=== PATIENT | male | born 1935 ===

== ENCOUNTER 2016-12-21 18:53 | Inpatient (IN) | payer MEDICARE, MEDICAID ==
[2016-12-21 18:54] VITALS: BMI 46.7
--- NOTE | 2016-12-21 19:59 | C.PDOC ---
History Of Present Illness 80 y/o male, PMHx includes Down's syndrome, [facility]. History obtained from daughter at bedside who reports the patient fell [facility] the [facility] 2 days ago (12/19/16). Daughter states patient had no pain at the time of fall but c/o pain today around the right knee. X-ray was performed, with possible distal right femur fracture. Denies head injury, fever, chills, nausea, vomiting, or other complaints. Time Seen by Provider: 12/21/16 19:58 Chief Complaint (Nursing): Lower Extremity Problem/Injury History Per: Family History/Exam Limitations: clinical condition Onset/Duration Of Symptoms: Days (2) Current Symptoms Are (Timing): Still Present Severity: Mild Pain Scale Rating Of: 4 Recent travel outside of the [place]: No Past Medical History Reviewed: Historical Data, Nursing Documentation, Vital Signs Vital Signs: Last Vital Signs Temp 98 F 12/21/16 19:31 Pulse 86 12/21/16 19:31 Resp 18 12/21/16 19:31 BP 128/53 L 12/21/16 19:31 Pulse Ox 98 12/21/16 20:47 - Medical History PMH: HTN, Hypercholesterolemia, Chronic Kidney Disease Other PMH: Down's syndrome - [facility] Procedures CHANGE DRAINAGE DEVICE IN BLADDER, EXTERNAL APPROACH (10/05/16) INSERTION OF INFUSION DEV INTO SUP VENA CAVA, PERC APPROACH (10/05/16) Family History: States: Unknown Family Hx - Social History Hx Tobacco Use: No Hx Alcohol Use: No Hx Substance Use: No - Immunization History Hx Tetanus Toxoid Vaccination: Yes Hx Influenza Vaccination: Yes Hx Pneumococcal Vaccination: Yes Review Of Systems Review Of Systems: ROS cannot be obtained secondary to pt's inabilty to answer questions. Physical Exam - Physical Exam Appears: Non-toxic, No Acute Distress Skin: Warm, Dry Chest: Symmetrical Cardiovascular: Rhythm Regular Respiratory: No Accessory Muscle Use, No Rales, No Rhonchi, No Wheezing Extremity: Tenderness (mild tenderness with movement of right knee), Capillary Refill (< 2 sec. ), No Deformity, Swelling (right knee, mild) Extremity: Bilateral: Normal Color And Temperature Pulses: Right Femoral: Normal, Right Dorsalis Pedis: Normal Neurological/Psych: Other (responds to painful stimuli R leg ) ED Course And Treatment ECG: Interpreted By Me, Viewed By Me ECG Rhythm: Nonspecific Changes O2 Sat by Pulse Oximetry: 98 (RA) Pulse Ox Interpretation: Normal - Radiology CXR: Interpreted by Me, Viewed By Me CXR Interpretation: No: Infiltrates, Fracture, Pnemothorax - Other Rad femur X-Ray: Interpreted by Me, Viewed By Me Interpretation: distal r non displaced fracture Progress Note: R femur XR, CxR, bloodwork, IVFs, Tylenol. Disposition Discussed With Dr.: Ranjan Rivero Comment: accepted the pt on his service and took over the care at 8:43 PM Doctor Will See Patient In The: Hospital Counseled Patient/Family Regarding: Studies Performed, Diagnosis - Disposition Disposition: HOSPITALIZED Disposition Time: 19:59 Condition: FAIR - POA Present On Arrival: Falls Or Trauma - Clinical Impression Clinical Impression: Fracture, femur, distal - Scribe Statement The provider has reviewed the documentation as recorded by the Scribe Jonathan Adler Provider Scribe Attestation: All medical record entries made by the Scribe were at my direction and personally dictated by me. I have reviewed the chart and agree that the record accurately reflects my personal performance of the history, physical exam, medical decision making, and the department course for this patient. I have also personally directed, reviewed, and agree with the discharge instructions and disposition. Decision To Admit - Pt Status Changed To: Hospital Disposition Of: Inpatient - Admit Certification Admit to Inpatient:: After my assessment, the patient will require hospitalization for at least two midnights. This is because of the severity of symptoms shown, intensity of services needed, and/or the medical risk in this patient being treated as an outpatient. - InPatient: Physician Admission Certification: I certify that this patient requires 2 or more midnights of care for the following reason:: After my assessment, the patient will require hospitalization for at least two midnights. This is because of the severity of symptoms shown, intensity of services needed, and/or the medical risk in this patient being treated as an outpatient. - . Bed Request Type: Regular Admitting Physician: Ranjan Rivero Patient Diagnosis: Fracture, femur, distal
[2016-12-21 20:54] LABS: CHLORIDE 90 mmol/L (98-107); SODIUM 126 mmol/L (132-148)
[2016-12-21 20:56] LABS: ALB/GLOB RATIO 0.9 (1.0-2.1); ALKALINE PHOSPHATASE 62 U/L (38-126); AST/SGOT 40 U/L (17-59); BILIRUBIN,TOTAL 0.7 mg/dL (0.2-1.3); CARBON DIOXIDE 22 mmol/L (22-30); GFR AFRICAN-AMERICAN > 60; TOTAL PROTEIN 7.1 g/dL (6.3-8.3)
[2016-12-21 20:57] LABS: ALT/SGPT 18 U/L (21-72); BLOOD UREA NITROGEN 17 mg/dL (9-20); GLUCOSE,RANDOM 167 mg/dL (75-110)
[2016-12-21] MEDS: Sodium Chloride 0.9% 1,000 ML IV SCH (21:32)
[2016-12-21 21:38] LABS: BASO # 0.1 K/uL (0.0-0.2); BASO % 0.9 % (0.0-2.0); EOS # 0.5 K/uL (0.0-0.7); EOS % 6.6 % (0.0-4.0); HEMATOCRIT 32.9 % (35.0-51.0); LYMPH # 1.3 K/uL (1.0-4.3); LYMPH % 16.1 % (20.0-40.0); MEAN CELL VOLUME 88.7 fL (80.0-94.0); MEAN CORPUSCULAR HEMOGLOBIN 28.3 pg (27.0-31.0); MEAN PLATELET VOLUME 7.7 fL (7.2-11.7); MONO # 0.8 K/uL (0.0-0.8); MONO % 10.3 % (0.0-10.0); RED CELL DISTRIBUTION WIDTH 14.3 % (11.5-14.5); WHITE BLOOD COUNT 8.2 K/uL (4.8-10.8)
[2016-12-21 21:45] LABS: INR 1.1
--- NOTE | 2016-12-22 08:22 | RAD ---
PROCEDURE: CHEST RADIOGRAPH, 1 VIEW HISTORY: Shortness of breath COMPARISON: 10/15/2016 FINDINGS: LUNGS: Mild venous congestion. Minimal patchy left basilar airspace opacity with question trace left pleural effusion. PLEURA: As above. CARDIOVASCULAR: Cardiomegaly. OSSEOUS STRUCTURES: Degenerative changes in the bilateral shoulders. VISUALIZED UPPER ABDOMEN: Normal. OTHER FINDINGS: None. IMPRESSION: Mild venous congestion. Minimal patchy left basilar airspace opacity with question trace left pleural effusion.
[2016-12-22] MEDS: Sodium Chloride 0.9% 1,000 ML IV SCH ×2 (08:36→20:00)
[2016-12-22] MEDS: Enoxaparin 30 mg Syringe SC SCH ×2 (10:31→21:22)
--- NOTE | 2016-12-22 11:41 | CP.PCM.CON ---
History of Present Illness - History of Present Illness History of Present Illness: Orthopedic consultation requested Dr. Boogie for knee pain 80M complains of right knee pain after fall 2 days ago reported by niece. She says her uncle does not complain much and has high tolerance of pain. Patient is [facility] resident, and non ambulatory. Niece says he does sit in wheelchair most of the time. He is able to answer some yes and no to questions appropriately during exam by nodding head. Review of Systems - Review of Systems Systems not reviewed;Unavailable: Other (non verbal) Past Patient History - Infectious Disease Hx of Infectious Diseases: None - Past Medical History & Family History Past Medical History?: Yes Past Family History: Reviewed and not pertinent - Past Social History Smoking Status: Never Smoked - CARDIAC Hx Hypercholesterolemia: Yes Hx Hypertension: Yes - PULMONARY Hx Respiratory Disorders: No - NEUROLOGICAL Hx Neurological Disorder: Yes Other/Comment: down syndrome,developmental delay - HEENT Hx HEENT Problems: No - RENAL Hx Chronic Kidney Disease: Yes - ENDOCRINE/METABOLIC Hx Endocrine Disorders: No - HEMATOLOGICAL/ONCOLOGICAL Hx Blood Disorders: No - INTEGUMENTARY Hx Dermatological Problems: No - MUSCULOSKELETAL/RHEUMATOLOGICAL Hx Falls: Yes - GASTROINTESTINAL Hx Gastrointestinal Disorders: No - GENITOURINARY/GYNECOLOGICAL Hx Genitourinary Disorders: Yes Hx Urinary Tract Infection: Yes (hx chronic UTI) Other/Comment: suprapubic catheter. x 1 year ,hx urinary retention - PSYCHIATRIC Hx Substance Use: No - SURGICAL HISTORY Hx Surgeries: Yes Other/Comment: hx lt nephrostomy tube - ANESTHESIA Hx Anesthesia: Yes Hx Anesthesia Reactions: No Meds Allergies/Adverse Reactions: Allergies Allergy/AdvReac Type Severity Reaction Status Date / Time ceftriaxone sodium AdvReac Severe ANAPHYLAXIS Verified 10/15/16 20:13 [From Rocephin] - Medications Medications: Current Medications Acetaminophen (Tylenol 325mg Tab) 650 mg PO Q6 PRN PRN Reason: Pain, Mild (1-3) Last Admin: 12/22/16 10:31 Dose: 650 mg Enoxaparin Sodium (Lovenox) 30 mg SC 1000,2200 [facility] Last Admin: 12/22/16 10:31 Dose: 30 mg Famotidine (Pepcid) 20 mg PO DAILY [facility] Last Admin: 12/22/16 10:31 Dose: 20 mg Sodium Chloride (Sodium Chloride 0.9%) 1,000 mls @ 100 mls/hr IV .Q10H [facility] Last Admin: 12/22/16 08:36 Dose: 100 mls/hr Losartan Potassium (Cozaar) 25 mg PO DAILY [facility] Last Admin: 12/22/16 10:30 Dose: 25 mg Physical Exam - Constitutional Appears: No Acute Distress - Head Exam Head Exam: ATRAUMATIC, NORMAL INSPECTION - Respiratory Exam Respiratory Exam: NORMAL BREATHING PATTERN - Cardiovascular Exam Additional comments: calves soft NT neg homans +DP pulse RLE - Extremities Exam Additional comments: BUE and LLE no obvious swelling/deformity/discoloration Noted mild swelling superior to right knee, TTP to same knees contracted. minimal PROM, flexed to approx 75 degrees patient not splinted in ER, splint applied at bedside, long leg anterior and posterior splints placed inclusive of ankle. toes warm, good cap refill post splinting - Neurological Exam Neurological exam: Alert - Skin Skin Exam: Dry, Intact, Normal Color, Warm Results - Vital Signs Recent Vital Signs: Last Vital Signs Temp 97.6 F 12/22/16 08:27 Pulse 74 12/22/16 08:27 Resp 18 12/22/16 08:27 BP 106/65 12/22/16 08:27 Pulse Ox 99 12/22/16 08:27 - Labs Result Diagrams: 12/21/16 21:33 12/21/16 20:39 Labs: Laboratory Results - last 24 hr 12/21/16 21:33 WBC 8.2 RBC 3.71 L Hgb 10.5 L Hct 32.9 L MCV 88.7 MCH 28.3 MCHC 32.0 L RDW 14.3 Plt Count 185 MPV 7.7 Neut % (Auto) 66.1 Lymph % (Auto) 16.1 L Ward % (Auto) 10.3 H Eos % (Auto) 6.6 H Baso % (Auto) 0.9 Neut # 5.4 Lymph # 1.3 Ward # 0.8 Eos # 0.5 Baso # 0.1 PT 12.0 INR 1.1 APTT 28 Assessment & Plan (1) Fracture of femur, distal, right, closed Status: Acute Comment: well padded long leg splint applied. Patient comfortable after splinting and denies pain. non operative per Dr. Boogie, patient non ambulatory. will attempt CT as imaging suboptimal. orthopedically stable for d /c back to [place]. keep splint dry and intact. elevate foot on pillows for comfort , keep pressure off right heel. f/u [address] Boogie, call for appointment. d/w Dr. Boogie, agrees with above Radiology Interpretation - Frame Cleaner Frame Cleaner:: Hand Picker - Study type Study type:: Plain films - Body Region Body Region:: Lower extremeties - Interpretation Interpretation:: Abnormal - Radiology Interpretation #2 Interpretation: right femur, 2 views xrays show Minimally displaced right distal femur fracture , appears intraarticular. Imaging limited due to flexion contracture. Procedures Attestation:: I certify that I have explained the specified Operation(s) or Procedure(s), risks, benefits and reasonable alternatives to the Patient and/or other person responsible. The opportunity was given to ask questions and all questions answered - Orthopedic Splinting/Casting Injury #1 Side: right Lower Extremity Injury Location: upper leg Lower Extremity Immobilizer: posterior splint (long leg posterior and anterior orthoglass splint, inclusive of ankle with DF, in position of comfort of knee approx 80 degrees)
--- NOTE | 2016-12-22 12:58 | RAD ---
PROCEDURE: Right Femur Radiographs. HISTORY: fall, attention distal 09/26 COMPARISON: None. TECHNIQUE: AP and Lateral Radiographs of the right femur. FINDINGS: FEMUR: Likely extending to the intercondylar notch. Advanced degenerative changes at the right knee. SOFT TISSUES: Normal. OTHER FINDINGS: None. IMPRESSION: Nondisplaced fracture at the distal right femur shaft extending to the intercondylar notch. Advanced degenerative changes at the right knee and possible right knee joint effusion.
[2016-12-22 16:37] VITALS: RESP 20
--- NOTE | 2016-12-22 17:25 | CT ---
PROCEDURE: CT right lower extremity HISTORY: right distal femur fracture COMPARISON: Not available TECHNIQUE: 2.5 mm contiguous axial sections were acquired through the right lower extremity from the pelvis to the proximal tibia. Sagittal and coronal images were reformatted from the axial scan. Total exam DLP: 1236.13 mGy-cm. This CT exam was performed using 1 or more of the following dose reduction techniques: Automated exposure control, adjustment of the mA and/or kV according to patient size, and/or use of iterative reconstruction technique. FINDINGS: There is an oblique nondisplaced comminuted intra-articular fracture of the distal femur. The major portion of the fracture extends through the medial condyles and at the condyles. There is also extension of the fracture along the anterior cortical surface of the distal femur to the right lateral condyles. There is minimal displacement. There is no other fracture identified. The hip is intact. The proximal tibia and fibula appear intact. There is minimal suprapatellar bursal effusion. IMPRESSION: Non displaced oblique comminuted intra-articular fracture distal right femur.
--- NOTE | 2016-12-23 | CP.PCM.HP ---
History of Present Illness - History of Present Illness History of Present Illness: Cheif complain: fall and pain in Right LE HPI: 80 y/o hispnic male, PMHx includes Down's syndrome, HTN, obstructive uropathy with suprapubuc cystostomy who is a current resident of [facility], [facility]. History obtained from daughter at bedside who reports the patient [facility] 2 days ago (12/19/16) . Daughter states patient had no pain at the time of fall but c/o pain today around the right knee. X-ray was performed, with possible distal right femur fracture. Denies head injury, fever, chills, nausea, vomiting, or other complaints Present on Admission - Present on Admission Any Indicators Present on Admission: No Review of Systems - Review of Systems Systems not reviewed;Unavailable: Acuity of Condition Review of Systems: pt is non verbal, no apparent shortness of breath, nausea, vomitting, duarhea, no urinary or bowerl symptoms, no seizure like activity Past Patient History - Infectious Disease Hx of Infectious Diseases: None - Past Medical History & Family History Past Medical History?: Yes Past Family History: Reviewed and not pertinent - Past Social History Smoking Status: Never Smoked - CARDIAC Hx Hypercholesterolemia: Yes Hx Hypertension: Yes - PULMONARY Hx Respiratory Disorders: No - NEUROLOGICAL Hx Neurological Disorder: Yes Other/Comment: down syndrome,developmental delay - HEENT Hx HEENT Problems: No - RENAL Hx Chronic Kidney Disease: Yes - ENDOCRINE/METABOLIC Hx Endocrine Disorders: No - HEMATOLOGICAL/ONCOLOGICAL Hx Blood Disorders: No - INTEGUMENTARY Hx Dermatological Problems: No - MUSCULOSKELETAL/RHEUMATOLOGICAL Hx Falls: Yes - GASTROINTESTINAL Hx Gastrointestinal Disorders: No - GENITOURINARY/GYNECOLOGICAL Hx Genitourinary Disorders: Yes Hx Urinary Tract Infection: Yes (hx chronic UTI) Other/Comment: suprapubic catheter. x 1 year ,hx urinary retention - PSYCHIATRIC Hx Substance Use: No - SURGICAL HISTORY Hx Surgeries: Yes Other/Comment: hx lt nephrostomy tube - ANESTHESIA Hx Anesthesia: Yes Hx Anesthesia Reactions: No Meds Allergies/Adverse Reactions: Allergies Allergy/AdvReac Type Severity Reaction Status Date / Time ceftriaxone sodium AdvReac Severe ANAPHYLAXIS Verified 02/05/17 21:29 [From Rocephin] Physical Exam - Constitutional Appears: No Acute Distress Additional comments: non verbal - Eye Exam Eye Exam: EOMI, Normal appearance, PERRL Pupil Exam: NORMAL ACCOMODATION, PERRL - Respiratory Exam Respiratory Exam: Clear to Auscultation Bilateral, NORMAL BREATHING PATTERN - Cardiovascular Exam Cardiovascular Exam: REGULAR RHYTHM - GI/Abdominal Exam GI & Abdominal Exam: Normal Bowel Sounds, Soft. absent: Tenderness - Exam Additional comments: suprapub nephrostomy clean site Results - Vital Signs Recent Vital Signs: Last Vital Signs Temp 97.4 F L 12/22/16 16:00 Pulse 66 12/22/16 16:00 Resp 20 12/22/16 16:00 BP 91/58 L 12/22/16 16:00 Pulse Ox 97 12/22/16 16:00 - Labs Result Diagrams: 12/23/16 13:39 12/23/16 13:39 Assessment & Plan (1) Down's syndrome Status: Acute (2) Fracture of femur, distal, right, closed Status: Acute
[2016-12-23] MEDS: Sodium Chloride 0.9% 1,000 ML IV SCH (02:15)
[2016-12-23] MEDS: Enoxaparin 30 mg Syringe SC SCH ×2 (10:40→21:24)
[2016-12-23 13:50] LABS: BASO # 0.1 K/uL (0.0-0.2); BASO % 1.2 % (0.0-2.0); EOS # 0.4 K/uL (0.0-0.7); EOS % 6.6 % (0.0-4.0); HEMATOCRIT 30.8 % (35.0-51.0); LYMPH # 1.4 K/uL (1.0-4.3); LYMPH % 21.9 % (20.0-40.0); MEAN CORPUSCULAR HEMOGLOBIN 28.8 pg (27.0-31.0); MEAN CORPUSCULAR HGB CONC 31.9 g/dL (33.0-37.0); MEAN PLATELET VOLUME 7.6 fL (7.2-11.7); MONO # 0.6 K/uL (0.0-0.8); MONO % 8.9 % (0.0-10.0); NRBC % 0.1 % (0.0-2.0); RED CELL DISTRIBUTION WIDTH 14.5 % (11.5-14.5); WHITE BLOOD COUNT 6.5 K/uL (4.8-10.8)
[2016-12-23 14:11] LABS: CHLORIDE 95 mmol/L (98-107); SODIUM 131 mmol/L (132-148)
[2016-12-23 14:12] LABS: POTASSIUM 4.2 mmol/L (3.6-5.2)
[2016-12-23 14:14] LABS: BLOOD UREA NITROGEN 10 mg/dL (9-20); CARBON DIOXIDE 29 mmol/L (22-30); GFR AFRICAN-AMERICAN > 60
[2016-12-23 14:15] LABS: CALCIUM 7.7 mg/dl (8.6-10.4); GLUCOSE,RANDOM 102 mg/dL (75-110)
--- NOTE | 2016-12-23 17:40 | CP.PCM.PN ---
Subjective - Date & Time of Evaluation Date of Evaluation: 12/23/16 Time of Evaluation: 11:00 - Subjective Subjective: awake, follows commands, no acute distress. Objective - Vital Signs/Intake and Output Vital Signs (last 24 hours): Temp Pulse Resp BP Pulse Ox 98.4 F 74 20 104/59 L 99 12/23/16 15:25 12/23/16 15:25 12/23/16 15:25 12/23/16 15:25 12/23/16 15:25 Intake and Output: 12/23/16 12/23/16 06:59 18:59 Intake Total 1900 Output Total 1500 600 Balance 400 -600 - Medications Medications: Current Medications Acetaminophen (Tylenol 325mg Tab) 650 mg PO Q6 PRN PRN Reason: Pain, Mild (1-3) Last Admin: 12/22/16 10:31 Dose: 650 mg Enoxaparin Sodium (Lovenox) 30 mg SC 1000,2200 [facility] Last Admin: 12/23/16 10:40 Dose: 30 mg Famotidine (Pepcid) 20 mg PO DAILY [facility] Last Admin: 12/23/16 10:40 Dose: 20 mg Losartan Potassium (Cozaar) 25 mg PO DAILY [facility] Last Admin: 12/23/16 10:40 Dose: 25 mg - Labs Labs: 12/23/16 13:39 12/23/16 13:39 PT 12.0 SECONDS (9.7-12.2) 12/21/16 21:33 INR 1.1 12/21/16 21:33 APTT 28 SECONDS (21-34) 12/21/16 21:33 Assessment and Plan - Assessment and Plan (Free Text) Assessment: Patient is seen and examined, awake, denies acute pain. Non operable, kept right leg with splint , elevated on pillows for comfort. Cleared by ortho for discharge back to senior living, need to f/u with ortho in 2 weeks. Family verbalized understanding.
[2016-12-24] MEDS: Enoxaparin 30 mg Syringe SC SCH ×2 (11:46→22:04)
--- NOTE | 2016-12-24 23:35 | CP.PCM.PN ---
Subjective - Date & Time of Evaluation Date of Evaluation: 12/23/16 Time of Evaluation: 09:50 - Subjective Subjective: Pt seen & evaluated at bedside, non verbal, Not in any distress Objective - Vital Signs/Intake and Output Vital Signs (last 24 hours): Temp Pulse Resp BP Pulse Ox 98.3 F 72 20 102/68 98 12/24/16 16:40 12/24/16 16:40 12/24/16 16:40 12/24/16 16:40 12/24/16 16:40 Intake and Output: 12/24/16 12/25/16 18:59 06:59 Intake Total 400 Output Total 925 850 Balance -925 -450 - Medications Medications: Current Medications Acetaminophen (Tylenol 325mg Tab) 650 mg PO Q6 PRN PRN Reason: Pain, Mild (1-3) Last Admin: 12/22/16 10:31 Dose: 650 mg Enoxaparin Sodium (Lovenox) 30 mg SC 1000,2200 [facility] Last Admin: 12/24/16 22:04 Dose: 30 mg Famotidine (Pepcid) 20 mg PO DAILY [facility] Last Admin: 12/24/16 11:46 Dose: 20 mg Losartan Potassium (Cozaar) 25 mg PO DAILY [facility] Last Admin: 12/24/16 11:46 Dose: 25 mg - Labs Labs: 12/23/16 13:39 12/23/16 13:39 PT 12.0 SECONDS (9.7-12.2) 12/21/16 21:33 INR 1.1 12/21/16 21:33 APTT 28 SECONDS (21-34) 12/21/16 21:33 - Constitutional Appears: No Acute Distress - Head Exam Head Exam: ATRAUMATIC, NORMAL INSPECTION, NORMOCEPHALIC - Eye Exam Eye Exam: EOMI, Normal appearance, PERRL Pupil Exam: NORMAL ACCOMODATION, PERRL - Respiratory Exam Respiratory Exam: Clear to Ausculation Bilateral, NORMAL BREATHING PATTERN - Cardiovascular Exam Cardiovascular Exam: REGULAR RHYTHM, +S1, +S2. absent: Murmur - GI/Abdominal Exam GI & Abdominal Exam: Soft, Normal Bowel Sounds. absent: Tenderness Assessment and Plan (1) Down's syndrome Status: Acute (2) Fracture of femur, distal, right, closed Status: Acute
--- NOTE | 2016-12-24 23:55 | CP.PCM.PN ---
Subjective - Date & Time of Evaluation Date of Evaluation: 12/24/16 Time of Evaluation: 09:52 - Subjective Subjective: Pt seen & evaluated, is doing better, is waiting for insurance approval for care home placement, otherwise is stable for discharge Objective - Vital Signs/Intake and Output Vital Signs (last 24 hours): Temp Pulse Resp BP Pulse Ox 98.3 F 72 20 102/68 98 12/24/16 16:40 12/24/16 16:40 12/24/16 16:40 12/24/16 16:40 12/24/16 16:40 Intake and Output: 12/24/16 12/25/16 18:59 06:59 Intake Total 400 Output Total 925 850 Balance -925 -450 - Medications Medications: Current Medications Acetaminophen (Tylenol 325mg Tab) 650 mg PO Q6 PRN PRN Reason: Pain, Mild (1-3) Last Admin: 12/22/16 10:31 Dose: 650 mg Enoxaparin Sodium (Lovenox) 30 mg SC 1000,2200 [facility] Last Admin: 12/24/16 22:04 Dose: 30 mg Famotidine (Pepcid) 20 mg PO DAILY [facility] Last Admin: 12/24/16 11:46 Dose: 20 mg Losartan Potassium (Cozaar) 25 mg PO DAILY [facility] Last Admin: 12/24/16 11:46 Dose: 25 mg - Labs Labs: 12/23/16 13:39 12/23/16 13:39 PT 12.0 SECONDS (9.7-12.2) 12/21/16 21:33 INR 1.1 12/21/16 21:33 APTT 28 SECONDS (21-34) 12/21/16 21:33 - Constitutional Appears: No Acute Distress, Confused - Eye Exam Eye Exam: EOMI, Normal appearance, PERRL Pupil Exam: NORMAL ACCOMODATION, PERRL - Respiratory Exam Respiratory Exam: Clear to Ausculation Bilateral, NORMAL BREATHING PATTERN - Cardiovascular Exam Cardiovascular Exam: REGULAR RHYTHM, +S1, +S2. absent: Murmur - GI/Abdominal Exam GI & Abdominal Exam: Soft, Normal Bowel Sounds. absent: Tenderness Assessment and Plan (1) Down's syndrome Status: Acute (2) Fracture of femur, distal, right, closed Status: Acute
[2016-12-25] MEDS: Enoxaparin 30 mg Syringe SC SCH (10:50)
--- NOTE | 2016-12-25 10:59 | CP.PCM.PN ---
Subjective - Date & Time of Evaluation Date of Evaluation: 12/25/16 Time of Evaluation: 10:56 - Subjective Subjective: Patient states he has no pain at this time. Nods yes when asked if he is ok, and no when asked if he needs anything. Review of Systems - Review of Systems Systems not reviewed;Unavailable: Other Review of Systems: patient nods but is non verbal Objective - Vital Signs/Intake and Output Vital Signs (last 24 hours): Temp Pulse Resp BP Pulse Ox 98.4 F 74 20 99/63 L 100 12/25/16 08:54 12/25/16 08:54 12/25/16 08:54 12/25/16 08:54 12/25/16 08:54 Intake and Output: 12/25/16 12/25/16 06:59 18:59 Intake Total 640 Output Total 1750 Balance -1110 - Medications Medications: Current Medications Acetaminophen (Tylenol 325mg Tab) 650 mg PO Q6 PRN PRN Reason: Pain, Mild (1-3) Last Admin: 12/22/16 10:31 Dose: 650 mg Enoxaparin Sodium (Lovenox) 30 mg SC 1000,2200 [facility] Last Admin: 12/25/16 10:50 Dose: 30 mg Famotidine (Pepcid) 20 mg PO DAILY [facility] Last Admin: 12/25/16 10:51 Dose: 20 mg Losartan Potassium (Cozaar) 25 mg PO DAILY [facility] Last Admin: 12/25/16 10:51 Dose: Not Given - Labs Labs: 12/23/16 13:39 12/23/16 13:39 PT 12.0 SECONDS (9.7-12.2) 12/21/16 21:33 INR 1.1 12/21/16 21:33 APTT 28 SECONDS (21-34) 12/21/16 21:33 - Constitutional Appears: Well, No Acute Distress - Cardiovascular Exam Additional comments: toes warm to B/L feet calves soft NT neg homans to left leg - Extremities Exam Additional comments: patient admits to sensation to foot DP/SP, med/lat plant toes warm splint intact, leg elevated - Neurological Exam Neuro motor strength exam: Right Lower Extremity: 0 (patient doesn't move toes to either foot on command, only moves fingers even when further instructions given) Assessment and Plan (1) Fracture of femur, distal, right, closed Assessment & Plan: non operative per Dr. Boogie continue splint keep dry and intact keep leg elevated on pillows for patient comfort orthopedically stable for d/c back to [place] f/u 1-2 weeks, call for appointment [phone] d/w Dr. Boogie, agrees with above Status: Acute
[2016-12-25 16:24] VITALS: BP 90/50; PULSE 72; TEMP 98.5; O2SAT 99
--- NOTE | 2016-12-26 00:09 | CP.PCM.DIS ---
Provider - Provider Date of Admission: 12/21/16 20:45 Attending physician: Ranjan Rivero MD Time Spent in preparation of Discharge (in minutes): 30 Diagnosis - Discharge Diagnosis (1) Down's syndrome Status: Acute (2) Fracture of femur, distal, right, closed Status: Acute Hospital Course - Lab Results Lab Results: Most Recent Lab Values WBC 6.5 K/uL (4.8-10.8) 12/23/16 13:39 RBC 3.43 Mil/uL (4.40-5.90) L 12/23/16 13:39 Hgb 9.9 g/dL (12.0-18.0) L 12/23/16 13:39 Hct 30.8 % (35.0-51.0) L 12/23/16 13:39 MCV 90.0 fL (80.0-94.0) 12/23/16 13:39 MCH 28.8 pg (27.0-31.0) 12/23/16 13:39 MCHC 31.9 g/dL (33.0-37.0) L 12/23/16 13:39 RDW 14.5 % (11.5-14.5) 12/23/16 13:39 Plt Count 207 K/uL (130-400) 12/23/16 13:39 MPV 7.6 fL (7.2-11.7) 12/23/16 13:39 Neut % (Auto) 61.4 % (50.0-75.0) 12/23/16 13:39 Lymph % (Auto) 21.9 % (20.0-40.0) 12/23/16 13:39 Sibley % (Auto) 8.9 % (0.0-10.0) 12/23/16 13:39 Eos % (Auto) 6.6 % (0.0-4.0) H 12/23/16 13:39 Baso % (Auto) 1.2 % (0.0-2.0) 12/23/16 13:39 Neut # 4.0 K/uL (1.8-7.0) 12/23/16 13:39 Lymph # 1.4 K/uL (1.0-4.3) 12/23/16 13:39 Sibley # 0.6 K/uL (0.0-0.8) 12/23/16 13:39 Eos # 0.4 K/uL (0.0-0.7) 12/23/16 13:39 Baso # 0.1 K/uL (0.0-0.2) 12/23/16 13:39 PT 12.0 SECONDS (9.7-12.2) 12/21/16 21:33 INR 1.1 12/21/16 21:33 APTT 28 SECONDS (21-34) 12/21/16 21:33 Sodium 131 mmol/L (132-148) L 12/23/16 13:39 Potassium 4.2 mmol/L (3.6-5.2) 12/23/16 13:39 Chloride 95 mmol/L (98-107) L 12/23/16 13:39 Carbon Dioxide 29 mmol/L (22-30) 12/23/16 13:39 Anion Gap 12 (10-20) 12/23/16 13:39 BUN 10 mg/dL (9-20) 12/23/16 13:39 Creatinine 0.8 MG/DL (0.8-1.5) 12/23/16 13:39 Est GFR ( Amer) > 60 12/23/16 13:39 Est GFR (Non-Af Amer) > 60 12/23/16 13:39 Random Glucose 102 mg/dL (75-110) 12/23/16 13:39 Calcium 7.7 mg/dl (8.6-10.4) L 12/23/16 13:39 Total Bilirubin 0.7 mg/dL (0.2-1.3) 12/21/16 20:39 AST 40 U/L (17-59) 12/21/16 20:39 ALT 18 U/L (21-72) L D 12/21/16 20:39 Alkaline Phosphatase 62 U/L (38-126) 12/21/16 20:39 Total Protein 7.1 g/dL (6.3-8.3) 12/21/16 20:39 Albumin 3.3 g/dL (3.5-5.0) L 12/21/16 20:39 Globulin 3.8 gm/dL (2.2-3.9) 12/21/16 20:39 Albumin/Globulin Ratio 0.9 (1.0-2.1) L 12/21/16 20:39 - Hospital Course Hospital Course: Pt is discharged to [facility], is feeling better, denies any complains Discharge Exam - Head Exam Head Exam: ATRAUMATIC, NORMAL INSPECTION, NORMOCEPHALIC - Eye Exam Eye Exam: EOMI, Normal appearance, PERRL Pupil Exam: NORMAL ACCOMODATION, PERRL - ENT Exam ENT Exam: Mucous Membranes Moist - Respiratory Exam Respiratory Exam: Clear to PA & Lateral, NORMAL BREATHING PATTERN - Cardiovascular Exam Cardiovascular Exam: REGULAR RHYTHM, +S1, +S2 - GI/Abdominal Exam GI & Abdominal Exam: Normal Bowel Sounds Discharge Plan - Follow Up Plan Condition: FAIR Disposition: REHAB FACILITY/REHAB UNIT Instructions: Leg Fracture (DC), Complete Blenderized Diet (DC), Splint Care ( DC) Additional Instructions: Follow up with Dr Howard' office on Friday 12/29. His office number is . Referrals: Ny Howard MD [Staff Provider] - Ranjan Rivero MD [Staff Provider] -
== END 2016-12-25 16:20 | DRG 534 ==
LOC: C.ER 18:53 → C.6T 20:45
PROVIDERS: ADMIT Internal Medicine; ATTEND Internal Medicine
DX: S72.401A Unspecified fracture of lower end of right femur, initial encounter for closed fracture (principal); I12.9 Hypertensive chronic kidney disease with stage 1 through stage 4 chronic kidney disease, or unspecified chronic kidney disease; W18.30XA Fall on same level, unspecified, initial encounter; Q90.9 Down syndrome, unspecified; E78.00 Pure hypercholesterolemia, unspecified; N18.9 Chronic kidney disease, unspecified; Z87.440 Personal history of urinary (tract) infections

== ENCOUNTER 2017-02-05 21:11 | Inpatient (IN) | payer MEDICARE, MEDICAID ==
[2017-02-05 21:12] VITALS: BMI 46.7
[2017-02-05] MEDS ORDERED: Aspirin 325 mg EC Tablets PO STA (21:32)
--- NOTE | 2017-02-05 21:32 | C.PDOC ---
History Of Present Illness Patient is brought to the ED by [facility] for a fever since yesterday and chest pain. Patient had a chest x-ray done which showed bilateral lower lobes atelectasis. Patient has a history of Down's Syndrome. Patient's history was obtained from the [facility] and mother at bedside. Time Seen by Provider: 02/05/17 21:31 Chief Complaint (Nursing): Chest Pain History Per: EMS, Family (mother) History/Exam Limitations: clinical condition Onset/Duration Of Symptoms: Days (yesterday) Current Symptoms Are (Timing): Still Present Context: Other Severity: Mild Pain Scale Rating Of: 3 Quality: "Pain" Exacerbating Factors: None Alleviating Factors: None Recent travel outside of the [place]: No Additional History Per: [facility] Past Medical History Reviewed: Historical Data, Nursing Documentation, Vital Signs Vital Signs: Last Vital Signs Temp 100.8 F H 02/05/17 21:23 Pulse 100 H 02/05/17 21:23 Resp 18 02/05/17 21:23 BP 139/64 02/05/17 21:23 Pulse Ox 97 02/05/17 21:50 - Medical History PMH: HTN, Hypercholesterolemia, Chronic Kidney Disease - [facility] Procedures CHANGE DRAINAGE DEVICE IN BLADDER, EXTERNAL APPROACH (10/05/16) INSERTION OF INFUSION DEV INTO SUP VENA CAVA, PERC APPROACH (10/05/16) Family History: States: Unknown Family Hx - Social History Hx Tobacco Use: No Hx Alcohol Use: No Hx Substance Use: No - Immunization History Hx Tetanus Toxoid Vaccination: Yes Hx Influenza Vaccination: Yes Hx Pneumococcal Vaccination: Yes Review Of Systems Constitutional: Positive for: Fever Cardiovascular: Positive for: Chest Pain Physical Exam - Physical Exam Appears: Non-toxic, No Acute Distress Skin: Warm, Dry Head: Atraumatic, Normacephalic Eye(s): bilateral: EOMI Oral Mucosa: Moist Neck: Trachea Midline, Supple Chest: Symmetrical Cardiovascular: Rhythm Regular Respiratory: No Rales, Rhonchi (scattered), No Wheezing Gastrointestinal/Abdominal: Bowel Sounds (good), Soft, No Tenderness, No Guarding, No Rebound Back: No CVA Tenderness Extremity: No Tenderness Extremity: Bilateral: Normal Color And Temperature Neurological/Psych: Other (awake, alert and oriented x2) Disoriented To: Place Gait: Unable To Assess ED Course And Treatment - Laboratory Results Result Diagrams: 02/05/17 21:40 02/05/17 21:32 ECG: Interpreted By Me, Viewed By Me ECG Rhythm: Sinus Rhythm (100), R BBB, Nonspecific Changes (lahb) O2 Sat by Pulse Oximetry: 97 (room air) Pulse Ox Interpretation: Normal - Radiology CXR: Interpreted by Me, Viewed By Me Progress Note: Plan: Labs, EKG, Chest x-ray, Ecotrin Disposition Discussed With Dr.: Ranjan Rivero Comment: accepted the pt on his service and took over the care at 10:26 PM Doctor Will See Patient In The: Hospital Counseled Patient/Family Regarding: Studies Performed, Diagnosis - Disposition Disposition: HOSPITALIZED Disposition Time: 21:31 Condition: FAIR - POA Present On Arrival: Poor Glycemic Control - Clinical Impression Clinical Impression: UTI (urinary tract infection), Hyponatremia syndrome, Down's syndrome, Congestive heart failure - Scribe Statement The provider has reviewed the documentation as recorded by the Scribe Francisca Mercer Provider Attestation: All medical record entries made by the Scribe were at my direction and personally dictated by me. I have reviewed the chart and agree that the record accurately reflects my personal performance of the history, physical exam, medical decision making, and the department course for this patient. I have also personally directed, reviewed, and agree with the discharge instructions and disposition. Decision To Admit - Pt Status Changed To: Hospital Disposition Of: Inpatient - Admit Certification Admit to Inpatient:: After my assessment, the patient will require hospitalization for at least two midnights. This is because of the severity of symptoms shown, intensity of services needed, and/or the medical risk in this patient being treated as an outpatient. - InPatient: Physician Admission Certification: I certify that this patient requires 2 or more midnights of care for the following reason:: After my assessment, the patient will require hospitalization for at least two midnights. This is because of the severity of symptoms shown, intensity of services needed, and/or the medical risk in this patient being treated as an outpatient. - . Bed Request Type: Regular Admitting Physician: Ranjan Rivero Patient Diagnosis: UTI (urinary tract infection), Down's syndrome, Congestive heart failure, Hyponatremia syndrome
[2017-02-05] MEDS ORDERED: Aspirin 325 mg EC Tablets PO ONE (21:37)
[2017-02-05 21:51] LABS: BASO % 0.4 % (0.0-2.0); EOS # 0.1 K/uL (0.0-0.7); HEMATOCRIT 33.6 % (35.0-51.0); LYMPH # 0.7 K/uL (1.0-4.3); MEAN CELL VOLUME 86.7 fL (80.0-94.0); MEAN CORPUSCULAR HEMOGLOBIN 28.7 pg (27.0-31.0); MEAN CORPUSCULAR HGB CONC 33.1 g/dL (33.0-37.0); MEAN PLATELET VOLUME 7.5 fL (7.2-11.7); MONO # 0.7 K/uL (0.0-0.8); MONO % 9.5 % (0.0-10.0); NRBC % 0.1 % (0.0-2.0); PLATELET COUNT 176 K/uL (130-400); RED CELL DISTRIBUTION WIDTH 13.9 % (11.5-14.5); WHITE BLOOD COUNT 7.7 K/uL (4.8-10.8)
[2017-02-05 22:00] LABS: CHLORIDE 86 mmol/L (98-107)
[2017-02-05 22:01] LABS: POTASSIUM 4.4 mmol/L (3.6-5.2); SODIUM 122 mmol/L (132-148)
[2017-02-05 22:02] LABS: INR 1.2
[2017-02-05 22:03] LABS: ALB/GLOB RATIO 0.9 (1.0-2.1); ALKALINE PHOSPHATASE 78 U/L (38-126); AST/SGOT 41 U/L (17-59); BILIRUBIN,TOTAL 0.8 mg/dL (0.2-1.3); BLOOD UREA NITROGEN 18 mg/dL (9-20); CARBON DIOXIDE 28 mmol/L (22-30); GFR AFRICAN-AMERICAN > 60; TOTAL PROTEIN 7.2 g/dL (6.3-8.3)
[2017-02-05 22:04] LABS: ALT/SGPT 30 U/L (21-72); CALCIUM 7.8 mg/dl (8.6-10.4); GLUCOSE,RANDOM 204 mg/dL (75-110)
[2017-02-05] MEDS ORDERED: Sodium Chloride 0.9% 1,000 ML IV ONE (22:05)
[2017-02-05 22:18] LABS: RBC URINE 41 /hpf (0-3); URINE BACTERIA FEW (<OCC); URINE BILIRUBIN NEGATIVE (NEGATIVE); URINE BLOOD 1+ (NEGATIVE); URINE COLOR Yellow (YELLOW); URINE GLUCOSE (UA) NORMAL (Normal); URINE KETONE NEGATIVE (NEGATIVE); URINE LEUKOCYTE ESTERASE 3+ Leu/uL (Negative); URINE PROTEIN 2+ mg/dL (NEGATIVE); URINE UROBILINOGEN NORMAL mg/dL (0.2-1.0); WBC URINE 43 /hpf (0-5)
[2017-02-05] MEDS ORDERED: Moxifloxacin IV 400mg/250ml NS 400 MG/250 ML BAG IVPB ONE ×2 (22:22→22:40)
[2017-02-05] MEDS ORDERED: Magnesium Hydroxide Susp 30 ml UD PO PRN (22:31)
[2017-02-05] MEDS ORDERED: Sodium Chloride 0.9% 1,000 ML ONE (22:40)
[2017-02-05] MEDS ORDERED: Ciprofloxacin 400mg/200ml D5W 400 MG/200 ML BAG IVPB ONE (23:01)
[2017-02-05] MEDS ORDERED: Dextrose 5%/0.45% NS 1,000 ML IV SCH (23:30)
[2017-02-05 23:53] LABS: EOSINOPHIL 3 % (0-4); NEUTROPHIL 71 % (50-75); REACTIVE LYMPHOCYTES 1 % (0-0); TOTAL CELLS COUNTED 100
[2017-02-05] MEDS: Ciprofloxacin 400mg/200ml D5W 400 MG/200 ML BAG IVPB SCH (23:53)
[2017-02-06] MEDS ORDERED: Dextrose 5%/0.45% NS 1,000 ML IV ONE (03:12)
[2017-02-06] MEDS ORDERED: FOLIC ACID PO SCH (10:00)
[2017-02-06] MEDS ORDERED: HYPROMELLOSE OP SCH (10:00)
[2017-02-06] MEDS ORDERED: Losartan 12.5 MG TAB PO SCH (10:00)
[2017-02-06] MEDS ORDERED: DEXTRAN OP SCH (10:00)
[2017-02-06] MEDS ORDERED: MV IRON MIN PO SCH (10:00)
[2017-02-06] MEDS: Enoxaparin 30 mg Syringe SC SCH (10:35)
[2017-02-06] MEDS: Multiple Vitamins Tab PO SCH (10:45)
[2017-02-06] MEDS: Aritificial Tears (15ml) OU SCH ×2 (10:47→17:56)
--- NOTE | 2017-02-06 10:50 | CP.PCM.HP ---
History of Present Illness - History of Present Illness History of Present Illness: Patient is [facility] for a fever since yesterday and chest pain. Patient had a chest x-ray done which showed bilateral lower lobes atelectasis. Patient has a history of Down's Syndrome. Patient's history was obtained from the [facility] and mother at bedside. Present on Admission - Present on Admission Any Indicators Present on Admission: No Review of Systems - Review of Systems Systems not reviewed;Unavailable: Acuity of Condition Review of Systems: pt of down syndrome mentally retarted - Constitutional Constitutional: Fatigue, Lethargy - Respiratory Respiratory: Cough - Gastrointestinal Gastrointestinal: absent: As Per HPI, Abdominal Pain, Belching, Bloating, Change in Bowel Habits, Change in Stool Character, Coffee Ground Emesis, Constipation, Cramping, Diarrhea, Dyspepsia, Dysphagia, Early Satiety, Excessive Flatus, Fecal Incontinence, Heartburn, Hematemesis, Hematochezia, Loose Stools, Melena, Nausea, Odynophagia, Temesmus, Vomiting, Other Past Patient History - Infectious Disease Hx of Infectious Diseases: None - Past Medical History & Family History Past Medical History?: Yes - Past Social History Smoking Status: Never Smoked - CARDIAC Hx Hypercholesterolemia: Yes Hx Hypertension: Yes - PULMONARY Hx Respiratory Disorders: No - NEUROLOGICAL Hx Neurological Disorder: Yes Other/Comment: down syndrome,developmental delay - HEENT Hx HEENT Problems: No - RENAL Hx Chronic Kidney Disease: Yes - ENDOCRINE/METABOLIC Hx Endocrine Disorders: No - HEMATOLOGICAL/ONCOLOGICAL Hx Blood Disorders: No - INTEGUMENTARY Hx Dermatological Problems: No - MUSCULOSKELETAL/RHEUMATOLOGICAL Hx Falls: Yes - GASTROINTESTINAL Hx Gastrointestinal Disorders: No - GENITOURINARY/GYNECOLOGICAL Hx Genitourinary Disorders: Yes Hx Urinary Tract Infection: Yes (hx chronic UTI) Other/Comment: suprapubic catheter. x 1 year ,hx urinary retention - PSYCHIATRIC Hx Substance Use: No - SURGICAL HISTORY Hx Surgeries: Yes Other/Comment: hx lt nephrostomy tube - ANESTHESIA Hx Anesthesia: Yes Hx Anesthesia Reactions: No Meds Allergies/Adverse Reactions: Allergies Allergy/AdvReac Type Severity Reaction Status Date / Time ceftriaxone sodium AdvReac Severe ANAPHYLAXIS Verified 02/05/17 21:29 [From Rocephin] Physical Exam - Constitutional Appears: No Acute Distress - Head Exam Head Exam: ATRAUMATIC, NORMAL INSPECTION, NORMOCEPHALIC - Eye Exam Eye Exam: EOMI, Normal appearance, PERRL Pupil Exam: NORMAL ACCOMODATION, PERRL - Respiratory Exam Respiratory Exam: Decreased Breath Sounds, Rales - Cardiovascular Exam Cardiovascular Exam: REGULAR RHYTHM - GI/Abdominal Exam GI & Abdominal Exam: Normal Bowel Sounds, Soft. absent: Tenderness Results - Vital Signs Recent Vital Signs: Last Vital Signs Temp 97.6 F 02/06/17 08:42 Pulse 72 02/06/17 08:42 Resp 20 02/06/17 08:42 BP 126/64 02/06/17 08:42 Pulse Ox 2 L 02/06/17 08:42 - Labs Result Diagrams: 02/17/17 06:48 02/17/17 06:48 Assessment & Plan (1) Congestive heart failure Status: Acute (2) Down's syndrome Status: Acute (3) Dehydration Status: Acute
[2017-02-06] MEDS: Ciprofloxacin 400mg/200ml D5W 400 MG/200 ML BAG IVPB SCH ×2 (10:57→23:07)
[2017-02-06] MEDS: Sodium Chloride 0.9% 1,000 ML IV SCH ×2 (10:58→22:32)
--- NOTE | 2017-02-06 12:04 | RAD ---
PROCEDURE: CHEST RADIOGRAPH, 1 VIEW HISTORY: chest pain COMPARISON: 12/21/2016 FINDINGS: LUNGS: Mild venous congestion. Patchy left basilar airspace opacity with question trace left pleural effusion. PLEURA: As above. CARDIOVASCULAR: Cardiomegaly. OSSEOUS STRUCTURES: Degenerative changes in the spine and shoulders. VISUALIZED UPPER ABDOMEN: Normal. OTHER FINDINGS: None. IMPRESSION: Mild venous congestion. Patchy left basilar airspace opacity with question trace left pleural effusion.
[2017-02-06 18:58] LABS: CHLORIDE 89 mmol/L (98-107); POTASSIUM 4.1 mmol/L (3.6-5.2); SODIUM 125 mmol/L (132-148)
[2017-02-06 19:00] LABS: GFR AFRICAN-AMERICAN > 60
[2017-02-06 19:01] LABS: BLOOD UREA NITROGEN 15 mg/dL (9-20); CALCIUM 7.9 mg/dl (8.6-10.4); CARBON DIOXIDE 30 mmol/L (22-30); GLUCOSE,RANDOM 119 mg/dL (75-110)
[2017-02-07] MEDS: Sodium Chloride 0.9% 1,000 ML IV SCH ×2 (03:11→18:50)
[2017-02-07 09:05] LABS: BASO # 0.1 K/uL (0.0-0.2); EOS # 0.3 K/uL (0.0-0.7); EOS % 4.8 % (0.0-4.0); HEMATOCRIT 32.3 % (35.0-51.0); LYMPH # 0.9 K/uL (1.0-4.3); LYMPH % 14.9 % (20.0-40.0); MEAN CELL VOLUME 86.9 fL (80.0-94.0); MEAN CORPUSCULAR HEMOGLOBIN 28.5 pg (27.0-31.0); MEAN CORPUSCULAR HGB CONC 32.8 g/dL (33.0-37.0); MEAN PLATELET VOLUME 7.1 fL (7.2-11.7); MONO % 17.3 % (0.0-10.0); WHITE BLOOD COUNT 5.9 K/uL (4.8-10.8)
[2017-02-07 09:11] LABS: CHLORIDE 95 mmol/L (98-107); POTASSIUM 4.4 mmol/L (3.6-5.2); SODIUM 127 mmol/L (132-148)
[2017-02-07 09:13] LABS: GFR AFRICAN-AMERICAN > 60
[2017-02-07 09:14] LABS: ALB/GLOB RATIO 0.8 (1.0-2.1); ALKALINE PHOSPHATASE 70 U/L (38-126); ALT/SGPT 34 U/L (21-72); AST/SGOT 44 U/L (17-59); BILIRUBIN,TOTAL 0.7 mg/dL (0.2-1.3); BLOOD UREA NITROGEN 15 mg/dL (9-20); CARBON DIOXIDE 26 mmol/L (22-30); GLUCOSE,RANDOM 116 mg/dL (75-110); TOTAL PROTEIN 6.5 g/dL (6.3-8.3)
[2017-02-07 09:15] LABS: CALCIUM 7.5 mg/dl (8.6-10.4)
[2017-02-07] MEDS: Aritificial Tears (15ml) OU SCH ×2 (09:25→18:48)
[2017-02-07] MEDS: Multiple Vitamins Tab PO SCH (09:49)
[2017-02-07] MEDS: Enoxaparin 30 mg Syringe SC SCH (09:49)
--- NOTE | 2017-02-07 10:24 | CP.PCM.PN ---
Subjective - Date & Time of Evaluation Date of Evaluation: 02/06/17 Time of Evaluation: 11:18 - Subjective Subjective: seen and examined, clinincally unchanged Objective - Vital Signs/Intake and Output Vital Signs (last 24 hours): Temp Pulse Resp BP Pulse Ox 99 F 78 18 95/55 L 100 02/07/17 06:00 02/07/17 06:00 02/07/17 06:00 02/07/17 06:00 02/07/17 06:00 Intake and Output: 02/07/17 02/07/17 06:59 18:59 Intake Total 1260 Output Total 450 Balance 810 - Medications Medications: Current Medications Acetaminophen (Tylenol 325mg Tab) 650 mg PO Q4H PRN PRN Reason: Fever >100.4 F Last Admin: 02/05/17 23:06 Dose: 650 mg Artificial Tears (Artificial Tears) 0 ml OU BID [facility] Last Admin: 02/06/17 17:56 Dose: 1 drop Ascorbic Acid (Vitamin C 500 Mg Tab) 500 mg PO DAILY [facility] Last Admin: 02/06/17 10:35 Dose: 500 mg Docusate Sodium (Colace) 200 mg PO DAILY [facility] Last Admin: 02/06/17 10:45 Dose: 200 mg Enoxaparin Sodium (Lovenox) 30 mg SC DAILY [facility] Last Admin: 02/06/17 10:35 Dose: 30 mg Famotidine (Pepcid) 20 mg PO DAILY [facility] Last Admin: 02/06/17 10:35 Dose: 20 mg Ferrous Sulfate (Feosol) 325 mg PO DAILY [facility] Last Admin: 02/06/17 10:35 Dose: 325 mg Ciprofloxacin (Cipro 400mg/200ml Dsw) 400 mg in 200 mls @ 133 mls/hr IVPB Q12H [facility] Last Admin: 02/06/17 23:07 Dose: 133 mls/hr Sodium Chloride (Sodium Chloride 0.9%) 1,000 mls @ 70 mls/hr IV .[id number] [facility] Last Admin: 02/07/17 03:11 Dose: 70 mls/hr Losartan Potassium (Cozaar) 25 mg PO DAILY [facility] Last Admin: 02/06/17 10:45 Dose: 25 mg Magnesium Hydroxide (Milk Of Magnesia) 30 ml PO DAILY PRN PRN Reason: Constipation Multivitamins (Hexavitamin) 1 tab PO DAILY [facility] Last Admin: 02/06/17 10:45 Dose: 1 tab Sodium Chloride (Sodium Chloride Tab) 1 gm PO DAILY [facility] Last Admin: 02/06/17 11:57 Dose: 1 gm - Labs Labs: 02/07/17 08:56 02/07/17 08:56 PT 13.9 SECONDS (9.7-12.2) H 02/05/17 21:40 INR 1.2 02/05/17 21:40 APTT 31 SECONDS (21-34) 02/05/17 21:40 - Constitutional Appears: No Acute Distress - Head Exam Head Exam: ATRAUMATIC, NORMAL INSPECTION, NORMOCEPHALIC - Eye Exam Eye Exam: EOMI, Normal appearance, PERRL Pupil Exam: NORMAL ACCOMODATION, PERRL - Respiratory Exam Respiratory Exam: Decreased Breath Sounds, Rales, Wheezes - Cardiovascular Exam Cardiovascular Exam: REGULAR RHYTHM, +S1, +S2. absent: Murmur - GI/Abdominal Exam GI & Abdominal Exam: Soft, Normal Bowel Sounds. absent: Tenderness Assessment and Plan (1) Congestive heart failure Status: Acute (2) Down's syndrome Status: Acute (3) Dehydration Status: Acute
[2017-02-07] MEDS: Ciprofloxacin 400mg/200ml D5W 400 MG/200 ML BAG IVPB SCH ×2 (11:15)
--- NOTE | 2017-02-07 22:26 | CP.PCM.PN ---
Subjective - Date & Time of Evaluation Date of Evaluation: 02/07/17 Time of Evaluation: 11:23 - Subjective Subjective: Pt is seen and examined is improving, cystostomy site is clean, pt is afebrile no signs of infection Objective - Vital Signs/Intake and Output Vital Signs (last 24 hours): Temp Pulse Resp BP Pulse Ox 97.4 F L 75 19 95/55 L 100 02/07/17 17:05 02/07/17 16:50 02/07/17 16:50 02/07/17 06:00 02/07/17 16:50 Intake and Output: 02/07/17 02/08/17 18:59 06:59 Intake Total 840 Balance 840 - Medications Medications: Current Medications Acetaminophen (Tylenol 325mg Tab) 650 mg PO Q4H PRN PRN Reason: Fever >100.4 F Last Admin: 02/05/17 23:06 Dose: 650 mg Artificial Tears (Artificial Tears) 0 ml OU BID [facility] Last Admin: 02/07/17 18:48 Dose: 1 drop Ascorbic Acid (Vitamin C 500 Mg Tab) 500 mg PO DAILY [facility] Last Admin: 02/07/17 09:49 Dose: 500 mg Docusate Sodium (Colace) 200 mg PO DAILY [facility] Last Admin: 02/07/17 09:49 Dose: 200 mg Enoxaparin Sodium (Lovenox) 30 mg SC DAILY [facility] Last Admin: 02/07/17 09:49 Dose: 30 mg Famotidine (Pepcid) 20 mg PO DAILY [facility] Last Admin: 02/07/17 09:49 Dose: 20 mg Ferrous Sulfate (Feosol) 325 mg PO DAILY [facility] Last Admin: 02/07/17 09:49 Dose: 325 mg Ciprofloxacin (Cipro 400mg/200ml Dsw) 400 mg in 200 mls @ 133 mls/hr IVPB Q12H [facility] Last Admin: 02/07/17 11:15 Dose: 133 mls/hr Sodium Chloride (Sodium Chloride 0.9%) 1,000 mls @ 50 mls/hr IV .Q20H [facility] Last Admin: 02/07/17 18:50 Dose: 50 mls/hr Losartan Potassium (Cozaar) 25 mg PO DAILY [facility] Last Admin: 02/07/17 09:49 Dose: 25 mg Magnesium Hydroxide (Milk Of Magnesia) 30 ml PO DAILY PRN PRN Reason: Constipation Multivitamins (Hexavitamin) 1 tab PO DAILY [facility] Last Admin: 02/07/17 09:49 Dose: 1 tab Sodium Chloride (Sodium Chloride Tab) 1 gm PO DAILY [facility] Last Admin: 02/07/17 09:49 Dose: 1 gm - Labs Labs: 02/07/17 08:56 02/07/17 08:56 PT 13.9 SECONDS (9.7-12.2) H 02/05/17 21:40 INR 1.2 02/05/17 21:40 APTT 31 SECONDS (21-34) 02/05/17 21:40 - Constitutional Appears: Well - Head Exam Head Exam: ATRAUMATIC, NORMAL INSPECTION, NORMOCEPHALIC - Eye Exam Eye Exam: EOMI, Normal appearance, PERRL Pupil Exam: NORMAL ACCOMODATION, PERRL - Respiratory Exam Respiratory Exam: Clear to Ausculation Bilateral, NORMAL BREATHING PATTERN - Cardiovascular Exam Cardiovascular Exam: REGULAR RHYTHM, +S1, +S2. absent: Murmur - GI/Abdominal Exam GI & Abdominal Exam: Soft, Normal Bowel Sounds. absent: Tenderness Assessment and Plan (1) Congestive heart failure Status: Acute (2) Down's syndrome Status: Acute (3) Dehydration Status: Acute
[2017-02-08] MEDS ORDERED: Sodium Chloride 0.9% 500 ML IV ONE (12:05)
--- NOTE | 2017-02-08 20:48 | CT ---
EXAM: CT Head Without Intravenous Contrast CLINICAL HISTORY: 81 years old, male; Signs and symptoms; Other: Downsyndrome; Additional info: R/O sepsis TECHNIQUE: Axial computed tomography images of the head/brain without intravenous contrast. This CT exam was performed using one or more of the following dose reduction techniques: automated exposure control, adjustment of the mA and/or kV according to patient size, and/or use of iterative reconstruction technique. EXAM DATE/TIME: 02/08/2017 7:46 PM COMPARISON: Prior images are not available for review. FINDINGS: Brain: There is prominence of sulci gyri and ventricles. There is no midline shift. There is decreased attenuation in periventricular white matter. There are no focal masses. There are no focal hemorrhages. Brandon-white differentiation is visualized. Ventricles: See above. Bones/joints: Bones: Cranial vault is intact. Soft tissues: unremarkable Sinuses: There is no acute sinusitis. Mastoid air cells: Ears and mastoids: Middle ears and mastoids are unremarkable. Orbits: Orbital contents are unremarkable. IMPRESSION: No acute intracranial abnormality
[2017-02-08 21:20] LABS: ALB/GLOB RATIO 0.8 (1.0-2.1); ALKALINE PHOSPHATASE 61 U/L (38-126); ALT/SGPT 45 U/L (21-72); AST/SGOT 66 U/L (17-59); BILIRUBIN,TOTAL 0.6 mg/dL (0.2-1.3); BLOOD UREA NITROGEN 13 mg/dL (9-20); CALCIUM 6.6 mg/dl (8.6-10.4); CARBON DIOXIDE 25 mmol/L (22-30); CHLORIDE 102 mmol/L (98-107); GFR AFRICAN-AMERICAN > 60; GLUCOSE,RANDOM 100 mg/dL (75-110); MAGNESIUM 1.4 mg/dL (1.6-2.3); PHOSPHOROUS 2.8 mg/dL (2.5-4.5); POTASSIUM 3.7 mmol/L (3.6-5.2); SODIUM 132 mmol/L (132-148); TOTAL PROTEIN 5.6 g/dL (6.3-8.3)
[2017-02-08 21:28] LABS: HEMATOCRIT 30.1 % (35.0-51.0); MEAN CORPUSCULAR HEMOGLOBIN 27.8 pg (27.0-31.0); MEAN CORPUSCULAR HGB CONC 31.3 g/dL (33.0-37.0); MEAN PLATELET VOLUME 7.2 fL (7.2-11.7); RED CELL DISTRIBUTION WIDTH 14.1 % (11.5-14.5)
[2017-02-08] MEDS: Aritificial Tears (15ml) OU SCH (21:39)
[2017-02-08] MEDS: Magnesium Sulfate 1 gm in D5W 1 GM/100 ML BAG IVPB SCH (21:40)
--- NOTE | 2017-02-08 23:09 | CP.PCM.PN ---
Subjective - Date & Time of Evaluation Date of Evaluation: 02/08/17 Time of Evaluation: 11:27 - Subjective Subjective: Pt seen and evaluated, developed, resp acidosis and high PCO2, he is afberile, responded to BIPAP, more alert Objective - Vital Signs/Intake and Output Vital Signs (last 24 hours): Temp Pulse Resp BP Pulse Ox 97.4 F L 8 L 25 110/59 100 02/07/17 17:05 02/08/17 22:06 02/08/17 00:30 02/07/17 23:57 02/08/17 00:30 Intake and Output: 02/08/17 02/09/17 18:59 06:59 Intake Total 1000 Output Total 60 Balance 940 - Medications Medications: Current Medications Acetaminophen (Tylenol 325mg Tab) 650 mg PO Q4H PRN PRN Reason: Fever >100.4 F Last Admin: 02/05/17 23:06 Dose: 650 mg Artificial Tears (Artificial Tears) 0 ml OU BID [facility] Last Admin: 02/08/17 21:39 Dose: Not Given Ascorbic Acid (Vitamin C 500 Mg Tab) 500 mg PO DAILY [facility] Last Admin: 02/07/17 09:49 Dose: 500 mg Docusate Sodium (Colace) 200 mg PO DAILY [facility] Last Admin: 02/07/17 09:49 Dose: 200 mg Enoxaparin Sodium (Lovenox) 30 mg SC DAILY [facility] Last Admin: 02/07/17 09:49 Dose: 30 mg Famotidine (Pepcid) 20 mg PO DAILY [facility] Last Admin: 02/07/17 09:49 Dose: 20 mg Ferrous Sulfate (Feosol) 325 mg PO DAILY [facility] Last Admin: 02/07/17 09:49 Dose: 325 mg Ciprofloxacin (Cipro 400mg/200ml Dsw) 400 mg in 200 mls @ 133 mls/hr IVPB Q12H [facility] Last Admin: 02/07/17 11:15 Dose: 133 mls/hr Sodium Chloride (Sodium Chloride 0.9%) 1,000 mls @ 50 mls/hr IV .Q20H [facility] Last Admin: 02/07/17 18:50 Dose: 50 mls/hr Losartan Potassium (Cozaar) 25 mg PO DAILY [facility] Last Admin: 02/07/17 09:49 Dose: 25 mg Magnesium Hydroxide (Milk Of Magnesia) 30 ml PO DAILY PRN PRN Reason: Constipation Multivitamins (Hexavitamin) 1 tab PO DAILY [facility] Last Admin: 02/07/17 09:49 Dose: 1 tab Sodium Chloride (Sodium Chloride Tab) 1 gm PO DAILY [facility] Last Admin: 02/07/17 09:49 Dose: 1 gm - Labs Labs: 02/08/17 17:00 02/08/17 17:00 PT 13.9 SECONDS (9.7-12.2) H 02/05/17 21:40 INR 1.2 02/05/17 21:40 APTT 31 SECONDS (21-34) 02/05/17 21:40 - Constitutional Appears: No Acute Distress - Head Exam Head Exam: ATRAUMATIC, NORMAL INSPECTION, NORMOCEPHALIC - Eye Exam Eye Exam: EOMI, Normal appearance, PERRL Pupil Exam: NORMAL ACCOMODATION, PERRL - Respiratory Exam Respiratory Exam: Clear to Ausculation Bilateral, NORMAL BREATHING PATTERN - Cardiovascular Exam Cardiovascular Exam: REGULAR RHYTHM, +S1, +S2. absent: Murmur - GI/Abdominal Exam GI & Abdominal Exam: Soft, Normal Bowel Sounds. absent: Tenderness Assessment and Plan (1) Congestive heart failure Status: Acute (2) Down's syndrome Status: Acute (3) Dehydration Status: Acute
[2017-02-09] MEDS: Ciprofloxacin 400mg/200ml D5W 400 MG/200 ML BAG IVPB SCH ×2 (00:47→11:39)
[2017-02-09] MEDS: Albuterol-Ipratrop 3 mg / 0.5 (3 ml) UD INH SCH ×4 (01:19→19:29)
[2017-02-09 06:21] LABS: CHLORIDE 97 mmol/L (98-107); POTASSIUM 4.3 mmol/L (3.6-5.2); SODIUM 130 mmol/L (132-148)
[2017-02-09 06:23] LABS: ALB/GLOB RATIO 0.8 (1.0-2.1); AST/SGOT 67 U/L (17-59); BILIRUBIN,TOTAL 0.7 mg/dL (0.2-1.3); CARBON DIOXIDE 27 mmol/L (22-30); GFR AFRICAN-AMERICAN > 60; TOTAL PROTEIN 6.1 g/dL (6.3-8.3)
[2017-02-09 06:24] LABS: ALKALINE PHOSPHATASE 76 U/L (38-126); ALT/SGPT 47 U/L (21-72); BLOOD UREA NITROGEN 17 mg/dL (9-20); GLUCOSE,RANDOM 124 mg/dL (75-110)
[2017-02-09 06:25] LABS: BASO # 0.1 K/uL (0.0-0.2); BASO % 0.9 % (0.0-2.0); EOS # 0.2 K/uL (0.0-0.7); EOS % 2.3 % (0.0-4.0); HEMATOCRIT 31.3 % (35.0-51.0); LYMPH % 10.4 % (20.0-40.0); MEAN CELL VOLUME 88.5 fL (80.0-94.0); MEAN CORPUSCULAR HEMOGLOBIN 28.2 pg (27.0-31.0); MEAN CORPUSCULAR HGB CONC 31.9 g/dL (33.0-37.0); MEAN PLATELET VOLUME 7.5 fL (7.2-11.7); MONO # 1.4 K/uL (0.0-0.8); MONO % 15.4 % (0.0-10.0); NRBC % 0.1 % (0.0-2.0); PLATELET COUNT 153 K/uL (130-400); RED CELL DISTRIBUTION WIDTH 14.2 % (11.5-14.5); WHITE BLOOD COUNT 9.2 K/uL (4.8-10.8)
[2017-02-09 06:27] LABS: INR 1.2
[2017-02-09] MEDS: Sodium Chloride 0.9% 1,000 ML IV SCH ×2 (06:34→18:46)
[2017-02-09 06:50] LABS: URINE BILIRUBIN NEGATIVE (NEGATIVE); URINE BLOOD 3+ (NEGATIVE); URINE COLOR AMBER (YELLOW); URINE GLUCOSE (UA) Normal (Normal); URINE KETONE NEGATIVE (NEGATIVE)
[2017-02-09 06:51] LABS: RBC URINE 171 /hpf (0-3); URINE BACTERIA MANY (<OCC); URINE LEUKOCYTE ESTERASE 3+ Leu/uL (Negative); URINE PROTEIN 1+ mg/dL (NEGATIVE); URINE UROBILINOGEN Normal mg/dL (0.2-1.0)
[2017-02-09 06:52] LABS: WBC CLUMPS MANY /hpf; WBC URINE 304 /hpf (0-5)
--- NOTE | 2017-02-09 08:49 | RAD ---
PROCEDURE: CHEST RADIOGRAPH, 1 VIEW HISTORY: Shortness of breath COMPARISON: 02/05/2017 FINDINGS: LUNGS: Moderate venous congestion. Left hilar prominence. Small to moderate left pleural effusion. Left basilar airspace opacity. PLEURA: As above. CARDIOVASCULAR: Cardiomegaly OSSEOUS STRUCTURES: Degenerative changes in the spine and shoulders. VISUALIZED UPPER ABDOMEN: Normal. OTHER FINDINGS: None. IMPRESSION: Moderate venous congestion. Left hilar prominence. Small to moderate left pleural effusion. Left basilar airspace opacity. Cardiomegaly.
[2017-02-09 09:12] LABS: MAGNESIUM 1.9 mg/dL (1.6-2.3); PHOSPHOROUS 3.7 mg/dL (2.5-4.5)
[2017-02-09] MEDS: Aritificial Tears (15ml) OU SCH ×2 (09:22→17:31)
[2017-02-09] MEDS: Enoxaparin 30 mg Syringe SC SCH (09:22)
[2017-02-09] MEDS: Multiple Vitamins Tab PO SCH (10:08)
[2017-02-09 11:13] LABS: EOSINOPHIL 1 % (0-4); NEUTROPHIL 56 % (50-75); TOTAL CELLS COUNTED 100
[2017-02-09 11:14] LABS: GIANT PLATELETS PRESENT
[2017-02-09 12:14] LABS: ABG ALLEN TEST PO; DRAW SITE RRA
--- NOTE | 2017-02-09 12:14 | CP.PCM.PN ---
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 , site is clean Objective - Vital Signs/Intake and Output Vital Signs (last 24 hours): Temp Pulse Resp BP Pulse Ox 97.8 F 79 22 89/35 L 96 02/09/17 08:00 02/09/17 11:16 02/09/17 10:10 02/09/17 10:10 02/09/17 10:10 Intake and Output: 02/09/17 02/09/17 06:59 18:59 Intake Total 1400 250 Output Total 255 155 Balance 1145 95 - Medications Medications: Current Medications Acetaminophen (Tylenol 325mg Tab) 650 mg PO Q4H PRN PRN Reason: Fever >100.4 F Last Admin: 02/05/17 23:06 Dose: 650 mg Albuterol/Ipratropium (Duoneb 3 Mg/0.5 Mg (3 Ml) Ud) 3 ml INH RQ6 [facility] Last Admin: 02/09/17 07:31 Dose: 3 ml Artificial Tears (Artificial Tears) 0 ml OU BID [facility] Last Admin: 02/09/17 09:22 Dose: 1 drop Ascorbic Acid (Vitamin C 500 Mg Tab) 500 mg PO DAILY [facility] Last Admin: 02/09/17 10:08 Dose: 500 mg Docusate Sodium (Colace) 200 mg PO DAILY [facility] Last Admin: 02/09/17 10:07 Dose: 200 mg Famotidine (Pepcid) 20 mg PO DAILY [facility] Last Admin: 02/09/17 10:08 Dose: 20 mg Ferrous Sulfate (Feosol) 325 mg PO DAILY [facility] Last Admin: 02/09/17 10:08 Dose: 325 mg Heparin Sodium (Porcine) (Heparin) 5,000 units SC Q8 [facility] Sodium Chloride (Sodium Chloride 0.9%) 1,000 mls @ 50 mls/hr IV .Q20H [facility] Last Admin: 02/09/17 06:34 Dose: 50 mls/hr Vancomycin HCl 1 gm/ Sodium (Chloride) 250 mls @ 166.7 mls/hr IVPB STAT STA Stop: 02/09/17 13:28 Losartan Potassium (Cozaar) 25 mg PO DAILY [facility] Last Admin: 02/09/17 09:24 Dose: Not Given Magnesium Hydroxide (Milk Of Magnesia) 30 ml PO DAILY PRN PRN Reason: Constipation Multivitamins (Hexavitamin) 1 tab PO DAILY [facility] Last Admin: 02/09/17 10:08 Dose: 1 tab Sodium Chloride (Sodium Chloride Tab) 1 gm PO DAILY [facility] Last Admin: 02/09/17 10:08 Dose: 1 gm - Labs Labs: 02/09/17 06:04 02/09/17 06:04 PT 13.0 SECONDS (9.7-12.2) H 02/09/17 06:04 INR 1.2 02/09/17 06:04 APTT 32 SECONDS (21-34) 02/09/17 06:04 - Constitutional Appears: No Acute Distress, Other (mentally retarted, Downs syndrome) - Eye Exam Eye Exam: EOMI, Normal appearance, PERRL Pupil Exam: NORMAL ACCOMODATION, PERRL - ENT Exam ENT Exam: Mucous Membranes Dry - Respiratory Exam Respiratory Exam: Clear to Ausculation Bilateral, Wheezes - Cardiovascular Exam Cardiovascular Exam: REGULAR RHYTHM, +S1, +S2 - GI/Abdominal Exam GI & Abdominal Exam: Soft, Normal Bowel Sounds. absent: Tenderness Assessment and Plan (1) Congestive heart failure Status: Acute (2) Down's syndrome Status: Acute (3) Dehydration Status: Acute - Assessment and Plan (Free Text) Plan: monitor pt closely
--- NOTE | 2017-02-09 13:24 | CP.PCM.PN ---
Subjective - Date & Time of Evaluation Date of Evaluation: 02/09/17 Time of Evaluation: 13:24 Objective - Vital Signs/Intake and Output Vital Signs (last 24 hours): Temp Pulse Resp BP Pulse Ox 97.8 F 73 21 80/50 L 100 02/09/17 08:00 02/09/17 12:10 02/09/17 12:10 02/09/17 12:10 02/09/17 12:10 Intake and Output: 02/09/17 02/09/17 06:59 18:59 Intake Total 1400 450 Output Total 255 185 Balance 1145 265 - Medications Medications: Current Medications Acetaminophen (Tylenol 325mg Tab) 650 mg PO Q4H PRN PRN Reason: Fever >100.4 F Last Admin: 02/05/17 23:06 Dose: 650 mg Albuterol/Ipratropium (Duoneb 3 Mg/0.5 Mg (3 Ml) Ud) 3 ml INH RQ6 [facility] Last Admin: 02/09/17 07:31 Dose: 3 ml Artificial Tears (Artificial Tears) 0 ml OU BID [facility] Last Admin: 02/09/17 09:22 Dose: 1 drop Ascorbic Acid (Vitamin C 500 Mg Tab) 500 mg PO DAILY [facility] Last Admin: 02/09/17 10:08 Dose: 500 mg Docusate Sodium (Colace) 200 mg PO DAILY [facility] Last Admin: 02/09/17 10:07 Dose: 200 mg Famotidine (Pepcid) 20 mg PO DAILY [facility] Last Admin: 02/09/17 10:08 Dose: 20 mg Ferrous Sulfate (Feosol) 325 mg PO DAILY [facility] Last Admin: 02/09/17 10:08 Dose: 325 mg Heparin Sodium (Porcine) (Heparin) 5,000 units SC Q8 [facility] Sodium Chloride (Sodium Chloride 0.9%) 1,000 mls @ 50 mls/hr IV .Q20H [facility] Last Admin: 02/09/17 06:34 Dose: 50 mls/hr Vancomycin HCl 1 gm/ Sodium (Chloride) 250 mls @ 166.7 mls/hr IVPB STAT STA Stop: 02/09/17 13:28 Tigecycline 100 mg/ Sodium (Chloride) 100 mls @ 100 mls/hr IVPB ONCE ONE Stop: 02/09/17 14:59 Losartan Potassium (Cozaar) 25 mg PO DAILY [facility] Last Admin: 02/09/17 09:24 Dose: Not Given Magnesium Hydroxide (Milk Of Magnesia) 30 ml PO DAILY PRN PRN Reason: Constipation Multivitamins (Hexavitamin) 1 tab PO DAILY [facility] Last Admin: 02/09/17 10:08 Dose: 1 tab Sodium Chloride (Sodium Chloride Tab) 1 gm PO DAILY [facility] Last Admin: 02/09/17 10:08 Dose: 1 gm - Labs Labs: 02/09/17 06:04 02/09/17 06:04 PT 13.0 SECONDS (9.7-12.2) H 02/09/17 06:04 INR 1.2 02/09/17 06:04 APTT 32 SECONDS (21-34) 02/09/17 06:04
--- NOTE | 2017-02-09 14:23 | RAD ---
HISTORY: s/p PICC line insertion COMPARISON: 02/08/2017 FINDINGS: LUNGS: No infiltrate. PLEURA: Left pleural effusion, small to moderate. CARDIOVASCULAR: Mild congestive change. OSSEOUS STRUCTURES: No significant abnormalities. VISUALIZED UPPER ABDOMEN: Normal. OTHER FINDINGS: None. IMPRESSION: Small to moderate left pleural effusion. Mild congestive change.
--- NOTE | 2017-02-09 15:12 | CP.CCUPN ---
<Chava Newton - Last Filed: 02/09/17 15:10> CCU Subjective - Physician Review Subjective (Free Text): 02/09/17 15:10 PGY-1 ICU progress note Pt seen and examined at bedside. Pressure remained at baseline low throughout the night. On BiPAP this morning tolerating well. Had episodes of low BP during the morning with systolic dropping as low as in the 60's. Critical Care Time Spent (in minutes): 35 CCU Objective - Vital Signs / Intake & Output Vital Signs (Last 4 hours): Vital Signs Pulse Resp BP Pulse Ox 02/09/17 14:12 110/50 L 02/09/17 14:02 74 22 103/29 L 99 02/09/17 13:52 76 18 113/52 L 98 02/09/17 13:39 71 23 105/53 L 100 02/09/17 13:38 66 14 105/57 L 100 02/09/17 13:37 69 17 106/58 L 99 02/09/17 13:36 68 24 71/44 L 100 02/09/17 13:26 71 16 71/44 L 100 02/09/17 13:11 71 23 51/27 L 100 02/09/17 13:00 70 24 91 L 02/09/17 12:10 73 21 80/50 L 100 02/09/17 12:00 62 15 100 02/09/17 11:34 67 18 83/34 L 98 02/09/17 11:16 79 Intake and Output (Last 8hrs): Intake & Output 02/09/17 02/09/17 02/09/17 06:59 14:59 22:59 Intake Total 400 688.6 Output Total 195 250 Balance 205 438.6 Intake: IV 36 Intake, IV Amount 400 652.6 Right Forearm 400 600 Right PICC 52.6 Output: Urine 195 250 Suprapubic 195 250 - Physical Exam Head: Positive for: Atraumatic, Normocephalic Mouth: Positive for: Moist Mucous Membranes Respiratory/Chest: Positive for: Clear to Auscultation, Good Air Exchange, Other (on BiPAP) Cardiovascular: Positive for: Normal S1, S2 Abdomen: Positive for: Normal Bowel Sounds. Negative for: Distention Upper Extremity: Positive for: NORMAL PULSES, Neurovascularly Intact Lower Extremity: Positive for: NORMAL PULSES, Neurovascularly Intact Neurological: Positive for: Motor Func Grossly Intact Skin: Positive for: Warm, Dry Psychiatric: Positive for: Alert - Medications Active Medications: Active Medications Generic Name Dose Route Start Last Admin Trade Name Freq PRN Reason Stop Dose Admin Acetaminophen 650 mg 02/05/17 22:37 02/05/17 23:06 Tylenol 325mg Tab PO 650 mg Q4H PRN Administration Fever >100.4 F Albuterol/Ipratropium 3 ml 02/09/17 02:00 02/09/17 13:38 Duoneb 3 Mg/0.5 Mg (3 Ml) Ud INH 3 ml RQ6 TONEY Administration Artificial Tears 0 ml 02/06/17 10:45 02/09/17 09:22 Artificial Tears OU 1 drop BID TONEY Administration Ascorbic Acid 500 mg 02/06/17 10:00 02/09/17 10:08 Vitamin C 500 Mg Tab PO 500 mg DAILY TONEY Administration Docusate Sodium 200 mg 02/06/17 10:00 02/09/17 10:07 Colace PO 200 mg DAILY TONEY Administration Famotidine 20 mg 02/06/17 10:00 02/09/17 10:08 Pepcid PO 20 mg DAILY TONEY Administration Ferrous Sulfate 325 mg 02/06/17 10:00 02/09/17 10:08 Feosol PO 325 mg DAILY TONEY Administration Heparin Sodium (Porcine) 5,000 units 02/09/17 14:00 02/09/17 14:59 Heparin SC 5,000 units Q8 TONEY Administration Sodium Chloride 1,000 mls @ 50 mls/hr 02/07/17 18:00 02/09/17 06:34 Sodium Chloride 0.9% IV 50 mls/hr .Q20H TONEY Administration Norepinephrine Bitartrate 4 mg 254 mls @ 15.24 mls/hr 02/09/17 13:23 13:40 / Sodium Chloride IV 7 mcg/min .[id number] PRN 26.67 mls/hr TITRATE PER MD ORDER Titration Protocol 4 MCG/MIN Tigecycline 50 mg/ Sodium 100 mls @ 100 mls/hr 02/10/17 02:00 Chloride IVPB Q12H TONEY Losartan Potassium 25 mg 02/06/17 10:45 02/09/17 09:24 Cozaar PO Not Given DAILY TONEY Magnesium Hydroxide 30 ml 02/05/17 22:31 Milk Of Magnesia PO DAILY PRN Constipation Multivitamins 1 tab 02/06/17 10:45 02/09/17 10:08 Hexavitamin PO 1 tab DAILY TONEY Administration Sodium Chloride 1 gm 02/06/17 10:00 02/09/17 10:08 Sodium Chloride Tab PO 1 gm DAILY TONEY Administration - Patient Studies Lab Studies: Microbiology Studies 02/05/17 Unknown Gram Stain - Final Other: Please Indicate Wound Culture - Final Staphylococcus Aureus Acinetobacter Baumannii Enterococcus Faecalis 02/08/17 15:50 Urine Culture - Preliminary Urine,Clean Catch Gram Negative Ga Gram Positive Cocci Lab Studies 02/09/17 02/09/17 02/09/17 Range/Units 12:10 06:04 06:04 WBC (4.8-10.8) K/uL RBC (4.40-5.90) Mil/uL Hgb (12.0-18.0) g/dL Hct (35.0-51.0) % MCV (80.0-94.0) fL MCH (27.0-31.0) pg MCHC (33.0-37.0) g/dL RDW (11.5-14.5) % Plt Count (130-400) K/uL MPV (7.2-11.7) fL Neut % (Auto) (50.0-75.0) % Lymph % (Auto) (20.0-40.0) % [place] % (Auto) (0.0-10.0) % Eos % (Auto) (0.0-4.0) % Baso % (Auto) (0.0-2.0) % Neut # (1.8-7.0) K/uL Lymph # (1.0-4.3) K/uL [place] # (0.0-0.8) K/uL Eos # (0.0-0.7) K/uL Baso # (0.0-0.2) K/uL Neutrophils % (Manual) (50-75) % Band Neutrophils % (0-2) % Lymphocytes % (Manual) (20-40) % Monocytes % (Manual) (0-10) % Eosinophils % (Manual) (0-4) % Toxic Granulation Platelet Estimate (NORMAL) Plt Clumps, EDTA Giant Platelets Poikilocytosis (manual Basophilic Stippling Ovalocytes PT 13.0 H (9.7-12.2) SECONDS INR 1.2 APTT 32 (21-34) SECONDS Puncture Site Rra pCO2 67 H (35-45) mm/Hg pO2 119 H (80-100) mm/Hg HCO3 21.8 (21-28) mmol/L ABG pH 7.19 L* (7.35-7.45) ABG Total CO2 27.7 (22-28) mmol/L ABG O2 Saturation 99.4 H (95-98) % ABG Base Excess -4.0 L (-2.0-3.0) mmol/L David Test Po ABG Potassium 4.0 (3.6-5.2) mmol/L A-a O2 Difference 154.0 mm/Hg Respiratory Index 1.3 Glucose 107 (75-110) mg/dl Lactate 0.6 L (0.7-2.1) mmol/L FiO2 50.0 % Inspiratory BiPAP 12 Expiratory BiPAP 6 Crit Value Called To . Crit Value Called By Malik.atel,conduit helper Crit Value Read Back Y Blood Gas Notified Time 1215 Sodium 133.0 130 L (132-148) mmol/L Potassium 4.3 (3.6-5.2) mmol/L Chloride 106.0 97 L (98-107) mmol/L Carbon Dioxide 27 (22-30) mmol/L Anion Gap 10 (10-20) BUN 17 (9-20) mg/dL Creatinine 1.2 (0.8-1.5) MG/DL Est GFR ( Amer) > 60 Est GFR (Non-Af Amer) 58 POC Glucose (mg/dL) (65-110) mg/dL Random Glucose 124 H (75-110) mg/dL Calcium 8.0 L (8.6-10.4) mg/dl Phosphorus 3.7 (2.5-4.5) mg/dL Magnesium 1.9 (1.6-2.3) mg/dL Total Bilirubin 0.7 (0.2-1.3) mg/dL AST 67 H (17-59) U/L ALT 47 (21-72) U/L Alkaline Phosphatase 76 (38-126) U/L Total Protein 6.1 L (6.3-8.3) g/dL Albumin 2.8 L (3.5-5.0) g/dL Globulin 3.4 (2.2-3.9) gm/dL Albumin/Globulin Ratio 0.8 L (1.0-2.1) Arterial Blood Potassium 4.0 (3.6-5.2) mmol/L Urine Color (YELLOW) Urine Clarity (Clear) Urine pH (5.0-8.0) Ur Specific [place] (1.003-1.030) Urine Protein (NEGATIVE) mg/dL Urine Glucose (UA) (Normal) mg/dL Urine Ketones (NEGATIVE) mg/dL Urine Blood (NEGATIVE) Urine Nitrate (NEGATIVE) Urine Bilirubin (NEGATIVE) Urine Urobilinogen (0.2-1.0) mg/dL Ur Leukocyte Esterase (Negative) Omi/uL Urine WBC (Auto) (0-5) /hpf Urine RBC (Auto) (0-3) /hpf Urine WBC Clumps (Auto) (NONE) /hpf Ur Squamous Epith Cells (0-5) /hpf Urine Bacteria (<OCC) Urine HCG, Qual Urine Opiates Screen (NEGATIVE) Urine Methadone Screen (NEGATIVE) Ur Barbiturates Screen (NEGATIVE) Ur Phencyclidine Scrn (NEGATIVE) Ur Amphetamines Screen (NEGATIVE) U Benzodiazepines Scrn (NEGATIVE) U Oth Cocaine Metabols (NEGATIVE) U Cannabinoids Screen (NEGATIVE) 02/09/17 02/08/17 02/08/17 Range/Units 06:04 18:12 17:00 WBC 9.2 D 6.0 (4.8-10.8) K/uL RBC 3.54 L 3.38 L (4.40-5.90) Mil/uL Hgb 10.0 L 9.4 L (12.0-18.0) g/dL Hct 31.3 L 30.1 L (35.0-51.0) % MCV 88.5 89.0 D (80.0-94.0) fL MCH 28.2 27.8 (27.0-31.0) pg MCHC 31.9 L 31.3 L (33.0-37.0) g/dL RDW 14.2 14.1 (11.5-14.5) % Plt Count 153 156 (130-400) K/uL MPV 7.5 7.2 (7.2-11.7) fL Neut % (Auto) 71.0 (50.0-75.0) % Lymph % (Auto) 10.4 L (20.0-40.0) % [place] % (Auto) 15.4 H (0.0-10.0) % Eos % (Auto) 2.3 (0.0-4.0) % Baso % (Auto) 0.9 (0.0-2.0) % Neut # 6.5 (1.8-7.0) K/uL Lymph # 1.0 (1.0-4.3) K/uL [place] # 1.4 H (0.0-0.8) K/uL Eos # 0.2 (0.0-0.7) K/uL Baso # 0.1 (0.0-0.2) K/uL Neutrophils % (Manual) 56 (50-75) % Band Neutrophils % 19 H* (0-2) % Lymphocytes % (Manual) 13 L (20-40) % Monocytes % (Manual) 11 H (0-10) % Eosinophils % (Manual) 1 (0-4) % Toxic Granulation Present Platelet Estimate Normal (NORMAL) Plt Clumps, EDTA Giant Platelets Present Poikilocytosis (manual Slight Basophilic Stippling Slight Ovalocytes Slight PT (9.7-12.2) SECONDS INR APTT (21-34) SECONDS Puncture Site pCO2 (35-45) mm/Hg pO2 (80-100) mm/Hg HCO3 (21-28) mmol/L ABG pH (7.35-7.45) ABG Total CO2 (22-28) mmol/L ABG O2 Saturation (95-98) % ABG Base Excess (-2.0-3.0) mmol/L David Test ABG Potassium (3.6-5.2) mmol/L A-a O2 Difference mm/Hg Respiratory Index Glucose (75-110) mg/dl Lactate (0.7-2.1) mmol/L FiO2 % Inspiratory BiPAP Expiratory BiPAP Crit Value Called To Crit Value Called By Crit Value Read Back Blood Gas Notified Time Sodium (132-148) mmol/L Potassium (3.6-5.2) mmol/L Chloride (98-107) mmol/L Carbon Dioxide (22-30) mmol/L Anion Gap (10-20) BUN (9-20) mg/dL Creatinine (0.8-1.5) MG/DL Est GFR ( Amer) Est GFR (Non-Af Amer) POC Glucose (mg/dL) 130 H (65-110) mg/dL Random Glucose (75-110) mg/dL Calcium (8.6-10.4) mg/dl Phosphorus (2.5-4.5) mg/dL Magnesium (1.6-2.3) mg/dL Total Bilirubin (0.2-1.3) mg/dL AST (17-59) U/L ALT (21-72) U/L Alkaline Phosphatase (38-126) U/L Total Protein (6.3-8.3) g/dL Albumin (3.5-5.0) g/dL Globulin (2.2-3.9) gm/dL Albumin/Globulin Ratio (1.0-2.1) Arterial Blood Potassium (3.6-5.2) mmol/L Urine Color (YELLOW) Urine Clarity (Clear) Urine pH (5.0-8.0) Ur Specific [place] (1.003-1.030) Urine Protein (NEGATIVE) mg/dL Urine Glucose (UA) (Normal) mg/dL Urine Ketones (NEGATIVE) mg/dL Urine Blood (NEGATIVE) Urine Nitrate (NEGATIVE) Urine Bilirubin (NEGATIVE) Urine Urobilinogen (0.2-1.0) mg/dL Ur Leukocyte Esterase (Negative) Omi/uL Urine WBC (Auto) (0-5) /hpf Urine RBC (Auto) (0-3) /hpf Urine WBC Clumps (Auto) (NONE) /hpf Ur Squamous Epith Cells (0-5) /hpf Urine Bacteria (<OCC) Urine HCG, Qual Urine Opiates Screen (NEGATIVE) Urine Methadone Screen (NEGATIVE) Ur Barbiturates Screen (NEGATIVE) Ur Phencyclidine Scrn (NEGATIVE) Ur Amphetamines Screen (NEGATIVE) U Benzodiazepines Scrn (NEGATIVE) U Oth Cocaine Metabols (NEGATIVE) U Cannabinoids Screen (NEGATIVE) 02/08/17 02/08/17 02/08/17 Range/Units 17:00 15:50 15:50 WBC (4.8-10.8) K/uL RBC (4.40-5.90) Mil/uL Hgb (12.0-18.0) g/dL Hct (35.0-51.0) % MCV (80.0-94.0) fL MCH (27.0-31.0) pg MCHC (33.0-37.0) g/dL RDW (11.5-14.5) % Plt Count (130-400) K/uL MPV (7.2-11.7) fL Neut % (Auto) (50.0-75.0) % Lymph % (Auto) (20.0-40.0) % [place]wey % (Auto) (0.0-10.0) % Eos % (Auto) (0.0-4.0) % Baso % (Auto) (0.0-2.0) % Neut # (1.8-7.0) K/uL Lymph # (1.0-4.3) K/uL [place] # (0.0-0.8) K/uL Eos # (0.0-0.7) K/uL Baso # (0.0-0.2) K/uL Neutrophils % (Manual) (50-75) % Band Neutrophils % (0-2) % Lymphocytes % (Manual) (20-40) % Monocytes % (Manual) (0-10) % Eosinophils % (Manual) (0-4) % Toxic Granulation Platelet Estimate (NORMAL) Plt Clumps, EDTA Giant Platelets Poikilocytosis (manual Basophilic Stippling Ovalocytes PT (9.7-12.2) SECONDS INR APTT (21-34) SECONDS Puncture Site pCO2 (35-45) mm/Hg pO2 (80-100) mm/Hg HCO3 (21-28) mmol/L ABG pH (7.35-7.45) ABG Total CO2 (22-28) mmol/L ABG O2 Saturation (95-98) % ABG Base Excess (-2.0-3.0) mmol/L David Test ABG Potassium (3.6-5.2) mmol/L A-a O2 Difference mm/Hg Respiratory Index Glucose (75-110) mg/dl Lactate (0.7-2.1) mmol/L FiO2 % Inspiratory BiPAP Expiratory BiPAP Crit Value Called To Crit Value Called By Crit Value Read Back Blood Gas Notified Time Sodium 132 (132-148) mmol/L Potassium 3.7 (3.6-5.2) mmol/L Chloride 102 (98-107) mmol/L Carbon Dioxide 25 (22-30) mmol/L Anion Gap 8 L (10-20) BUN 13 (9-20) mg/dL Creatinine 0.9 (0.8-1.5) MG/DL Est GFR ( Amer) > 60 Est GFR (Non-Af Amer) > 60 POC Glucose (mg/dL) (65-110) mg/dL Random Glucose 100 (75-110) mg/dL Calcium 6.6 L (8.6-10.4) mg/dl Phosphorus 2.8 (2.5-4.5) mg/dL Magnesium 1.4 L (1.6-2.3) mg/dL Total Bilirubin 0.6 (0.2-1.3) mg/dL AST 66 H D (17-59) U/L ALT 45 (21-72) U/L Alkaline Phosphatase 61 (38-126) U/L Total Protein 5.6 L (6.3-8.3) g/dL Albumin 2.4 L (3.5-5.0) g/dL Globulin 3.2 (2.2-3.9) gm/dL Albumin/Globulin Ratio 0.8 L (1.0-2.1) Arterial Blood Potassium (3.6-5.2) mmol/L Urine Color Janice (YELLOW) Urine Clarity Turbid (Clear) Urine pH 5.0 (5.0-8.0) Ur Specific [place] 1.011 (1.003-1.030) Urine Protein 1+ H (NEGATIVE) mg/dL Urine Glucose (UA) Normal (Normal) mg/dL Urine Ketones Negative (NEGATIVE) mg/dL Urine Blood 3+ H (NEGATIVE) Urine Nitrate Positive H (NEGATIVE) Urine Bilirubin Negative (NEGATIVE) Urine Urobilinogen Normal (0.2-1.0) mg/dL Ur Leukocyte Esterase 3+ H (Negative) Omi/uL Urine WBC (Auto) 304 H (0-5) /hpf Urine RBC (Auto) 171 H (0-3) /hpf Urine WBC Clumps (Auto) Many H (NONE) /hpf Ur Squamous Epith Cells 4 (0-5) /hpf Urine Bacteria Many H (<OCC) Urine HCG, Qual TEST NOT PERFORMED Urine Opiates Screen Negative (NEGATIVE) Urine Methadone Screen Negative (NEGATIVE) Ur Barbiturates Screen Negative (NEGATIVE) Ur Phencyclidine Scrn Negative (NEGATIVE) Ur Amphetamines Screen Negative (NEGATIVE) U Benzodiazepines Scrn Negative (NEGATIVE) U Oth Cocaine Metabols Negative (NEGATIVE) U Cannabinoids Screen Negative (NEGATIVE) Laboratory Results - last 24 hr 02/08/17 02/08/17 02/08/17 15:50 15:50 17:00 WBC RBC Hgb Hct MCV MCH MCHC RDW Plt Count MPV Neut % (Auto) Lymph % (Auto) [place] % (Auto) Eos % (Auto) Baso % (Auto) Neut # Lymph # [place] # Eos # Baso # Neutrophils % (Manual) Band Neutrophils % Lymphocytes % (Manual) Monocytes % (Manual) Eosinophils % (Manual) Toxic Granulation Platelet Estimate Plt Clumps, EDTA Giant Platelets Poikilocytosis (manual Basophilic Stippling Ovalocytes PT INR APTT Puncture Site pCO2 pO2 HCO3 ABG pH ABG Total CO2 ABG O2 Saturation ABG Base Excess David Test ABG Potassium A-a O2 Difference Respiratory Index Glucose Lactate FiO2 Inspiratory BiPAP Expiratory BiPAP Crit Value Called To Crit Value Called By Crit Value Read Back Blood Gas Notified Time Sodium 132 Potassium 3.7 Chloride 102 Carbon Dioxide 25 Anion Gap 8 L BUN 13 Creatinine 0.9 Est GFR ( Amer) > 60 Est GFR (Non-Af Amer) > 60 POC Glucose (mg/dL) Random Glucose 100 Calcium 6.6 L Phosphorus 2.8 Magnesium 1.4 L Total Bilirubin 0.6 AST 66 H D ALT 45 Alkaline Phosphatase 61 Total Protein 5.6 L Albumin 2.4 L Globulin 3.2 Albumin/Globulin Ratio 0.8 L Arterial Blood Potassium Urine Color Janice Urine Clarity Turbid Urine pH 5.0 Ur Specific [place] 1.011 Urine Protein 1+ H Urine Glucose (UA) Normal Urine Ketones Negative Urine Blood 3+ H Urine Nitrate Positive H Urine Bilirubin Negative Urine Urobilinogen Normal Ur Leukocyte Esterase 3+ H Urine WBC (Auto) 304 H Urine RBC (Auto) 171 H Urine WBC Clumps (Auto) Many H Ur Squamous Epith Cells 4 Urine Bacteria Many H Urine HCG, Qual TEST NOT PERFORMED Urine Opiates Screen Negative Urine Methadone Screen Negative Ur Barbiturates Screen Negative Ur Phencyclidine Scrn Negative Ur Amphetamines Screen Negative U Benzodiazepines Scrn Negative U Oth Cocaine Metabols Negative U Cannabinoids Screen Negative 02/08/17 02/08/17 02/09/17 17:00 18:12 06:04 WBC 6.0 9.2 D RBC 3.38 L 3.54 L Hgb 9.4 L 10.0 L Hct 30.1 L 31.3 L MCV 89.0 D 88.5 MCH 27.8 28.2 MCHC 31.3 L 31.9 L RDW 14.1 14.2 Plt Count 156 153 MPV 7.2 7.5 Neut % (Auto) 71.0 Lymph % (Auto) 10.4 L [place] % (Auto) 15.4 H Eos % (Auto) 2.3 Baso % (Auto) 0.9 Neut # 6.5 Lymph # 1.0 [place]wey # 1.4 H Eos # 0.2 Baso # 0.1 Neutrophils % (Manual) 56 Band Neutrophils % 19 H* Lymphocytes % (Manual) 13 L Monocytes % (Manual) 11 H Eosinophils % (Manual) 1 Toxic Granulation Present Platelet Estimate Normal Plt Clumps, EDTA Giant Platelets Present Poikilocytosis (manual Slight Basophilic Stippling Slight Ovalocytes Slight PT INR APTT Puncture Site pCO2 pO2 HCO3 ABG pH ABG Total CO2 ABG O2 Saturation ABG Base Excess David Test ABG Potassium A-a O2 Difference Respiratory Index Glucose Lactate FiO2 Inspiratory BiPAP Expiratory BiPAP Crit Value Called To Crit Value Called By Crit Value Read Back Blood Gas Notified Time Sodium Potassium Chloride Carbon Dioxide Anion Gap BUN Creatinine Est GFR ( Amer) Est GFR (Non-Af Amer) POC Glucose (mg/dL) 130 H Random Glucose Calcium Phosphorus Magnesium Total Bilirubin AST ALT Alkaline Phosphatase Total Protein Albumin Globulin Albumin/Globulin Ratio Arterial Blood Potassium Urine Color Urine Clarity Urine pH Ur Specific [place] Urine Protein Urine Glucose (UA) Urine Ketones Urine Blood Urine Nitrate Urine Bilirubin Urine Urobilinogen Ur Leukocyte Esterase Urine WBC (Auto) Urine RBC (Auto) Urine WBC Clumps (Auto) Ur Squamous Epith Cells Urine Bacteria Urine HCG, Qual Urine Opiates Screen Urine Methadone Screen Ur Barbiturates Screen Ur Phencyclidine Scrn Ur Amphetamines Screen U Benzodiazepines Scrn U Oth Cocaine Metabols U Cannabinoids Screen 02/09/17 02/09/17 02/09/17 06:04 06:04 12:10 WBC RBC Hgb Hct MCV MCH MCHC RDW Plt Count MPV Neut % (Auto) Lymph % (Auto) [place] % (Auto) Eos % (Auto) Baso % (Auto) Neut # Lymph # [place] # Eos # Baso # Neutrophils % (Manual) Band Neutrophils % Lymphocytes % (Manual) Monocytes % (Manual) Eosinophils % (Manual) Toxic Granulation Platelet Estimate Plt Clumps, EDTA Giant Platelets Poikilocytosis (manual Basophilic Stippling Ovalocytes PT 13.0 H INR 1.2 APTT 32 Puncture Site Rra pCO2 67 H pO2 119 H HCO3 21.8 ABG pH 7.19 L* ABG Total CO2 27.7 ABG O2 Saturation 99.4 H ABG Base Excess -4.0 L David Test Po ABG Potassium 4.0 A-a O2 Difference 154.0 Respiratory Index 1.3 Glucose 107 Lactate 0.6 L FiO2 50.0 Inspiratory BiPAP 12 Expiratory BiPAP 6 Crit Value Called To . Crit Value Called By [email or web address],conduit helper Crit Value Read Back Y Blood Gas Notified Time 1215 Sodium 130 L 133.0 Potassium 4.3 Chloride 97 L 106.0 Carbon Dioxide 27 Anion Gap 10 BUN 17 Creatinine 1.2 Est GFR ( Amer) > 60 Est GFR (Non-Af Amer) 58 POC Glucose (mg/dL) Random Glucose 124 H Calcium 8.0 L Phosphorus 3.7 Magnesium 1.9 Total Bilirubin 0.7 AST 67 H ALT 47 Alkaline Phosphatase 76 Total Protein 6.1 L Albumin 2.8 L Globulin 3.4 Albumin/Globulin Ratio 0.8 L Arterial Blood Potassium 4.0 Urine Color Urine Clarity Urine pH Ur Specific [place] Urine Protein Urine Glucose (UA) Urine Ketones Urine Blood Urine Nitrate Urine Bilirubin Urine Urobilinogen Ur Leukocyte Esterase Urine WBC (Auto) Urine RBC (Auto) Urine WBC Clumps (Auto) Ur Squamous Epith Cells Urine Bacteria Urine HCG, Qual Urine Opiates Screen Urine Methadone Screen Ur Barbiturates Screen Ur Phencyclidine Scrn Ur Amphetamines Screen U Benzodiazepines Scrn U Oth Cocaine Metabols U Cannabinoids Screen Review of Systems - Review of Systems Systems not reviewed;Unavailable: Other (Down's syndrome - non-communicative) Critical Care Progress Note - Nutrition Nutrition: Nutrition Category Date Time Status Dysphagia/Modified Consistency Diet [DIET] Diets 02/06/17 Breakfast Active Assessment/Plan - Assessment and Plan (Free Text) Assessment: This is a 81 yo M with hx of Down's Syndrome that has severe sepsis secondary to UTI, complicated by hyponatremia and acute on chronic CHF exacerbation. Plan: Neuro: Awake, alert Cardiovascular: Hypotensive (systolic in low 60's at times) PICC line placed, now on Levophed drip Continue to monitor, goal MAP 65 Currently hemodynamically stable Pulmonary: BiPAP as needed Maintain saturations above 90% Serial ABG's Gastrointestinal: Dysphagia/modified diet No acute issues Hematology: Hgb stable, no acute issues Endocrine: No acute issues Renal: Mildly elevated Cr from baseline. Continue gently IVF hydration Monitor electrolytes No acute issues Genitourinary: Urine culture positive for gram neg rods and gram positive cocci Abx changed to tigecycline and given one dose of vancomycin Strict I/Os Infectious Disease: No leukocytosis but positive for bandemia Continue Tigecycline Afebrile, continue to monitor GI Prophylaxis: Pepcid DVT Prophylaxis: Heparin <Ky Burks - Last Filed: 02/15/17 17:03> CCU Subjective - Physician Review Critical Care Time Spent (in minutes): 58 CCU Objective - Vital Signs / Intake & Output Intake and Output (Last 8hrs): Intake & Output 02/15/17 02/15/17 02/15/17 06:59 14:59 22:59 Intake Total 160 563 40 Output Total 635 60 Balance -475 503 40 Intake: IV 253 Intake, IV Amount 50 Right PICC 50 Tube Feeding 160 160 40 Other 100 Output: Urine 535 60 Suprapubic 535 60 Stool 100 Other: # Bowel Movements 1 - Medications Active Medications: Active Medications Generic Name Dose Route Start Last Admin Trade Name Franklynq PRN Reason Stop Dose Admin Acetaminophen 650 mg 02/05/17 22:37 02/11/17 08:35 Tylenol 325mg Tab PO 650 mg Q4H PRN Administration Fever >100.4 F Artificial Tears 0 ml 02/06/17 10:45 02/15/17 09:30 Artificial Tears OU 1 drop BID TONEY Administration Ascorbic Acid 500 mg 02/06/17 10:00 02/15/17 09:36 Vitamin C 500 Mg Tab PO 500 mg DAILY TONEY Administration Docusate Sodium 200 mg 02/11/17 10:00 02/15/17 09:31 Colace PO Not Given DAILY TONEY Famotidine 20 mg 02/06/17 10:00 02/15/17 09:36 Pepcid PO 20 mg DAILY TONEY Administration Ferrous Sulfate 325 mg 02/06/17 10:00 02/15/17 09:36 Feosol PO 325 mg DAILY TONEY Administration Heparin Sodium (Porcine) 5,000 units 02/15/17 14:00 02/15/17 14:08 Heparin SC 5,000 units Q8 TONEY Administration Norepinephrine Bitartrate 4 mg 254 mls @ 15.24 mls/hr 02/09/17 13:23 09:21 / Sodium Chloride IV 3 mcg/min .[id number] PRN 11.43 mls/hr TITRATE PER MD ORDER Administration Protocol 4 MCG/MIN Colistimethate Sodium 150 mg/ 100 mls @ 200 mls/hr 02/13/17 21:15 02/13/17 22 :55 Sodium Chloride IV 200 mls/hr Q48H TONEY Administration Clindamycin Phosphate 300 mg/ 52 mls @ 100 mls/hr 02/13/17 22:00 02/15/17 14: 07 Sodium Chloride IVPB 100 mls/hr Q8H TONEY Administration Lorazepam 1 mg 02/10/17 09:42 02/11/17 23:25 Ativan IVP 1 mg Q2H PRN Administration Agitation Magnesium Hydroxide 30 ml 02/05/17 22:31 Milk Of Magnesia PO DAILY PRN Constipation Midodrine 5 mg 02/15/17 14:00 02/15/17 14:07 Proamatine PO 5 mg TID TONEY Administration Multivitamins 1 tab 02/06/17 10:45 02/15/17 09:36 Hexavitamin PO 1 tab DAILY TONEY Administration - Patient Studies Lab Studies: Microbiology Studies 02/10/17 21:19 Blood Culture - Preliminary Blood-Thru [place] NO GROWTH AFTER 4 DAYS 02/10/17 21:19 Blood Culture - Preliminary Blood-Thru Central Line NO GROWTH AFTER 4 DAYS Lab Studies 02/15/17 02/15/17 02/15/17 Range/Units 06:09 06:09 05:31 WBC 7.7 (4.8-10.8) K/uL RBC 3.38 L (4.40-5.90) Mil/uL Hgb 9.6 L (12.0-18.0) g/dL Hct 29.2 L (35.0-51.0) % MCV 86.2 (80.0-94.0) fL MCH 28.3 (27.0-31.0) pg MCHC 32.8 L (33.0-37.0) g/dL RDW 15.2 H (11.5-14.5) % Plt Count 176 (130-400) K/uL MPV 8.1 (7.2-11.7) fL Neut % (Auto) 61.7 (50.0-75.0) % Lymph % (Auto) 22.8 (20.0-40.0) % Dewey % (Auto) 8.7 (0.0-10.0) % Eos % (Auto) 5.5 H (0.0-4.0) % Baso % (Auto) 1.3 (0.0-2.0) % Neut # 4.7 (1.8-7.0) K/uL Lymph # 1.7 (1.0-4.3) K/uL Dewey # 0.7 (0.0-0.8) K/uL Eos # 0.4 (0.0-0.7) K/uL Baso # 0.1 (0.0-0.2) K/uL Puncture Site Lr pCO2 27 L (35-45) mm/Hg pO2 83 (80-100) mm/Hg HCO3 19.5 L (21-28) mmol/L ABG pH 7.40 (7.35-7.45) ABG Total CO2 17.5 L (22-28) mmol/L ABG O2 Saturation 98.6 H (95-98) % ABG Base Excess -7.0 L (-2.0-3.0) mmol/L ABG Hemoglobin 9.6 L (11.7-17.4) g/dL ABG Carboxyhemoglobin 1.7 H (0.5-1.5) % POC ABG HHb (Measured) 1.4 (0.0-5.0) % ABG Methemoglobin 1.2 (0.0-3.0) % David Test Pos A-a O2 Difference 97.0 mm/Hg Respiratory Index 1.2 Hgb O2 Saturation 95.7 (95.0-98.0) % Mechanical Rate 18 FiO2 30.0 % Tidal Volume 500 PEEP 5 Sodium 147 (132-148) mmol/L Potassium 3.3 L (3.6-5.2) mmol/L Chloride 119 H (98-107) mmol/L Carbon Dioxide 15 L (22-30) mmol/L Anion Gap 16 (10-20) BUN 74 H (9-20) mg/dL Creatinine 3.6 H (0.8-1.5) MG/DL Est GFR ( Amer) 20 Est GFR (Non-Af Amer) 16 Random Glucose 81 (75-110) mg/dL Calcium 7.6 L (8.6-10.4) mg/dl Phosphorus 4.4 (2.5-4.5) mg/dL Magnesium 2.0 (1.6-2.3) mg/dL Total Bilirubin 0.8 (0.2-1.3) mg/dL AST 28 (17-59) U/L ALT 25 (21-72) U/L Alkaline Phosphatase 91 (38-126) U/L Total Protein 5.4 L (6.3-8.3) g/dL Albumin 2.1 L (3.5-5.0) g/dL Globulin 3.3 (2.2-3.9) gm/dL Albumin/Globulin Ratio 0.6 L (1.0-2.1) Laboratory Results - last 24 hr 02/15/17 02/15/17 02/15/17 05:31 06:09 06:09 WBC 7.7 RBC 3.38 L Hgb 9.6 L Hct 29.2 L MCV 86.2 MCH 28.3 MCHC 32.8 L RDW 15.2 H Plt Count 176 MPV 8.1 Neut % (Auto) 61.7 Lymph % (Auto) 22.8 Dewey % (Auto) 8.7 Eos % (Auto) 5.5 H Baso % (Auto) 1.3 Neut # 4.7 Lymph # 1.7 Dewey # 0.7 Eos # 0.4 Baso # 0.1 Puncture Site Lr pCO2 27 L pO2 83 HCO3 19.5 L ABG pH 7.40 ABG Total CO2 17.5 L ABG O2 Saturation 98.6 H ABG Base Excess -7.0 L ABG Hemoglobin 9.6 L ABG Carboxyhemoglobin 1.7 H POC ABG HHb (Measured) 1.4 ABG Methemoglobin 1.2 David Test Pos A-a O2 Difference 97.0 Respiratory Index 1.2 Hgb O2 Saturation 95.7 Mechanical Rate 18 FiO2 30.0 Tidal Volume 500 PEEP 5 Sodium 147 Potassium 3.3 L Chloride 119 H Carbon Dioxide 15 L Anion Gap 16 BUN 74 H Creatinine 3.6 H Est GFR ( Amer) 20 Est GFR (Non-Af Amer) 16 Random Glucose 81 Calcium 7.6 L Phosphorus 4.4 Magnesium 2.0 Total Bilirubin 0.8 AST 28 ALT 25 Alkaline Phosphatase 91 Total Protein 5.4 L Albumin 2.1 L Globulin 3.3 Albumin/Globulin Ratio 0.6 L Attending/Attestation - Attestation I have personally seen and examined this patient.: Yes I have fully participated in the care of the patient.: Yes I have reviewed all pertinent clinical information: Yes Notes (Text): 02/15/17 16:56 Today: Thursday, February 09, 2017 The Patient was seen and examined at the bedside, Medical records reviewed, all clinical/lab/hemodynamic/radiographic data were reviewed and management issues were discussed and formulated, Events reviewed Pain issues, skin care, head of the bed elevation, glycemic control were addressed. Agree with above treatment plans as transcribed in Dr. Newton note Patient with septic shock from UTI likely from multi-drug resistant organism S/p PICC Line placement, and was started on vasopressors for hypotension No mental status change Continue with ICU care, Hemodynamic monitoring NEURO CHECK Q 1H Monitor Resp status closely IV hydration Monitor urine output MAP 60 or above Stat ID Consult and Antibiotics adjusted Total critical care time 58 minutes
--- NOTE | 2017-02-09 22:55 | CP.PCM.CON ---
History of Present Illness - History of Present Illness History of Present Illness: Infectious disease consult; HPI; 81-YEAR-OLD MALE WITH HISTORY OF DOWN SYNDROME, HYPERTENSION, CHF, WHO WAS TRANSFERRED FROM CUSTODIAL FOR FEVER AND CHEST PAINS ON 02/05/17. X ONE-DAY DURATION. PATIENT TODAY DEVELOPED RESPIRATORY ACIDOSIS AND HIGH pco2 AND WAS PLACED ON bIpap.PATIENT PRESENTLY IN ICU BED 9. PATIENT'S BLOOD PRESSURE ALSO REMAINED IN LOW 60S AND HAD TO BE STARTED ON lEVOPHED. PATIENT ALSO WAS GIVEN A DOSE OFF iv VANCOMYCIN 1 G STAT TODAY AFTER APPROPRIATE CULTURES. pATIENT WAS ALSO TAKING CIPRO WHICH HAS BEEN DISCONTINUED BECAUSE OF RESISTENCE ALL QUINOLONES TO ACINITIBACTER BAUMANNI. INFECTIOUS DISEASE CONSULTATION REQUESTED BY pmd BECAUSE OF SEVERE SEPSIS, HYPOTENSION AND MULTIPLE WOUNDS/DECUBITUS ULCERS ON THE RIGHT ANTERIOR VILLEDA AND RIGHT BUTTOCK. PATIENT'S WOUND CULTURES ARE POSITIVE FOR ACINETOBACTER BAUMANNI , ENTEROCOCCUS FAECALIS, AND MSSA. ALSO URINE CULTURE SHOWS MUCH PYURIA wbc CLUMPS AND URINE CULTURE SHOWING GRAM-NEGATIVE RODS/GRAM-POSITIVE COCCI. PATIENT PRESENTLY ON BIPAP BECAUSE OF ACUTE RESPIRATORY INSUFFICIENCY WITH Ph OF 7.19 AND pco2 OF 67. HISTORY OBTAINED MAINLY FROM THE PATIENT'S MOTHER WHO WAS AT THE BEDSIDE. PATIENT ALSO HAS A CYSTOSTOMY TUBE (10/05/16 ) CHEST X-RAY 02/08/17 ALSO SHOWED MODERATE VENOUS CONGESTION, AND LEFT BASILAR AIR SPACE OPACITY WITH LEFT PLEURAL EFFUSION AND LEFT HILAR PROMINENCE. ALLERGY; CEFTRIAXONE. PMH: HTN, Hypercholesterolemia, Chronic Kidney Disease - Former[facility] Procedures CHANGE DRAINAGE DEVICE IN BLADDER, EXTERNAL APPROACH (10/05/16) INSERTION OF INFUSION DEV INTO SUP VENA CAVA, PERC APPROACH (10/05/16) Family History: States: Unknown Family Hx - Social History Hx Tobacco Use: No Hx Alcohol Use: No Hx Substance Use: No - Immunization History Hx Tetanus Toxoid Vaccination: Yes Hx Influenza Vaccination: Yes Hx Pneumococcal Vaccination: Yes Review of Systems - Review of Systems Systems not reviewed;Unavailable: Altered Mental Status, Other (ON bIpap.) - Constitutional Constitutional: Fever - Genitourinary Genitourinary: Hx /Renal Surgery Past Patient History - Infectious Disease Hx of Infectious Diseases: None - Past Medical History & Family History Past Medical History?: Yes - Past Social History Smoking Status: Never Smoked - CARDIAC Hx Hypercholesterolemia: Yes Hx Hypertension: Yes - PULMONARY Hx Respiratory Disorders: No - NEUROLOGICAL Hx Neurological Disorder: Yes Other/Comment: down syndrome,developmental delay - HEENT Hx HEENT Problems: No - RENAL Hx Chronic Kidney Disease: Yes - ENDOCRINE/METABOLIC Hx Endocrine Disorders: No - HEMATOLOGICAL/ONCOLOGICAL Hx Blood Disorders: No - INTEGUMENTARY Hx Dermatological Problems: No - MUSCULOSKELETAL/RHEUMATOLOGICAL Hx Falls: Yes - GASTROINTESTINAL Hx Gastrointestinal Disorders: No - GENITOURINARY/GYNECOLOGICAL Hx Genitourinary Disorders: Yes Hx Urinary Tract Infection: Yes (hx chronic UTI) Other/Comment: suprapubic catheter. x 1 year ,hx urinary retention - PSYCHIATRIC Hx Substance Use: No - SURGICAL HISTORY Hx Surgeries: Yes Other/Comment: hx lt nephrostomy tube - ANESTHESIA Hx Anesthesia: Yes Hx Anesthesia Reactions: No Meds Allergies/Adverse Reactions: Allergies Allergy/AdvReac Type Severity Reaction Status Date / Time ceftriaxone sodium AdvReac Severe ANAPHYLAXIS Verified 02/05/17 21:29 [From Rocephin] - Medications Medications: Current Medications Acetaminophen (Tylenol 325mg Tab) 650 mg PO Q4H PRN PRN Reason: Fever >100.4 F Last Admin: 02/05/17 23:06 Dose: 650 mg Albuterol/Ipratropium (Duoneb 3 Mg/0.5 Mg (3 Ml) Ud) 3 ml INH RQ6 [facility] Last Admin: 02/09/17 19:29 Dose: 3 ml Artificial Tears (Artificial Tears) 0 ml OU BID [facility] Last Admin: 02/09/17 17:31 Dose: 1 drop Ascorbic Acid (Vitamin C 500 Mg Tab) 500 mg PO DAILY [facility] Last Admin: 02/09/17 10:08 Dose: 500 mg Docusate Sodium (Colace) 200 mg PO DAILY [facility] Last Admin: 02/09/17 10:07 Dose: 200 mg Famotidine (Pepcid) 20 mg PO DAILY [facility] Last Admin: 02/09/17 10:08 Dose: 20 mg Ferrous Sulfate (Feosol) 325 mg PO DAILY [facility] Last Admin: 02/09/17 10:08 Dose: 325 mg Heparin Sodium (Porcine) (Heparin) 5,000 units SC Q8 [facility] Last Admin: 02/09/17 22:15 Dose: 5,000 units Sodium Chloride (Sodium Chloride 0.9%) 1,000 mls @ 50 mls/hr IV .Q20H [facility] Last Admin: 02/09/17 18:46 Dose: Not Given Norepinephrine Bitartrate 4 mg (/ Sodium Chloride) 254 mls @ 15.24 mls/hr IV .[id number] PRN; Protocol; 4 MCG/MIN PRN Reason: TITRATE PER MD ORDER Last Admin: 02/09/17 20:11 Dose: 10 mcg/min, 38.1 mls/hr Tigecycline 50 mg/ Sodium (Chloride) 100 mls @ 100 mls/hr IVPB Q12H [facility] Losartan Potassium (Cozaar) 25 mg PO DAILY [facility] Last Admin: 02/09/17 09:24 Dose: Not Given Magnesium Hydroxide (Milk Of Magnesia) 30 ml PO DAILY PRN PRN Reason: Constipation Multivitamins (Hexavitamin) 1 tab PO DAILY [facility] Last Admin: 02/09/17 10:08 Dose: 1 tab Sodium Chloride (Sodium Chloride Tab) 1 gm PO DAILY [facility] Last Admin: 02/09/17 10:08 Dose: 1 gm Physical Exam - Constitutional Appears: In Acute Distress - Head Exam Head Exam: NORMAL INSPECTION - Eye Exam Eye Exam: EOMI, PERRL - ENT Exam ENT Exam: Mucous Membranes Moist, Normal Oropharynx - Neck Exam Neck exam: Positive for: Normal Inspection. Negative for: Lymphadenopathy - Respiratory Exam Respiratory Exam: Decreased Breath Sounds (LT.BASE), Prolonged Expiratory Phase - Cardiovascular Exam Cardiovascular Exam: REGULAR RHYTHM, +S1, +S2 - GI/Abdominal Exam GI & Abdominal Exam: Hypoactive Bowel Sounds, Soft. absent: Guarding, Rebound - Extremities Exam Extremities exam: Positive for: normal capillary refill, pedal edema, pedal pulses present. Negative for: calf tenderness - Neurological Exam Neurological exam: Altered - Psychiatric Exam Psychiatric exam: Flat Affect - Skin Skin Exam: Diaphoretic, Normal Color Results - Vital Signs Recent Vital Signs: Last Vital Signs Temp 98.4 F 02/09/17 20:00 Pulse 80 02/09/17 22:22 Resp 19 02/09/17 22:00 BP 86/36 L 02/09/17 22:00 Pulse Ox 97 02/09/17 22:00 - Labs Result Diagrams: 02/10/17 06:40 02/10/17 06:43 Labs: Laboratory Results - last 24 hr 02/08/17 02/08/17 02/09/17 15:50 15:50 06:04 WBC 9.2 D RBC 3.54 L Hgb 10.0 L Hct 31.3 L MCV 88.5 MCH 28.2 MCHC 31.9 L RDW 14.2 Plt Count 153 MPV 7.5 Neut % (Auto) 71.0 Lymph % (Auto) 10.4 L [place] % (Auto) 15.4 H Eos % (Auto) 2.3 Baso % (Auto) 0.9 Neut # 6.5 Lymph # 1.0 [place] # 1.4 H Eos # 0.2 Baso # 0.1 Neutrophils % (Manual) 56 Band Neutrophils % 19 H* Lymphocytes % (Manual) 13 L Monocytes % (Manual) 11 H Eosinophils % (Manual) 1 Toxic Granulation Present Platelet Estimate Normal Plt Clumps, EDTA Giant Platelets Present Poikilocytosis (manual Slight Basophilic Stippling Slight Ovalocytes Slight PT INR APTT Puncture Site pCO2 pO2 HCO3 ABG pH ABG Total CO2 ABG O2 Saturation ABG Base Excess David Test ABG Potassium A-a O2 Difference Respiratory Index Glucose Lactate FiO2 Inspiratory BiPAP Expiratory BiPAP Crit Value Called To Crit Value Called By Crit Value Read Back Blood Gas Notified Time Sodium Potassium Chloride Carbon Dioxide Anion Gap BUN Creatinine Est GFR ( Amer) Est GFR (Non-Af Amer) Random Glucose Calcium Phosphorus Magnesium Total Bilirubin AST ALT Alkaline Phosphatase Total Protein Albumin Globulin Albumin/Globulin Ratio Arterial Blood Potassium Urine Color Janice Urine Clarity Turbid Urine pH 5.0 Ur Specific Bowen 1.011 Urine Protein 1+ H Urine Glucose (UA) Normal Urine Ketones Negative Urine Blood 3+ H Urine Nitrate Positive H Urine Bilirubin Negative Urine Urobilinogen Normal Ur Leukocyte Esterase 3+ H Urine WBC (Auto) 304 H Urine RBC (Auto) 171 H Urine WBC Clumps (Auto) Many H Ur Squamous Epith Cells 4 Urine Bacteria Many H Urine HCG, Qual TEST NOT PERFORMED Urine Opiates Screen Negative Urine Methadone Screen Negative Ur Barbiturates Screen Negative Ur Phencyclidine Scrn Negative Ur Amphetamines Screen Negative U Benzodiazepines Scrn Negative U Oth Cocaine Metabols Negative U Cannabinoids Screen Negative 02/09/17 02/09/17 02/09/17 06:04 06:04 12:10 WBC RBC Hgb Hct MCV MCH MCHC RDW Plt Count MPV Neut % (Auto) Lymph % (Auto) [place] % (Auto) Eos % (Auto) Baso % (Auto) Neut # Lymph # [place] # Eos # Baso # Neutrophils % (Manual) Band Neutrophils % Lymphocytes % (Manual) Monocytes % (Manual) Eosinophils % (Manual) Toxic Granulation Platelet Estimate Plt Clumps, EDTA Giant Platelets Poikilocytosis (manual Basophilic Stippling Ovalocytes PT 13.0 H INR 1.2 APTT 32 Puncture Site Rra pCO2 67 H pO2 119 H HCO3 21.8 ABG pH 7.19 L* ABG Total CO2 27.7 ABG O2 Saturation 99.4 H ABG Base Excess -4.0 L David Test Po ABG Potassium 4.0 A-a O2 Difference 154.0 Respiratory Index 1.3 Glucose 107 Lactate 0.6 L FiO2 50.0 Inspiratory BiPAP 12 Expiratory BiPAP 6 Crit Value Called To . Crit Value Called By [email or web address],desk [email or web address] assembler Crit Value Read Back Y Blood Gas Notified Time 1215 Sodium 130 L 133.0 Potassium 4.3 Chloride 97 L 106.0 Carbon Dioxide 27 Anion Gap 10 BUN 17 Creatinine 1.2 Est GFR ( Amer) > 60 Est GFR (Non-Af Amer) 58 Random Glucose 124 H Calcium 8.0 L Phosphorus 3.7 Magnesium 1.9 Total Bilirubin 0.7 AST 67 H ALT 47 Alkaline Phosphatase 76 Total Protein 6.1 L Albumin 2.8 L Globulin 3.4 Albumin/Globulin Ratio 0.8 L Arterial Blood Potassium 4.0 Urine Color Urine Clarity Urine pH Ur Specific [place] Urine Protein Urine Glucose (UA) Urine Ketones Urine Blood Urine Nitrate Urine Bilirubin Urine Urobilinogen Ur Leukocyte Esterase Urine WBC (Auto) Urine RBC (Auto) Urine WBC Clumps (Auto) Ur Squamous Epith Cells Urine Bacteria Urine HCG, Qual Urine Opiates Screen Urine Methadone Screen Ur Barbiturates Screen Ur Phencyclidine Scrn Ur Amphetamines Screen U Benzodiazepines Scrn U Oth Cocaine Metabols U Cannabinoids Screen - Imaging and Cardiology Chest x-ray Status: Report reviewed by me (CHEST X-RAY 02/08/17 SHOWS MODERATE VENOUS CONGESTION, LEFT BASILAR AIRSPACE OPACITY/PLEURAL EFFUSION AND LEFT HILAR PROMINENCE.) Assessment & Plan (1) Acute respiratory failure with hypercapnia Assessment and Plan: patient developed acidosis and hypercarbia. presently on BiPAP as per rehabilitation case coordinator. Status: Acute (2) Septic shock Assessment and Plan: PANCULTURES . pATIENT GOT ONE DOSE OF VANCOMYCIN 1 G TODAY. 02/09/17. START iv TYGACIL 100 MG LOADING DOSE FOLLOWED BY 50 MG EVERY 12 HOURLY RESISTANCE NOTED TO ALL QUINOLONES AND AMINOGLYCOSIDES. PATIENT HAS LEFT BASILAR INFILTRATE/EFFUSION AND MODERATE VENOUS CONGESTION WITH LEFT HILAR PROMINENCE. SPUTUM GRAM STAIN AND CULTURE. Status: Acute (3) Hypotension Assessment and Plan: patient presently on VASOPRESSORS iv FLUIDS PER ASSOCIATE PROFESSOR COMPUTER SCIENCE/pmd. Status: Acute (4) Down's syndrome Status: Acute (5) UTI (urinary tract infection) Assessment and Plan: urine culture 02/08/17 +ve GNR/GPC-IDENTIFICATION PENDING. PATIENT STARTED ON iv TYGACIL 02/09/17. EVALUATION FOR CHANGE OF SUPRAPUBIC CYSTOSTOMY. Status: Acute (6) Decubitus skin ulcer Assessment and Plan: WOUND CARE CONSULTS. CHANGE POSITIONING OF PATIENT Q 2 HOURLY.. Status: Acute
[2017-02-10] MEDS: Albuterol-Ipratrop 3 mg / 0.5 (3 ml) UD INH SCH ×4 (02:09→19:43)
[2017-02-10] MEDS: Sodium Chloride 0.9% 1,000 ML IV SCH ×3 (04:01→19:00)
[2017-02-10 05:58] LABS: ABG ALLEN TEST POS; ARTERIAL BLOOD HGB O2 SAT 96.1 % (95.0-98.0); DRAW SITE LR; HHB 0.5 % (0.0-5.0); METHEMOGLOBIN 1.4 % (0.0-3.0)
[2017-02-10 06:53] LABS: BASO # 0.1 K/uL (0.0-0.2); BASO % 0.8 % (0.0-2.0); EOS # 0.2 K/uL (0.0-0.7); EOS % 1.4 % (0.0-4.0); HEMATOCRIT 33.1 % (35.0-51.0); LYMPH % 6.6 % (20.0-40.0); MEAN CELL VOLUME 89.7 fL (80.0-94.0); MEAN CORPUSCULAR HEMOGLOBIN 28.5 pg (27.0-31.0); MEAN CORPUSCULAR HGB CONC 31.7 g/dL (33.0-37.0); MEAN PLATELET VOLUME 6.8 fL (7.2-11.7); MONO # 1.9 K/uL (0.0-0.8); MONO % 12.5 % (0.0-10.0); PLATELET COUNT 236 K/uL (130-400); RED CELL DISTRIBUTION WIDTH 14.1 % (11.5-14.5); WHITE BLOOD COUNT 15.4 K/uL (4.8-10.8)
[2017-02-10 07:09] LABS: POTASSIUM 4.6 mmol/L (3.6-5.2)
[2017-02-10 07:11] LABS: BILIRUBIN,TOTAL 0.6 mg/dL (0.2-1.3); PHOSPHOROUS 5.2 mg/dL (2.5-4.5); TOTAL PROTEIN 6.3 g/dL (6.3-8.3)
[2017-02-10 07:12] LABS: CALCIUM 7.8 mg/dl (8.6-10.4); MAGNESIUM 1.9 mg/dL (1.6-2.3)
[2017-02-10 07:39] LABS: ALB/GLOB RATIO 0.8 (1.0-2.1)
[2017-02-10 08:38] LABS: METAMYELOCYTE 1 % (0-0); NEUTROPHIL 75 % (50-75); TOTAL CELLS COUNTED 100
[2017-02-10 08:40] LABS: LARGE PLATELETS PRESENT
[2017-02-10] MEDS ORDERED: Succinylcholine Chloride 20 mg/ml Syr (5 ml) IV ONE (09:00)
--- NOTE | 2017-02-10 09:04 | RAD ---
HISTORY: resp failure COMPARISON: 02/09/2017 FINDINGS: LUNGS: Asymmetric airspace opacification in the left mid to lower lung zone with a suggestion of an associated left pleural effusion. Venous congestion. Lines and tubes in stable position. PLEURA: As above. CARDIOVASCULAR: Cardiomegaly. OSSEOUS STRUCTURES: Degenerative changes in the spine and shoulders. VISUALIZED UPPER ABDOMEN: Normal. OTHER FINDINGS: None. IMPRESSION: Asymmetric airspace opacification in the left mid to lower lung zone with a suggestion of an associated left pleural effusion. Venous congestion. Lines and tubes in stable position.
[2017-02-10] MEDS ORDERED: Sodium Chloride 0.9% 1,000 ML IV ONE ×2 (09:30→12:00)
[2017-02-10] MEDS: Aritificial Tears (15ml) OU SCH ×3 (09:59→17:12)
--- NOTE | 2017-02-10 10:41 | RAD ---
HISTORY: post intubation COMPARISON: 02/10/2017 FINDINGS: LUNGS: Endotracheal tube somewhat low lying approximately 1 centimeter above the oneal. Retraction approximately 1 centimeter may be helpful. Other lines and tubes in stable position. Moderate to severe venous congestion with bibasilar airspace opacities and small left pleural effusion. . PLEURA: As above. CARDIOVASCULAR: Cardiomegaly. OSSEOUS STRUCTURES: Degenerative changes the spine and shoulders. VISUALIZED UPPER ABDOMEN: Normal. OTHER FINDINGS: None. IMPRESSION: Endotracheal tube somewhat low lying approximately 1 centimeter above the oneal. Retraction approximately 1 centimeter may be helpful. Other lines and tubes in stable position. Moderate to severe venous congestion with bibasilar airspace opacities and small left pleural effusion. .
[2017-02-10 10:53] LABS: ABG ALLEN TEST POS; ABG MECHANICAL RATE 18; ATERIAL BLOOD GAS PEEP 5; DRAW SITE LR
[2017-02-10] MEDS ORDERED: Etomidate 20 mg/10ml Inj IV ONE (11:39)
[2017-02-10] MEDS: Multiple Vitamins Tab PO SCH (12:08)
--- NOTE | 2017-02-10 13:13 | CP.CCUPN ---
CCU Subjective - Physician Review Events Since Last Encounter (Free Text): 02/10/17 13:09 Patient seen and examined in the intensive care unit. Case discussed with house staff in the morning rounds Patient intubated and put on ventilatory support for hypercapnic respiratory failure not responding to BiPAP Patient is being treated for ESBL infection CCU Objective - Vital Signs / Intake & Output Vital Signs (Last 4 hours): Vital Signs Pulse Resp BP Pulse Ox 02/10/17 10:16 64 18 109/46 L 100 02/10/17 10:10 63 17 99/44 L 100 02/10/17 10:07 62 15 110/62 100 02/10/17 10:06 64 17 91/37 L 100 02/10/17 10:02 65 17 117/43 L 100 02/10/17 10:00 64 15 112/50 L 100 02/10/17 09:57 67 19 108/51 L 97 02/10/17 09:56 65 17 95/49 L 100 02/10/17 09:52 62 18 100/73 100 02/10/17 09:51 63 18 106/66 100 02/10/17 09:48 64 18 123/87 02/10/17 09:44 63 16 112/55 L 02/10/17 09:41 63 14 113/58 L 02/10/17 09:38 60 15 100/68 02/10/17 09:35 58 L 15 99/46 L 100 02/10/17 09:33 56 L 18 104/47 L 100 02/10/17 09:30 58 L 18 98/44 L 100 02/10/17 09:28 58 L 18 91/37 L 100 02/10/17 09:25 57 L 15 61/24 L 99 Intake and Output (Last 8hrs): Intake & Output 02/09/17 02/10/17 02/10/17 22:59 06:59 14:59 Intake Total 1018.0 1094.4 354 Output Total 245 240 10 Balance 773.0 854.4 344 Intake: IV 218 254 254 Intake, IV Amount 800.0 840.4 100 Right Forearm 500 450 100 Right PICC 300.0 390.4 Output: Urine 245 240 10 Suprapubic 245 240 10 - Physical Exam Head: Positive for: Atraumatic, Normocephalic Mouth: Positive for: Moist Mucous Membranes Respiratory/Chest: Positive for: Clear to Auscultation, Good Air Exchange, Other (on BiPAP) Cardiovascular: Positive for: Normal S1, S2 Abdomen: Positive for: Normal Bowel Sounds. Negative for: Distention Upper Extremity: Positive for: NORMAL PULSES, Neurovascularly Intact Lower Extremity: Positive for: NORMAL PULSES, Neurovascularly Intact Neurological: Positive for: Motor Func Grossly Intact Skin: Positive for: Warm, Dry Psychiatric: Positive for: Alert - Medications Active Medications: Active Medications Generic Name Dose Route Start Last Admin Trade Name Freq PRN Reason Stop Dose Admin Acetaminophen 650 mg 02/05/17 22:37 02/05/17 23:06 Tylenol 325mg Tab PO 650 mg Q4H PRN Administration Fever >100.4 F Albuterol/Ipratropium 3 ml 02/09/17 02:00 02/10/17 07:56 Duoneb 3 Mg/0.5 Mg (3 Ml) Ud INH 3 ml RQ6 [facility] Administration Artificial Tears 0 ml 02/06/17 10:45 02/10/17 10:07 Artificial Tears OU 1 drop BID [facility] Administration Ascorbic Acid 500 mg 02/06/17 10:00 02/10/17 12:09 Vitamin C 500 Mg Tab PO 500 mg DAILY [facility] Administration Docusate Sodium 200 mg 02/06/17 10:00 02/10/17 10:00 Colace PO Not Given DAILY [facility] Famotidine 20 mg 02/06/17 10:00 02/10/17 12:09 Pepcid PO 20 mg DAILY [facility] Administration Ferrous Sulfate 325 mg 02/06/17 10:00 02/10/17 12:08 Feosol PO 325 mg DAILY [facility] Administration Heparin Sodium (Porcine) 5,000 units 02/09/17 14:00 02/10/17 05:32 Heparin SC 5,000 units Q8 [facility] Administration Sodium Chloride 1,000 mls @ 50 mls/hr 02/07/17 18:00 02/10/17 06:00 Sodium Chloride 0.9% IV Not Given .Q20H [facility] Norepinephrine Bitartrate 4 mg 254 mls @ 15.24 mls/hr 02/09/17 13:23 10:16 / Sodium Chloride IV 18 mcg/min .[id number] PRN 68.58 mls/hr TITRATE PER MD ORDER Administration Protocol 4 MCG/MIN Tigecycline 50 mg/ Sodium 100 mls @ 100 mls/hr 02/10/17 02:00 02/10/17 02:00 Chloride IVPB 100 mls/hr Q12H [facility] Administration Lorazepam 1 mg 02/10/17 09:42 02/10/17 09:54 Ativan IVP 1 mg Q2H PRN Administration Agitation Losartan Potassium 25 mg 02/06/17 10:45 02/10/17 10:00 Cozaar PO Not Given DAILY [facility] Magnesium Hydroxide 30 ml 02/05/17 22:31 Milk Of Magnesia PO DAILY PRN Constipation Multivitamins 1 tab 02/06/17 10:45 02/10/17 12:08 Hexavitamin PO 1 tab DAILY [facility] Administration Sodium Chloride 1 gm 02/06/17 10:00 02/10/17 12:12 Sodium Chloride Tab PO Not Given DAILY [facility] - Patient Studies Lab Studies: Microbiology Studies 02/08/17 15:50 Urine Culture - Preliminary Urine,Clean Catch Escherichia Coli Enterococcus Faecalis 02/08/17 15:50 Blood Culture - Preliminary Blood NO GROWTH AFTER 24 HOURS 02/08/17 16:00 Blood Culture - Preliminary Blood NO GROWTH AFTER 24 HOURS 02/05/17 Unknown Gram Stain - Final Other: Please Indicate Wound Culture - Final Staphylococcus Aureus Acinetobacter Baumannii Enterococcus Faecalis Lab Studies 02/10/17 02/10/17 02/10/17 Range/Units 10:49 06:43 06:40 WBC 15.4 H D (4.8-10.8) K/uL RBC 3.68 L (4.40-5.90) Mil/uL Hgb 10.5 L (12.0-18.0) g/dL Hct 33.1 L (35.0-51.0) % MCV 89.7 (80.0-94.0) fL MCH 28.5 (27.0-31.0) pg MCHC 31.7 L (33.0-37.0) g/dL RDW 14.1 (11.5-14.5) % Plt Count 236 (130-400) K/uL MPV 6.8 L (7.2-11.7) fL Neut % (Auto) 78.7 H (50.0-75.0) % Lymph % (Auto) 6.6 L (20.0-40.0) % Bucks % (Auto) 12.5 H (0.0-10.0) % Eos % (Auto) 1.4 (0.0-4.0) % Baso % (Auto) 0.8 (0.0-2.0) % Neut # 12.1 H (1.8-7.0) K/uL Lymph # 1.0 (1.0-4.3) K/uL Bucks # 1.9 H (0.0-0.8) K/uL Eos # 0.2 (0.0-0.7) K/uL Baso # 0.1 (0.0-0.2) K/uL Neutrophils % (Manual) 75 (50-75) % Band Neutrophils % 11 H* (0-2) % Lymphocytes % (Manual) 2 L (20-40) % Monocytes % (Manual) 11 H (0-10) % Metamyelocytes % 1 H (0-0) % Toxic Granulation Present Platelet Estimate Normal (NORMAL) Large Platelets Present Polychromasia Slight Hypochromasia (manual) Slight Anisocytosis (manual) Slight Puncture Site Lr pCO2 37 (35-45) mm/Hg pO2 445 H (80-100) mm/Hg HCO3 17.4 L (21-28) mmol/L ABG pH 7.26 L (7.35-7.45) ABG Total CO2 17.7 L (22-28) mmol/L ABG O2 Saturation 99.7 H (95-98) % ABG Base Excess -9.7 L (-2.0-3.0) mmol/L ABG Hemoglobin (11.7-17.4) g/dL ABG Carboxyhemoglobin (0.5-1.5) % POC ABG HHb (Measured) (0.0-5.0) % ABG Methemoglobin (0.0-3.0) % David Test Pos ABG Potassium 3.9 (3.6-5.2) mmol/L A-a O2 Difference 222.0 mm/Hg Respiratory Index 0.5 Hgb O2 Saturation (95.0-98.0) % Glucose 111 H (75-110) mg/dl Lactate 2.5 H (0.7-2.1) mmol/L Mechanical Rate 18 FiO2 100.0 % Tidal Volume 500 PEEP 5 Inspiratory BiPAP Expiratory BiPAP Crit Value Called To Dr bain Crit Value Called By Rama dykes screen making technician Crit Value Read Back Y Blood Gas Notified Time 1055 Sodium 136.0 134 (132-148) mmol/L Potassium 4.6 (3.6-5.2) mmol/L Chloride 111.0 H 102 (98-107) mmol/L Carbon Dioxide 23 (22-30) mmol/L Anion Gap 14 (10-20) BUN 28 H (9-20) mg/dL Creatinine 2.1 H (0.8-1.5) MG/DL Est GFR ( Amer) 37 Est GFR (Non-Af Amer) 31 Random Glucose 119 H (75-110) mg/dL Calcium 7.8 L (8.6-10.4) mg/dl Phosphorus 5.2 H (2.5-4.5) mg/dL Magnesium 1.9 (1.6-2.3) mg/dL Total Bilirubin 0.6 (0.2-1.3) mg/dL AST 61 H (17-59) U/L ALT 43 (21-72) U/L Alkaline Phosphatase 76 (38-126) U/L Total Protein 6.3 (6.3-8.3) g/dL Albumin 2.7 L (3.5-5.0) g/dL Globulin 3.6 (2.2-3.9) gm/dL Albumin/Globulin Ratio 0.8 L (1.0-2.1) Arterial Blood Potassium 3.9 (3.6-5.2) mmol/L 02/10/17 Range/Units 05:50 WBC (4.8-10.8) K/uL RBC (4.40-5.90) Mil/uL Hgb (12.0-18.0) g/dL Hct (35.0-51.0) % MCV (80.0-94.0) fL MCH (27.0-31.0) pg MCHC (33.0-37.0) g/dL RDW (11.5-14.5) % Plt Count (130-400) K/uL MPV (7.2-11.7) fL Neut % (Auto) (50.0-75.0) % Lymph % (Auto) (20.0-40.0) % Bucks % (Auto) (0.0-10.0) % Eos % (Auto) (0.0-4.0) % Baso % (Auto) (0.0-2.0) % Neut # (1.8-7.0) K/uL Lymph # (1.0-4.3) K/uL Bucks # (0.0-0.8) K/uL Eos # (0.0-0.7) K/uL Baso # (0.0-0.2) K/uL Neutrophils % (Manual) (50-75) % Band Neutrophils % (0-2) % Lymphocytes % (Manual) (20-40) % Monocytes % (Manual) (0-10) % Metamyelocytes % (0-0) % Toxic Granulation Platelet Estimate (NORMAL) Large Platelets Polychromasia Hypochromasia (manual) Anisocytosis (manual) Puncture Site Lr pCO2 65 H (35-45) mm/Hg pO2 99 (80-100) mm/Hg HCO3 19.1 L (21-28) mmol/L ABG pH 7.14 L* (7.35-7.45) ABG Total CO2 24.1 (22-28) mmol/L ABG O2 Saturation 99.5 H (95-98) % ABG Base Excess -7.4 L (-2.0-3.0) mmol/L ABG Hemoglobin 10.9 L (11.7-17.4) g/dL ABG Carboxyhemoglobin 2.0 H (0.5-1.5) % POC ABG HHb (Measured) 0.5 (0.0-5.0) % ABG Methemoglobin 1.4 (0.0-3.0) % David Test Pos ABG Potassium (3.6-5.2) mmol/L A-a O2 Difference 176.0 mm/Hg Respiratory Index 1.8 Hgb O2 Saturation 96.1 (95.0-98.0) % Glucose (75-110) mg/dl Lactate (0.7-2.1) mmol/L Mechanical Rate FiO2 50.0 % Tidal Volume PEEP Inspiratory BiPAP 16 Expiratory BiPAP 6 Crit Value Called To Abdoulaye abernathy rn Crit Value Called By Martha screen making technician Crit Value Read Back Y Blood Gas Notified Time 558 Sodium (132-148) mmol/L Potassium (3.6-5.2) mmol/L Chloride (98-107) mmol/L Carbon Dioxide (22-30) mmol/L Anion Gap (10-20) BUN (9-20) mg/dL Creatinine (0.8-1.5) MG/DL Est GFR ( Amer) Est GFR (Non-Af Amer) Random Glucose (75-110) mg/dL Calcium (8.6-10.4) mg/dl Phosphorus (2.5-4.5) mg/dL Magnesium (1.6-2.3) mg/dL Total Bilirubin (0.2-1.3) mg/dL AST (17-59) U/L ALT (21-72) U/L Alkaline Phosphatase (38-126) U/L Total Protein (6.3-8.3) g/dL Albumin (3.5-5.0) g/dL Globulin (2.2-3.9) gm/dL Albumin/Globulin Ratio (1.0-2.1) Arterial Blood Potassium (3.6-5.2) mmol/L Laboratory Results - last 24 hr 02/10/17 02/10/17 02/10/17 05:50 06:40 06:43 WBC 15.4 H D RBC 3.68 L Hgb 10.5 L Hct 33.1 L MCV 89.7 MCH 28.5 MCHC 31.7 L RDW 14.1 Plt Count 236 MPV 6.8 L Neut % (Auto) 78.7 H Lymph % (Auto) 6.6 L Bucks % (Auto) 12.5 H Eos % (Auto) 1.4 Baso % (Auto) 0.8 Neut # 12.1 H Lymph # 1.0 Bucks # 1.9 H Eos # 0.2 Baso # 0.1 Neutrophils % (Manual) 75 Band Neutrophils % 11 H* Lymphocytes % (Manual) 2 L Monocytes % (Manual) 11 H Metamyelocytes % 1 H Toxic Granulation Present Platelet Estimate Normal Large Platelets Present Polychromasia Slight Hypochromasia (manual) Slight Anisocytosis (manual) Slight Puncture Site Lr pCO2 65 H pO2 99 HCO3 19.1 L ABG pH 7.14 L* ABG Total CO2 24.1 ABG O2 Saturation 99.5 H ABG Base Excess -7.4 L ABG Hemoglobin 10.9 L ABG Carboxyhemoglobin 2.0 H POC ABG HHb (Measured) 0.5 ABG Methemoglobin 1.4 David Test Pos ABG Potassium A-a O2 Difference 176.0 Respiratory Index 1.8 Hgb O2 Saturation 96.1 Glucose Lactate Mechanical Rate FiO2 50.0 Tidal Volume PEEP Inspiratory BiPAP 16 Expiratory BiPAP 6 Crit Value Called To Abdoulaye abernathy rn Crit Value Called By Martha screen making technician Crit Value Read Back Y Blood Gas Notified Time 558 Sodium 134 Potassium 4.6 Chloride 102 Carbon Dioxide 23 Anion Gap 14 BUN 28 H Creatinine 2.1 H Est GFR ( Amer) 37 Est GFR (Non-Af Amer) 31 Random Glucose 119 H Calcium 7.8 L Phosphorus 5.2 H Magnesium 1.9 Total Bilirubin 0.6 AST 61 H ALT 43 Alkaline Phosphatase 76 Total Protein 6.3 Albumin 2.7 L Globulin 3.6 Albumin/Globulin Ratio 0.8 L Arterial Blood Potassium 02/10/17 10:49 WBC RBC Hgb Hct MCV MCH MCHC RDW Plt Count MPV Neut % (Auto) Lymph % (Auto) Bucks % (Auto) Eos % (Auto) Baso % (Auto) Neut # Lymph # Bucks # Eos # Baso # Neutrophils % (Manual) Band Neutrophils % Lymphocytes % (Manual) Monocytes % (Manual) Metamyelocytes % Toxic Granulation Platelet Estimate Large Platelets Polychromasia Hypochromasia (manual) Anisocytosis (manual) Puncture Site Lr pCO2 37 pO2 445 H HCO3 17.4 L ABG pH 7.26 L ABG Total CO2 17.7 L ABG O2 Saturation 99.7 H ABG Base Excess -9.7 L ABG Hemoglobin ABG Carboxyhemoglobin POC ABG HHb (Measured) ABG Methemoglobin David Test Pos ABG Potassium 3.9 A-a O2 Difference 222.0 Respiratory Index 0.5 Hgb O2 Saturation Glucose 111 H Lactate 2.5 H Mechanical Rate 18 FiO2 100.0 Tidal Volume 500 PEEP 5 Inspiratory BiPAP Expiratory BiPAP Crit Value Called To Dr bain Crit Value Called By Rama dykes screen making technician Crit Value Read Back Y Blood Gas Notified Time 1055 Sodium 136.0 Potassium Chloride 111.0 H Carbon Dioxide Anion Gap BUN Creatinine Est GFR ( Amer) Est GFR (Non-Af Amer) Random Glucose Calcium Phosphorus Magnesium Total Bilirubin AST ALT Alkaline Phosphatase Total Protein Albumin Globulin Albumin/Globulin Ratio Arterial Blood Potassium 3.9 Review of Systems - Review of Systems Systems not reviewed;Unavailable: Intubated Critical Care Progress Note - Ventilator Checklist Head of Bed 30 Degrees: Yes PUD Prophalyxis: Yes DVT Prophylaxis: Yes - Vent Settings MODE:: PRVC - Nutrition Nutrition: Nutrition Category Date Time Status Dysphagia/Modified Consistency Diet [DIET] Diets 02/06/17 Breakfast Active Assessment/Plan (1) Acute respiratory failure with hypercapnia Current Visit: Yes Status: Acute Comment: Patient intubated and put on ventilatory support Follow-up ABG IV sedation (2) Septic shock Current Visit: Yes Status: Acute Comment: Patient started on pressors for hypotension Gentle hydration and monitor urine output (3) Congestive heart failure Current Visit: Yes Status: Acute (4) Down's syndrome Current Visit: Yes Status: Acute (5) UTI (urinary tract infection) Current Visit: Yes Status: Acute
--- NOTE | 2017-02-10 21:31 | CP.PCM.PN ---
Subjective - Date & Time of Evaluation Date of Evaluation: 02/10/17 Time of Evaluation: 11:30 - Subjective Subjective: Patient seen and examined in the intensive care unit. Patient intubated and put on ventilatory support for hypercapnic respiratory failure not responding to BiPAP Patient is being treated for ESBL infection Objective - Vital Signs/Intake and Output Vital Signs (last 24 hours): Temp Pulse Resp BP Pulse Ox 101.5 F H 74 24 144/62 100 02/10/17 20:00 02/10/17 20:00 02/10/17 20:00 02/10/17 20:00 02/10/17 20:00 Intake and Output: 02/10/17 02/11/17 18:59 06:59 Intake Total 4260.8 275.1 Output Total 300 85 Balance 3960.8 190.1 - Medications Medications: Current Medications Acetaminophen (Tylenol 325mg Tab) 650 mg PO Q4H PRN PRN Reason: Fever >100.4 F Last Admin: 02/10/17 20:43 Dose: 650 mg Albuterol/Ipratropium (Duoneb 3 Mg/0.5 Mg (3 Ml) Ud) 3 ml INH RQ6 [facility] Last Admin: 02/10/17 19:43 Dose: 3 ml Artificial Tears (Artificial Tears) 0 ml OU BID [facility] Last Admin: 02/10/17 17:12 Dose: 1 drop Ascorbic Acid (Vitamin C 500 Mg Tab) 500 mg PO DAILY [facility] Last Admin: 02/10/17 12:09 Dose: 500 mg Docusate Sodium (Colace) 200 mg PO DAILY [facility] Famotidine (Pepcid) 20 mg PO DAILY [facility] Last Admin: 02/10/17 12:09 Dose: 20 mg Ferrous Sulfate (Feosol) 325 mg PO DAILY [facility] Last Admin: 02/10/17 12:08 Dose: 325 mg Heparin Sodium (Porcine) (Heparin) 5,000 units SC Q8 [facility] Last Admin: 02/10/17 13:28 Dose: 5,000 units Norepinephrine Bitartrate 4 mg (/ Sodium Chloride) 254 mls @ 15.24 mls/hr IV .[id number] PRN; Protocol; 4 MCG/MIN PRN Reason: TITRATE PER MD ORDER Last Admin: 02/10/17 18:19 Dose: 15 mcg/min, 57.15 mls/hr Tigecycline 50 mg/ Sodium (Chloride) 100 mls @ 100 mls/hr IVPB Q12H [facility] Last Admin: 02/10/17 13:29 Dose: 100 mls/hr Sodium Chloride (Sodium Chloride 0.9%) 1,000 mls @ 50 mls/hr IV .Q20H [facility] Last Admin: 02/10/17 19:00 Dose: Not Given Lorazepam (Ativan) 1 mg IVP Q2H PRN PRN Reason: Agitation Last Admin: 02/10/17 14:59 Dose: 1 mg Magnesium Hydroxide (Milk Of Magnesia) 30 ml PO DAILY PRN PRN Reason: Constipation Multivitamins (Hexavitamin) 1 tab PO DAILY [facility] Last Admin: 02/10/17 12:08 Dose: 1 tab - Labs Labs: 02/10/17 06:40 02/10/17 06:43 PT 13.0 SECONDS (9.7-12.2) H 02/09/17 06:04 INR 1.2 02/09/17 06:04 APTT 32 SECONDS (21-34) 02/09/17 06:04 - Constitutional Appears: No Acute Distress, Chronically Ill - Head Exam Head Exam: ATRAUMATIC, NORMAL INSPECTION, NORMOCEPHALIC - Eye Exam Eye Exam: EOMI, Normal appearance, PERRL Pupil Exam: NORMAL ACCOMODATION, PERRL - Respiratory Exam Respiratory Exam: Clear to Ausculation Bilateral, NORMAL BREATHING PATTERN - Cardiovascular Exam Cardiovascular Exam: REGULAR RHYTHM, +S1, +S2. absent: Murmur Assessment and Plan (1) Congestive heart failure Status: Acute (2) Down's syndrome Status: Acute (3) Dehydration Status: Acute
--- NOTE | 2017-02-10 23:44 | CP.PCM.PN ---
Subjective - Date & Time of Evaluation Date of Evaluation: 02/10/17 Time of Evaluation: 23:44 - Subjective Subjective: CHIEF COMPLAINTS TODAY : SPIKED TEMPERATURE OF 101.5 BP 144/62, PULSE 100/M PATIENT INTUBATED TODAY SECONDARY TO HYPERCAPNIC RESPIRATORY FAILURE. ROS. ON OBSERVATION ONLY. Patient on respirator HEENT : N. Resp : No cough, wheezing ,pleuritic CP ,or hemoptysis Cardio : No anginal CP, PND, orthopnea, palpitation GI : No abd.pain, n/v ,diarrhea or GI bleeding . ASSEMBLY DETAILER : No headache, vertigo, focal deficit. Musculoskel : No joint swelling , Derm : No rash Psych : Normal affect. Ext : No swelling ,calf pain PE. Pt. is in no distress.ON VENTILATOR V.S As noted in the chart Head ,ear nose,throat and eyes : Normal. Neck : Supple with normal carotids. Lungs: DECREASED BREATH SOUNDS AT THE BASES. Heart : S1 & S2 normal with S4. No murmur.SINUS TACHYCARDIA Abd : Soft non tender with normal bowel sounds +VE SUPRAPUBIC CYSTOSTOMY Neuro : PATIENT SEDATED Ext : +VE edema with intact pulses.Non tender calves Derm : +VE decubitus ulcer.RT. LEG ANTERIORLY/BUTTOCK LABS/RADIOLOGY: WBC 15.4 INCREASED CREAT 2.1/BUN28 VANCO RANDOM 10.3 OKAY( patient off IV vancomycin. Got only one dose.) BLOOD CULTURES 02/08/17 -VE GROWTH. URINE CULTURES 02/08/17 +VE E.COLI ESBL+VE +VE ENTEROCOCCUS FAECALIS WOUND CULTURE +VE MSSA/ACINITOBACTER/ENTEROCOCUS-FEACALIS ASSESSMENT/PLAN : RESPIRATORY FAILURE. SEPTIC SHOCK. CYSTITIS /UROSEPSIS E.COLI/ENTEROCOCCUS FEACALIS DECUBITUS ULCERS AZOTEMIA ?HYPOTENSION/DEHYDRATION DOWN S SYNDROME. PLAN: BLOOD CULTURE X2 SETS TODAY. CONTINUE IV TYGACIL 50 MG EVERY 12 HOURLY. 02/09/17 GOT ONE DOSE OF VANCOMYCIN ON 02/09/17. ADD iv FLAGYL 500 MG EVERY 12 HOURS 02/10/17 LWC. CONTACT PRECAUTIONS. Objective - Vital Signs/Intake and Output Vital Signs (last 24 hours): Temp Pulse Resp BP Pulse Ox 99.6 F 63 18 91/28 L 98 02/10/17 22:00 02/10/17 22:03 02/10/17 22:00 02/10/17 22:03 02/10/17 22:03 Intake and Output: 02/10/17 02/11/17 18:59 06:59 Intake Total 4260.8 452.7 Output Total 300 150 Balance 3960.8 302.7 - Medications Medications: Current Medications Acetaminophen (Tylenol 325mg Tab) 650 mg PO Q4H PRN PRN Reason: Fever >100.4 F Last Admin: 02/10/17 20:43 Dose: 650 mg Albuterol/Ipratropium (Duoneb 3 Mg/0.5 Mg (3 Ml) Ud) 3 ml INH RQ6 [facility] Last Admin: 02/10/17 19:43 Dose: 3 ml Artificial Tears (Artificial Tears) 0 ml OU BID [facility] Last Admin: 02/10/17 17:12 Dose: 1 drop Ascorbic Acid (Vitamin C 500 Mg Tab) 500 mg PO DAILY [facility] Last Admin: 02/10/17 12:09 Dose: 500 mg Docusate Sodium (Colace) 200 mg PO DAILY [facility] Famotidine (Pepcid) 20 mg PO DAILY [facility] Last Admin: 02/10/17 12:09 Dose: 20 mg Ferrous Sulfate (Feosol) 325 mg PO DAILY [facility] Last Admin: 02/10/17 12:08 Dose: 325 mg Heparin Sodium (Porcine) (Heparin) 5,000 units SC Q8 [facility] Last Admin: 02/10/17 22:00 Dose: 5,000 units Norepinephrine Bitartrate 4 mg (/ Sodium Chloride) 254 mls @ 15.24 mls/hr IV .[id number] PRN; Protocol; 4 MCG/MIN PRN Reason: TITRATE PER MD ORDER Last Admin: 02/10/17 18:19 Dose: 15 mcg/min, 57.15 mls/hr Tigecycline 50 mg/ Sodium (Chloride) 100 mls @ 100 mls/hr IVPB Q12H [facility] Last Admin: 02/10/17 13:29 Dose: 100 mls/hr Sodium Chloride (Sodium Chloride 0.9%) 1,000 mls @ 50 mls/hr IV .Q20H [facility] Last Admin: 02/10/17 19:00 Dose: Not Given Lorazepam (Ativan) 1 mg IVP Q2H PRN PRN Reason: Agitation Last Admin: 02/10/17 14:59 Dose: 1 mg Magnesium Hydroxide (Milk Of Magnesia) 30 ml PO DAILY PRN PRN Reason: Constipation Multivitamins (Hexavitamin) 1 tab PO DAILY [facility] Last Admin: 02/10/17 12:08 Dose: 1 tab - Labs Labs: 02/10/17 06:40 02/10/17 06:43 PT 13.0 SECONDS (9.7-12.2) H 02/09/17 06:04 INR 1.2 02/09/17 06:04 APTT 32 SECONDS (21-34) 02/09/17 06:04 Assessment and Plan (1) Acute respiratory failure with hypercapnia Status: Acute (2) Septic shock Status: Acute (3) Hypotension Status: Acute (4) Down's syndrome Status: Acute (5) UTI (urinary tract infection) Status: Acute (6) Decubitus skin ulcer Status: Acute
[2017-02-11] MEDS: Albuterol-Ipratrop 3 mg / 0.5 (3 ml) UD INH SCH ×4 (01:05→20:24)
[2017-02-11] MEDS: metroNIDAZOLE IV 500 mg/100 ml 500 MG/100 ML BAG IVPB SCH ×2 (03:00→14:42)
[2017-02-11 04:22] LABS: ABG ALLEN TEST POS; ABG MECHANICAL RATE 18; ARTERIAL BLOOD HGB O2 SAT 96.5 % (95.0-98.0); ATERIAL BLOOD GAS PEEP 5; CARBOXYHEMOGLOBIN 1.4 % (0.5-1.5); DRAW SITE LR; HHB 0.6 % (0.0-5.0); METHEMOGLOBIN 1.6 % (0.0-3.0)
[2017-02-11 06:26] LABS: BASO # 0.1 K/uL (0.0-0.2); BASO % 0.7 % (0.0-2.0); EOS # 0.3 K/uL (0.0-0.7); EOS % 3.3 % (0.0-4.0); HEMATOCRIT 31.2 % (35.0-51.0); LYMPH # 1.2 K/uL (1.0-4.3); LYMPH % 14.3 % (20.0-40.0); MEAN CELL VOLUME 87.2 fL (80.0-94.0); MEAN CORPUSCULAR HEMOGLOBIN 28.5 pg (27.0-31.0); MEAN CORPUSCULAR HGB CONC 32.7 g/dL (33.0-37.0); MEAN PLATELET VOLUME 6.9 fL (7.2-11.7); MONO # 0.9 K/uL (0.0-0.8); RED CELL DISTRIBUTION WIDTH 14.5 % (11.5-14.5); WHITE BLOOD COUNT 8.7 K/uL (4.8-10.8)
[2017-02-11 06:37] LABS: POTASSIUM 3.8 mmol/L (3.6-5.2)
[2017-02-11 06:40] LABS: ALB/GLOB RATIO 0.6 (1.0-2.1); BILIRUBIN,TOTAL 0.6 mg/dL (0.2-1.3); CALCIUM 7.4 mg/dl (8.6-10.4); PHOSPHOROUS 2.6 mg/dL (2.5-4.5); TOTAL PROTEIN 5.3 g/dL (6.3-8.3)
[2017-02-11 06:41] LABS: MAGNESIUM 1.7 mg/dL (1.6-2.3)
[2017-02-11] MEDS: Sodium Chloride 0.9% 1,000 ML IV SCH ×2 (06:52→17:24)
--- NOTE | 2017-02-11 07:53 | RAD ---
HISTORY: intubated COMPARISON: 02/10/2017 FINDINGS: LUNGS: Endotracheal tube in stable position approximately 1.4 centimeters above the oneal although evaluation is somewhat limited. NG tube extending into the stomach with the distal tip not well visualized. Other lines and tubes in stable position. Moderate to severe venous congestion with prominent bibasilar airspace opacities and left-sided pleural effusion. Bilateral hilar prominence. PLEURA: As above. CARDIOVASCULAR: Cardiomegaly. OSSEOUS STRUCTURES: Degenerative changes in the spine and shoulders. VISUALIZED UPPER ABDOMEN: Normal. OTHER FINDINGS: None. IMPRESSION: Endotracheal tube in stable position approximately 1.4 centimeters above the oneal although evaluation is somewhat limited. NG tube extending into the stomach with the distal tip not well visualized. Other lines and tubes in stable position. Moderate to severe venous congestion with prominent bibasilar airspace opacities and left-sided pleural effusion. Bilateral hilar prominence.
[2017-02-11] MEDS: Multiple Vitamins Tab PO SCH (09:08)
[2017-02-11] MEDS: Aritificial Tears (15ml) OU SCH ×2 (09:09→17:21)
--- NOTE | 2017-02-11 18:59 | CP.CCUPN ---
CCU Subjective - Physician Review Events Since Last Encounter (Free Text): 02/11/17 18:56 81-year-old male with history of Down syndrome, hypertension congestive heart failure admitted from retirement with fever, chest pain. Patient developed respiratory failure, and intubated. Patient also has a multidrug resistant urinary tract infection. Currently patient is sedated. This morning patient was able to opening his eyes. Sedated currently. Blood pressure is stable otherwise. Low-dose vasopressor. Tolerating at this time CCU Objective - Vital Signs / Intake & Output Vital Signs (Last 4 hours): Vital Signs Pulse Resp BP Pulse Ox 02/11/17 18:03 132/58 L 02/11/17 18:02 65 7 L 100 02/11/17 18:00 62 0 L 100 02/11/17 17:03 64 0 L 119/44 L 99 02/11/17 17:00 66 0 L 99 02/11/17 16:03 65 0 L 111/42 L 98 02/11/17 16:00 64 0 L 99 02/11/17 15:03 68 0 L 113/44 L 99 02/11/17 15:00 67 0 L 99 Intake and Output (Last 8hrs): Intake & Output 02/11/17 02/11/17 02/11/17 06:59 14:59 22:59 Intake Total 1206.5 1054 450 Output Total 395 265 250 Balance 811.5 789 200 Intake: IV 254 254 Intake, IV Amount 792.5 610 370 Right Forearm 500 400 250 Right PICC 292.5 210 120 Tube Feeding 160 140 80 Other 50 Output: Urine 395 265 250 Suprapubic 395 265 250 Other: # Bowel Movements 1 - Physical Exam Narrative Physical Exam (Free Text): 02/11/17 18:56 Is currently sedated, on ventilator, responding to deep stimuli. Urine output is fairly better. Patient is currently receiving low-dose norepinephrine Patient has a PICC line. Chest good air entry bilaterally regular heart sound. Abdomen minimal distention noted. Edema noted Head: Positive for: Atraumatic, Normocephalic Mouth: Positive for: Moist Mucous Membranes Respiratory/Chest: Positive for: Clear to Auscultation, Good Air Exchange, Other (on BiPAP) Cardiovascular: Positive for: Normal S1, S2 Abdomen: Positive for: Normal Bowel Sounds. Negative for: Distention Upper Extremity: Positive for: NORMAL PULSES, Neurovascularly Intact Lower Extremity: Positive for: NORMAL PULSES, Neurovascularly Intact Neurological: Positive for: Motor Func Grossly Intact Skin: Positive for: Warm, Dry Psychiatric: Positive for: Alert - Medications Active Medications: Active Medications Generic Name Dose Route Start Last Admin Trade Name Freq PRN Reason Stop Dose Admin Acetaminophen 650 mg 02/05/17 22:37 02/11/17 08:35 Tylenol 325mg Tab PO 650 mg Q4H PRN Administration Fever >100.4 F Albuterol/Ipratropium 3 ml 02/09/17 02:00 02/11/17 13:49 Duoneb 3 Mg/0.5 Mg (3 Ml) Ud INH 3 ml RQ6 TONEY Administration Artificial Tears 0 ml 02/06/17 10:45 02/11/17 17:21 Artificial Tears OU 2 drop BID TONEY Administration Ascorbic Acid 500 mg 02/06/17 10:00 02/11/17 09:08 Vitamin C 500 Mg Tab PO 500 mg DAILY TONEY Administration Docusate Sodium 200 mg 02/11/17 10:00 02/11/17 09:11 Colace PO 200 mg DAILY TONEY Administration Famotidine 20 mg 02/06/17 10:00 02/11/17 09:09 Pepcid PO 20 mg DAILY TONEY Administration Ferrous Sulfate 325 mg 02/06/17 10:00 02/11/17 09:09 Feosol PO 325 mg DAILY TONEY Administration Heparin Sodium (Porcine) 5,000 units 02/09/17 14:00 02/11/17 14:51 Heparin SC 5,000 units Q8 TONEY Administration Norepinephrine Bitartrate 4 mg 254 mls @ 15.24 mls/hr 02/09/17 13:23 14:42 / Sodium Chloride IV 10 mcg/min .[id number] PRN 38.1 mls/hr TITRATE PER MD ORDER Administration Protocol 4 MCG/MIN Tigecycline 50 mg/ Sodium 100 mls @ 100 mls/hr 02/10/17 02:00 02/11/17 14:42 Chloride IVPB 100 mls/hr Q12H TONEY Administration Sodium Chloride 1,000 mls @ 50 mls/hr 02/10/17 19:00 02/11/17 17:24 Sodium Chloride 0.9% IV 50 mls/hr .Q20H TONEY Administration Metronidazole 500 mg in 100 mls @ 100 mls/hr 02/11/17 03:00 02/11/17 14:42 Flagyl IVPB 100 mls/hr Q12H TONEY Administration Lorazepam 1 mg 02/10/17 09:42 02/11/17 08:33 Ativan IVP 1 mg Q2H PRN Administration Agitation Magnesium Hydroxide 30 ml 02/05/17 22:31 Milk Of Magnesia PO DAILY PRN Constipation Multivitamins 1 tab 02/06/17 10:45 02/11/17 09:08 Hexavitamin PO 1 tab DAILY TONEY Administration - Patient Studies Lab Studies: Microbiology Studies 02/08/17 15:50 Urine Culture - Final Urine,Clean Catch Escherichia Coli Enterococcus Faecalis 02/05/17 Unknown Gram Stain - Final Other: Please Indicate Wound Culture - Final Staphylococcus Aureus Acinetobacter Baumannii Enterococcus Faecalis 02/08/17 15:50 Blood Culture - Preliminary Blood NO GROWTH AFTER 48 HOURS 02/08/17 16:00 Blood Culture - Preliminary Blood NO GROWTH AFTER 48 HOURS Lab Studies 02/11/17 02/11/17 02/11/17 Range/Units 06:17 06:17 04:15 WBC 8.7 (4.8-10.8) K/uL RBC 3.57 L (4.40-5.90) Mil/uL Hgb 10.2 L (12.0-18.0) g/dL Hct 31.2 L (35.0-51.0) % MCV 87.2 D (80.0-94.0) fL MCH 28.5 (27.0-31.0) pg MCHC 32.7 L (33.0-37.0) g/dL RDW 14.5 (11.5-14.5) % Plt Count 188 (130-400) K/uL MPV 6.9 L (7.2-11.7) fL Neut % (Auto) 71.7 (50.0-75.0) % Lymph % (Auto) 14.3 L (20.0-40.0) % Russell % (Auto) 10.0 (0.0-10.0) % Eos % (Auto) 3.3 (0.0-4.0) % Baso % (Auto) 0.7 (0.0-2.0) % Neut # 6.3 (1.8-7.0) K/uL Lymph # 1.2 (1.0-4.3) K/uL Russell # 0.9 H (0.0-0.8) K/uL Eos # 0.3 (0.0-0.7) K/uL Baso # 0.1 (0.0-0.2) K/uL Puncture Site Lr pCO2 30 L (35-45) mm/Hg pO2 154 H (80-100) mm/Hg HCO3 19.1 L (21-28) mmol/L ABG pH 7.36 (7.35-7.45) ABG Total CO2 17.8 L (22-28) mmol/L ABG O2 Saturation 99.4 H (95-98) % ABG Base Excess -7.5 L (-2.0-3.0) mmol/L ABG Hemoglobin 10.3 L (11.7-17.4) g/dL ABG Carboxyhemoglobin 1.4 (0.5-1.5) % POC ABG HHb (Measured) 0.6 (0.0-5.0) % ABG Methemoglobin 1.6 (0.0-3.0) % David Test Pos A-a O2 Difference 165.0 mm/Hg Respiratory Index 1.1 Hgb O2 Saturation 96.5 (95.0-98.0) % Mechanical Rate 18 FiO2 50.0 % Tidal Volume 500 PEEP 5 Sodium 136 (132-148) mmol/L Potassium 3.8 (3.6-5.2) mmol/L Chloride 108 H (98-107) mmol/L Carbon Dioxide 16 L (22-30) mmol/L Anion Gap 16 (10-20) BUN 40 H (9-20) mg/dL Creatinine 2.6 H (0.8-1.5) MG/DL Est GFR ( Amer) 29 Est GFR (Non-Af Amer) 24 Random Glucose 158 H (75-110) mg/dL Calcium 7.4 L (8.6-10.4) mg/dl Phosphorus 2.6 (2.5-4.5) mg/dL Magnesium 1.7 (1.6-2.3) mg/dL Total Bilirubin 0.6 (0.2-1.3) mg/dL AST 44 (17-59) U/L ALT 43 (21-72) U/L Alkaline Phosphatase 81 (38-126) U/L Total Protein 5.3 L (6.3-8.3) g/dL Albumin 2.0 L D (3.5-5.0) g/dL Globulin 3.3 (2.2-3.9) gm/dL Albumin/Globulin Ratio 0.6 L (1.0-2.1) Laboratory Results - last 24 hr 02/11/17 02/11/17 02/11/17 04:15 06:17 06:17 WBC 8.7 RBC 3.57 L Hgb 10.2 L Hct 31.2 L MCV 87.2 D MCH 28.5 MCHC 32.7 L RDW 14.5 Plt Count 188 MPV 6.9 L Neut % (Auto) 71.7 Lymph % (Auto) 14.3 L Russell % (Auto) 10.0 Eos % (Auto) 3.3 Baso % (Auto) 0.7 Neut # 6.3 Lymph # 1.2 Russell # 0.9 H Eos # 0.3 Baso # 0.1 Puncture Site Lr pCO2 30 L pO2 154 H HCO3 19.1 L ABG pH 7.36 ABG Total CO2 17.8 L ABG O2 Saturation 99.4 H ABG Base Excess -7.5 L ABG Hemoglobin 10.3 L ABG Carboxyhemoglobin 1.4 POC ABG HHb (Measured) 0.6 ABG Methemoglobin 1.6 David Test Pos A-a O2 Difference 165.0 Respiratory Index 1.1 Hgb O2 Saturation 96.5 Mechanical Rate 18 FiO2 50.0 Tidal Volume 500 PEEP 5 Sodium 136 Potassium 3.8 Chloride 108 H Carbon Dioxide 16 L Anion Gap 16 BUN 40 H Creatinine 2.6 H Est GFR ( Amer) 29 Est GFR (Non-Af Amer) 24 Random Glucose 158 H Calcium 7.4 L Phosphorus 2.6 Magnesium 1.7 Total Bilirubin 0.6 AST 44 ALT 43 Alkaline Phosphatase 81 Total Protein 5.3 L Albumin 2.0 L D Globulin 3.3 Albumin/Globulin Ratio 0.6 L Review of Systems - Review of Systems All systems: reviewed and no additional remarkable complaints except Assessment/Plan (1) Acute respiratory failure with hypercapnia Assessment and plan: acute respiratory failure hypercapnic, on ventilator. We'll continue the current supportive care. Hypotension Sepsis. Multiorgan dysfunction. Prognosis is guarded, continue the current treatment Current Visit: Yes Status: Acute Comment: Patient intubated and put on ventilatory support Follow-up ABG IV sedation (2) Down's syndrome Current Visit: Yes Status: Acute (3) UTI (urinary tract infection) Current Visit: Yes Status: Acute
--- NOTE | 2017-02-11 22:24 | CP.PCM.PN ---
Subjective - Date & Time of Evaluation Date of Evaluation: 02/11/17 Time of Evaluation: 07:34 - Subjective Subjective: Pt seen and examined, is sick, on ventilator, neice at bedside, sicussed with her his prognoisis, he is sedtaed suprapubic cystostomy site infection Objective - Vital Signs/Intake and Output Vital Signs (last 24 hours): Temp Pulse Resp BP Pulse Ox 100.2 F H 68 0 L 123/53 L 98 02/11/17 09:35 02/11/17 20:03 02/11/17 20:03 02/11/17 20:03 02/11/17 20:03 Intake and Output: 02/11/17 02/12/17 18:59 06:59 Intake Total 1504 446.5 Output Total 515 245 Balance 989 201.5 - Medications Medications: Current Medications Acetaminophen (Tylenol 325mg Tab) 650 mg PO Q4H PRN PRN Reason: Fever >100.4 F Last Admin: 02/11/17 08:35 Dose: 650 mg Albuterol/Ipratropium (Duoneb 3 Mg/0.5 Mg (3 Ml) Ud) 3 ml INH RQ6 [facility] Last Admin: 02/11/17 20:24 Dose: 3 ml Artificial Tears (Artificial Tears) 0 ml OU BID [facility] Last Admin: 02/11/17 17:21 Dose: 2 drop Ascorbic Acid (Vitamin C 500 Mg Tab) 500 mg PO DAILY [facility] Last Admin: 02/11/17 09:08 Dose: 500 mg Docusate Sodium (Colace) 200 mg PO DAILY [facility] Last Admin: 02/11/17 09:11 Dose: 200 mg Famotidine (Pepcid) 20 mg PO DAILY [facility] Last Admin: 02/11/17 09:09 Dose: 20 mg Ferrous Sulfate (Feosol) 325 mg PO DAILY [facility] Last Admin: 02/11/17 09:09 Dose: 325 mg Heparin Sodium (Porcine) (Heparin) 5,000 units SC Q8 [facility] Last Admin: 02/11/17 21:37 Dose: 5,000 units Norepinephrine Bitartrate 4 mg (/ Sodium Chloride) 254 mls @ 15.24 mls/hr IV .[id number] PRN; Protocol; 4 MCG/MIN PRN Reason: TITRATE PER MD ORDER Last Titration: 02/11/17 21:37 Dose: 5 mcg/min, 19.05 mls/hr Tigecycline 50 mg/ Sodium (Chloride) 100 mls @ 100 mls/hr IVPB Q12H [facility] Last Admin: 02/11/17 14:42 Dose: 100 mls/hr Sodium Chloride (Sodium Chloride 0.9%) 1,000 mls @ 50 mls/hr IV .Q20H [facility] Last Admin: 02/11/17 17:24 Dose: 50 mls/hr Metronidazole (Flagyl) 500 mg in 100 mls @ 100 mls/hr IVPB Q12H [facility] Last Admin: 02/11/17 14:42 Dose: 100 mls/hr Lorazepam (Ativan) 1 mg IVP Q2H PRN PRN Reason: Agitation Last Admin: 02/11/17 08:33 Dose: 1 mg Magnesium Hydroxide (Milk Of Magnesia) 30 ml PO DAILY PRN PRN Reason: Constipation Multivitamins (Hexavitamin) 1 tab PO DAILY [facility] Last Admin: 02/11/17 09:08 Dose: 1 tab - Labs Labs: 02/11/17 06:17 02/11/17 06:17 PT 13.0 SECONDS (9.7-12.2) H 02/09/17 06:04 INR 1.2 02/09/17 06:04 APTT 32 SECONDS (21-34) 02/09/17 06:04 - Constitutional Appears: In Acute Distress, Chronically Ill - Head Exam Head Exam: ATRAUMATIC, NORMAL INSPECTION, NORMOCEPHALIC - Respiratory Exam Respiratory Exam: Clear to Ausculation Bilateral, NORMAL BREATHING PATTERN - Cardiovascular Exam Cardiovascular Exam: REGULAR RHYTHM, +S1, +S2. absent: Murmur Assessment and Plan (1) Congestive heart failure Status: Acute (2) Down's syndrome Status: Acute (3) Dehydration Status: Acute - Assessment and Plan (Free Text) Assessment: s/p acute resp failure on levaquid 15 microgram/hour multidrug resistant rganism infection on MV
[2017-02-12] MEDS: Albuterol-Ipratrop 3 mg / 0.5 (3 ml) UD INH SCH ×4 (01:11→20:04)
[2017-02-12] MEDS: metroNIDAZOLE IV 500 mg/100 ml 500 MG/100 ML BAG IVPB SCH ×2 (03:03→15:24)
[2017-02-12 04:42] LABS: ABG ALLEN TEST POS; ABG MECHANICAL RATE 18; ARTERIAL BLOOD HGB O2 SAT 96.3 % (95.0-98.0); ATERIAL BLOOD GAS PEEP 5; CARBOXYHEMOGLOBIN 2.7 % (0.5-1.5); DRAW SITE LR; HHB -0.5 % (0.0-5.0); METHEMOGLOBIN 1.5 % (0.0-3.0)
[2017-02-12] MEDS: Sodium Chloride 0.9% 1,000 ML IV SCH (06:02)
[2017-02-12 06:11] LABS: BASO # 0.1 K/uL (0.0-0.2); BASO % 0.8 % (0.0-2.0); EOS # 0.4 K/uL (0.0-0.7); EOS % 4.3 % (0.0-4.0); HEMATOCRIT 29.2 % (35.0-51.0); LYMPH # 1.7 K/uL (1.0-4.3); LYMPH % 17.5 % (20.0-40.0); MEAN CELL VOLUME 86.2 fL (80.0-94.0); MEAN CORPUSCULAR HEMOGLOBIN 28.8 pg (27.0-31.0); MEAN CORPUSCULAR HGB CONC 33.4 g/dL (33.0-37.0); MEAN PLATELET VOLUME 7.2 fL (7.2-11.7); MONO # 0.9 K/uL (0.0-0.8); MONO % 9.4 % (0.0-10.0); RED CELL DISTRIBUTION WIDTH 14.6 % (11.5-14.5); WHITE BLOOD COUNT 9.5 K/uL (4.8-10.8)
[2017-02-12 06:25] LABS: POTASSIUM 3.8 mmol/L (3.6-5.2)
[2017-02-12 06:27] LABS: BILIRUBIN,TOTAL 0.8 mg/dL (0.2-1.3); PHOSPHOROUS 3.2 mg/dL (2.5-4.5); TOTAL PROTEIN 5.1 g/dL (6.3-8.3)
[2017-02-12 06:28] LABS: CALCIUM 7.7 mg/dl (8.6-10.4); MAGNESIUM 1.9 mg/dL (1.6-2.3)
[2017-02-12 06:31] LABS: ALB/GLOB RATIO 0.6 (1.0-2.1)
[2017-02-12] MEDS: Aritificial Tears (15ml) OU SCH ×2 (09:18→17:49)
[2017-02-12] MEDS: Multiple Vitamins Tab PO SCH (09:21)
--- NOTE | 2017-02-12 09:27 | RAD ---
HISTORY: ff-up COMPARISON: 02/11/2017 FINDINGS: LUNGS: Low lung volumes limits examination. No infiltrate. Central bronchovascular crowding is noted. PLEURA: No significant pleural effusion identified, no pneumothorax apparent. CARDIOVASCULAR: Decreased venous congestion compared to prior examination. ET tube, NG tube and right PICC catheter are unchanged. OSSEOUS STRUCTURES: No significant abnormalities. VISUALIZED UPPER ABDOMEN: Normal. OTHER FINDINGS: None. IMPRESSION: Decreased pulmonary vascular congestive change. No left pleural effusion identified. No focal infiltrate. Lines and tubes unchanged
--- NOTE | 2017-02-12 11:37 | CP.CCUPN ---
<Chava Newton - Last Filed: 02/12/17 11:30> CCU Subjective - Physician Review Subjective (Free Text): 02/12/17 11:30 PGY-1 ICU progress note Pt seen and examined at bedside. There were no overnight events per staff. Pt still intubated, but arousable and opens eyes Critical Care Time Spent (in minutes): 35 CCU Objective - Vital Signs / Intake & Output Vital Signs (Last 4 hours): Vital Signs Temp Pulse Resp BP Pulse Ox 02/12/17 11:00 64 19 105/44 L 99 02/12/17 10:00 62 21 100/48 L 100 02/12/17 09:00 63 19 101/50 L 99 02/12/17 08:00 98.9 F 67 18 119/54 L 99 Intake and Output (Last 8hrs): Intake & Output 02/11/17 02/12/17 02/12/17 22:59 06:59 14:59 Intake Total 1081.5 1004.5 145 Output Total 615 580 50 Balance 466.5 424.5 95 Intake: IV 254 0 Intake, IV Amount 667.5 844.5 125 Right Forearm 450 700 50 Right PICC 217.5 144.5 75 Tube Feeding 160 160 20 Output: Urine 615 580 50 Suprapubic 615 580 50 Other: # Bowel Movements 1 - Physical Exam Head: Positive for: Atraumatic, Normocephalic Mouth: Positive for: Moist Mucous Membranes Respiratory/Chest: Positive for: Clear to Auscultation, Good Air Exchange, Other (Intubated) Cardiovascular: Positive for: Normal S1, S2 Abdomen: Positive for: Normal Bowel Sounds. Negative for: Distention Upper Extremity: Positive for: Neurovascularly Intact Lower Extremity: Positive for: Neurovascularly Intact Skin: Positive for: Warm, Dry Psychiatric: Positive for: Alert - Medications Active Medications: Active Medications Generic Name Dose Route Start Last Admin Trade Name Freq PRN Reason Stop Dose Admin Acetaminophen 650 mg 02/05/17 22:37 02/11/17 08:35 Tylenol 325mg Tab PO 650 mg Q4H PRN Administration Fever >100.4 F Albuterol/Ipratropium 3 ml 02/09/17 02:00 02/12/17 07:44 Duoneb 3 Mg/0.5 Mg (3 Ml) Ud INH 3 ml RQ6 TONEY Administration Artificial Tears 0 ml 02/06/17 10:45 02/12/17 09:18 Artificial Tears OU 1 drop BID TONEY Administration Ascorbic Acid 500 mg 02/06/17 10:00 02/12/17 09:19 Vitamin C 500 Mg Tab PO 500 mg DAILY TONEY Administration Docusate Sodium 200 mg 02/11/17 10:00 02/12/17 09:19 Colace PO 200 mg DAILY TONEY Administration Famotidine 20 mg 02/06/17 10:00 02/12/17 09:19 Pepcid PO 20 mg DAILY TONEY Administration Ferrous Sulfate 325 mg 02/06/17 10:00 02/12/17 09:19 Feosol PO 325 mg DAILY TONEY Administration Heparin Sodium (Porcine) 5,000 units 02/09/17 14:00 02/12/17 06:04 Heparin SC 5,000 units Q8 TONEY Administration Norepinephrine Bitartrate 4 mg 254 mls @ 15.24 mls/hr 02/09/17 13:23 06:06 / Sodium Chloride IV 4 mcg/min .[id number] PRN 15.24 mls/hr TITRATE PER MD ORDER Titration Protocol 4 MCG/MIN Tigecycline 50 mg/ Sodium 100 mls @ 100 mls/hr 02/10/17 02:00 02/12/17 02:05 Chloride IVPB 100 mls/hr Q12H TONEY Administration Metronidazole 500 mg in 100 mls @ 100 mls/hr 02/11/17 03:00 02/12/17 03:03 Flagyl IVPB 100 mls/hr Q12H TONEY Administration Lorazepam 1 mg 02/10/17 09:42 02/11/17 23:25 Ativan IVP 1 mg Q2H PRN Administration Agitation Magnesium Hydroxide 30 ml 02/05/17 22:31 Milk Of Magnesia PO DAILY PRN Constipation Multivitamins 1 tab 02/06/17 10:45 02/12/17 09:21 Hexavitamin PO 1 tab DAILY TONEY Administration - Patient Studies Lab Studies: Microbiology Studies 02/10/17 21:19 Blood Culture - Preliminary Blood-Thru Central Line NO GROWTH AFTER 24 HOURS 02/10/17 21:19 Blood Culture - Preliminary Blood-Thru Central Line NO GROWTH AFTER 24 HOURS 02/08/17 15:50 Blood Culture - Preliminary Blood NO GROWTH AFTER 3 DAYS 02/08/17 16:00 Blood Culture - Preliminary Blood NO GROWTH AFTER 3 DAYS 02/08/17 15:50 Urine Culture - Final Urine,Clean Catch Escherichia Coli Enterococcus Faecalis 02/05/17 Unknown Gram Stain - Final Other: Please Indicate Wound Culture - Final Staphylococcus Aureus Acinetobacter Baumannii Enterococcus Faecalis Lab Studies 02/12/17 02/12/17 02/12/17 Range/Units 06:07 06:07 04:25 WBC 9.5 (4.8-10.8) K/uL RBC 3.39 L (4.40-5.90) Mil/uL Hgb 9.8 L (12.0-18.0) g/dL Hct 29.2 L (35.0-51.0) % MCV 86.2 (80.0-94.0) fL MCH 28.8 (27.0-31.0) pg MCHC 33.4 (33.0-37.0) g/dL RDW 14.6 H (11.5-14.5) % Plt Count 194 (130-400) K/uL MPV 7.2 (7.2-11.7) fL Neut % (Auto) 68.0 (50.0-75.0) % Lymph % (Auto) 17.5 L (20.0-40.0) % [place] % (Auto) 9.4 (0.0-10.0) % Eos % (Auto) 4.3 H (0.0-4.0) % Baso % (Auto) 0.8 (0.0-2.0) % Neut # 6.4 (1.8-7.0) K/uL Lymph # 1.7 (1.0-4.3) K/uL [place] # 0.9 H (0.0-0.8) K/uL Eos # 0.4 (0.0-0.7) K/uL Baso # 0.1 (0.0-0.2) K/uL Puncture Site Lr pCO2 25 L (35-45) mm/Hg pO2 97 (80-100) mm/Hg HCO3 18.7 L (21-28) mmol/L ABG pH 7.40 (7.35-7.45) ABG Total CO2 16.3 L (22-28) mmol/L ABG O2 Saturation 100.5 H (95-98) % ABG Base Excess -8.0 L (-2.0-3.0) mmol/L ABG Hemoglobin 10.0 L (11.7-17.4) g/dL ABG Carboxyhemoglobin 2.7 H (0.5-1.5) % POC ABG HHb (Measured) -0.5 L (0.0-5.0) % ABG Methemoglobin 1.5 (0.0-3.0) % David Test Pos A-a O2 Difference 86.0 mm/Hg Respiratory Index 0.9 Hgb O2 Saturation 96.3 (95.0-98.0) % Mechanical Rate 18 FiO2 30.0 % Tidal Volume 500 PEEP 5 Sodium 138 (132-148) mmol/L Potassium 3.8 (3.6-5.2) mmol/L Chloride 111 H (98-107) mmol/L Carbon Dioxide 19 L (22-30) mmol/L Anion Gap 12 (10-20) BUN 49 H (9-20) mg/dL Creatinine 3.1 H (0.8-1.5) MG/DL Est GFR ( Amer) 24 Est GFR (Non-Af Amer) 20 Random Glucose 131 H (75-110) mg/dL Calcium 7.7 L (8.6-10.4) mg/dl Phosphorus 3.2 (2.5-4.5) mg/dL Magnesium 1.9 (1.6-2.3) mg/dL Total Bilirubin 0.8 (0.2-1.3) mg/dL AST 51 (17-59) U/L ALT 33 (21-72) U/L Alkaline Phosphatase 74 (38-126) U/L Total Protein 5.1 L (6.3-8.3) g/dL Albumin 2.0 L (3.5-5.0) g/dL Globulin 3.1 (2.2-3.9) gm/dL Albumin/Globulin Ratio 0.6 L (1.0-2.1) Laboratory Results - last 24 hr 02/12/17 02/12/17 02/12/17 04:25 06:07 06:07 WBC 9.5 RBC 3.39 L Hgb 9.8 L Hct 29.2 L MCV 86.2 MCH 28.8 MCHC 33.4 RDW 14.6 H Plt Count 194 MPV 7.2 Neut % (Auto) 68.0 Lymph % (Auto) 17.5 L [place] % (Auto) 9.4 Eos % (Auto) 4.3 H Baso % (Auto) 0.8 Neut # 6.4 Lymph # 1.7 [place] # 0.9 H Eos # 0.4 Baso # 0.1 Puncture Site Lr pCO2 25 L pO2 97 HCO3 18.7 L ABG pH 7.40 ABG Total CO2 16.3 L ABG O2 Saturation 100.5 H ABG Base Excess -8.0 L ABG Hemoglobin 10.0 L ABG Carboxyhemoglobin 2.7 H POC ABG HHb (Measured) -0.5 L ABG Methemoglobin 1.5 David Test Pos A-a O2 Difference 86.0 Respiratory Index 0.9 Hgb O2 Saturation 96.3 Mechanical Rate 18 FiO2 30.0 Tidal Volume 500 PEEP 5 Sodium 138 Potassium 3.8 Chloride 111 H Carbon Dioxide 19 L Anion Gap 12 BUN 49 H Creatinine 3.1 H Est GFR ( Amer) 24 Est GFR (Non-Af Amer) 20 Random Glucose 131 H Calcium 7.7 L Phosphorus 3.2 Magnesium 1.9 Total Bilirubin 0.8 AST 51 ALT 33 Alkaline Phosphatase 74 Total Protein 5.1 L Albumin 2.0 L Globulin 3.1 Albumin/Globulin Ratio 0.6 L Review of Systems - Review of Systems Systems not reviewed;Unavailable: Intubated Assessment/Plan - Assessment and Plan (Free Text) Assessment: This is a 81 yo M with hx of Down's Syndrome that has severe sepsis secondary to UTI, complicated by hyponatremia, OANH and acute on chronic CHF exacerbation. Pt is intubated now secondary to respiratory failure. Plan: Neuro: Awake, alert Cardiovascular: Hypotensive (systolic in low 60's at times) PICC line placed, now on Levophed drip Continue to monitor, goal MAP 65 Currently hemodynamically stable Pulmonary: Intubated Maintain saturations above 90% Serial ABG's CXR unremarkable Gastrointestinal: Tube feedings No acute issues Hematology: Hgb stable, no acute issues Endocrine: No acute issues Renal: OANH Increased Cr, now 3.1 Nephro consulted Monitor electrolytes No acute issues Genitourinary: Urine culture positive for gram neg rods and gram positive cocci Continue Tigecycline and Flagyl Strict I/Os Infectious Disease: No leukocytosis Continue Tigecycline Afebrile, continue to monitor GI Prophylaxis: Pepcid DVT Prophylaxis: Heparin <Ronan Zavala - Last Filed: 02/12/17 12:52> CCU Objective - Vital Signs / Intake & Output Vital Signs (Last 4 hours): Vital Signs Pulse Resp BP Pulse Ox 02/12/17 11:00 64 19 105/44 L 99 02/12/17 10:00 62 21 100/48 L 100 02/12/17 09:00 63 19 101/50 L 99 Intake and Output (Last 8hrs): Intake & Output 02/11/17 02/12/17 02/12/17 22:59 06:59 14:59 Intake Total 1081.5 1004.5 145 Output Total 615 580 50 Balance 466.5 424.5 95 Intake: IV 254 0 Intake, IV Amount 667.5 844.5 125 Right Forearm 450 700 50 Right PICC 217.5 144.5 75 Tube Feeding 160 160 20 Output: Urine 615 580 50 Suprapubic 615 580 50 Other: # Bowel Movements 1 - Medications Active Medications: Active Medications Generic Name Dose Route Start Last Admin Trade Name Freq PRN Reason Stop Dose Admin Acetaminophen 650 mg 02/05/17 22:37 02/11/17 08:35 Tylenol 325mg Tab PO 650 mg Q4H PRN Administration Fever >100.4 F Albuterol/Ipratropium 3 ml 02/09/17 02:00 02/12/17 07:44 Duoneb 3 Mg/0.5 Mg (3 Ml) Ud INH 3 ml RQ6 TONEY Administration Artificial Tears 0 ml 02/06/17 10:45 02/12/17 09:18 Artificial Tears OU 1 drop BID TONEY Administration Ascorbic Acid 500 mg 02/06/17 10:00 02/12/17 09:19 Vitamin C 500 Mg Tab PO 500 mg DAILY TONEY Administration Docusate Sodium 200 mg 02/11/17 10:00 02/12/17 09:19 Colace PO 200 mg DAILY TONEY Administration Famotidine 20 mg 02/06/17 10:00 02/12/17 09:19 Pepcid PO 20 mg DAILY TONEY Administration Ferrous Sulfate 325 mg 02/06/17 10:00 02/12/17 09:19 Feosol PO 325 mg DAILY TONEY Administration Heparin Sodium (Porcine) 5,000 units 02/09/17 14:00 02/12/17 06:04 Heparin SC 5,000 units Q8 TONEY Administration Norepinephrine Bitartrate 4 mg 254 mls @ 15.24 mls/hr 02/09/17 13:23 06:06 / Sodium Chloride IV 4 mcg/min .[id number] PRN 15.24 mls/hr TITRATE PER MD ORDER Titration Protocol 4 MCG/MIN Tigecycline 50 mg/ Sodium 100 mls @ 100 mls/hr 02/10/17 02:00 02/12/17 02:05 Chloride IVPB 100 mls/hr Q12H TONEY Administration Metronidazole 500 mg in 100 mls @ 100 mls/hr 02/11/17 03:00 02/12/17 03:03 Flagyl IVPB 100 mls/hr Q12H TONEY Administration Lorazepam 1 mg 02/10/17 09:42 02/11/17 23:25 Ativan IVP 1 mg Q2H PRN Administration Agitation Magnesium Hydroxide 30 ml 02/05/17 22:31 Milk Of Magnesia PO DAILY PRN Constipation Multivitamins 1 tab 02/06/17 10:45 02/12/17 09:21 Hexavitamin PO 1 tab DAILY TONEY Administration - Patient Studies Lab Studies: Microbiology Studies 02/10/17 21:19 Blood Culture - Preliminary Blood-Thru Central Line NO GROWTH AFTER 24 HOURS 02/10/17 21:19 Blood Culture - Preliminary Blood-Thru Central Line NO GROWTH AFTER 24 HOURS 02/08/17 15:50 Blood Culture - Preliminary Blood NO GROWTH AFTER 3 DAYS 02/08/17 16:00 Blood Culture - Preliminary Blood NO GROWTH AFTER 3 DAYS Lab Studies 02/12/17 02/12/17 02/12/17 Range/Units 11:33 06:07 06:07 WBC 9.5 (4.8-10.8) K/uL RBC 3.39 L (4.40-5.90) Mil/uL Hgb 9.8 L (12.0-18.0) g/dL Hct 29.2 L (35.0-51.0) % MCV 86.2 (80.0-94.0) fL MCH 28.8 (27.0-31.0) pg MCHC 33.4 (33.0-37.0) g/dL RDW 14.6 H (11.5-14.5) % Plt Count 194 (130-400) K/uL MPV 7.2 (7.2-11.7) fL Neut % (Auto) 68.0 (50.0-75.0) % Lymph % (Auto) 17.5 L (20.0-40.0) % [place] % (Auto) 9.4 (0.0-10.0) % Eos % (Auto) 4.3 H (0.0-4.0) % Baso % (Auto) 0.8 (0.0-2.0) % Neut # 6.4 (1.8-7.0) K/uL Lymph # 1.7 (1.0-4.3) K/uL [place] # 0.9 H (0.0-0.8) K/uL Eos # 0.4 (0.0-0.7) K/uL Baso # 0.1 (0.0-0.2) K/uL Puncture Site pCO2 (35-45) mm/Hg pO2 (80-100) mm/Hg HCO3 (21-28) mmol/L ABG pH (7.35-7.45) ABG Total CO2 (22-28) mmol/L ABG O2 Saturation (95-98) % ABG Base Excess (-2.0-3.0) mmol/L ABG Hemoglobin (11.7-17.4) g/dL ABG Carboxyhemoglobin (0.5-1.5) % POC ABG HHb (Measured) (0.0-5.0) % ABG Methemoglobin (0.0-3.0) % David Test A-a O2 Difference mm/Hg Respiratory Index Hgb O2 Saturation (95.0-98.0) % Mechanical Rate FiO2 % Tidal Volume PEEP Sodium 138 (132-148) mmol/L Potassium 3.8 (3.6-5.2) mmol/L Chloride 111 H (98-107) mmol/L Carbon Dioxide 19 L (22-30) mmol/L Anion Gap 12 (10-20) BUN 49 H (9-20) mg/dL Creatinine 3.1 H (0.8-1.5) MG/DL Est GFR ( Amer) 24 Est GFR (Non-Af Amer) 20 POC Glucose (mg/dL) 144 H (65-110) mg/dL Random Glucose 131 H (75-110) mg/dL Calcium 7.7 L (8.6-10.4) mg/dl Phosphorus 3.2 (2.5-4.5) mg/dL Magnesium 1.9 (1.6-2.3) mg/dL Total Bilirubin 0.8 (0.2-1.3) mg/dL AST 51 (17-59) U/L ALT 33 (21-72) U/L Alkaline Phosphatase 74 (38-126) U/L Total Protein 5.1 L (6.3-8.3) g/dL Albumin 2.0 L (3.5-5.0) g/dL Globulin 3.1 (2.2-3.9) gm/dL Albumin/Globulin Ratio 0.6 L (1.0-2.1) 02/12/17 02/11/17 Range/Units 04:25 23:59 WBC (4.8-10.8) K/uL RBC (4.40-5.90) Mil/uL Hgb (12.0-18.0) g/dL Hct (35.0-51.0) % MCV (80.0-94.0) fL MCH (27.0-31.0) pg MCHC (33.0-37.0) g/dL RDW (11.5-14.5) % Plt Count (130-400) K/uL MPV (7.2-11.7) fL Neut % (Auto) (50.0-75.0) % Lymph % (Auto) (20.0-40.0) % [place] % (Auto) (0.0-10.0) % Eos % (Auto) (0.0-4.0) % Baso % (Auto) (0.0-2.0) % Neut # (1.8-7.0) K/uL Lymph # (1.0-4.3) K/uL [place] # (0.0-0.8) K/uL Eos # (0.0-0.7) K/uL Baso # (0.0-0.2) K/uL Puncture Site Lr pCO2 25 L (35-45) mm/Hg pO2 97 (80-100) mm/Hg HCO3 18.7 L (21-28) mmol/L ABG pH 7.40 (7.35-7.45) ABG Total CO2 16.3 L (22-28) mmol/L ABG O2 Saturation 100.5 H (95-98) % ABG Base Excess -8.0 L (-2.0-3.0) mmol/L ABG Hemoglobin 10.0 L (11.7-17.4) g/dL ABG Carboxyhemoglobin 2.7 H (0.5-1.5) % POC ABG HHb (Measured) -0.5 L (0.0-5.0) % ABG Methemoglobin 1.5 (0.0-3.0) % David Test Pos A-a O2 Difference 86.0 mm/Hg Respiratory Index 0.9 Hgb O2 Saturation 96.3 (95.0-98.0) % Mechanical Rate 18 FiO2 30.0 % Tidal Volume 500 PEEP 5 Sodium (132-148) mmol/L Potassium (3.6-5.2) mmol/L Chloride (98-107) mmol/L Carbon Dioxide (22-30) mmol/L Anion Gap (10-20) BUN (9-20) mg/dL Creatinine (0.8-1.5) MG/DL Est GFR ( Amer) Est GFR (Non-Af Amer) POC Glucose (mg/dL) 167 H (65-110) mg/dL Random Glucose (75-110) mg/dL Calcium (8.6-10.4) mg/dl Phosphorus (2.5-4.5) mg/dL Magnesium (1.6-2.3) mg/dL Total Bilirubin (0.2-1.3) mg/dL AST (17-59) U/L ALT (21-72) U/L Alkaline Phosphatase (38-126) U/L Total Protein (6.3-8.3) g/dL Albumin (3.5-5.0) g/dL Globulin (2.2-3.9) gm/dL Albumin/Globulin Ratio (1.0-2.1) Laboratory Results - last 24 hr 02/11/17 02/12/17 02/12/17 23:59 04:25 06:07 WBC 9.5 RBC 3.39 L Hgb 9.8 L Hct 29.2 L MCV 86.2 MCH 28.8 MCHC 33.4 RDW 14.6 H Plt Count 194 MPV 7.2 Neut % (Auto) 68.0 Lymph % (Auto) 17.5 L [place] % (Auto) 9.4 Eos % (Auto) 4.3 H Baso % (Auto) 0.8 Neut # 6.4 Lymph # 1.7 [place] # 0.9 H Eos # 0.4 Baso # 0.1 Puncture Site Lr pCO2 25 L pO2 97 HCO3 18.7 L ABG pH 7.40 ABG Total CO2 16.3 L ABG O2 Saturation 100.5 H ABG Base Excess -8.0 L ABG Hemoglobin 10.0 L ABG Carboxyhemoglobin 2.7 H POC ABG HHb (Measured) -0.5 L ABG Methemoglobin 1.5 David Test Pos A-a O2 Difference 86.0 Respiratory Index 0.9 Hgb O2 Saturation 96.3 Mechanical Rate 18 FiO2 30.0 Tidal Volume 500 PEEP 5 Sodium Potassium Chloride Carbon Dioxide Anion Gap BUN Creatinine Est GFR ( Amer) Est GFR (Non-Af Amer) POC Glucose (mg/dL) 167 H Random Glucose Calcium Phosphorus Magnesium Total Bilirubin AST ALT Alkaline Phosphatase Total Protein Albumin Globulin Albumin/Globulin Ratio 02/12/17 02/12/17 06:07 11:33 WBC RBC Hgb Hct MCV MCH MCHC RDW Plt Count MPV Neut % (Auto) Lymph % (Auto) [place] % (Auto) Eos % (Auto) Baso % (Auto) Neut # Lymph # [place] # Eos # Baso # Puncture Site pCO2 pO2 HCO3 ABG pH ABG Total CO2 ABG O2 Saturation ABG Base Excess ABG Hemoglobin ABG Carboxyhemoglobin POC ABG HHb (Measured) ABG Methemoglobin David Test A-a O2 Difference Respiratory Index Hgb O2 Saturation Mechanical Rate FiO2 Tidal Volume PEEP Sodium 138 Potassium 3.8 Chloride 111 H Carbon Dioxide 19 L Anion Gap 12 BUN 49 H Creatinine 3.1 H Est GFR ( Amer) 24 Est GFR (Non-Af Amer) 20 POC Glucose (mg/dL) 144 H Random Glucose 131 H Calcium 7.7 L Phosphorus 3.2 Magnesium 1.9 Total Bilirubin 0.8 AST 51 ALT 33 Alkaline Phosphatase 74 Total Protein 5.1 L Albumin 2.0 L Globulin 3.1 Albumin/Globulin Ratio 0.6 L Assessment/Plan (1) Acute respiratory failure with hypercapnia Current Visit: Yes Status: Acute Comment: Patient intubated and put on ventilatory support Follow-up ABG IV sedation (2) Down's syndrome Current Visit: Yes Status: Acute (3) UTI (urinary tract infection) Current Visit: Yes Status: Acute Attending/Attestation - Attestation I have personally seen and examined this patient.: Yes I have fully participated in the care of the patient.: Yes I have reviewed all pertinent clinical information: Yes Notes (Text): 02/12/17 12:51 Patient with acute respiratory failure. Multiorgan failure. Renal insufficiency. Overall prognosis is guarded
--- NOTE | 2017-02-12 12:27 | CP.PCM.CON ---
History of Present Illness - History of Present Illness History of Present Illness: 02/11/17 18:56 81-year-old male with history of Down syndrome, hypertension congestive heart failure admitted from [facility] with fever, chest pain. Patient developed respiratory failure, and intubated. Patient also has a multidrug resistant urinary tract infection. Currently patient is sedated. This morning patient was able to opening his eyes. Sedated currently. Blood pressure is stable otherwise. Low-dose vasopressor. Tolerating at this time CONSULT DICTATED HAS OANH EITHER SEPSIS-RELATED, POSSIBLY CARDIORENAL FROM CHF DIFFICULT TO WEAN, REMAINS ON LEVOPHED 4 MCG/KG HAS FAIR UO, BUT MODERATELY POSITIVE FLUID BALANCE WILL PURSUE WORKUP AND FOLLOW WITH TEAM Past Patient History - Infectious Disease Hx of Infectious Diseases: None - Past Medical History & Family History Past Medical History?: Yes - Past Social History Smoking Status: Never Smoked - CARDIAC Hx Hypercholesterolemia: Yes Hx Hypertension: Yes - PULMONARY Hx Respiratory Disorders: No - NEUROLOGICAL Hx Neurological Disorder: Yes Other/Comment: down syndrome,developmental delay - HEENT Hx HEENT Problems: No - RENAL Hx Chronic Kidney Disease: Yes - ENDOCRINE/METABOLIC Hx Endocrine Disorders: No - HEMATOLOGICAL/ONCOLOGICAL Hx Blood Disorders: No - INTEGUMENTARY Hx Dermatological Problems: No - MUSCULOSKELETAL/RHEUMATOLOGICAL Hx Falls: Yes - GASTROINTESTINAL Hx Gastrointestinal Disorders: No - GENITOURINARY/GYNECOLOGICAL Hx Genitourinary Disorders: Yes Hx Urinary Tract Infection: Yes (hx chronic UTI) Other/Comment: suprapubic catheter. x 1 year ,hx urinary retention - PSYCHIATRIC Hx Substance Use: No - SURGICAL HISTORY Hx Surgeries: Yes Other/Comment: hx lt nephrostomy tube - ANESTHESIA Hx Anesthesia: Yes Hx Anesthesia Reactions: No Meds Allergies/Adverse Reactions: Allergies Allergy/AdvReac Type Severity Reaction Status Date / Time ceftriaxone sodium AdvReac Severe ANAPHYLAXIS Verified 02/05/17 21:29 [From Rocephin] - Medications Medications: Current Medications Acetaminophen (Tylenol 325mg Tab) 650 mg PO Q4H PRN PRN Reason: Fever >100.4 F Last Admin: 02/11/17 08:35 Dose: 650 mg Albuterol/Ipratropium (Duoneb 3 Mg/0.5 Mg (3 Ml) Ud) 3 ml INH RQ6 TONEY Last Admin: 02/12/17 07:44 Dose: 3 ml Artificial Tears (Artificial Tears) 0 ml OU BID TONEY Last Admin: 02/12/17 09:18 Dose: 1 drop Ascorbic Acid (Vitamin C 500 Mg Tab) 500 mg PO DAILY [facility] Last Admin: 02/12/17 09:19 Dose: 500 mg Docusate Sodium (Colace) 200 mg PO DAILY [facility] Last Admin: 02/12/17 09:19 Dose: 200 mg Famotidine (Pepcid) 20 mg PO DAILY [facility] Last Admin: 02/12/17 09:19 Dose: 20 mg Ferrous Sulfate (Feosol) 325 mg PO DAILY [facility] Last Admin: 02/12/17 09:19 Dose: 325 mg Heparin Sodium (Porcine) (Heparin) 5,000 units SC Q8 [facility] Last Admin: 02/12/17 06:04 Dose: 5,000 units Norepinephrine Bitartrate 4 mg (/ Sodium Chloride) 254 mls @ 15.24 mls/hr IV .[id number] PRN; Protocol; 4 MCG/MIN PRN Reason: TITRATE PER MD ORDER Last Titration: 02/12/17 06:06 Dose: 4 mcg/min, 15.24 mls/hr Tigecycline 50 mg/ Sodium (Chloride) 100 mls @ 100 mls/hr IVPB Q12H [facility] Last Admin: 02/12/17 02:05 Dose: 100 mls/hr Metronidazole (Flagyl) 500 mg in 100 mls @ 100 mls/hr IVPB Q12H [facility] Last Admin: 02/12/17 03:03 Dose: 100 mls/hr Lorazepam (Ativan) 1 mg IVP Q2H PRN PRN Reason: Agitation Last Admin: 02/11/17 23:25 Dose: 1 mg Magnesium Hydroxide (Milk Of Magnesia) 30 ml PO DAILY PRN PRN Reason: Constipation Multivitamins (Hexavitamin) 1 tab PO DAILY [facility] Last Admin: 02/12/17 09:21 Dose: 1 tab Results - Vital Signs Recent Vital Signs: Last Vital Signs Temp 98.9 F 02/12/17 08:00 Pulse 64 02/12/17 11:00 Resp 19 02/12/17 11:00 BP 105/44 L 02/12/17 11:00 Pulse Ox 99 02/12/17 11:00 - Labs Result Diagrams: 02/12/17 06:07 02/12/17 06:07 Labs: Laboratory Results - last 24 hr 02/11/17 02/12/17 02/12/17 23:59 04:25 06:07 WBC 9.5 RBC 3.39 L Hgb 9.8 L Hct 29.2 L MCV 86.2 MCH 28.8 MCHC 33.4 RDW 14.6 H Plt Count 194 MPV 7.2 Neut % (Auto) 68.0 Lymph % (Auto) 17.5 L [place] % (Auto) 9.4 Eos % (Auto) 4.3 H Baso % (Auto) 0.8 Neut # 6.4 Lymph # 1.7 [place] # 0.9 H Eos # 0.4 Baso # 0.1 Puncture Site Lr pCO2 25 L pO2 97 HCO3 18.7 L ABG pH 7.40 ABG Total CO2 16.3 L ABG O2 Saturation 100.5 H ABG Base Excess -8.0 L ABG Hemoglobin 10.0 L ABG Carboxyhemoglobin 2.7 H POC ABG HHb (Measured) -0.5 L ABG Methemoglobin 1.5 David Test Pos A-a O2 Difference 86.0 Respiratory Index 0.9 Hgb O2 Saturation 96.3 Mechanical Rate 18 FiO2 30.0 Tidal Volume 500 PEEP 5 Sodium Potassium Chloride Carbon Dioxide Anion Gap BUN Creatinine Est GFR ( Amer) Est GFR (Non-Af Amer) POC Glucose (mg/dL) 167 H Random Glucose Calcium Phosphorus Magnesium Total Bilirubin AST ALT Alkaline Phosphatase Total Protein Albumin Globulin Albumin/Globulin Ratio 02/12/17 02/12/17 06:07 11:33 WBC RBC Hgb Hct MCV MCH MCHC RDW Plt Count MPV Neut % (Auto) Lymph % (Auto) [place] % (Auto) Eos % (Auto) Baso % (Auto) Neut # Lymph # [place] # Eos # Baso # Puncture Site pCO2 pO2 HCO3 ABG pH ABG Total CO2 ABG O2 Saturation ABG Base Excess ABG Hemoglobin ABG Carboxyhemoglobin POC ABG HHb (Measured) ABG Methemoglobin David Test A-a O2 Difference Respiratory Index Hgb O2 Saturation Mechanical Rate FiO2 Tidal Volume PEEP Sodium 138 Potassium 3.8 Chloride 111 H Carbon Dioxide 19 L Anion Gap 12 BUN 49 H Creatinine 3.1 H Est GFR ( Amer) 24 Est GFR (Non-Af Amer) 20 POC Glucose (mg/dL) 144 H Random Glucose 131 H Calcium 7.7 L Phosphorus 3.2 Magnesium 1.9 Total Bilirubin 0.8 AST 51 ALT 33 Alkaline Phosphatase 74 Total Protein 5.1 L Albumin 2.0 L Globulin 3.1 Albumin/Globulin Ratio 0.6 L
--- NOTE | 2017-02-12 14:00 | CP.PCM.PN ---
Subjective - Date & Time of Evaluation Date of Evaluation: 02/12/17 Time of Evaluation: 14:00 - Subjective Subjective: AFEBRILE, VITAL SIGNS NOTED STILL INTUBATED ON VENTILATOR. opens eyes on name. generalized edema noted. BILATERAL LOWER EXTREMITY EDEMA. AUNT at bedside RENAL FUNCTION DETERIORATING. SEEN BY NEPHROLOGY. Objective - Vital Signs/Intake and Output Vital Signs (last 24 hours): Temp Pulse Resp BP Pulse Ox 98.9 F 64 19 105/44 L 99 02/12/17 08:00 02/12/17 11:00 02/12/17 11:00 02/12/17 11:00 02/12/17 11:00 Intake and Output: 02/12/17 02/12/17 06:59 18:59 Intake Total 1636.0 145 Output Total 945 50 Balance 691.0 95 - Medications Medications: Current Medications Acetaminophen (Tylenol 325mg Tab) 650 mg PO Q4H PRN PRN Reason: Fever >100.4 F Last Admin: 02/11/17 08:35 Dose: 650 mg Albuterol/Ipratropium (Duoneb 3 Mg/0.5 Mg (3 Ml) Ud) 3 ml INH RQ6 [facility] Last Admin: 02/12/17 13:40 Dose: 3 ml Artificial Tears (Artificial Tears) 0 ml OU BID [facility] Last Admin: 02/12/17 09:18 Dose: 1 drop Ascorbic Acid (Vitamin C 500 Mg Tab) 500 mg PO DAILY [facility] Last Admin: 02/12/17 09:19 Dose: 500 mg Docusate Sodium (Colace) 200 mg PO DAILY [facility] Last Admin: 02/12/17 09:19 Dose: 200 mg Famotidine (Pepcid) 20 mg PO DAILY [facility] Last Admin: 02/12/17 09:19 Dose: 20 mg Ferrous Sulfate (Feosol) 325 mg PO DAILY [facility] Last Admin: 02/12/17 09:19 Dose: 325 mg Heparin Sodium (Porcine) (Heparin) 5,000 units SC Q8 [facility] Last Admin: 02/12/17 06:04 Dose: 5,000 units Norepinephrine Bitartrate 4 mg (/ Sodium Chloride) 254 mls @ 15.24 mls/hr IV .[id number] PRN; Protocol; 4 MCG/MIN PRN Reason: TITRATE PER MD ORDER Last Titration: 02/12/17 06:06 Dose: 4 mcg/min, 15.24 mls/hr Tigecycline 50 mg/ Sodium (Chloride) 100 mls @ 100 mls/hr IVPB Q12H [facility] Last Admin: 02/12/17 02:05 Dose: 100 mls/hr Metronidazole (Flagyl) 500 mg in 100 mls @ 100 mls/hr IVPB Q12H [facility] Last Admin: 02/12/17 03:03 Dose: 100 mls/hr Lorazepam (Ativan) 1 mg IVP Q2H PRN PRN Reason: Agitation Last Admin: 02/11/17 23:25 Dose: 1 mg Magnesium Hydroxide (Milk Of Magnesia) 30 ml PO DAILY PRN PRN Reason: Constipation Multivitamins (Hexavitamin) 1 tab PO DAILY [facility] Last Admin: 02/12/17 09:21 Dose: 1 tab - Labs Labs: 02/12/17 06:07 02/12/17 06:07 PT 13.0 SECONDS (9.7-12.2) H 02/09/17 06:04 INR 1.2 02/09/17 06:04 APTT 32 SECONDS (21-34) 02/09/17 06:04 - Constitutional Appears: No Acute Distress - Head Exam Head Exam: NORMAL INSPECTION - Eye Exam Eye Exam: PERRL - ENT Exam ENT Exam: Mucous Membranes Moist - Neck Exam Neck Exam: Normal Inspection - Respiratory Exam Respiratory Exam: Prolonged Expiratory Phase, Wheezes - Cardiovascular Exam Cardiovascular Exam: Tachycardia, +S1, +S2 - GI/Abdominal Exam GI & Abdominal Exam: Soft, Hypoactive Bowel Sounds - Extremities Exam Extremities Exam: Pedal Edema. absent: Calf Tenderness - Neurological Exam Neurological Exam: Awake - Psychiatric Exam Psychiatric exam: Flat Affect - Skin Skin Exam: Normal Color Assessment and Plan (1) Acute respiratory failure with hypercapnia Status: Acute (2) Septic shock Status: Acute (3) Hypotension Status: Acute (4) Down's syndrome Status: Acute (5) UTI (urinary tract infection) Status: Acute (6) Decubitus skin ulcer Status: Acute - Assessment and Plan (Free Text) Assessment: ASSESSMENT/PLAN : RESPIRATORY FAILURE. SEPTIC SHOCK. CYSTITIS /UROSEPSIS E.COLI/ENTEROCOCCUS FEACALIS DECUBITUS ULCERS [facility] PRE-RENAL AZOTEMIA ?HYPOTENSION/DEHYDRATION DOWN S SYNDROME. PLAN: BLOOD CULTURE X 2 -5/20 -VE X 48HRS CONTINUE IV TYGACIL 50 MG EVERY 12 HOURLY. 02/09/17 GOT ONE DOSE OF VANCOMYCIN ON 02/09/17. ON iv FLAGYL 500 MG EVERY 12 HOURS 02/10/17 REPEAT UA/AND URINE CULTURES LWC. CONTACT PRECAUTIONS.
--- NOTE | 2017-02-12 14:50 | CP.PCM.CON ---
History of Present Illness - History of Present Illness History of Present Illness: Palliative consult Requested by Vinicio DIMAS Reason: Code status clarification Patient is a 81 yo male admitted from [place] with fever of 101.0. Upon admission patient was diagnosed with B/l atelectasis and sepsis 2nd to severe ESBL in the urine. On 02/10/2017 patient underwent respiratory failure requireing assistance from MV. Patient was also hemodinamically unstable, than given PICC line and started on Levophed IV. Per long term transfer form patient is a DNR but without supporting evidences. Palliative consult was called to assist with this matter. PMH: Down's syndrome Soc. hx: [place] resident, lorenzo Chun is a surrogate decision maker ; [phone]) Fam . Hx: Unknown Review of Systems - Review of Systems Systems not reviewed;Unavailable: Intubated Past Patient History - Infectious Disease Hx of Infectious Diseases: None - Past Medical History & Family History Past Medical History?: Yes - Past Social History Smoking Status: Never Smoked - CARDIAC Hx Hypercholesterolemia: Yes Hx Hypertension: Yes - PULMONARY Hx Respiratory Disorders: No - NEUROLOGICAL Hx Neurological Disorder: Yes Other/Comment: down syndrome,developmental delay - HEENT Hx HEENT Problems: No - RENAL Hx Chronic Kidney Disease: Yes - ENDOCRINE/METABOLIC Hx Endocrine Disorders: No - HEMATOLOGICAL/ONCOLOGICAL Hx Blood Disorders: No - INTEGUMENTARY Hx Dermatological Problems: No - MUSCULOSKELETAL/RHEUMATOLOGICAL Hx Falls: Yes - GASTROINTESTINAL Hx Gastrointestinal Disorders: No - GENITOURINARY/GYNECOLOGICAL Hx Genitourinary Disorders: Yes Hx Urinary Tract Infection: Yes (hx chronic UTI) Other/Comment: suprapubic catheter. x 1 year ,hx urinary retention - PSYCHIATRIC Hx Substance Use: No - SURGICAL HISTORY Hx Surgeries: Yes Other/Comment: hx lt nephrostomy tube - ANESTHESIA Hx Anesthesia: Yes Hx Anesthesia Reactions: No Meds Allergies/Adverse Reactions: Allergies Allergy/AdvReac Type Severity Reaction Status Date / Time ceftriaxone sodium AdvReac Severe ANAPHYLAXIS Verified 02/05/17 21:29 [From Rocephin] - Medications Medications: Current Medications Acetaminophen (Tylenol 325mg Tab) 650 mg PO Q4H PRN PRN Reason: Fever >100.4 F Last Admin: 02/11/17 08:35 Dose: 650 mg Albuterol/Ipratropium (Duoneb 3 Mg/0.5 Mg (3 Ml) Ud) 3 ml INH RQ6 [facility] Last Admin: 02/12/17 13:40 Dose: 3 ml Artificial Tears (Artificial Tears) 0 ml OU BID [facility] Last Admin: 02/12/17 09:18 Dose: 1 drop Ascorbic Acid (Vitamin C 500 Mg Tab) 500 mg PO DAILY [facility] Last Admin: 02/12/17 09:19 Dose: 500 mg Docusate Sodium (Colace) 200 mg PO DAILY [facility] Last Admin: 02/12/17 09:19 Dose: 200 mg Famotidine (Pepcid) 20 mg PO DAILY [facility] Last Admin: 02/12/17 09:19 Dose: 20 mg Ferrous Sulfate (Feosol) 325 mg PO DAILY [facility] Last Admin: 02/12/17 09:19 Dose: 325 mg Heparin Sodium (Porcine) (Heparin) 5,000 units SC Q8 [facility] Last Admin: 02/12/17 06:04 Dose: 5,000 units Norepinephrine Bitartrate 4 mg (/ Sodium Chloride) 254 mls @ 15.24 mls/hr IV .[id number] PRN; Protocol; 4 MCG/MIN PRN Reason: TITRATE PER MD ORDER Last Titration: 02/12/17 06:06 Dose: 4 mcg/min, 15.24 mls/hr Tigecycline 50 mg/ Sodium (Chloride) 100 mls @ 100 mls/hr IVPB Q12H [facility] Last Admin: 02/12/17 02:05 Dose: 100 mls/hr Metronidazole (Flagyl) 500 mg in 100 mls @ 100 mls/hr IVPB Q12H [facility] Last Admin: 02/12/17 03:03 Dose: 100 mls/hr Lorazepam (Ativan) 1 mg IVP Q2H PRN PRN Reason: Agitation Last Admin: 02/11/17 23:25 Dose: 1 mg Magnesium Hydroxide (Milk Of Magnesia) 30 ml PO DAILY PRN PRN Reason: Constipation Multivitamins (Hexavitamin) 1 tab PO DAILY [facility] Last Admin: 02/12/17 09:21 Dose: 1 tab Physical Exam - Constitutional Appears: Chronically Ill - Head Exam Head Exam: ATRAUMATIC, NORMAL INSPECTION, NORMOCEPHALIC - Eye Exam Eye Exam: EOMI, Normal appearance, PERRL Pupil Exam: NORMAL ACCOMODATION, PERRL - ENT Exam ENT Exam: Mucous Membranes Moist, Normal Exam - Neck Exam Neck exam: Positive for: Normal Inspection - Respiratory Exam Respiratory Exam: NORMAL BREATHING PATTERN Additional comments: On MV support - Cardiovascular Exam Cardiovascular Exam: REGULAR RHYTHM Additional comments: On Levophed IV - GI/Abdominal Exam GI & Abdominal Exam: Diminished Bowel Sounds - Rectal Exam Rectal Exam: Deferred - Exam Additional comments: Morgan cath - Extremities Exam Extremities exam: Positive for: pedal edema - Back Exam Back exam: NORMAL INSPECTION - Neurological Exam Neurological exam: Alert, Altered - Psychiatric Exam Psychiatric exam: Flat Affect - Skin Skin Exam: Normal Color Results - Vital Signs Recent Vital Signs: Last Vital Signs Temp 98.8 F 02/12/17 12:00 Pulse 59 L 02/12/17 14:00 Resp 18 02/12/17 14:00 BP 121/51 L 02/12/17 14:00 Pulse Ox 99 02/12/17 14:00 - Labs Result Diagrams: 02/12/17 06:07 02/12/17 06:07 Labs: Laboratory Results - last 24 hr 02/11/17 02/12/17 02/12/17 23:59 04:25 06:07 WBC 9.5 RBC 3.39 L Hgb 9.8 L Hct 29.2 L MCV 86.2 MCH 28.8 MCHC 33.4 RDW 14.6 H Plt Count 194 MPV 7.2 Neut % (Auto) 68.0 Lymph % (Auto) 17.5 L [place] % (Auto) 9.4 Eos % (Auto) 4.3 H Baso % (Auto) 0.8 Neut # 6.4 Lymph # 1.7 [place] # 0.9 H Eos # 0.4 Baso # 0.1 Puncture Site Lr pCO2 25 L pO2 97 HCO3 18.7 L ABG pH 7.40 ABG Total CO2 16.3 L ABG O2 Saturation 100.5 H ABG Base Excess -8.0 L ABG Hemoglobin 10.0 L ABG Carboxyhemoglobin 2.7 H POC ABG HHb (Measured) -0.5 L ABG Methemoglobin 1.5 David Test Pos A-a O2 Difference 86.0 Respiratory Index 0.9 Hgb O2 Saturation 96.3 Mechanical Rate 18 FiO2 30.0 Tidal Volume 500 PEEP 5 Sodium Potassium Chloride Carbon Dioxide Anion Gap BUN Creatinine Est GFR ( Amer) Est GFR (Non-Af Amer) POC Glucose (mg/dL) 167 H Random Glucose Calcium Phosphorus Magnesium Total Bilirubin AST ALT Alkaline Phosphatase Total Protein Albumin Globulin Albumin/Globulin Ratio 02/12/17 02/12/17 06:07 11:33 WBC RBC Hgb Hct MCV MCH MCHC RDW Plt Count MPV Neut % (Auto) Lymph % (Auto) [place] % (Auto) Eos % (Auto) Baso % (Auto) Neut # Lymph # [place] # Eos # Baso # Puncture Site pCO2 pO2 HCO3 ABG pH ABG Total CO2 ABG O2 Saturation ABG Base Excess ABG Hemoglobin ABG Carboxyhemoglobin POC ABG HHb (Measured) ABG Methemoglobin David Test A-a O2 Difference Respiratory Index Hgb O2 Saturation Mechanical Rate FiO2 Tidal Volume PEEP Sodium 138 Potassium 3.8 Chloride 111 H Carbon Dioxide 19 L Anion Gap 12 BUN 49 H Creatinine 3.1 H Est GFR ( Amer) 24 Est GFR (Non-Af Amer) 20 POC Glucose (mg/dL) 144 H Random Glucose 131 H Calcium 7.7 L Phosphorus 3.2 Magnesium 1.9 Total Bilirubin 0.8 AST 51 ALT 33 Alkaline Phosphatase 74 Total Protein 5.1 L Albumin 2.0 L Globulin 3.1 Albumin/Globulin Ratio 0.6 L Assessment & Plan - Assessment and Plan (Free Text) Assessment: Palliative consult Code status DNR/DNI, copy of POLST on chart, PPS 10%, ROS unobtainable due to intubation I reviewed medical records, all diagnostic studies, discussed the case with Hematology Oncology Consultant, nurse Lazar, examined patient in the bed . Goals of care discussed with patient's niece Sandra, over the phone. ROS obtained from the niece. Patient is intubated, on MV, arousable to stimuli, opens his eyes. Patient is treated for ESBL and sepsis , on Tygacil and Flagyl IV. Patient normotensive at present, on Levophed IV. patient diagnosed with acute renal failure, Doctor Louis on case. Copy of POLST obtained from [facility]. POLST signed by Doctor Rivero and nichristianne Anaya, calling for DNR/DNI status ( no date presented). In phone conversation with nichristianne Anaya, I discussed the Code status. The niece understands that the present action of intubation and MV support was aimed toward assisting patient while was recovering from sepsis. She understands that the MV support was meant for short term use only. We agreed that further goals of care will be based upon patient's condition . Impression * Patient diagnosed with sepsis secondary to severe UTI * Patient non verbal at present due to intubation * POLST obtained from [facility] and copy on chart * Hina understands that the current MV support was meant only for short time while recovering from sepsis Suggestion * Further goals of care to be discussed based on patient's clinical presentation and progression. * [facility] care will meet with hina tomorrow morning. * Thank you for including me in care of this patient.
[2017-02-12 15:35] LABS: RBC URINE 33 /hpf (0-3); URINE BILIRUBIN NEGATIVE (NEGATIVE); URINE BLOOD 3+ (NEGATIVE); URINE COLOR Yellow (YELLOW); URINE GLUCOSE (UA) NORMAL (Normal); URINE KETONE NEGATIVE (NEGATIVE); URINE LEUKOCYTE ESTERASE TRACE Leu/uL (Negative); URINE PROTEIN NEGATIVE (NEGATIVE); URINE UROBILINOGEN NORMAL mg/dL (0.2-1.0); WBC URINE 6 /hpf (0-5)
--- NOTE | 2017-02-12 23:17 | CP.PCM.PN ---
Subjective - Date & Time of Evaluation Date of Evaluation: 02/12/17 Time of Evaluation: 07:36 - Subjective Subjective: Pt seen & examined, continues to deteriote, AFEBRILE, remains on VENTILATOR. opens eyes on name. generalized edema noted. BILATERAL LOWER EXTREMITY EDEMA. AUNT at bedside RENAL FUNCTION DETERIORATING. SEEN BY NEPHROLOGY. Objective - Vital Signs/Intake and Output Vital Signs (last 24 hours): Temp Pulse Resp BP Pulse Ox 99 F 61 0 L 107/53 L 98 02/12/17 20:00 02/12/17 22:03 02/12/17 22:03 02/12/17 22:03 02/12/17 22:03 Intake and Output: 02/12/17 02/13/17 18:59 06:59 Intake Total 520 140 Output Total 585 260 Balance -65 -120 - Medications Medications: Current Medications Acetaminophen (Tylenol 325mg Tab) 650 mg PO Q4H PRN PRN Reason: Fever >100.4 F Last Admin: 02/11/17 08:35 Dose: 650 mg Albuterol/Ipratropium (Duoneb 3 Mg/0.5 Mg (3 Ml) Ud) 3 ml INH RQ6 [facility] Last Admin: 02/12/17 20:04 Dose: 3 ml Artificial Tears (Artificial Tears) 0 ml OU BID [facility] Last Admin: 02/12/17 17:49 Dose: 1 drop Ascorbic Acid (Vitamin C 500 Mg Tab) 500 mg PO DAILY [facility] Last Admin: 02/12/17 09:19 Dose: 500 mg Docusate Sodium (Colace) 200 mg PO DAILY [facility] Last Admin: 02/12/17 09:19 Dose: 200 mg Famotidine (Pepcid) 20 mg PO DAILY [facility] Last Admin: 02/12/17 09:19 Dose: 20 mg Ferrous Sulfate (Feosol) 325 mg PO DAILY [facility] Last Admin: 02/12/17 09:19 Dose: 325 mg Heparin Sodium (Porcine) (Heparin) 5,000 units SC Q8 [facility] Last Admin: 02/12/17 21:25 Dose: 5,000 units Norepinephrine Bitartrate 4 mg (/ Sodium Chloride) 254 mls @ 15.24 mls/hr IV .[id number] PRN; Protocol; 4 MCG/MIN PRN Reason: TITRATE PER MD ORDER Last Admin: 02/12/17 15:29 Dose: 4 mcg/min, 15.24 mls/hr Tigecycline 50 mg/ Sodium (Chloride) 100 mls @ 100 mls/hr IVPB Q12H [facility] Last Admin: 02/12/17 15:00 Dose: 100 mls/hr Metronidazole (Flagyl) 500 mg in 100 mls @ 100 mls/hr IVPB Q12H [facility] Last Admin: 02/12/17 15:24 Dose: 100 mls/hr Lorazepam (Ativan) 1 mg IVP Q2H PRN PRN Reason: Agitation Last Admin: 02/11/17 23:25 Dose: 1 mg Magnesium Hydroxide (Milk Of Magnesia) 30 ml PO DAILY PRN PRN Reason: Constipation Multivitamins (Hexavitamin) 1 tab PO DAILY [facility] Last Admin: 02/12/17 09:21 Dose: 1 tab - Labs Labs: 02/12/17 06:07 02/12/17 06:07 PT 13.0 SECONDS (9.7-12.2) H 02/09/17 06:04 INR 1.2 02/09/17 06:04 APTT 32 SECONDS (21-34) 02/09/17 06:04 - Constitutional Appears: No Acute Distress, Chronically Ill - Head Exam Head Exam: ATRAUMATIC, NORMAL INSPECTION, NORMOCEPHALIC - Eye Exam Eye Exam: EOMI, Normal appearance, PERRL Pupil Exam: NORMAL ACCOMODATION, PERRL - Respiratory Exam Respiratory Exam: Decreased Breath Sounds, Rhonchi - Cardiovascular Exam Cardiovascular Exam: REGULAR RHYTHM, +S1, +S2. absent: Murmur Assessment and Plan (1) Congestive heart failure Status: Acute (2) Down's syndrome Status: Acute (3) Dehydration Status: Acute
[2017-02-13] MEDS: Albuterol-Ipratrop 3 mg / 0.5 (3 ml) UD INH SCH ×4 (01:15→19:25)
[2017-02-13] MEDS: metroNIDAZOLE IV 500 mg/100 ml 500 MG/100 ML BAG IVPB SCH ×2 (03:10→17:28)
[2017-02-13 06:42] LABS: BASO # 0.1 K/uL (0.0-0.2); BASO % 0.8 % (0.0-2.0); EOS # 0.4 K/uL (0.0-0.7); EOS % 4.3 % (0.0-4.0); HEMATOCRIT 30.5 % (35.0-51.0); LYMPH # 1.7 K/uL (1.0-4.3); LYMPH % 17.2 % (20.0-40.0); MEAN CORPUSCULAR HEMOGLOBIN 28.6 pg (27.0-31.0); MEAN CORPUSCULAR HGB CONC 33.3 g/dL (33.0-37.0); MEAN PLATELET VOLUME 7.4 fL (7.2-11.7); MONO # 0.8 K/uL (0.0-0.8); MONO % 8.2 % (0.0-10.0); RED CELL DISTRIBUTION WIDTH 14.9 % (11.5-14.5); WHITE BLOOD COUNT 9.9 K/uL (4.8-10.8)
[2017-02-13 06:59] LABS: POTASSIUM 3.4 mmol/L (3.6-5.2)
[2017-02-13 07:01] LABS: ALB/GLOB RATIO 0.7 (1.0-2.1); TOTAL PROTEIN 5.3 g/dL (6.3-8.3)
[2017-02-13 07:02] LABS: CALCIUM 7.8 mg/dl (8.6-10.4); MAGNESIUM 1.9 mg/dL (1.6-2.3); PHOSPHOROUS 3.9 mg/dL (2.5-4.5)
--- NOTE | 2017-02-13 07:52 | CON ---
DATE: 02/12/2017 The patient is a 81-year-old man with a history of Down syndrome, hypertensive and a prior history of congestive heart failure, admitted from a detention with fever and chest pain. He was found to h ave urinary tract infection, which was multidrug resistant, and is being treated for this. He develo ped respiratory failure, had to be intubated. He was then treated with congestive heart failure and now his pressure is relatively low and he is being maintained on IV Levophed. PAST MEDICAL HISTORY: Is that of dyslipidemia. SOCIAL HISTORY: He has never smoked, never drank alcohol, and no history of illicit drug use. MEDICATIONS: At the present time include IV Tygacil, Levophed at 4 mcg/kg. He is on IV Flagyl, albu terol inhaler. PAST SURGICAL HISTORY: The only other surgical history is that of a suprapubic catheter a year ago f or urinary retention and a history of a left nephrostomy tube possibly from obstruction but it is unc lear. SOCIAL HISTORY: Unobtainable as patient is intubated. FAMILY HISTORY: As per records, there is no family history of kidney disease. PHYSICAL EXAMINATION: GENERAL: He is intubated, a poorly responsive man, maintained on the respirator. VITAL SIGNS: His blood pressure was 105/44 with Levophed of 4 mcg/kg, pulse was 64. Last temperatur e recorded was 98.9. HEENT: Anicteric. LUNGS: Showed diffuse wheezing and rales. ABDOMEN: Distended and soft. EXTREMITIES: He has upper extremity edema but lower extremity edema. LABORATORY DATA: Initial creatinine was 1.9, now the creatinine is 3.1. Calcium is 7.7, albumin is 2.0, hemoglobin is 9.8. Urinalysis has shown some proteinuria, 2+ and 1+, and many leukocytes; nitri vincenzo are positive. He has a urinary tract infection with Escherichia coli and enterococci. IMPRESSION: The patient has acute kidney injury, possibly sepsis related, possibly cardiorenal from congestive heart failure. His x-rays are consistent with congestive heart failure. He is difficult to wean possibly due to the congestive heart failure. His urine output though it adequate; he is not oliguric, acute renal failure. He has history of hypertension, diabetes mellitus and prior history of congestive heart failure, Down syndrome. RECOMMENDATION: We will pursue renal workup including renal ultrasound to make sure he has no obstru ction. Check urine electrolytes, serial chemistries. Will consider some dose of diuretics as he bahena s seem to have persistent congestive heart failure. I will discuss this with the ICU team and follow up. Rubén Louis MD cc: [id number] TT: 02/12/2017 13:19:35 Confirmation # [id number] Dictation # [id number] mn
[2017-02-13] MEDS ORDERED: Potassium Chloride 20 mEq/15 ml LIQ UD PO ONE ×2 (08:19→09:35)
--- NOTE | 2017-02-13 09:19 | US ---
PROCEDURE: Ultrasound of the Kidneys HISTORY: [facility] COMPARISON: None available. TECHNIQUE: Sonogram of the kidneys. FINDINGS: RIGHT KIDNEY: Measures: 3.9 x 3.8 x 7.9 cm. Normal in size, contour and echogenicity. No stone, solid mass lesion or hydronephrosis visualized. LEFT KIDNEY: Measures: 4.6 x 5.2 x 9.4 cm. Normal in size, contour and echogenicity. No stone, solid mass lesion or hydronephrosis visualized. OTHER FINDINGS: None. IMPRESSION: Unremarkable renal sonogram.
[2017-02-13] MEDS: Aritificial Tears (15ml) OU SCH ×2 (09:33→17:29)
[2017-02-13] MEDS: Multiple Vitamins Tab PO SCH (09:33)
--- NOTE | 2017-02-13 10:56 | CP.PCM.PN ---
Subjective - Date & Time of Evaluation Date of Evaluation: 02/13/17 Time of Evaluation: 10:54 - Subjective Subjective: good uop but remains ++ fluid balance rising creatinien noted ua noted, minimal proteinuria renal us unremarkable prior normal creatinine urinc cultures + pt is arousable in no distress niece at bedside, discussed condition with her Objective - Vital Signs/Intake and Output Vital Signs (last 24 hours): Temp Pulse Resp BP Pulse Ox 97.2 F L 56 L 18 122/52 L 100 02/13/17 08:00 02/13/17 08:00 02/13/17 08:00 02/13/17 08:00 02/13/17 08:00 Intake and Output: 02/13/17 02/13/17 06:59 18:59 Intake Total 662.9 62.6 Output Total 765 140 Balance -102.1 -77.4 - Medications Medications: Current Medications Acetaminophen (Tylenol 325mg Tab) 650 mg PO Q4H PRN PRN Reason: Fever >100.4 F Last Admin: 02/11/17 08:35 Dose: 650 mg Albuterol/Ipratropium (Duoneb 3 Mg/0.5 Mg (3 Ml) Ud) 3 ml INH RQ6 [facility] Last Admin: 02/13/17 08:06 Dose: 3 ml Artificial Tears (Artificial Tears) 0 ml OU BID [facility] Last Admin: 02/13/17 09:33 Dose: 1 drop Ascorbic Acid (Vitamin C 500 Mg Tab) 500 mg PO DAILY [facility] Last Admin: 02/13/17 09:33 Dose: 500 mg Docusate Sodium (Colace) 200 mg PO DAILY [facility] Last Admin: 02/13/17 09:27 Dose: Not Given Famotidine (Pepcid) 20 mg PO DAILY [facility] Last Admin: 02/13/17 09:33 Dose: 20 mg Ferrous Sulfate (Feosol) 325 mg PO DAILY [facility] Last Admin: 02/13/17 09:33 Dose: 325 mg Heparin Sodium (Porcine) (Heparin) 5,000 units SC Q8 [facility] Last Admin: 02/13/17 06:48 Dose: 5,000 units Norepinephrine Bitartrate 4 mg (/ Sodium Chloride) 254 mls @ 15.24 mls/hr IV .[id number] PRN; Protocol; 4 MCG/MIN PRN Reason: TITRATE PER MD ORDER Last Admin: 02/13/17 06:49 Dose: 4 mcg/min, 15.24 mls/hr Tigecycline 50 mg/ Sodium (Chloride) 100 mls @ 100 mls/hr IVPB Q12H [facility] Last Admin: 02/13/17 02:05 Dose: 100 mls/hr Metronidazole (Flagyl) 500 mg in 100 mls @ 100 mls/hr IVPB Q12H [facility] Last Admin: 02/13/17 03:10 Dose: 100 mls/hr Lorazepam (Ativan) 1 mg IVP Q2H PRN PRN Reason: Agitation Last Admin: 02/11/17 23:25 Dose: 1 mg Magnesium Hydroxide (Milk Of Magnesia) 30 ml PO DAILY PRN PRN Reason: Constipation Multivitamins (Hexavitamin) 1 tab PO DAILY [facility] Last Admin: 02/13/17 09:33 Dose: 1 tab - Labs Labs: 02/13/17 04:00 02/13/17 06:29 PT 13.0 SECONDS (9.7-12.2) H 02/09/17 06:04 INR 1.2 02/09/17 06:04 APTT 32 SECONDS (21-34) 02/09/17 06:04 - Constitutional Appears: Non-toxic, No Acute Distress - Head Exam Head Exam: NORMAL INSPECTION - Eye Exam Eye Exam: Normal appearance - ENT Exam Additional comments: et tube - Neck Exam Neck Exam: Normal Inspection - Respiratory Exam Respiratory Exam: NORMAL BREATHING PATTERN (coarse breath sounds) - Cardiovascular Exam Cardiovascular Exam: REGULAR RHYTHM - GI/Abdominal Exam GI & Abdominal Exam: Distended, Soft - Exam Exam: NORMAL INSPECTION (mar) - Extremities Exam Extremities Exam: Pedal Edema Assessment and Plan (1) Acute renal failure Status: Acute (2) Acute respiratory failure with hypercapnia Status: Acute (3) Congestive heart failure Status: Acute (4) Down's syndrome Status: Acute (5) Septic shock Status: Acute (6) UTI (urinary tract infection) Status: Acute (7) Hypotension Status: Acute - Assessment and Plan (Free Text) Assessment: [facility] multifactorial - sepsis / probable cardiorenal syndrome / drug nephrotoxicity tygecil. dc iv fluids monitor chems closely
--- NOTE | 2017-02-13 11:46 | CP.CCUPN ---
<Chava Newton - Last Filed: 02/13/17 11:38> CCU Subjective - Physician Review Subjective (Free Text): 02/13/17 11:38 PGY-1 ICU progress note Pt seen and examined at bedside. No acute events over night. Per nurse, pt bradycardic in the 50's while he sleeps but goes back into the 70's while awake. Pt still intubated. Critical Care Time Spent (in minutes): 35 CCU Objective - Vital Signs / Intake & Output Vital Signs (Last 4 hours): Vital Signs Temp Pulse Resp BP Pulse Ox 02/13/17 08:00 97.2 F L 56 L 18 122/52 L 100 Intake and Output (Last 8hrs): Intake & Output 02/12/17 02/13/17 02/13/17 22:59 06:59 14:59 Intake Total 240 522.9 62.6 Output Total 515 505 140 Balance -275 17.9 -77.4 Intake: IV 254 Intake, IV Amount 120 108.9 22.6 Right PICC 120 108.9 22.6 Tube Feeding 120 160 40 Output: Urine 515 505 140 Suprapubic 515 505 140 - Physical Exam Head: Positive for: Atraumatic, Normocephalic Mouth: Positive for: Moist Mucous Membranes Respiratory/Chest: Positive for: Clear to Auscultation, Good Air Exchange, Other (Intubated) Cardiovascular: Positive for: Normal S1, S2 Abdomen: Positive for: Normal Bowel Sounds. Negative for: Distention Upper Extremity: Positive for: Neurovascularly Intact Lower Extremity: Positive for: Neurovascularly Intact Neurological: Positive for: Motor Func Grossly Intact Skin: Positive for: Warm, Dry Psychiatric: Positive for: Alert - Medications Active Medications: Active Medications Generic Name Dose Route Start Last Admin Trade Name Freq PRN Reason Stop Dose Admin Acetaminophen 650 mg 02/05/17 22:37 02/11/17 08:35 Tylenol 325mg Tab PO 650 mg Q4H PRN Administration Fever >100.4 F Albuterol/Ipratropium 3 ml 02/09/17 02:00 02/13/17 08:06 Duoneb 3 Mg/0.5 Mg (3 Ml) Ud INH 3 ml RQ6 TONEY Administration Artificial Tears 0 ml 02/06/17 10:45 02/13/17 09:33 Artificial Tears OU 1 drop BID TONEY Administration Ascorbic Acid 500 mg 02/06/17 10:00 02/13/17 09:33 Vitamin C 500 Mg Tab PO 500 mg DAILY TONEY Administration Docusate Sodium 200 mg 02/11/17 10:00 02/13/17 09:27 Colace PO Not Given DAILY TONEY Famotidine 20 mg 02/06/17 10:00 02/13/17 09:33 Pepcid PO 20 mg DAILY TONEY Administration Ferrous Sulfate 325 mg 02/06/17 10:00 02/13/17 09:33 Feosol PO 325 mg DAILY TONEY Administration Heparin Sodium (Porcine) 5,000 units 02/09/17 14:00 02/13/17 06:48 Heparin SC 5,000 units Q8 TONEY Administration Norepinephrine Bitartrate 4 mg 254 mls @ 15.24 mls/hr 02/09/17 13:23 06:49 / Sodium Chloride IV 4 mcg/min .[id number] PRN 15.24 mls/hr TITRATE PER MD ORDER Administration Protocol 4 MCG/MIN Tigecycline 50 mg/ Sodium 100 mls @ 100 mls/hr 02/10/17 02:00 02/13/17 02:05 Chloride IVPB 100 mls/hr Q12H TONEY Administration Metronidazole 500 mg in 100 mls @ 100 mls/hr 02/11/17 03:00 02/13/17 03:10 Flagyl IVPB 100 mls/hr Q12H TONEY Administration Lorazepam 1 mg 02/10/17 09:42 02/11/17 23:25 Ativan IVP 1 mg Q2H PRN Administration Agitation Magnesium Hydroxide 30 ml 02/05/17 22:31 Milk Of Magnesia PO DAILY PRN Constipation Multivitamins 1 tab 02/06/17 10:45 02/13/17 09:33 Hexavitamin PO 1 tab DAILY TONEY Administration - Patient Studies Lab Studies: Microbiology Studies 02/10/17 21:19 Blood Culture - Preliminary Blood-Thru Central Line NO GROWTH AFTER 48 HOURS 02/10/17 21:19 Blood Culture - Preliminary Blood-Thru Central Line NO GROWTH AFTER 48 HOURS 02/08/17 15:50 Blood Culture - Preliminary Blood NO GROWTH AFTER 4 DAYS 02/08/17 16:00 Blood Culture - Preliminary Blood NO GROWTH AFTER 4 DAYS Lab Studies 02/13/17 02/13/17 02/12/17 Range/Units 06:29 04:00 23:26 WBC 9.9 (4.8-10.8) K/uL RBC 3.55 L (4.40-5.90) Mil/uL Hgb 10.1 L (12.0-18.0) g/dL Hct 30.5 L (35.0-51.0) % MCV 86.0 (80.0-94.0) fL MCH 28.6 (27.0-31.0) pg MCHC 33.3 (33.0-37.0) g/dL RDW 14.9 H (11.5-14.5) % Plt Count 202 (130-400) K/uL MPV 7.4 (7.2-11.7) fL Neut % (Auto) 69.5 (50.0-75.0) % Lymph % (Auto) 17.2 L (20.0-40.0) % Summers % (Auto) 8.2 (0.0-10.0) % Eos % (Auto) 4.3 H (0.0-4.0) % Baso % (Auto) 0.8 (0.0-2.0) % Neut # 6.9 (1.8-7.0) K/uL Lymph # 1.7 (1.0-4.3) K/uL Summers # 0.8 (0.0-0.8) K/uL Eos # 0.4 (0.0-0.7) K/uL Baso # 0.1 (0.0-0.2) K/uL Sodium 143 (132-148) mmol/L Potassium 3.4 L (3.6-5.2) mmol/L Chloride 113 H (98-107) mmol/L Carbon Dioxide 18 L (22-30) mmol/L Anion Gap 15 (10-20) BUN 61 H (9-20) mg/dL Creatinine 3.4 H (0.8-1.5) MG/DL Est GFR ( Amer) 21 Est GFR (Non-Af Amer) 18 POC Glucose (mg/dL) 145 H (65-110) mg/dL Random Glucose 93 (75-110) mg/dL Calcium 7.8 L (8.6-10.4) mg/dl Phosphorus 3.9 (2.5-4.5) mg/dL Magnesium 1.9 (1.6-2.3) mg/dL Total Bilirubin 1.0 (0.2-1.3) mg/dL AST 36 (17-59) U/L ALT 31 (21-72) U/L Alkaline Phosphatase 72 (38-126) U/L NT-Pro-B Natriuret Pep 9130 H (0-900) pg/mL Total Protein 5.3 L (6.3-8.3) g/dL Albumin 2.2 L (3.5-5.0) g/dL Globulin 3.1 (2.2-3.9) gm/dL Albumin/Globulin Ratio 0.7 L (1.0-2.1) Urine Color (YELLOW) Urine Clarity (Clear) Urine pH (5.0-8.0) Ur Specific [place] (1.003-1.030) Urine Protein (NEGATIVE) mg/dL Urine Glucose (UA) (Normal) mg/dL Urine Ketones (NEGATIVE) mg/dL Urine Blood (NEGATIVE) Urine Nitrate (NEGATIVE) Urine Bilirubin (NEGATIVE) Urine Urobilinogen (0.2-1.0) mg/dL Ur Leukocyte Esterase (Negative) Omi/uL Urine WBC (Auto) (0-5) /hpf Urine RBC (Auto) (0-3) /hpf Ur Random Sodium mmol/L C. difficile Ag & Toxin (NEGATIVE) 02/12/17 02/12/17 02/12/17 Range/Units 17:49 15:22 15:22 WBC (4.8-10.8) K/uL RBC (4.40-5.90) Mil/uL Hgb (12.0-18.0) g/dL Hct (35.0-51.0) % MCV (80.0-94.0) fL MCH (27.0-31.0) pg MCHC (33.0-37.0) g/dL RDW (11.5-14.5) % Plt Count (130-400) K/uL MPV (7.2-11.7) fL Neut % (Auto) (50.0-75.0) % Lymph % (Auto) (20.0-40.0) % Summers % (Auto) (0.0-10.0) % Eos % (Auto) (0.0-4.0) % Baso % (Auto) (0.0-2.0) % Neut # (1.8-7.0) K/uL Lymph # (1.0-4.3) K/uL Summers # (0.0-0.8) K/uL Eos # (0.0-0.7) K/uL Baso # (0.0-0.2) K/uL Sodium (132-148) mmol/L Potassium (3.6-5.2) mmol/L Chloride (98-107) mmol/L Carbon Dioxide (22-30) mmol/L Anion Gap (10-20) BUN (9-20) mg/dL Creatinine (0.8-1.5) MG/DL Est GFR ( Amer) Est GFR (Non-Af Amer) POC Glucose (mg/dL) 111 H (65-110) mg/dL Random Glucose (75-110) mg/dL Calcium (8.6-10.4) mg/dl Phosphorus (2.5-4.5) mg/dL Magnesium (1.6-2.3) mg/dL Total Bilirubin (0.2-1.3) mg/dL AST (17-59) U/L ALT (21-72) U/L Alkaline Phosphatase (38-126) U/L NT-Pro-B Natriuret Pep (0-900) pg/mL Total Protein (6.3-8.3) g/dL Albumin (3.5-5.0) g/dL Globulin (2.2-3.9) gm/dL Albumin/Globulin Ratio (1.0-2.1) Urine Color Yellow (YELLOW) Urine Clarity Clear (Clear) Urine pH 6.0 (5.0-8.0) Ur Specific [place] 1.006 (1.003-1.030) Urine Protein Negative (NEGATIVE) mg/dL Urine Glucose (UA) Normal (Normal) mg/dL Urine Ketones Negative (NEGATIVE) mg/dL Urine Blood 3+ H (NEGATIVE) Urine Nitrate Negative (NEGATIVE) Urine Bilirubin Negative (NEGATIVE) Urine Urobilinogen Normal (0.2-1.0) mg/dL Ur Leukocyte Esterase Trace (Negative) Omi/uL Urine WBC (Auto) 6 H (0-5) /hpf Urine RBC (Auto) 33 H (0-3) /hpf Ur Random Sodium 90 mmol/L C. difficile Ag & Toxin (NEGATIVE) 02/12/17 02/12/17 02/11/17 Range/Units 11:33 09:41 23:59 WBC (4.8-10.8) K/uL RBC (4.40-5.90) Mil/uL Hgb (12.0-18.0) g/dL Hct (35.0-51.0) % MCV (80.0-94.0) fL MCH (27.0-31.0) pg MCHC (33.0-37.0) g/dL RDW (11.5-14.5) % Plt Count (130-400) K/uL MPV (7.2-11.7) fL Neut % (Auto) (50.0-75.0) % Lymph % (Auto) (20.0-40.0) % Summers % (Auto) (0.0-10.0) % Eos % (Auto) (0.0-4.0) % Baso % (Auto) (0.0-2.0) % Neut # (1.8-7.0) K/uL Lymph # (1.0-4.3) K/uL Summers # (0.0-0.8) K/uL Eos # (0.0-0.7) K/uL Baso # (0.0-0.2) K/uL Sodium (132-148) mmol/L Potassium (3.6-5.2) mmol/L Chloride (98-107) mmol/L Carbon Dioxide (22-30) mmol/L Anion Gap (10-20) BUN (9-20) mg/dL Creatinine (0.8-1.5) MG/DL Est GFR ( Amer) Est GFR (Non-Af Amer) POC Glucose (mg/dL) 144 H 167 H (65-110) mg/dL Random Glucose (75-110) mg/dL Calcium (8.6-10.4) mg/dl Phosphorus (2.5-4.5) mg/dL Magnesium (1.6-2.3) mg/dL Total Bilirubin (0.2-1.3) mg/dL AST (17-59) U/L ALT (21-72) U/L Alkaline Phosphatase (38-126) U/L NT-Pro-B Natriuret Pep (0-900) pg/mL Total Protein (6.3-8.3) g/dL Albumin (3.5-5.0) g/dL Globulin (2.2-3.9) gm/dL Albumin/Globulin Ratio (1.0-2.1) Urine Color (YELLOW) Urine Clarity (Clear) Urine pH (5.0-8.0) Ur Specific [place] (1.003-1.030) Urine Protein (NEGATIVE) mg/dL Urine Glucose (UA) (Normal) mg/dL Urine Ketones (NEGATIVE) mg/dL Urine Blood (NEGATIVE) Urine Nitrate (NEGATIVE) Urine Bilirubin (NEGATIVE) Urine Urobilinogen (0.2-1.0) mg/dL Ur Leukocyte Esterase (Negative) Omi/uL Urine WBC (Auto) (0-5) /hpf Urine RBC (Auto) (0-3) /hpf Ur Random Sodium mmol/L C. difficile Ag & Toxin Negative (NEGATIVE) Laboratory Results - last 24 hr 02/11/17 02/12/17 02/12/17 23:59 09:41 11:33 WBC RBC Hgb Hct MCV MCH MCHC RDW Plt Count MPV Neut % (Auto) Lymph % (Auto) Summers % (Auto) Eos % (Auto) Baso % (Auto) Neut # Lymph # Summers # Eos # Baso # Sodium Potassium Chloride Carbon Dioxide Anion Gap BUN Creatinine Est GFR ( Amer) Est GFR (Non-Af Amer) POC Glucose (mg/dL) 167 H 144 H Random Glucose Calcium Phosphorus Magnesium Total Bilirubin AST ALT Alkaline Phosphatase NT-Pro-B Natriuret Pep Total Protein Albumin Globulin Albumin/Globulin Ratio Urine Color Urine Clarity Urine pH Ur Specific [place] Urine Protein Urine Glucose (UA) Urine Ketones Urine Blood Urine Nitrate Urine Bilirubin Urine Urobilinogen Ur Leukocyte Esterase Urine WBC (Auto) Urine RBC (Auto) Ur Random Sodium C. difficile Ag & Toxin Negative 02/12/17 02/12/17 02/12/17 15:22 15:22 17:49 WBC RBC Hgb Hct MCV MCH MCHC RDW Plt Count MPV Neut % (Auto) Lymph % (Auto) Summers % (Auto) Eos % (Auto) Baso % (Auto) Neut # Lymph # Summers # Eos # Baso # Sodium Potassium Chloride Carbon Dioxide Anion Gap BUN Creatinine Est GFR ( Amer) Est GFR (Non-Af Amer) POC Glucose (mg/dL) 111 H Random Glucose Calcium Phosphorus Magnesium Total Bilirubin AST ALT Alkaline Phosphatase NT-Pro-B Natriuret Pep Total Protein Albumin Globulin Albumin/Globulin Ratio Urine Color Yellow Urine Clarity Clear Urine pH 6.0 Ur Specific [place] 1.006 Urine Protein Negative Urine Glucose (UA) Normal Urine Ketones Negative Urine Blood 3+ H Urine Nitrate Negative Urine Bilirubin Negative Urine Urobilinogen Normal Ur Leukocyte Esterase Trace Urine WBC (Auto) 6 H Urine RBC (Auto) 33 H Ur Random Sodium 90 C. difficile Ag & Toxin 02/12/17 02/13/17 02/13/17 23:26 04:00 06:29 WBC 9.9 RBC 3.55 L Hgb 10.1 L Hct 30.5 L MCV 86.0 MCH 28.6 MCHC 33.3 RDW 14.9 H Plt Count 202 MPV 7.4 Neut % (Auto) 69.5 Lymph % (Auto) 17.2 L Summers % (Auto) 8.2 Eos % (Auto) 4.3 H Baso % (Auto) 0.8 Neut # 6.9 Lymph # 1.7 Summers # 0.8 Eos # 0.4 Baso # 0.1 Sodium 143 Potassium 3.4 L Chloride 113 H Carbon Dioxide 18 L Anion Gap 15 BUN 61 H Creatinine 3.4 H Est GFR ( Amer) 21 Est GFR (Non-Af Amer) 18 POC Glucose (mg/dL) 145 H Random Glucose 93 Calcium 7.8 L Phosphorus 3.9 Magnesium 1.9 Total Bilirubin 1.0 AST 36 ALT 31 Alkaline Phosphatase 72 NT-Pro-B Natriuret Pep 9130 H Total Protein 5.3 L Albumin 2.2 L Globulin 3.1 Albumin/Globulin Ratio 0.7 L Urine Color Urine Clarity Urine pH Ur Specific [place] Urine Protein Urine Glucose (UA) Urine Ketones Urine Blood Urine Nitrate Urine Bilirubin Urine Urobilinogen Ur Leukocyte Esterase Urine WBC (Auto) Urine RBC (Auto) Ur Random Sodium C. difficile Ag & Toxin Review of Systems - Review of Systems Systems not reviewed;Unavailable: Intubated Assessment/Plan - Assessment and Plan (Free Text) Assessment: This is a 81 yo M with hx of Down's Syndrome that has severe sepsis secondary to UTI, complicated by hyponatremia, OANH and acute on chronic CHF exacerbation. Pt is intubated now secondary to respiratory failure. Plan: Neuro: Awake, alert Cardiovascular: Hypotensive (systolic in low 60's at times), but stable Bradycardic in 50's while sleeping PICC line placed, continue Levophed drip, wean as tolerated Continue to monitor, goal MAP 65 Currently hemodynamically stable Pulmonary: Intubated - begin to wean Maintain saturations above 90% Serial ABG's CXR unremarkable Gastrointestinal: Tube feedings No acute issues Hematology: Hgb stable, no acute issues Endocrine: No acute issues Renal: OANH continuing to worsen - however, still has good urine output Increased Cr, now 3.4 Nephro consulted Monitor electrolytes and replete as needed Genitourinary: Urine culture positive for gram neg rods and gram positive cocci Continue Tigecycline and Flagyl Strict I/Os - has good uring output Infectious Disease: No leukocytosis Continue Tigecycline Afebrile, continue to monitor GI Prophylaxis: Pepcid DVT Prophylaxis: Heparin Pt Dispo - pt is DNR/DNI with multiorgan failure. POLST was not sent over with pt initially. POLST now in chart, will begin to wean pt. <Johnson Mann - Last Filed: 02/13/17 16:56> CCU Objective - Vital Signs / Intake & Output Vital Signs (Last 4 hours): Vital Signs Pulse Resp BP Pulse Ox 02/13/17 13:07 57 L 19 128/60 99 02/13/17 13:00 51 L 0 L 97 Intake and Output (Last 8hrs): Intake & Output 02/13/17 02/13/17 02/13/17 06:59 14:59 22:59 Intake Total 522.9 227.8 31.3 Output Total 505 610 65 Balance 17.9 -382.2 -33.7 Intake: IV 254 Intake, IV Amount 108.9 67.8 11.3 Right PICC 108.9 67.8 11.3 Tube Feeding 160 160 20 Output: Urine 505 610 65 Suprapubic 505 610 65 Other: # Bowel Movements 0 0 - Medications Active Medications: Active Medications Generic Name Dose Route Start Last Admin Trade Name Freq PRN Reason Stop Dose Admin Acetaminophen 650 mg 02/05/17 22:37 02/11/17 08:35 Tylenol 325mg Tab PO 650 mg Q4H PRN Administration Fever >100.4 F Albuterol/Ipratropium 3 ml 02/09/17 02:00 02/13/17 14:21 Duoneb 3 Mg/0.5 Mg (3 Ml) Ud INH 3 ml RQ6 TONEY Administration Artificial Tears 0 ml 02/06/17 10:45 02/13/17 09:33 Artificial Tears OU 1 drop BID TONEY Administration Ascorbic Acid 500 mg 02/06/17 10:00 02/13/17 09:33 Vitamin C 500 Mg Tab PO 500 mg DAILY TONEY Administration Docusate Sodium 200 mg 02/11/17 10:00 02/13/17 09:27 Colace PO Not Given DAILY TONEY Famotidine 20 mg 02/06/17 10:00 02/13/17 09:33 Pepcid PO 20 mg DAILY TONEY Administration Ferrous Sulfate 325 mg 02/06/17 10:00 02/13/17 09:33 Feosol PO 325 mg DAILY TONEY Administration Heparin Sodium (Porcine) 5,000 units 02/09/17 14:00 02/13/17 13:34 Heparin SC 5,000 units Q8 TONEY Administration Norepinephrine Bitartrate 4 mg 254 mls @ 15.24 mls/hr 02/09/17 13:23 06:49 / Sodium Chloride IV 4 mcg/min .[id number] PRN 15.24 mls/hr TITRATE PER MD ORDER Administration Protocol 4 MCG/MIN Tigecycline 50 mg/ Sodium 100 mls @ 100 mls/hr 02/10/17 02:00 02/13/17 13:34 Chloride IVPB 100 mls/hr Q12H TONEY Administration Metronidazole 500 mg in 100 mls @ 100 mls/hr 02/11/17 03:00 02/13/17 03:10 Flagyl IVPB 100 mls/hr Q12H TONEY Administration Lorazepam 1 mg 02/10/17 09:42 02/11/17 23:25 Ativan IVP 1 mg Q2H PRN Administration Agitation Magnesium Hydroxide 30 ml 02/05/17 22:31 Milk Of Magnesia PO DAILY PRN Constipation Multivitamins 1 tab 02/06/17 10:45 02/13/17 09:33 Hexavitamin PO 1 tab DAILY TONEY Administration - Patient Studies Lab Studies: Microbiology Studies 02/10/17 21:19 Blood Culture - Preliminary Blood-Thru Central Line NO GROWTH AFTER 48 HOURS 02/10/17 21:19 Blood Culture - Preliminary Blood-Thru Central Line NO GROWTH AFTER 48 HOURS 02/08/17 15:50 Blood Culture - Preliminary Blood NO GROWTH AFTER 4 DAYS 02/08/17 16:00 Blood Culture - Preliminary Blood NO GROWTH AFTER 4 DAYS Lab Studies 02/13/17 02/13/17 02/13/17 Range/Units 13:47 11:37 06:29 WBC (4.8-10.8) K/uL RBC (4.40-5.90) Mil/uL Hgb (12.0-18.0) g/dL Hct (35.0-51.0) % MCV (80.0-94.0) fL MCH (27.0-31.0) pg MCHC (33.0-37.0) g/dL RDW (11.5-14.5) % Plt Count (130-400) K/uL MPV (7.2-11.7) fL Neut % (Auto) (50.0-75.0) % Lymph % (Auto) (20.0-40.0) % [place] % (Auto) (0.0-10.0) % Eos % (Auto) (0.0-4.0) % Baso % (Auto) (0.0-2.0) % Neut # (1.8-7.0) K/uL Lymph # (1.0-4.3) K/uL [place] # (0.0-0.8) K/uL Eos # (0.0-0.7) K/uL Baso # (0.0-0.2) K/uL Sodium 143 (132-148) mmol/L Potassium 3.4 L (3.6-5.2) mmol/L Chloride 113 H (98-107) mmol/L Carbon Dioxide 18 L (22-30) mmol/L Anion Gap 15 (10-20) BUN 61 H (9-20) mg/dL Creatinine 3.4 H (0.8-1.5) MG/DL Est GFR ( Amer) 21 Est GFR (Non-Af Amer) 18 POC Glucose (mg/dL) 116 H (65-110) mg/dL Random Glucose 93 (75-110) mg/dL Calcium 7.8 L (8.6-10.4) mg/dl Phosphorus 3.9 (2.5-4.5) mg/dL Magnesium 1.9 (1.6-2.3) mg/dL Total Bilirubin 1.0 (0.2-1.3) mg/dL AST 36 (17-59) U/L ALT 31 (21-72) U/L Alkaline Phosphatase 72 (38-126) U/L NT-Pro-B Natriuret Pep 9130 H (0-900) pg/mL Total Protein 5.3 L (6.3-8.3) g/dL Albumin 2.2 L (3.5-5.0) g/dL Globulin 3.1 (2.2-3.9) gm/dL Albumin/Globulin Ratio 0.7 L (1.0-2.1) Urine Collection Time 24 HRS Urine Total Volume 1600 mL Ur Protein 24 Hr Calc 416.0 H (42-225) mg/24hr 02/13/17 02/12/17 02/12/17 Range/Units 04:00 23:26 17:49 WBC 9.9 (4.8-10.8) K/uL RBC 3.55 L (4.40-5.90) Mil/uL Hgb 10.1 L (12.0-18.0) g/dL Hct 30.5 L (35.0-51.0) % MCV 86.0 (80.0-94.0) fL MCH 28.6 (27.0-31.0) pg MCHC 33.3 (33.0-37.0) g/dL RDW 14.9 H (11.5-14.5) % Plt Count 202 (130-400) K/uL MPV 7.4 (7.2-11.7) fL Neut % (Auto) 69.5 (50.0-75.0) % Lymph % (Auto) 17.2 L (20.0-40.0) % [place]mers % (Auto) 8.2 (0.0-10.0) % Eos % (Auto) 4.3 H (0.0-4.0) % Baso % (Auto) 0.8 (0.0-2.0) % Neut # 6.9 (1.8-7.0) K/uL Lymph # 1.7 (1.0-4.3) K/uL [place]mers # 0.8 (0.0-0.8) K/uL Eos # 0.4 (0.0-0.7) K/uL Baso # 0.1 (0.0-0.2) K/uL Sodium (132-148) mmol/L Potassium (3.6-5.2) mmol/L Chloride (98-107) mmol/L Carbon Dioxide (22-30) mmol/L Anion Gap (10-20) BUN (9-20) mg/dL Creatinine (0.8-1.5) MG/DL Est GFR ( Amer) Est GFR (Non-Af Amer) POC Glucose (mg/dL) 145 H 111 H (65-110) mg/dL Random Glucose (75-110) mg/dL Calcium (8.6-10.4) mg/dl Phosphorus (2.5-4.5) mg/dL Magnesium (1.6-2.3) mg/dL Total Bilirubin (0.2-1.3) mg/dL AST (17-59) U/L ALT (21-72) U/L Alkaline Phosphatase (38-126) U/L NT-Pro-B Natriuret Pep (0-900) pg/mL Total Protein (6.3-8.3) g/dL Albumin (3.5-5.0) g/dL Globulin (2.2-3.9) gm/dL Albumin/Globulin Ratio (1.0-2.1) Urine Collection Time HRS Urine Total Volume mL Ur Protein 24 Hr Calc (42-225) mg/24hr Laboratory Results - last 24 hr 02/12/17 02/12/17 02/13/17 17:49 23:26 04:00 WBC 9.9 RBC 3.55 L Hgb 10.1 L Hct 30.5 L MCV 86.0 MCH 28.6 MCHC 33.3 RDW 14.9 H Plt Count 202 MPV 7.4 Neut % (Auto) 69.5 Lymph % (Auto) 17.2 L Summers % (Auto) 8.2 Eos % (Auto) 4.3 H Baso % (Auto) 0.8 Neut # 6.9 Lymph # 1.7 Summers # 0.8 Eos # 0.4 Baso # 0.1 Sodium Potassium Chloride Carbon Dioxide Anion Gap BUN Creatinine Est GFR ( Amer) Est GFR (Non-Af Amer) POC Glucose (mg/dL) 111 H 145 H Random Glucose Calcium Phosphorus Magnesium Total Bilirubin AST ALT Alkaline Phosphatase NT-Pro-B Natriuret Pep Total Protein Albumin Globulin Albumin/Globulin Ratio Urine Collection Time Urine Total Volume Ur Protein 24 Hr Calc 02/13/17 02/13/17 02/13/17 06:29 11:37 13:47 WBC RBC Hgb Hct MCV MCH MCHC RDW Plt Count MPV Neut % (Auto) Lymph % (Auto) Summers % (Auto) Eos % (Auto) Baso % (Auto) Neut # Lymph # Summers # Eos # Baso # Sodium 143 Potassium 3.4 L Chloride 113 H Carbon Dioxide 18 L Anion Gap 15 BUN 61 H Creatinine 3.4 H Est GFR ( Amer) 21 Est GFR (Non-Af Amer) 18 POC Glucose (mg/dL) 116 H Random Glucose 93 Calcium 7.8 L Phosphorus 3.9 Magnesium 1.9 Total Bilirubin 1.0 AST 36 ALT 31 Alkaline Phosphatase 72 NT-Pro-B Natriuret Pep 9130 H Total Protein 5.3 L Albumin 2.2 L Globulin 3.1 Albumin/Globulin Ratio 0.7 L Urine Collection Time 24 Urine Total Volume 1600 Ur Protein 24 Hr Calc 416.0 H Assessment/Plan (1) Acute respiratory failure with hypercapnia Current Visit: Yes Status: Acute Comment: Patient intubated and put on ventilatory support Follow-up ABG IV sedation (2) Septic shock Current Visit: Yes Status: Acute Comment: Patient started on pressors for hypotension Gentle hydration and monitor urine output (3) Congestive heart failure Current Visit: Yes Status: Acute (4) Down's syndrome Current Visit: Yes Status: Acute (5) UTI (urinary tract infection) Current Visit: Yes Status: Acute Attending/Attestation - Attestation I have personally seen and examined this patient.: Yes I have fully participated in the care of the patient.: Yes I have reviewed all pertinent clinical information: Yes Notes (Text): 02/13/17 16:55 Patient seen and examined in the intensive care unit. Case discussed with house staff in the morning rounds. Remains intubated on ventilatory support Continue antibiotics for pneumonia Continue NG tube feeding Worsening renal function but good urine output
--- NOTE | 2017-02-13 12:02 | RAD ---
HISTORY: INTUBATION. PORTABLE STUDY 07:15 COMPARISON: February 13, 2017. 07:05. Multiple serial examinations preceding the most recent study: FINDINGS: LUNGS: No significant interval change compared to the prior examination(s). PLEURA: No significant interval change compared to the prior examination(s). CARDIOVASCULAR: Cardiomegaly. No evidence of acute, significant cardiovascular disease. OSSEOUS STRUCTURES: No significant abnormalities. VISUALIZED UPPER ABDOMEN: Normal. OTHER FINDINGS: Stable position of support apparatus. Stop IMPRESSION: No significant interval change compared to the prior examination(s).
--- NOTE | 2017-02-13 16:18 | CP.PCM.PN ---
Subjective - Date & Time of Evaluation Date of Evaluation: 02/13/17 Time of Evaluation: 16:18 - Subjective Subjective: AFEBRILE, VITAL SIGNS NOTED ON VASOPRESSORS LOW DOSE STILL INTUBATED ON VENTILATOR. opens eyes on name. CREATININE 3.4/bun 61 PRObnp 9130. LFTS -N Objective - Vital Signs/Intake and Output Vital Signs (last 24 hours): Temp Pulse Resp BP Pulse Ox 96.8 F L 57 L 19 128/60 99 02/13/17 12:00 02/13/17 13:07 02/13/17 13:07 02/13/17 13:07 02/13/17 13:07 Intake and Output: 02/13/17 02/13/17 06:59 18:59 Intake Total 662.9 259.1 Output Total 765 675 Balance -102.1 -415.9 - Medications Medications: Current Medications Acetaminophen (Tylenol 325mg Tab) 650 mg PO Q4H PRN PRN Reason: Fever >100.4 F Last Admin: 02/11/17 08:35 Dose: 650 mg Albuterol/Ipratropium (Duoneb 3 Mg/0.5 Mg (3 Ml) Ud) 3 ml INH RQ6 [facility] Last Admin: 02/13/17 14:21 Dose: 3 ml Artificial Tears (Artificial Tears) 0 ml OU BID [facility] Last Admin: 02/13/17 09:33 Dose: 1 drop Ascorbic Acid (Vitamin C 500 Mg Tab) 500 mg PO DAILY [facility] Last Admin: 02/13/17 09:33 Dose: 500 mg Docusate Sodium (Colace) 200 mg PO DAILY [facility] Last Admin: 02/13/17 09:27 Dose: Not Given Famotidine (Pepcid) 20 mg PO DAILY [facility] Last Admin: 02/13/17 09:33 Dose: 20 mg Ferrous Sulfate (Feosol) 325 mg PO DAILY [facility] Last Admin: 02/13/17 09:33 Dose: 325 mg Heparin Sodium (Porcine) (Heparin) 5,000 units SC Q8 [facility] Last Admin: 02/13/17 13:34 Dose: 5,000 units Norepinephrine Bitartrate 4 mg (/ Sodium Chloride) 254 mls @ 15.24 mls/hr IV .[id number] PRN; Protocol; 4 MCG/MIN PRN Reason: TITRATE PER MD ORDER Last Admin: 02/13/17 06:49 Dose: 4 mcg/min, 15.24 mls/hr Tigecycline 50 mg/ Sodium (Chloride) 100 mls @ 100 mls/hr IVPB Q12H [facility] Last Admin: 02/13/17 13:34 Dose: 100 mls/hr Metronidazole (Flagyl) 500 mg in 100 mls @ 100 mls/hr IVPB Q12H [facility] Last Admin: 02/13/17 03:10 Dose: 100 mls/hr Lorazepam (Ativan) 1 mg IVP Q2H PRN PRN Reason: Agitation Last Admin: 02/11/17 23:25 Dose: 1 mg Magnesium Hydroxide (Milk Of Magnesia) 30 ml PO DAILY PRN PRN Reason: Constipation Multivitamins (Hexavitamin) 1 tab PO DAILY [facility] Last Admin: 02/13/17 09:33 Dose: 1 tab - Labs Labs: 02/13/17 04:00 02/13/17 06:29 PT 13.0 SECONDS (9.7-12.2) H 02/09/17 06:04 INR 1.2 02/09/17 06:04 APTT 32 SECONDS (21-34) 02/09/17 06:04 - Constitutional Appears: No Acute Distress (ON VENTILATOR.) - Head Exam Head Exam: NORMAL INSPECTION - Eye Exam Eye Exam: PERRL. absent: Scleral icterus - ENT Exam ENT Exam: Mucous Membranes Moist - Neck Exam Neck Exam: Normal Inspection - Respiratory Exam Respiratory Exam: Decreased Breath Sounds - Cardiovascular Exam Cardiovascular Exam: REGULAR RHYTHM, +S1, +S2 - GI/Abdominal Exam GI & Abdominal Exam: Soft, Normal Bowel Sounds Additional comments: SUPRAPUBIC CYSTOSTOMY. - Extremities Exam Extremities Exam: Pedal Edema. absent: Calf Tenderness Additional comments: decubitus ulcers LE /buttock - Neurological Exam Neurological Exam: Awake - Psychiatric Exam Psychiatric exam: Flat Affect - Skin Skin Exam: Normal Color, Warm Assessment and Plan (1) Acute respiratory failure with hypercapnia Status: Acute (2) Septic shock Status: Acute (3) Hypotension Status: Acute (4) Down's syndrome Status: Acute (5) UTI (urinary tract infection) Status: Acute (6) Decubitus skin ulcer Status: Acute (7) Acute renal failure Assessment & Plan: renal f/u noted. DC IV Tygacil As suggested by renal. patient started on IV colistin renal dose for multidrug-resistant Acinetobacter Also start IV clindamycin 300 mg every 8 hourly for MSSA AND WOUND CULTURE. Status: Acute - Assessment and Plan (Free Text) Plan: PLAN; PANCULTURES dc iv tYGACIL dc iv fLAGYL START iv COLISTIN 150 MG EVERY 48 HOURLY -RENAL DOSE FOR MULTIDRUG-RESISTANT ACINETOBACTER.02/13/17 ADD iv CLINDAMYCIN 300 MG EVERY 8 HOURLY FOR MSSA.02/13 FOLLOW-UP CULTURES MONITOR RENAL FUNCTIONS/LFTS. DECUBITUS CARE PER WOUND CARE.
[2017-02-13] MEDS: Clindamycin 300 MG in Sodium Chloride 0.9% 50 ML IVPB SCH (22:53)
[2017-02-14] MEDS: Albuterol-Ipratrop 3 mg / 0.5 (3 ml) UD INH SCH (01:41)
[2017-02-14] MEDS: Clindamycin 300 MG in Sodium Chloride 0.9% 50 ML IVPB SCH ×3 (05:32→21:00)
[2017-02-14 05:52] LABS: ABG ALLEN TEST POS; ABG MECHANICAL RATE 18; ARTERIAL BLOOD HGB O2 SAT 96.6 % (95.0-98.0); ATERIAL BLOOD GAS PEEP 5; CARBOXYHEMOGLOBIN 1.9 % (0.5-1.5); DRAW SITE LR; HHB 0.3 % (0.0-5.0); METHEMOGLOBIN 1.2 % (0.0-3.0)
[2017-02-14 06:23] LABS: BASO # 0.1 K/uL (0.0-0.2); BASO % 1.1 % (0.0-2.0); EOS # 0.4 K/uL (0.0-0.7); EOS % 4.8 % (0.0-4.0); LYMPH # 1.3 K/uL (1.0-4.3); LYMPH % 16.4 % (20.0-40.0); MEAN CELL VOLUME 85.7 fL (80.0-94.0); MEAN CORPUSCULAR HEMOGLOBIN 28.7 pg (27.0-31.0); MEAN CORPUSCULAR HGB CONC 33.5 g/dL (33.0-37.0); MEAN PLATELET VOLUME 8.2 fL (7.2-11.7); MONO # 0.7 K/uL (0.0-0.8); MONO % 9.4 % (0.0-10.0); RED CELL DISTRIBUTION WIDTH 15.4 % (11.5-14.5); WHITE BLOOD COUNT 7.9 K/uL (4.8-10.8)
[2017-02-14 06:52] LABS: MAGNESIUM 2.1 mg/dL (1.6-2.3); PHOSPHOROUS 4.5 mg/dL (2.5-4.5)
--- NOTE | 2017-02-14 08:42 | RAD ---
HISTORY: intubated COMPARISON: 02/13/2017 FINDINGS: LUNGS: Lines and tubes in stable position. Mild venous congestion. Right hilar prominence. Patchy left basilar airspace opacity with trace left pleural effusion. PLEURA: As above. CARDIOVASCULAR: Cardiomegaly. OSSEOUS STRUCTURES: Degenerative changes in the spine and shoulders. VISUALIZED UPPER ABDOMEN: Normal. OTHER FINDINGS: None. IMPRESSION: Lines and tubes in stable position. Mild venous congestion. Right hilar prominence. Patchy left basilar airspace opacity with trace left pleural effusion.
[2017-02-14] MEDS: Multiple Vitamins Tab PO SCH (10:02)
[2017-02-14] MEDS: Aritificial Tears (15ml) OU SCH ×2 (10:03→18:42)
--- NOTE | 2017-02-14 12:41 | CP.CCUPN ---
<Chava Newton - Last Filed: 02/14/17 12:36> CCU Subjective - Physician Review Subjective (Free Text): 02/14/17 12:37 PGY-1 ICU progress note Pt seen and examined at bedside. No overnight events. Pt does become bradycardic down to 40's while sleeping but is asymptomatic and resolves while awake. Intubated. Critical Care Time Spent (in minutes): 35 CCU Objective - Vital Signs / Intake & Output Vital Signs (Last 4 hours): Vital Signs Pulse Resp BP Pulse Ox 02/14/17 10:00 59 L 0 L 100 02/14/17 09:48 53 L 5 L 98/49 L 100 02/14/17 09:00 59 L 5 L 100 02/14/17 08:49 50 L 0 L 88/43 L 99 Intake and Output (Last 8hrs): Intake & Output 02/13/17 02/14/17 02/14/17 22:59 06:59 14:59 Intake Total 307.7 292.6 80 Output Total 555 780 355 Balance -247.3 -487.4 -275 Intake: Intake, IV Amount 167.7 132.6 Right PICC 167.7 132.6 Tube Feeding 140 160 80 Output: Urine 555 780 355 Suprapubic 555 780 355 Other: # Bowel Movements 0 0 0 - Physical Exam Head: Positive for: Atraumatic, Normocephalic Mouth: Positive for: Moist Mucous Membranes Respiratory/Chest: Positive for: Clear to Auscultation, Good Air Exchange, Other (Intubated) Cardiovascular: Positive for: Normal S1, S2 Abdomen: Positive for: Normal Bowel Sounds. Negative for: Distention Upper Extremity: Positive for: Neurovascularly Intact Lower Extremity: Positive for: Neurovascularly Intact Neurological: Positive for: Motor Func Grossly Intact Skin: Positive for: Warm, Dry Psychiatric: Positive for: Alert - Medications Active Medications: Active Medications Generic Name Dose Route Start Last Admin Trade Name Freq PRN Reason Stop Dose Admin Acetaminophen 650 mg 02/05/17 22:37 02/11/17 08:35 Tylenol 325mg Tab PO 650 mg Q4H PRN Administration Fever >100.4 F Artificial Tears 0 ml 02/06/17 10:45 02/14/17 10:03 Artificial Tears OU 1 drop BID [facility] Administration Ascorbic Acid 500 mg 02/06/17 10:00 02/14/17 10:02 Vitamin C 500 Mg Tab PO 500 mg DAILY [facility] Administration Docusate Sodium 200 mg 02/11/17 10:00 02/14/17 10:03 Colace PO Not Given DAILY [facility] Famotidine 20 mg 02/06/17 10:00 02/14/17 10:02 Pepcid PO 20 mg DAILY [facility] Administration Ferrous Sulfate 325 mg 02/06/17 10:00 02/14/17 10:02 Feosol PO 325 mg DAILY [facility] Administration Heparin Sodium (Porcine) 5,000 units 02/09/17 14:00 02/14/17 05:33 Heparin SC 5,000 units Q8 [facility] Administration Norepinephrine Bitartrate 4 mg 254 mls @ 15.24 mls/hr 02/09/17 13:23 07:30 / Sodium Chloride IV 3 mcg/min .[id number] PRN 11.43 mls/hr TITRATE PER MD ORDER Titration Protocol 4 MCG/MIN Colistimethate Sodium 150 mg/ 100 mls @ 200 mls/hr 02/13/17 21:15 02/13/17 22 :55 Sodium Chloride IV 200 mls/hr Q48H [facility] Administration Clindamycin Phosphate 300 mg/ 52 mls @ 100 mls/hr 02/13/17 22:00 02/14/17 05: 32 Sodium Chloride IVPB 100 mls/hr Q8H [facility] Administration Lorazepam 1 mg 02/10/17 09:42 02/11/17 23:25 Ativan IVP 1 mg Q2H PRN Administration Agitation Magnesium Hydroxide 30 ml 02/05/17 22:31 Milk Of Magnesia PO DAILY PRN Constipation Multivitamins 1 tab 02/06/17 10:45 02/14/17 10:02 Hexavitamin PO 1 tab DAILY [facility] Administration - Patient Studies Lab Studies: Microbiology Studies 02/12/17 23:06 Urine Culture - Final Urine,Morgan No Growth (<1,000 CFU/ML) 02/10/17 21:19 Blood Culture - Preliminary Blood-Thru Central Line NO GROWTH AFTER 3 DAYS 02/10/17 21:19 Blood Culture - Preliminary Blood-Thru Central Line NO GROWTH AFTER 3 DAYS 02/08/17 15:50 Blood Culture - Final Blood NO GROWTH AFTER 5 DAYS Gram Stain - Final TEST NOT PERFORMED 02/08/17 16:00 Blood Culture - Final Blood NO GROWTH AFTER 5 DAYS Gram Stain - Final Lab Studies 02/14/17 02/14/17 02/14/17 Range/Units 06:17 06:17 05:20 WBC 7.9 (4.8-10.8) K/uL RBC 3.38 L (4.40-5.90) Mil/uL Hgb 9.7 L (12.0-18.0) g/dL Hct 29.0 L (35.0-51.0) % MCV 85.7 (80.0-94.0) fL MCH 28.7 (27.0-31.0) pg MCHC 33.5 (33.0-37.0) g/dL RDW 15.4 H (11.5-14.5) % Plt Count 190 (130-400) K/uL MPV 8.2 (7.2-11.7) fL Neut % (Auto) 68.3 (50.0-75.0) % Lymph % (Auto) 16.4 L (20.0-40.0) % [place] % (Auto) 9.4 (0.0-10.0) % Eos % (Auto) 4.8 H (0.0-4.0) % Baso % (Auto) 1.1 (0.0-2.0) % Neut # 5.4 (1.8-7.0) K/uL Lymph # 1.3 (1.0-4.3) K/uL [place] # 0.7 (0.0-0.8) K/uL Eos # 0.4 (0.0-0.7) K/uL Baso # 0.1 (0.0-0.2) K/uL Puncture Site Lr pCO2 27 L (35-45) mm/Hg pO2 112 H (80-100) mm/Hg HCO3 18.8 L (21-28) mmol/L ABG pH 7.38 (7.35-7.45) ABG Total CO2 16.8 L (22-28) mmol/L ABG O2 Saturation 99.7 H (95-98) % ABG Base Excess -7.9 L (-2.0-3.0) mmol/L ABG Hemoglobin 10.4 L (11.7-17.4) g/dL ABG Carboxyhemoglobin 1.9 H (0.5-1.5) % POC ABG HHb (Measured) 0.3 (0.0-5.0) % ABG Methemoglobin 1.2 (0.0-3.0) % David Test Pos A-a O2 Difference 68.0 mm/Hg Respiratory Index 0.6 Hgb O2 Saturation 96.6 (95.0-98.0) % Mechanical Rate 18 FiO2 30.0 % Tidal Volume 500 PEEP 5 POC Glucose (mg/dL) (65-110) mg/dL Phosphorus 4.5 (2.5-4.5) mg/dL Magnesium 2.1 (1.6-2.3) mg/dL Urine Collection Time HRS Urine Total Volume mL Ur Protein 24 Hr Calc (42-225) mg/24hr 02/13/17 02/13/17 Range/Units 17:57 13:47 WBC (4.8-10.8) K/uL RBC (4.40-5.90) Mil/uL Hgb (12.0-18.0) g/dL Hct (35.0-51.0) % MCV (80.0-94.0) fL MCH (27.0-31.0) pg MCHC (33.0-37.0) g/dL RDW (11.5-14.5) % Plt Count (130-400) K/uL MPV (7.2-11.7) fL Neut % (Auto) (50.0-75.0) % Lymph % (Auto) (20.0-40.0) % [place] % (Auto) (0.0-10.0) % Eos % (Auto) (0.0-4.0) % Baso % (Auto) (0.0-2.0) % Neut # (1.8-7.0) K/uL Lymph # (1.0-4.3) K/uL [place] # (0.0-0.8) K/uL Eos # (0.0-0.7) K/uL Baso # (0.0-0.2) K/uL Puncture Site pCO2 (35-45) mm/Hg pO2 (80-100) mm/Hg HCO3 (21-28) mmol/L ABG pH (7.35-7.45) ABG Total CO2 (22-28) mmol/L ABG O2 Saturation (95-98) % ABG Base Excess (-2.0-3.0) mmol/L ABG Hemoglobin (11.7-17.4) g/dL ABG Carboxyhemoglobin (0.5-1.5) % POC ABG HHb (Measured) (0.0-5.0) % ABG Methemoglobin (0.0-3.0) % David Test A-a O2 Difference mm/Hg Respiratory Index Hgb O2 Saturation (95.0-98.0) % Mechanical Rate FiO2 % Tidal Volume PEEP POC Glucose (mg/dL) 136 H (65-110) mg/dL Phosphorus (2.5-4.5) mg/dL Magnesium (1.6-2.3) mg/dL Urine Collection Time 24 HRS Urine Total Volume 1600 mL Ur Protein 24 Hr Calc 416.0 H (42-225) mg/24hr Laboratory Results - last 24 hr 02/13/17 02/13/17 02/14/17 13:47 17:57 05:20 WBC RBC Hgb Hct MCV MCH MCHC RDW Plt Count MPV Neut % (Auto) Lymph % (Auto) [place] % (Auto) Eos % (Auto) Baso % (Auto) Neut # Lymph # [place] # Eos # Baso # Puncture Site Lr pCO2 27 L pO2 112 H HCO3 18.8 L ABG pH 7.38 ABG Total CO2 16.8 L ABG O2 Saturation 99.7 H ABG Base Excess -7.9 L ABG Hemoglobin 10.4 L ABG Carboxyhemoglobin 1.9 H POC ABG HHb (Measured) 0.3 ABG Methemoglobin 1.2 David Test Pos A-a O2 Difference 68.0 Respiratory Index 0.6 Hgb O2 Saturation 96.6 Mechanical Rate 18 FiO2 30.0 Tidal Volume 500 PEEP 5 POC Glucose (mg/dL) 136 H Phosphorus Magnesium Urine Collection Time 24 Urine Total Volume 1600 Ur Protein 24 Hr Calc 416.0 H 02/14/17 02/14/17 06:17 06:17 WBC 7.9 RBC 3.38 L Hgb 9.7 L Hct 29.0 L MCV 85.7 MCH 28.7 MCHC 33.5 RDW 15.4 H Plt Count 190 MPV 8.2 Neut % (Auto) 68.3 Lymph % (Auto) 16.4 L [place] % (Auto) 9.4 Eos % (Auto) 4.8 H Baso % (Auto) 1.1 Neut # 5.4 Lymph # 1.3 [place] # 0.7 Eos # 0.4 Baso # 0.1 Puncture Site pCO2 pO2 HCO3 ABG pH ABG Total CO2 ABG O2 Saturation ABG Base Excess ABG Hemoglobin ABG Carboxyhemoglobin POC ABG HHb (Measured) ABG Methemoglobin David Test A-a O2 Difference Respiratory Index Hgb O2 Saturation Mechanical Rate FiO2 Tidal Volume PEEP POC Glucose (mg/dL) Phosphorus 4.5 Magnesium 2.1 Urine Collection Time Urine Total Volume Ur Protein 24 Hr Calc Review of Systems - Review of Systems Systems not reviewed;Unavailable: Intubated Assessment/Plan - Assessment and Plan (Free Text) Assessment: This is a 81 yo M with hx of Down's Syndrome that has severe sepsis secondary to UTI, complicated by hyponatremia, OANH and acute on chronic CHF exacerbation. Pt is intubated now secondary to respiratory failure. Pt is DNR/DNI with POLST in the chart. Plan: Neuro: Awake, alert Cardiovascular: Hypotensive (systolic in low 60's at times), but stable Bradycardic in 40's while sleeping PICC line placed, continue Levophed drip, wean as tolerated Continue to monitor, goal MAP 65 Currently hemodynamically stable Pulmonary: Intubated - begin to wean Unable to tolerate CPAP Maintain saturations above 90% Serial ABG's CXR unremarkable Gastrointestinal: Tube feedings No acute issues Hematology: Hgb stable, no acute issues Endocrine: No acute issues Renal: OANH continuing to worsen - however, still has good urine output Nephro consulted Monitor electrolytes and replete as needed Genitourinary: Most recent urine culture negative Continue Tigecycline and Flagyl Strict I/Os - has good urine output Infectious Disease: No leukocytosis Continue Tigecycline and flagyl Afebrile, continue to monitor f/u ID GI Prophylaxis: Pepcid DVT Prophylaxis: Heparin Dispo - Palliative to discuss goals of care with family <Johnson Mann - Last Filed: 02/14/17 17:53> CCU Subjective - Physician Review Critical Care Time Spent (in minutes): 40 CCU Objective - Vital Signs / Intake & Output Vital Signs (Last 4 hours): Vital Signs Temp Pulse Resp BP Pulse Ox 02/14/17 17:00 72 9 L 95 02/14/17 16:48 50 L 12 95/39 L 95 02/14/17 16:00 97.9 F 49 L 0 L 92 L 02/14/17 15:48 55 L 8 L 84/40 L 99 02/14/17 15:00 51 L 5 L 98 02/14/17 14:49 57 L 7 L 96/40 L 98 02/14/17 14:00 51 L 8 L 100 Intake and Output (Last 8hrs): Intake & Output 02/14/17 02/14/17 02/14/17 06:59 14:59 22:59 Intake Total 292.6 120 180 Output Total 780 795 175 Balance -487.4 -675 5 Intake: Intake, IV Amount 132.6 100 Right PICC 132.6 100 Tube Feeding 160 120 80 Output: Urine 780 795 175 Suprapubic 780 795 175 Other: # Bowel Movements 0 0 0 - Medications Active Medications: Active Medications Generic Name Dose Route Start Last Admin Trade Name Freq PRN Reason Stop Dose Admin Acetaminophen 650 mg 02/05/17 22:37 02/11/17 08:35 Tylenol 325mg Tab PO 650 mg Q4H PRN Administration Fever >100.4 F Artificial Tears 0 ml 02/06/17 10:45 02/14/17 10:03 Artificial Tears OU 1 drop BID T[facility] Administration Ascorbic Acid 500 mg 02/06/17 10:00 02/14/17 10:02 Vitamin C 500 Mg Tab PO 500 mg DAILY [facility] Administration Docusate Sodium 200 mg 02/11/17 10:00 02/14/17 10:03 Colace PO Not Given DAILY [facility] Famotidine 20 mg 02/06/17 10:00 02/14/17 10:02 Pepcid PO 20 mg DAILY [facility] Administration Ferrous Sulfate 325 mg 02/06/17 10:00 02/14/17 10:02 Feosol PO 325 mg DAILY [facility] Administration Heparin Sodium (Porcine) 5,000 units 02/09/17 14:00 02/14/17 14:03 Heparin SC 5,000 units Q8 [facility] Administration Norepinephrine Bitartrate 4 mg 254 mls @ 15.24 mls/hr 02/09/17 13:23 07:30 / Sodium Chloride IV 3 mcg/min .[id number] PRN 11.43 mls/hr TITRATE PER MD ORDER Titration Protocol 4 MCG/MIN Colistimethate Sodium 150 mg/ 100 mls @ 200 mls/hr 02/13/17 21:15 02/13/17 22 :55 Sodium Chloride IV 200 mls/hr Q48H [facility] Administration Clindamycin Phosphate 300 mg/ 52 mls @ 100 mls/hr 02/13/17 22:00 02/14/17 14: 18 Sodium Chloride IVPB 100 mls/hr Q8H [facility] Administration Lorazepam 1 mg 02/10/17 09:42 02/11/17 23:25 Ativan IVP 1 mg Q2H PRN Administration Agitation Magnesium Hydroxide 30 ml 02/05/17 22:31 Milk Of Magnesia PO DAILY PRN Constipation Multivitamins 1 tab 02/06/17 10:45 02/14/17 10:02 Hexavitamin PO 1 tab DAILY [facility] Administration - Patient Studies Lab Studies: Microbiology Studies 02/12/17 23:06 Urine Culture - Final Urine,Morgan No Growth (<1,000 CFU/ML) 02/10/17 21:19 Blood Culture - Preliminary Blood-Thru Central Line NO GROWTH AFTER 3 DAYS 02/10/17 21:19 Blood Culture - Preliminary Blood-Thru Central Line NO GROWTH AFTER 3 DAYS 02/08/17 15:50 Blood Culture - Final Blood NO GROWTH AFTER 5 DAYS Gram Stain - Final TEST NOT PERFORMED 02/08/17 16:00 Blood Culture - Final Blood NO GROWTH AFTER 5 DAYS Gram Stain - Final Lab Studies 02/14/17 02/14/17 02/14/17 Range/Units 12:21 06: 06:17 WBC 7.9 (4.8-10.8) K/uL RBC 3.38 L (4.40-5.90) Mil/uL Hgb 9.7 L (12.0-18.0) g/dL Hct 29.0 L (35.0-51.0) % MCV 85.7 (80.0-94.0) fL MCH 28.7 (27.0-31.0) pg MCHC 33.5 (33.0-37.0) g/dL RDW 15.4 H (11.5-14.5) % Plt Count 190 (130-400) K/uL MPV 8.2 (7.2-11.7) fL Neut % (Auto) 68.3 (50.0-75.0) % Lymph % (Auto) 16.4 L (20.0-40.0) % [place] % (Auto) 9.4 (0.0-10.0) % Eos % (Auto) 4.8 H (0.0-4.0) % Baso % (Auto) 1.1 (0.0-2.0) % Neut # 5.4 (1.8-7.0) K/uL Lymph # 1.3 (1.0-4.3) K/uL [place] # 0.7 (0.0-0.8) K/uL Eos # 0.4 (0.0-0.7) K/uL Baso # 0.1 (0.0-0.2) K/uL Puncture Site pCO2 (35-45) mm/Hg pO2 (80-100) mm/Hg HCO3 (21-28) mmol/L ABG pH (7.35-7.45) ABG Total CO2 (22-28) mmol/L ABG O2 Saturation (95-98) % ABG Base Excess (-2.0-3.0) mmol/L ABG Hemoglobin (11.7-17.4) g/dL ABG Carboxyhemoglobin (0.5-1.5) % POC ABG HHb (Measured) (0.0-5.0) % ABG Methemoglobin (0.0-3.0) % David Test A-a O2 Difference mm/Hg Respiratory Index Hgb O2 Saturation (95.0-98.0) % Mechanical Rate FiO2 % Tidal Volume PEEP Sodium 147 (132-148) mmol/L Potassium 3.6 (3.6-5.2) mmol/L Chloride 118 H (98-107) mmol/L Carbon Dioxide 16 L (22-30) mmol/L Anion Gap 17 (10-20) BUN 69 H (9-20) mg/dL Creatinine 3.5 H (0.8-1.5) MG/DL Est GFR ( Amer) 21 Est GFR (Non-Af Amer) 17 POC Glucose (mg/dL) (65-110) mg/dL Random Glucose 80 (75-110) mg/dL Calcium 7.3 L (8.6-10.4) mg/dl Phosphorus 4.5 (2.5-4.5) mg/dL Magnesium 2.1 (1.6-2.3) mg/dL Total Bilirubin 0.8 (0.2-1.3) mg/dL AST 42 (17-59) U/L ALT 24 (21-72) U/L Alkaline Phosphatase 81 (38-126) U/L Total Protein 5.2 L (6.3-8.3) g/dL Albumin 2.0 L (3.5-5.0) g/dL Globulin 3.1 (2.2-3.9) gm/dL Albumin/Globulin Ratio 0.7 L (1.0-2.1) 02/14/17 02/13/17 Range/Units 05:20 17:57 WBC (4.8-10.8) K/uL RBC (4.40-5.90) Mil/uL Hgb (12.0-18.0) g/dL Hct (35.0-51.0) % MCV (80.0-94.0) fL MCH (27.0-31.0) pg MCHC (33.0-37.0) g/dL RDW (11.5-14.5) % Plt Count (130-400) K/uL MPV (7.2-11.7) fL Neut % (Auto) (50.0-75.0) % Lymph % (Auto) (20.0-40.0) % [place] % (Auto) (0.0-10.0) % Eos % (Auto) (0.0-4.0) % Baso % (Auto) (0.0-2.0) % Neut # (1.8-7.0) K/uL Lymph # (1.0-4.3) K/uL [place] # (0.0-0.8) K/uL Eos # (0.0-0.7) K/uL Baso # (0.0-0.2) K/uL Puncture Site Lr pCO2 27 L (35-45) mm/Hg pO2 112 H (80-100) mm/Hg HCO3 18.8 L (21-28) mmol/L ABG pH 7.38 (7.35-7.45) ABG Total CO2 16.8 L (22-28) mmol/L ABG O2 Saturation 99.7 H (95-98) % ABG Base Excess -7.9 L (-2.0-3.0) mmol/L ABG Hemoglobin 10.4 L (11.7-17.4) g/dL ABG Carboxyhemoglobin 1.9 H (0.5-1.5) % POC ABG HHb (Measured) 0.3 (0.0-5.0) % ABG Methemoglobin 1.2 (0.0-3.0) % David Test Pos A-a O2 Difference 68.0 mm/Hg Respiratory Index 0.6 Hgb O2 Saturation 96.6 (95.0-98.0) % Mechanical Rate 18 FiO2 30.0 % Tidal Volume 500 PEEP 5 Sodium (132-148) mmol/L Potassium (3.6-5.2) mmol/L Chloride (98-107) mmol/L Carbon Dioxide (22-30) mmol/L Anion Gap (10-20) BUN (9-20) mg/dL Creatinine (0.8-1.5) MG/DL Est GFR ( Amer) Est GFR (Non-Af Amer) POC Glucose (mg/dL) 136 H (65-110) mg/dL Random Glucose (75-110) mg/dL Calcium (8.6-10.4) mg/dl Phosphorus (2.5-4.5) mg/dL Magnesium (1.6-2.3) mg/dL Total Bilirubin (0.2-1.3) mg/dL AST (17-59) U/L ALT (21-72) U/L Alkaline Phosphatase (38-126) U/L Total Protein (6.3-8.3) g/dL Albumin (3.5-5.0) g/dL Globulin (2.2-3.9) gm/dL Albumin/Globulin Ratio (1.0-2.1) Laboratory Results - last 24 hr 02/13/17 02/14/17 02/14/17 17:57 05:20 06:17 WBC RBC Hgb Hct MCV MCH MCHC RDW Plt Count MPV Neut % (Auto) Lymph % (Auto) [place] % (Auto) Eos % (Auto) Baso % (Auto) Neut # Lymph # [place] # Eos # Baso # Puncture Site Lr pCO2 27 L pO2 112 H HCO3 18.8 L ABG pH 7.38 ABG Total CO2 16.8 L ABG O2 Saturation 99.7 H ABG Base Excess -7.9 L ABG Hemoglobin 10.4 L ABG Carboxyhemoglobin 1.9 H POC ABG HHb (Measured) 0.3 ABG Methemoglobin 1.2 David Test Pos A-a O2 Difference 68.0 Respiratory Index 0.6 Hgb O2 Saturation 96.6 Mechanical Rate 18 FiO2 30.0 Tidal Volume 500 PEEP 5 Sodium Potassium Chloride Carbon Dioxide Anion Gap BUN Creatinine Est GFR ( Amer) Est GFR (Non-Af Amer) POC Glucose (mg/dL) 136 H Random Glucose Calcium Phosphorus 4.5 Magnesium 2.1 Total Bilirubin AST ALT Alkaline Phosphatase Total Protein Albumin Globulin Albumin/Globulin Ratio 02/14/17 02/14/17 06:17 12:21 WBC 7.9 RBC 3.38 L Hgb 9.7 L Hct 29.0 L MCV 85.7 MCH 28.7 MCHC 33.5 RDW 15.4 H Plt Count 190 MPV 8.2 Neut % (Auto) 68.3 Lymph % (Auto) 16.4 L [place] % (Auto) 9.4 Eos % (Auto) 4.8 H Baso % (Auto) 1.1 Neut # 5.4 Lymph # 1.3 [place] # 0.7 Eos # 0.4 Baso # 0.1 Puncture Site pCO2 pO2 HCO3 ABG pH ABG Total CO2 ABG O2 Saturation ABG Base Excess ABG Hemoglobin ABG Carboxyhemoglobin POC ABG HHb (Measured) ABG Methemoglobin David Test A-a O2 Difference Respiratory Index Hgb O2 Saturation Mechanical Rate FiO2 Tidal Volume PEEP Sodium 147 Potassium 3.6 Chloride 118 H Carbon Dioxide 16 L Anion Gap 17 BUN 69 H Creatinine 3.5 H Est GFR ( Amer) 21 Est GFR (Non-Af Amer) 17 POC Glucose (mg/dL) Random Glucose 80 Calcium 7.3 L Phosphorus Magnesium Total Bilirubin 0.8 AST 42 ALT 24 Alkaline Phosphatase 81 Total Protein 5.2 L Albumin 2.0 L Globulin 3.1 Albumin/Globulin Ratio 0.7 L Assessment/Plan (1) Acute respiratory failure with hypercapnia Current Visit: Yes Status: Acute Comment: Patient intubated and put on ventilatory support Follow-up ABG IV sedation (2) Septic shock Current Visit: Yes Status: Acute Comment: Patient started on pressors for hypotension Gentle hydration and monitor urine output (3) Congestive heart failure Current Visit: Yes Status: Acute (4) Down's syndrome Current Visit: Yes Status: Acute (5) UTI (urinary tract infection) Current Visit: Yes Status: Acute Attending/Attestation - Attestation I have personally seen and examined this patient.: Yes I have fully participated in the care of the patient.: Yes I have reviewed all pertinent clinical information: Yes Notes (Text): 02/14/17 17:53 Patient seen and examined in the intensive care unit. Case discussed with house staff in the morning rounds. This is a 81 yo M with hx of Down's Syndrome that has severe sepsis secondary to UTI, complicated by hyponatremia, OANH and acute on chronic CHF exacerbation. Pt is intubated now secondary to respiratory failure. Pt is DNR/DNI with POLST in the chart. Continue antibiotics and present treatment
[2017-02-14 12:53] LABS: POTASSIUM 3.6 mmol/L (3.6-5.2)
[2017-02-14 12:55] LABS: ALB/GLOB RATIO 0.7 (1.0-2.1); BILIRUBIN,TOTAL 0.8 mg/dL (0.2-1.3); TOTAL PROTEIN 5.2 g/dL (6.3-8.3)
[2017-02-14 12:56] LABS: CALCIUM 7.3 mg/dl (8.6-10.4)
--- NOTE | 2017-02-14 13:16 | CP.PCM.PN ---
Subjective - Date & Time of Evaluation Date of Evaluation: 02/13/17 Time of Evaluation: 12:04 - Subjective Subjective: Pt seen and examined, is still sick on mechanical ventilator with FIO2 of 30%, i discussed the case with his neice, pt has poor prognoisis Objective - Vital Signs/Intake and Output Vital Signs (last 24 hours): Temp Pulse Resp BP Pulse Ox 98.8 F 53 L 0 L 98/42 L 100 02/13/17 20:00 02/14/17 13:00 02/14/17 13:00 02/14/17 12:48 02/14/17 13:00 Intake and Output: 02/14/17 02/14/17 06:59 18:59 Intake Total 475.1 80 Output Total 1055 355 Balance -579.9 -275 - Medications Medications: Current Medications Acetaminophen (Tylenol 325mg Tab) 650 mg PO Q4H PRN PRN Reason: Fever >100.4 F Last Admin: 02/11/17 08:35 Dose: 650 mg Artificial Tears (Artificial Tears) 0 ml OU BID [facility] Last Admin: 02/14/17 10:03 Dose: 1 drop Ascorbic Acid (Vitamin C 500 Mg Tab) 500 mg PO DAILY [facility] Last Admin: 02/14/17 10:02 Dose: 500 mg Docusate Sodium (Colace) 200 mg PO DAILY [facility] Last Admin: 02/14/17 10:03 Dose: Not Given Famotidine (Pepcid) 20 mg PO DAILY [facility] Last Admin: 02/14/17 10:02 Dose: 20 mg Ferrous Sulfate (Feosol) 325 mg PO DAILY [facility] Last Admin: 02/14/17 10:02 Dose: 325 mg Heparin Sodium (Porcine) (Heparin) 5,000 units SC Q8 [facility] Last Admin: 02/14/17 05:33 Dose: 5,000 units Norepinephrine Bitartrate 4 mg (/ Sodium Chloride) 254 mls @ 15.24 mls/hr IV .[id number] PRN; Protocol; 4 MCG/MIN PRN Reason: TITRATE PER MD ORDER Last Titration: 02/13/17 07:30 Dose: 3 mcg/min, 11.43 mls/hr Colistimethate Sodium 150 mg/ (Sodium Chloride) 100 mls @ 200 mls/hr IV Q48H [facility] Last Admin: 02/13/17 22:55 Dose: 200 mls/hr Clindamycin Phosphate 300 mg/ (Sodium Chloride) 52 mls @ 100 mls/hr IVPB Q8H [facility] Last Admin: 02/14/17 05:32 Dose: 100 mls/hr Lorazepam (Ativan) 1 mg IVP Q2H PRN PRN Reason: Agitation Last Admin: 02/11/17 23:25 Dose: 1 mg Magnesium Hydroxide (Milk Of Magnesia) 30 ml PO DAILY PRN PRN Reason: Constipation Multivitamins (Hexavitamin) 1 tab PO DAILY [facility] Last Admin: 02/14/17 10:02 Dose: 1 tab - Labs Labs: 02/14/17 06:17 02/14/17 12:21 PT 13.0 SECONDS (9.7-12.2) H 02/09/17 06:04 INR 1.2 02/09/17 06:04 APTT 32 SECONDS (21-34) 02/09/17 06:04 - Constitutional Appears: In Acute Distress, Confused, Other (down syndrome pt) - Head Exam Head Exam: ATRAUMATIC, NORMAL INSPECTION, NORMOCEPHALIC - Respiratory Exam Respiratory Exam: Clear to Ausculation Bilateral, NORMAL BREATHING PATTERN - Cardiovascular Exam Cardiovascular Exam: REGULAR RHYTHM, +S1, +S2. absent: Murmur Assessment and Plan (1) Congestive heart failure Status: Acute (2) Down's syndrome Status: Acute (3) Dehydration Status: Acute
--- NOTE | 2017-02-14 13:32 | CP.PCM.PN ---
Subjective - Date & Time of Evaluation Date of Evaluation: 02/14/17 Time of Evaluation: 12:04 - Subjective Subjective: pt seen and examined,in fluid overload, on HD, on diuresis, on ventilator due to resp failure, attempt weaning when possible Objective - Vital Signs/Intake and Output Vital Signs (last 24 hours): Temp Pulse Resp BP Pulse Ox 98.8 F 53 L 0 L 98/42 L 100 02/13/17 20:00 02/14/17 13:00 02/14/17 13:00 02/14/17 12:48 02/14/17 13:00 Intake and Output: 02/14/17 02/14/17 06:59 18:59 Intake Total 475.1 80 Output Total 1055 355 Balance -579.9 -275 - Medications Medications: Current Medications Acetaminophen (Tylenol 325mg Tab) 650 mg PO Q4H PRN PRN Reason: Fever >100.4 F Last Admin: 02/11/17 08:35 Dose: 650 mg Artificial Tears (Artificial Tears) 0 ml OU BID [facility] Last Admin: 02/14/17 10:03 Dose: 1 drop Ascorbic Acid (Vitamin C 500 Mg Tab) 500 mg PO DAILY [facility] Last Admin: 02/14/17 10:02 Dose: 500 mg Docusate Sodium (Colace) 200 mg PO DAILY [facility] Last Admin: 02/14/17 10:03 Dose: Not Given Famotidine (Pepcid) 20 mg PO DAILY [facility] Last Admin: 02/14/17 10:02 Dose: 20 mg Ferrous Sulfate (Feosol) 325 mg PO DAILY [facility] Last Admin: 02/14/17 10:02 Dose: 325 mg Heparin Sodium (Porcine) (Heparin) 5,000 units SC Q8 [facility] Last Admin: 02/14/17 05:33 Dose: 5,000 units Norepinephrine Bitartrate 4 mg (/ Sodium Chloride) 254 mls @ 15.24 mls/hr IV .[id number] PRN; Protocol; 4 MCG/MIN PRN Reason: TITRATE PER MD ORDER Last Titration: 02/13/17 07:30 Dose: 3 mcg/min, 11.43 mls/hr Colistimethate Sodium 150 mg/ (Sodium Chloride) 100 mls @ 200 mls/hr IV Q48H [facility] Last Admin: 02/13/17 22:55 Dose: 200 mls/hr Clindamycin Phosphate 300 mg/ (Sodium Chloride) 52 mls @ 100 mls/hr IVPB Q8H [facility] Last Admin: 02/14/17 05:32 Dose: 100 mls/hr Lorazepam (Ativan) 1 mg IVP Q2H PRN PRN Reason: Agitation Last Admin: 02/11/17 23:25 Dose: 1 mg Magnesium Hydroxide (Milk Of Magnesia) 30 ml PO DAILY PRN PRN Reason: Constipation Multivitamins (Hexavitamin) 1 tab PO DAILY [facility] Last Admin: 02/14/17 10:02 Dose: 1 tab - Labs Labs: 02/14/17 06:17 02/14/17 12:21 PT 13.0 SECONDS (9.7-12.2) H 02/09/17 06:04 INR 1.2 02/09/17 06:04 APTT 32 SECONDS (21-34) 02/09/17 06:04 - Constitutional Appears: In Acute Distress, Confused, Other (down syndrome pt, unkempt) - Head Exam Head Exam: ATRAUMATIC, NORMAL INSPECTION, NORMOCEPHALIC - Eye Exam Eye Exam: EOMI, Normal appearance - Respiratory Exam Respiratory Exam: Decreased Breath Sounds, Rales - Cardiovascular Exam Cardiovascular Exam: REGULAR RHYTHM, +S1, +S2. absent: Murmur Assessment and Plan (1) Congestive heart failure Status: Acute (2) Down's syndrome Status: Acute (3) Dehydration Status: Acute
--- NOTE | 2017-02-14 15:31 | CP.PCM.PN ---
Subjective - Date & Time of Evaluation Date of Evaluation: 02/14/17 Time of Evaluation: 13:45 - Subjective Subjective: on respirator ROS cannot be obtained nonoliguric labs unchanged Objective - Vital Signs/Intake and Output Vital Signs (last 24 hours): Temp Pulse Resp BP Pulse Ox 98.8 F 51 L 8 L 101/47 L 100 02/13/17 20:00 02/14/17 14:00 02/14/17 14:00 02/14/17 13:48 02/14/17 14:00 Intake and Output: 02/14/17 02/14/17 06:59 18:59 Intake Total 475.1 130 Output Total 1055 795 Balance -579.9 -665 - Medications Medications: Current Medications Acetaminophen (Tylenol 325mg Tab) 650 mg PO Q4H PRN PRN Reason: Fever >100.4 F Last Admin: 02/11/17 08:35 Dose: 650 mg Artificial Tears (Artificial Tears) 0 ml OU BID [facility] Last Admin: 02/14/17 10:03 Dose: 1 drop Ascorbic Acid (Vitamin C 500 Mg Tab) 500 mg PO DAILY [facility] Last Admin: 02/14/17 10:02 Dose: 500 mg Docusate Sodium (Colace) 200 mg PO DAILY [facility] Last Admin: 02/14/17 10:03 Dose: Not Given Famotidine (Pepcid) 20 mg PO DAILY [facility] Last Admin: 02/14/17 10:02 Dose: 20 mg Ferrous Sulfate (Feosol) 325 mg PO DAILY [facility] Last Admin: 02/14/17 10:02 Dose: 325 mg Heparin Sodium (Porcine) (Heparin) 5,000 units SC Q8 [facility] Last Admin: 02/14/17 14:03 Dose: 5,000 units Norepinephrine Bitartrate 4 mg (/ Sodium Chloride) 254 mls @ 15.24 mls/hr IV .[id number] PRN; Protocol; 4 MCG/MIN PRN Reason: TITRATE PER MD ORDER Last Titration: 02/13/17 07:30 Dose: 3 mcg/min, 11.43 mls/hr Colistimethate Sodium 150 mg/ (Sodium Chloride) 100 mls @ 200 mls/hr IV Q48H [facility] Last Admin: 02/13/17 22:55 Dose: 200 mls/hr Clindamycin Phosphate 300 mg/ (Sodium Chloride) 52 mls @ 100 mls/hr IVPB Q8H [facility] Last Admin: 02/14/17 14:18 Dose: 100 mls/hr Lorazepam (Ativan) 1 mg IVP Q2H PRN PRN Reason: Agitation Last Admin: 02/11/17 23:25 Dose: 1 mg Magnesium Hydroxide (Milk Of Magnesia) 30 ml PO DAILY PRN PRN Reason: Constipation Multivitamins (Hexavitamin) 1 tab PO DAILY [facility] Last Admin: 02/14/17 10:02 Dose: 1 tab - Labs Labs: 02/14/17 06:17 02/14/17 12:21 PT 13.0 SECONDS (9.7-12.2) H 02/09/17 06:04 INR 1.2 02/09/17 06:04 APTT 32 SECONDS (21-34) 02/09/17 06:04 - Head Exam Additional comments: sedated and intubated - Respiratory Exam Respiratory Exam: Decreased Breath Sounds, Rhonchi - Cardiovascular Exam Cardiovascular Exam: REGULAR RHYTHM. absent: Rubs - GI/Abdominal Exam GI & Abdominal Exam: Soft. 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
--- NOTE | 2017-02-14 21:05 | CP.PCM.PN ---
Subjective - Date & Time of Evaluation Date of Evaluation: 02/14/17 Time of Evaluation: 20:59 - Subjective Subjective: AFEBRILE, BP LOW ON VASOPRESSORS. INTUBATED. CLINICALLY UNCHANGED RENAL PARAMETRS UNCHANGED NONOLIGURIC RENAL FAILURE . LABS REVIEWED. PE/ oN VENTILATOR LUNGS ; BASILAR RALES. CVS ; SINUS BRADYCARDIA HR 52/M. ABDOMEN ; SOFT BOWEL SOUNDS PRESENT SUPRAPUBIC CYSTOSTOMY. EXT; BILATERAL 1+ EDEMA. WATERPROOF BAG SEWER ; OPENS EYES, BUT AROUSABLE DOES NOT FOLLOW COMMANDS. SKIN ; DECUBITUS ULCERS UNCHANGED. PLAN CONTINUE iv COLISTIN 150 MG EVERY 48 HOURLY CONTINUE iv CLEOCIN 300 MG EVERY 8 HOURLY. lOCAL WOUND CARE PER WOUND CARE NURSE. Objective - Vital Signs/Intake and Output Vital Signs (last 24 hours): Temp Pulse Resp BP Pulse Ox 97.9 F 53 L 8 L 96/55 L 99 02/14/17 16:00 02/14/17 20:00 02/14/17 20:00 02/14/17 19:48 02/14/17 20:00 Intake and Output: 02/14/17 02/15/17 18:59 06:59 Intake Total 320 40 Output Total 1020 80 Balance -700 -40 - Medications Medications: Current Medications Acetaminophen (Tylenol 325mg Tab) 650 mg PO Q4H PRN PRN Reason: Fever >100.4 F Last Admin: 02/11/17 08:35 Dose: 650 mg Artificial Tears (Artificial Tears) 0 ml OU BID [facility] Last Admin: 02/14/17 18:42 Dose: 1 drop Ascorbic Acid (Vitamin C 500 Mg Tab) 500 mg PO DAILY [facility] Last Admin: 02/14/17 10:02 Dose: 500 mg Docusate Sodium (Colace) 200 mg PO DAILY [facility] Last Admin: 02/14/17 10:03 Dose: Not Given Famotidine (Pepcid) 20 mg PO DAILY [facility] Last Admin: 02/14/17 10:02 Dose: 20 mg Ferrous Sulfate (Feosol) 325 mg PO DAILY [facility] Last Admin: 02/14/17 10:02 Dose: 325 mg Heparin Sodium (Porcine) (Heparin) 5,000 units SC Q8 [facility] Last Admin: 02/14/17 14:03 Dose: 5,000 units Norepinephrine Bitartrate 4 mg (/ Sodium Chloride) 254 mls @ 15.24 mls/hr IV .[id number] PRN; Protocol; 4 MCG/MIN PRN Reason: TITRATE PER MD ORDER Last Titration: 02/13/17 07:30 Dose: 3 mcg/min, 11.43 mls/hr Colistimethate Sodium 150 mg/ (Sodium Chloride) 100 mls @ 200 mls/hr IV Q48H [facility] Last Admin: 02/13/17 22:55 Dose: 200 mls/hr Clindamycin Phosphate 300 mg/ (Sodium Chloride) 52 mls @ 100 mls/hr IVPB Q8H [facility] Last Admin: 02/14/17 14:18 Dose: 100 mls/hr Lorazepam (Ativan) 1 mg IVP Q2H PRN PRN Reason: Agitation Last Admin: 02/11/17 23:25 Dose: 1 mg Magnesium Hydroxide (Milk Of Magnesia) 30 ml PO DAILY PRN PRN Reason: Constipation Multivitamins (Hexavitamin) 1 tab PO DAILY [facility] Last Admin: 02/14/17 10:02 Dose: 1 tab - Labs Labs: 02/14/17 06:17 02/14/17 12:21 PT 13.0 SECONDS (9.7-12.2) H 02/09/17 06:04 INR 1.2 02/09/17 06:04 APTT 32 SECONDS (21-34) 02/09/17 06:04 Assessment and Plan (1) Acute respiratory failure with hypercapnia Status: Acute (2) Septic shock Status: Acute (3) Hypotension Status: Acute (4) Down's syndrome Status: Acute (5) UTI (urinary tract infection) Status: Acute (6) Decubitus skin ulcer Status: Acute (7) Acute renal failure Status: Acute
[2017-02-15] MEDS: Clindamycin 300 MG in Sodium Chloride 0.9% 50 ML IVPB SCH ×3 (05:15→21:45)
[2017-02-15 05:40] LABS: ABG ALLEN TEST POS; ABG MECHANICAL RATE 18; ARTERIAL BLOOD HGB O2 SAT 95.7 % (95.0-98.0); ATERIAL BLOOD GAS PEEP 5; CARBOXYHEMOGLOBIN 1.7 % (0.5-1.5); DRAW SITE LR; HHB 1.4 % (0.0-5.0); METHEMOGLOBIN 1.2 % (0.0-3.0)
[2017-02-15 06:18] LABS: BASO # 0.1 K/uL (0.0-0.2); BASO % 1.3 % (0.0-2.0); EOS # 0.4 K/uL (0.0-0.7); EOS % 5.5 % (0.0-4.0); HEMATOCRIT 29.2 % (35.0-51.0); LYMPH # 1.7 K/uL (1.0-4.3); LYMPH % 22.8 % (20.0-40.0); MEAN CELL VOLUME 86.2 fL (80.0-94.0); MEAN CORPUSCULAR HEMOGLOBIN 28.3 pg (27.0-31.0); MEAN CORPUSCULAR HGB CONC 32.8 g/dL (33.0-37.0); MEAN PLATELET VOLUME 8.1 fL (7.2-11.7); MONO # 0.7 K/uL (0.0-0.8); MONO % 8.7 % (0.0-10.0); RED CELL DISTRIBUTION WIDTH 15.2 % (11.5-14.5); WHITE BLOOD COUNT 7.7 K/uL (4.8-10.8)
[2017-02-15 06:33] LABS: POTASSIUM 3.3 mmol/L (3.6-5.2)
[2017-02-15 06:35] LABS: BILIRUBIN,TOTAL 0.8 mg/dL (0.2-1.3); TOTAL PROTEIN 5.4 g/dL (6.3-8.3)
[2017-02-15 06:36] LABS: CALCIUM 7.6 mg/dl (8.6-10.4); PHOSPHOROUS 4.4 mg/dL (2.5-4.5)
[2017-02-15 06:46] LABS: ALB/GLOB RATIO 0.6 (1.0-2.1)
[2017-02-15] MEDS ORDERED: Potassium Chloride 20 mEq/15 ml LIQ UD PO ONE (08:15)
[2017-02-15] MEDS: Aritificial Tears (15ml) OU SCH ×2 (09:30→17:50)
[2017-02-15] MEDS: Multiple Vitamins Tab PO SCH (09:36)
--- NOTE | 2017-02-15 09:43 | CP.PCM.PN ---
Subjective - Date & Time of Evaluation Date of Evaluation: 02/15/17 Time of Evaluation: 09:41 - Subjective Subjective: Remains on vent- sl responsive Non-oliguric OANH- creat sl worse at 3.6 Back on levophed Discussed case with ICU- no more aggressive plans; considering woithdrawal of care Recommend repleted K for K 3.3 Cannot obtain ROS Objective - Vital Signs/Intake and Output Vital Signs (last 24 hours): Temp Pulse Resp BP Pulse Ox 98.5 F 65 18 74/52 L 100 02/15/17 04:00 02/15/17 07:00 02/15/17 09:21 02/15/17 09:21 02/15/17 09:21 Intake and Output: 02/15/17 02/15/17 06:59 18:59 Intake Total 290 293 Output Total 915 60 Balance -625 233 - Medications Medications: Current Medications Acetaminophen (Tylenol 325mg Tab) 650 mg PO Q4H PRN PRN Reason: Fever >100.4 F Last Admin: 02/11/17 08:35 Dose: 650 mg Artificial Tears (Artificial Tears) 0 ml OU BID [facility] Last Admin: 02/15/17 09:30 Dose: 1 drop Ascorbic Acid (Vitamin C 500 Mg Tab) 500 mg PO DAILY [facility] Last Admin: 02/15/17 09:36 Dose: 500 mg Docusate Sodium (Colace) 200 mg PO DAILY [facility] Last Admin: 02/15/17 09:31 Dose: Not Given Famotidine (Pepcid) 20 mg PO DAILY [facility] Last Admin: 02/15/17 09:36 Dose: 20 mg Ferrous Sulfate (Feosol) 325 mg PO DAILY [facility] Last Admin: 02/15/17 09:36 Dose: 325 mg Norepinephrine Bitartrate 4 mg (/ Sodium Chloride) 254 mls @ 15.24 mls/hr IV .[id number] PRN; Protocol; 4 MCG/MIN PRN Reason: TITRATE PER MD ORDER Last Admin: 02/15/17 09:21 Dose: 3 mcg/min, 11.43 mls/hr Colistimethate Sodium 150 mg/ (Sodium Chloride) 100 mls @ 200 mls/hr IV Q48H [facility] Last Admin: 02/13/17 22:55 Dose: 200 mls/hr Clindamycin Phosphate 300 mg/ (Sodium Chloride) 52 mls @ 100 mls/hr IVPB Q8H [facility] Last Admin: 02/15/17 05:15 Dose: 100 mls/hr Lorazepam (Ativan) 1 mg IVP Q2H PRN PRN Reason: Agitation Last Admin: 02/11/17 23:25 Dose: 1 mg Magnesium Hydroxide (Milk Of Magnesia) 30 ml PO DAILY PRN PRN Reason: Constipation Multivitamins (Hexavitamin) 1 tab PO DAILY [facility] Last Admin: 02/15/17 09:36 Dose: 1 tab - Labs Labs: 02/15/17 06:09 02/15/17 06:09 PT 13.0 SECONDS (9.7-12.2) H 02/09/17 06:04 INR 1.2 02/09/17 06:04 APTT 32 SECONDS (21-34) 02/09/17 06:04 - Constitutional Appears: In Acute Distress, Chronically Ill - Head Exam Head Exam: ATRAUMATIC, NORMAL INSPECTION - Neck Exam Neck Exam: Normal Inspection. absent: Tenderness - Respiratory Exam Respiratory Exam: Rhonchi, Respiratory Distress - Cardiovascular Exam Cardiovascular Exam: REGULAR RHYTHM, +S1 - GI/Abdominal Exam GI & Abdominal Exam: Soft. absent: Tenderness - Extremities Exam Extremities Exam: Normal Inspection. absent: Tenderness - Neurological Exam Neurological Exam: Altered, Motor Sensory Deficit - Skin Skin Exam: Dry, Warm Assessment and Plan (1) Pneumonia Status: Acute (2) Acute renal failure Status: Acute (3) Congestive heart failure Status: Acute (4) Down's syndrome Status: Acute (5) Septic shock Status: Acute - Assessment and Plan (Free Text) Plan: continue supportive care- no plans for NUT GRADER replete K recommended
--- NOTE | 2017-02-15 11:01 | RAD ---
HISTORY: intubated COMPARISON: No prior. FINDINGS: LUNGS: No active pulmonary disease. PLEURA: Hazy opacity at left costophrenic angle may reflect small pleural effusion. Followup advised. No right pleural effusion. No pneumothorax. CARDIOVASCULAR: ET tube and NG tube unchanged. Right PICC catheter unchanged. OSSEOUS STRUCTURES: No significant abnormalities. VISUALIZED UPPER ABDOMEN: Normal. OTHER FINDINGS: None. IMPRESSION: Possible small left pleural effusion. Otherwise no interval change.
--- NOTE | 2017-02-15 15:27 | CP.CCUPN ---
<Chava Newton - Last Filed: 02/15/17 15:12> CCU Subjective - Physician Review Subjective (Free Text): 02/15/17 15:12 PGY-1 ICU progress note Pt seen and examined at bedside. No acute events overnight. Low BP in the AM, restarted Levophed Critical Care Time Spent (in minutes): 35 CCU Objective - Vital Signs / Intake & Output Intake and Output (Last 8hrs): Intake & Output 02/15/17 02/15/17 02/15/17 06:59 14:59 22:59 Intake Total 160 563 20 Output Total 635 60 Balance -475 503 20 Intake: IV 253 Intake, IV Amount 50 Right PICC 50 Tube Feeding 160 160 20 Other 100 Output: Urine 535 60 Suprapubic 535 60 Stool 100 Other: # Bowel Movements 1 - Physical Exam Head: Positive for: Atraumatic, Normocephalic Mouth: Positive for: Moist Mucous Membranes Respiratory/Chest: Positive for: Clear to Auscultation, Good Air Exchange, Other (Intubated) Cardiovascular: Positive for: Normal S1, S2 Abdomen: Positive for: Normal Bowel Sounds. Negative for: Distention Upper Extremity: Positive for: Neurovascularly Intact Lower Extremity: Positive for: Neurovascularly Intact Neurological: Positive for: Motor Func Grossly Intact Skin: Positive for: Warm, Dry Psychiatric: Positive for: Alert - Medications Active Medications: Active Medications Generic Name Dose Route Start Last Admin Trade Name Freq PRN Reason Stop Dose Admin Acetaminophen 650 mg 02/05/17 22:37 02/11/17 08:35 Tylenol 325mg Tab PO 650 mg Q4H PRN Administration Fever >100.4 F Artificial Tears 0 ml 02/06/17 10:45 02/15/17 09:30 Artificial Tears OU 1 drop BID TONEY Administration Ascorbic Acid 500 mg 02/06/17 10:00 02/15/17 09:36 Vitamin C 500 Mg Tab PO 500 mg DAILY TONEY Administration Docusate Sodium 200 mg 02/11/17 10:00 02/15/17 09:31 Colace PO Not Given DAILY TONEY Famotidine 20 mg 02/06/17 10:00 02/15/17 09:36 Pepcid PO 20 mg DAILY TONEY Administration Ferrous Sulfate 325 mg 02/06/17 10:00 02/15/17 09:36 Feosol PO 325 mg DAILY TONEY Administration Heparin Sodium (Porcine) 5,000 units 02/15/17 14:00 02/15/17 14:08 Heparin SC 5,000 units Q8 TONEY Administration Norepinephrine Bitartrate 4 mg 254 mls @ 15.24 mls/hr 02/09/17 13:23 09:21 / Sodium Chloride IV 3 mcg/min .[id number] PRN 11.43 mls/hr TITRATE PER MD ORDER Administration Protocol 4 MCG/MIN Colistimethate Sodium 150 mg/ 100 mls @ 200 mls/hr 02/13/17 21:15 02/13/17 22 :55 Sodium Chloride IV 200 mls/hr Q48H TONEY Administration Clindamycin Phosphate 300 mg/ 52 mls @ 100 mls/hr 02/13/17 22:00 02/15/17 14: 07 Sodium Chloride IVPB 100 mls/hr Q8H TONEY Administration Lorazepam 1 mg 02/10/17 09:42 02/11/17 23:25 Ativan IVP 1 mg Q2H PRN Administration Agitation Magnesium Hydroxide 30 ml 02/05/17 22:31 Milk Of Magnesia PO DAILY PRN Constipation Midodrine 5 mg 02/15/17 14:00 02/15/17 14:07 Proamatine PO 5 mg TID TONEY Administration Multivitamins 1 tab 02/06/17 10:45 02/15/17 09:36 Hexavitamin PO 1 tab DAILY TONEY Administration - Patient Studies Lab Studies: Microbiology Studies 02/10/17 21:19 Blood Culture - Preliminary Blood-Thru Central Line NO GROWTH AFTER 4 DAYS 02/10/17 21:19 Blood Culture - Preliminary Blood-Thru Central Line NO GROWTH AFTER 4 DAYS Lab Studies 02/15/17 02/15/17 02/15/17 Range/Units 06:09 06:09 05:31 WBC 7.7 (4.8-10.8) K/uL RBC 3.38 L (4.40-5.90) Mil/uL Hgb 9.6 L (12.0-18.0) g/dL Hct 29.2 L (35.0-51.0) % MCV 86.2 (80.0-94.0) fL MCH 28.3 (27.0-31.0) pg MCHC 32.8 L (33.0-37.0) g/dL RDW 15.2 H (11.5-14.5) % Plt Count 176 (130-400) K/uL MPV 8.1 (7.2-11.7) fL Neut % (Auto) 61.7 (50.0-75.0) % Lymph % (Auto) 22.8 (20.0-40.0) % Archer % (Auto) 8.7 (0.0-10.0) % Eos % (Auto) 5.5 H (0.0-4.0) % Baso % (Auto) 1.3 (0.0-2.0) % Neut # 4.7 (1.8-7.0) K/uL Lymph # 1.7 (1.0-4.3) K/uL Archer # 0.7 (0.0-0.8) K/uL Eos # 0.4 (0.0-0.7) K/uL Baso # 0.1 (0.0-0.2) K/uL Puncture Site Lr pCO2 27 L (35-45) mm/Hg pO2 83 (80-100) mm/Hg HCO3 19.5 L (21-28) mmol/L ABG pH 7.40 (7.35-7.45) ABG Total CO2 17.5 L (22-28) mmol/L ABG O2 Saturation 98.6 H (95-98) % ABG Base Excess -7.0 L (-2.0-3.0) mmol/L ABG Hemoglobin 9.6 L (11.7-17.4) g/dL ABG Carboxyhemoglobin 1.7 H (0.5-1.5) % POC ABG HHb (Measured) 1.4 (0.0-5.0) % ABG Methemoglobin 1.2 (0.0-3.0) % David Test Pos A-a O2 Difference 97.0 mm/Hg Respiratory Index 1.2 Hgb O2 Saturation 95.7 (95.0-98.0) % Mechanical Rate 18 FiO2 30.0 % Tidal Volume 500 PEEP 5 Sodium 147 (132-148) mmol/L Potassium 3.3 L (3.6-5.2) mmol/L Chloride 119 H (98-107) mmol/L Carbon Dioxide 15 L (22-30) mmol/L Anion Gap 16 (10-20) BUN 74 H (9-20) mg/dL Creatinine 3.6 H (0.8-1.5) MG/DL Est GFR ( Amer) 20 Est GFR (Non-Af Amer) 16 Random Glucose 81 (75-110) mg/dL Calcium 7.6 L (8.6-10.4) mg/dl Phosphorus 4.4 (2.5-4.5) mg/dL Magnesium 2.0 (1.6-2.3) mg/dL Total Bilirubin 0.8 (0.2-1.3) mg/dL AST 28 (17-59) U/L ALT 25 (21-72) U/L Alkaline Phosphatase 91 (38-126) U/L Total Protein 5.4 L (6.3-8.3) g/dL Albumin 2.1 L (3.5-5.0) g/dL Globulin 3.3 (2.2-3.9) gm/dL Albumin/Globulin Ratio 0.6 L (1.0-2.1) Laboratory Results - last 24 hr 02/15/17 02/15/17 02/15/17 05:31 06:09 06:09 WBC 7.7 RBC 3.38 L Hgb 9.6 L Hct 29.2 L MCV 86.2 MCH 28.3 MCHC 32.8 L RDW 15.2 H Plt Count 176 MPV 8.1 Neut % (Auto) 61.7 Lymph % (Auto) 22.8 Archer % (Auto) 8.7 Eos % (Auto) 5.5 H Baso % (Auto) 1.3 Neut # 4.7 Lymph # 1.7 Archer # 0.7 Eos # 0.4 Baso # 0.1 Puncture Site Lr pCO2 27 L pO2 83 HCO3 19.5 L ABG pH 7.40 ABG Total CO2 17.5 L ABG O2 Saturation 98.6 H ABG Base Excess -7.0 L ABG Hemoglobin 9.6 L ABG Carboxyhemoglobin 1.7 H POC ABG HHb (Measured) 1.4 ABG Methemoglobin 1.2 David Test Pos A-a O2 Difference 97.0 Respiratory Index 1.2 Hgb O2 Saturation 95.7 Mechanical Rate 18 FiO2 30.0 Tidal Volume 500 PEEP 5 Sodium 147 Potassium 3.3 L Chloride 119 H Carbon Dioxide 15 L Anion Gap 16 BUN 74 H Creatinine 3.6 H Est GFR ( Amer) 20 Est GFR (Non-Af Amer) 16 Random Glucose 81 Calcium 7.6 L Phosphorus 4.4 Magnesium 2.0 Total Bilirubin 0.8 AST 28 ALT 25 Alkaline Phosphatase 91 Total Protein 5.4 L Albumin 2.1 L Globulin 3.3 Albumin/Globulin Ratio 0.6 L Review of Systems - Review of Systems Systems not reviewed;Unavailable: Intubated Assessment/Plan - Assessment and Plan (Free Text) Assessment: This is a 81 yo M with hx of Down's Syndrome that has severe sepsis secondary to UTI, complicated by hyponatremia, OANH and acute on chronic CHF exacerbation. Pt is intubated now secondary to respiratory failure. Pt is DNR/DNI with POLST in the chart. Plan: Neuro: Awake, alert Cardiovascular: Hypotensive (systolic in low 60's at times), but stable. Levophed as necessary to maintain MAP > 65 Bradycardic in 40's while sleeping PICC line placed, continue Levophed drip, wean as tolerated Currently hemodynamically stable Pulmonary: Intubated Attempt CPAP Maintain saturations above 90% Serial ABG's CXR unremarkable Gastrointestinal: Tube feedings No acute issues Hematology: Hgb stable, no acute issues Endocrine: No acute issues Renal: OANH stable with Cr ~3.5 - however, still has good urine output Nephro consulted Monitor electrolytes and replete as needed Genitourinary: Most recent urine culture negative Continue Clinda and Colistimethate Strict I/Os - has good urine output Infectious Disease: No leukocytosis Continue Abx Afebrile, continue to monitor f/u ID GI Prophylaxis: Pepcid DVT Prophylaxis: Heparin Dispo - Palliative to discuss goals of care with family <Ky Burks - Last Filed: 02/15/17 17:48> CCU Objective - Vital Signs / Intake & Output Intake and Output (Last 8hrs): Intake & Output 02/15/17 02/15/17 02/15/17 06:59 14:59 22:59 Intake Total 160 563 60 Output Total 635 60 Balance -475 503 60 Intake: IV 253 Intake, IV Amount 50 Right PICC 50 Tube Feeding 160 160 60 Other 100 Output: Urine 535 60 Suprapubic 535 60 Stool 100 Other: # Bowel Movements 1 - Medications Active Medications: Active Medications Generic Name Dose Route Start Last Admin Trade Name Freq PRN Reason Stop Dose Admin Acetaminophen 650 mg 02/05/17 22:37 02/11/17 08:35 Tylenol 325mg Tab PO 650 mg Q4H PRN Administration Fever >100.4 F Artificial Tears 0 ml 02/06/17 10:45 02/15/17 09:30 Artificial Tears OU 1 drop BID TONEY Administration Ascorbic Acid 500 mg 02/06/17 10:00 02/15/17 09:36 Vitamin C 500 Mg Tab PO 500 mg DAILY TONEY Administration Docusate Sodium 200 mg 02/11/17 10:00 02/15/17 09:31 Colace PO Not Given DAILY TONEY Famotidine 20 mg 02/06/17 10:00 02/15/17 09:36 Pepcid PO 20 mg DAILY TONEY Administration Ferrous Sulfate 325 mg 02/06/17 10:00 02/15/17 09:36 Feosol PO 325 mg DAILY TONEY Administration Heparin Sodium (Porcine) 5,000 units 02/15/17 14:00 02/15/17 14:08 Heparin SC 5,000 units Q8 TONEY Administration Norepinephrine Bitartrate 4 mg 254 mls @ 15.24 mls/hr 02/09/17 13:23 09:21 / Sodium Chloride IV 3 mcg/min .[id number] PRN 11.43 mls/hr TITRATE PER MD ORDER Administration Protocol 4 MCG/MIN Colistimethate Sodium 150 mg/ 100 mls @ 200 mls/hr 02/13/17 21:15 02/13/17 22 :55 Sodium Chloride IV 200 mls/hr Q48H TONEY Administration Clindamycin Phosphate 300 mg/ 52 mls @ 100 mls/hr 02/13/17 22:00 02/15/17 14: 07 Sodium Chloride IVPB 100 mls/hr Q8H TONEY Administration Lorazepam 1 mg 02/10/17 09:42 02/11/17 23:25 Ativan IVP 1 mg Q2H PRN Administration Agitation Magnesium Hydroxide 30 ml 02/05/17 22:31 Milk Of Magnesia PO DAILY PRN Constipation Midodrine 5 mg 02/15/17 14:00 02/15/17 14:07 Proamatine PO 5 mg TID TONEY Administration Multivitamins 1 tab 02/06/17 10:45 02/15/17 09:36 Hexavitamin PO 1 tab DAILY TONEY Administration - Patient Studies Lab Studies: Microbiology Studies 02/10/17 21:19 Blood Culture - Preliminary Blood-Thru Central Line NO GROWTH AFTER 4 DAYS 02/10/17 21:19 Blood Culture - Preliminary Blood-Thru Central Line NO GROWTH AFTER 4 DAYS Lab Studies 02/15/17 02/15/17 02/15/17 Range/Units 06:09 06:09 05:31 WBC 7.7 (4.8-10.8) K/uL RBC 3.38 L (4.40-5.90) Mil/uL Hgb 9.6 L (12.0-18.0) g/dL Hct 29.2 L (35.0-51.0) % MCV 86.2 (80.0-94.0) fL MCH 28.3 (27.0-31.0) pg MCHC 32.8 L (33.0-37.0) g/dL RDW 15.2 H (11.5-14.5) % Plt Count 176 (130-400) K/uL MPV 8.1 (7.2-11.7) fL Neut % (Auto) 61.7 (50.0-75.0) % Lymph % (Auto) 22.8 (20.0-40.0) % Archer % (Auto) 8.7 (0.0-10.0) % Eos % (Auto) 5.5 H (0.0-4.0) % Baso % (Auto) 1.3 (0.0-2.0) % Neut # 4.7 (1.8-7.0) K/uL Lymph # 1.7 (1.0-4.3) K/uL Archer # 0.7 (0.0-0.8) K/uL Eos # 0.4 (0.0-0.7) K/uL Baso # 0.1 (0.0-0.2) K/uL Puncture Site Lr pCO2 27 L (35-45) mm/Hg pO2 83 (80-100) mm/Hg HCO3 19.5 L (21-28) mmol/L ABG pH 7.40 (7.35-7.45) ABG Total CO2 17.5 L (22-28) mmol/L ABG O2 Saturation 98.6 H (95-98) % ABG Base Excess -7.0 L (-2.0-3.0) mmol/L ABG Hemoglobin 9.6 L (11.7-17.4) g/dL ABG Carboxyhemoglobin 1.7 H (0.5-1.5) % POC ABG HHb (Measured) 1.4 (0.0-5.0) % ABG Methemoglobin 1.2 (0.0-3.0) % David Test Pos A-a O2 Difference 97.0 mm/Hg Respiratory Index 1.2 Hgb O2 Saturation 95.7 (95.0-98.0) % Mechanical Rate 18 FiO2 30.0 % Tidal Volume 500 PEEP 5 Sodium 147 (132-148) mmol/L Potassium 3.3 L (3.6-5.2) mmol/L Chloride 119 H (98-107) mmol/L Carbon Dioxide 15 L (22-30) mmol/L Anion Gap 16 (10-20) BUN 74 H (9-20) mg/dL Creatinine 3.6 H (0.8-1.5) MG/DL Est GFR ( Amer) 20 Est GFR (Non-Af Amer) 16 Random Glucose 81 (75-110) mg/dL Calcium 7.6 L (8.6-10.4) mg/dl Phosphorus 4.4 (2.5-4.5) mg/dL Magnesium 2.0 (1.6-2.3) mg/dL Total Bilirubin 0.8 (0.2-1.3) mg/dL AST 28 (17-59) U/L ALT 25 (21-72) U/L Alkaline Phosphatase 91 (38-126) U/L Total Protein 5.4 L (6.3-8.3) g/dL Albumin 2.1 L (3.5-5.0) g/dL Globulin 3.3 (2.2-3.9) gm/dL Albumin/Globulin Ratio 0.6 L (1.0-2.1) Laboratory Results - last 24 hr 02/15/17 02/15/17 02/15/17 05:31 06:09 06:09 WBC 7.7 RBC 3.38 L Hgb 9.6 L Hct 29.2 L MCV 86.2 MCH 28.3 MCHC 32.8 L RDW 15.2 H Plt Count 176 MPV 8.1 Neut % (Auto) 61.7 Lymph % (Auto) 22.8 Archer % (Auto) 8.7 Eos % (Auto) 5.5 H Baso % (Auto) 1.3 Neut # 4.7 Lymph # 1.7 Archer # 0.7 Eos # 0.4 Baso # 0.1 Puncture Site Lr pCO2 27 L pO2 83 HCO3 19.5 L ABG pH 7.40 ABG Total CO2 17.5 L ABG O2 Saturation 98.6 H ABG Base Excess -7.0 L ABG Hemoglobin 9.6 L ABG Carboxyhemoglobin 1.7 H POC ABG HHb (Measured) 1.4 ABG Methemoglobin 1.2 David Test Pos A-a O2 Difference 97.0 Respiratory Index 1.2 Hgb O2 Saturation 95.7 Mechanical Rate 18 FiO2 30.0 Tidal Volume 500 PEEP 5 Sodium 147 Potassium 3.3 L Chloride 119 H Carbon Dioxide 15 L Anion Gap 16 BUN 74 H Creatinine 3.6 H Est GFR ( Amer) 20 Est GFR (Non-Af Amer) 16 Random Glucose 81 Calcium 7.6 L Phosphorus 4.4 Magnesium 2.0 Total Bilirubin 0.8 AST 28 ALT 25 Alkaline Phosphatase 91 Total Protein 5.4 L Albumin 2.1 L Globulin 3.3 Albumin/Globulin Ratio 0.6 L Attending/Attestation - Attestation I have personally seen and examined this patient.: Yes I have fully participated in the care of the patient.: Yes I have reviewed all pertinent clinical information: Yes Notes (Text): 02/15/17 17:48 Today: January The Patient was seen and examined at the bedside, Medical records reviewed, all clinical/lab/hemodynamic/radiographic data were reviewed and management issues were discussed and formulated, Events reviewed Pain issues, skin care, head of the bed elevation, glycemic control were addressed. Agree with above treatment plans as transcribed in Dr. Aman graves
--- NOTE | 2017-02-15 20:06 | CP.PCM.PN ---
Subjective - Date & Time of Evaluation Date of Evaluation: 02/15/17 Time of Evaluation: 20:06 - Subjective Subjective: AFEBRILE, BP SYSTOLIC LOW ON VASOPRESSORS. ON VENTILATOR.MINIMALLY RESPONSIVE CLINICALLY UNCHANGED RENAL PARAMETRS ;CREAT 3.6/BUN 74 NONOLIGURIC RENAL FAILURE LABS REVIEWED. WBC 7.7 UR. PROTEIN 416.0 SLIGHT PROTEINUREA. 02/12/17 ;REPEAT URINE CULTURE -VE GROWTH 02/10/17 BLOOD CULTURE -VE TO DATE PE/ oN VENTILATOR LUNGS ; BASILAR RALES. CVS ; SINUS BRADYCARDIA HR 52/M. ABDOMEN ; SOFT BOWEL SOUNDS PRESENT SUPRAPUBIC CYSTOSTOMY. EXT; BILATERAL 1+ EDEMA. 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 SKIN ; DECUBITUS ULCERS UNCHANGED. PLAN CONTINUE iv COLISTIN 150 MG EVERY 48 HOURLY CONTINUE iv CLEOCIN 300 MG EVERY 8 HOURLY. lOCAL WOUND CARE PER WOUND CARE NURSE. PER INTENSIVE/RENAL-IV FLUIDS Objective - Vital Signs/Intake and Output Vital Signs (last 24 hours): Temp Pulse Resp BP Pulse Ox 97.4 F L 62 18 112/62 96 02/15/17 16:00 02/15/17 19:00 02/15/17 19:00 02/15/17 19:00 02/15/17 19:00 Intake and Output: 02/15/17 02/16/17 18:59 06:59 Intake Total 867.3 31.3 Output Total 880 75 Balance -12.7 -43.7 - Medications Medications: Current Medications Acetaminophen (Tylenol 325mg Tab) 650 mg PO Q4H PRN PRN Reason: Fever >100.4 F Last Admin: 02/11/17 08:35 Dose: 650 mg Artificial Tears (Artificial Tears) 0 ml OU BID [facility] Last Admin: 02/15/17 17:50 Dose: 1 drop Ascorbic Acid (Vitamin C 500 Mg Tab) 500 mg PO DAILY [facility] Last Admin: 02/15/17 09:36 Dose: 500 mg Docusate Sodium (Colace) 200 mg PO DAILY [facility] Last Admin: 02/15/17 09:31 Dose: Not Given Famotidine (Pepcid) 20 mg PO DAILY [facility] Last Admin: 02/15/17 09:36 Dose: 20 mg Ferrous Sulfate (Feosol) 325 mg PO DAILY [facility] Last Admin: 02/15/17 09:36 Dose: 325 mg Heparin Sodium (Porcine) (Heparin) 5,000 units SC Q8 [facility] Last Admin: 02/15/17 14:08 Dose: 5,000 units Norepinephrine Bitartrate 4 mg (/ Sodium Chloride) 254 mls @ 15.24 mls/hr IV .[id number] PRN; Protocol; 4 MCG/MIN PRN Reason: TITRATE PER MD ORDER Last Admin: 02/15/17 09:21 Dose: 3 mcg/min, 11.43 mls/hr Colistimethate Sodium 150 mg/ (Sodium Chloride) 100 mls @ 200 mls/hr IV Q48H [facility] Last Admin: 02/13/17 22:55 Dose: 200 mls/hr Clindamycin Phosphate 300 mg/ (Sodium Chloride) 52 mls @ 100 mls/hr IVPB Q8H [facility] Last Admin: 02/15/17 14:07 Dose: 100 mls/hr Lorazepam (Ativan) 1 mg IVP Q2H PRN PRN Reason: Agitation Last Admin: 02/11/17 23:25 Dose: 1 mg Magnesium Hydroxide (Milk Of Magnesia) 30 ml PO DAILY PRN PRN Reason: Constipation Midodrine (Proamatine) 5 mg PO TID [facility] Last Admin: 02/15/17 17:51 Dose: 5 mg Multivitamins (Hexavitamin) 1 tab PO DAILY [facility] Last Admin: 02/15/17 09:36 Dose: 1 tab - Labs Labs: 02/15/17 06:09 02/15/17 06:09 PT 13.0 SECONDS (9.7-12.2) H 02/09/17 06:04 INR 1.2 02/09/17 06:04 APTT 32 SECONDS (21-34) 02/09/17 06:04 Assessment and Plan (1) Acute respiratory failure with hypercapnia Status: Acute (2) Septic shock Status: Acute (3) Hypotension Status: Acute (4) Down's syndrome Status: Acute (5) UTI (urinary tract infection) Status: Acute (6) Decubitus skin ulcer Status: Acute (7) Acute renal failure Status: Acute
--- NOTE | 2017-02-15 22:53 | CP.PCM.PN ---
Subjective - Date & Time of Evaluation Date of Evaluation: 02/15/17 Time of Evaluation: 12:08 - Subjective Subjective: AFEBRILE, BP SYSTOLIC LOW ON VASOPRESSORS. ON VENTILATOR.MINIMALLY RESPONSIVE CLINICALLY UNCHANGED RENAL PARAMETRS ;CREAT 3.6/BUN 74 NONOLIGURIC RENAL FAILURE Objective - Vital Signs/Intake and Output Vital Signs (last 24 hours): Temp Pulse Resp BP Pulse Ox 97.4 F L 62 18 112/62 96 02/15/17 16:00 02/15/17 19:00 02/15/17 19:00 02/15/17 19:00 02/15/17 19:00 Intake and Output: 02/15/17 02/16/17 18:59 06:59 Intake Total 867.3 93.9 Output Total 880 215 Balance -12.7 -121.1 - Medications Medications: Current Medications Acetaminophen (Tylenol 325mg Tab) 650 mg PO Q4H PRN PRN Reason: Fever >100.4 F Last Admin: 02/11/17 08:35 Dose: 650 mg Artificial Tears (Artificial Tears) 0 ml OU BID [facility] Last Admin: 02/15/17 17:50 Dose: 1 drop Ascorbic Acid (Vitamin C 500 Mg Tab) 500 mg PO DAILY [facility] Last Admin: 02/15/17 09:36 Dose: 500 mg Docusate Sodium (Colace) 200 mg PO DAILY [facility] Last Admin: 02/15/17 09:31 Dose: Not Given Famotidine (Pepcid) 20 mg PO DAILY [facility] Last Admin: 02/15/17 09:36 Dose: 20 mg Ferrous Sulfate (Feosol) 325 mg PO DAILY [facility] Last Admin: 02/15/17 09:36 Dose: 325 mg Heparin Sodium (Porcine) (Heparin) 5,000 units SC Q8 [facility] Last Admin: 02/15/17 21:51 Dose: 5,000 units Norepinephrine Bitartrate 4 mg (/ Sodium Chloride) 254 mls @ 15.24 mls/hr IV .[id number] PRN; Protocol; 4 MCG/MIN PRN Reason: TITRATE PER MD ORDER Last Admin: 02/15/17 09:21 Dose: 3 mcg/min, 11.43 mls/hr Colistimethate Sodium 150 mg/ (Sodium Chloride) 100 mls @ 200 mls/hr IV Q48H [facility] Last Admin: 02/15/17 20:25 Dose: 200 mls/hr Clindamycin Phosphate 300 mg/ (Sodium Chloride) 52 mls @ 100 mls/hr IVPB Q8H [facility] Last Admin: 02/15/17 21:45 Dose: 100 mls/hr Lorazepam (Ativan) 1 mg IVP Q2H PRN PRN Reason: Agitation Last Admin: 02/11/17 23:25 Dose: 1 mg Magnesium Hydroxide (Milk Of Magnesia) 30 ml PO DAILY PRN PRN Reason: Constipation Midodrine (Proamatine) 5 mg PO TID [facility] Last Admin: 02/15/17 17:51 Dose: 5 mg Multivitamins (Hexavitamin) 1 tab PO DAILY [facility] Last Admin: 02/15/17 09:36 Dose: 1 tab - Labs Labs: 02/15/17 06:09 02/15/17 06:09 PT 13.0 SECONDS (9.7-12.2) H 02/09/17 06:04 INR 1.2 02/09/17 06:04 APTT 32 SECONDS (21-34) 02/09/17 06:04 - Constitutional Appears: In Acute Distress, Chronically Ill - Eye Exam Eye Exam: EOMI, Normal appearance, PERRL Pupil Exam: NORMAL ACCOMODATION, PERRL - Respiratory Exam Respiratory Exam: Chest Wall Tenderness, Decreased Breath Sounds, Rales - Cardiovascular Exam Cardiovascular Exam: REGULAR RHYTHM, +S1, +S2. absent: Murmur - GI/Abdominal Exam GI & Abdominal Exam: Soft, Normal Bowel Sounds. absent: Tenderness Assessment and Plan (1) Congestive heart failure Status: Acute (2) Down's syndrome Status: Acute (3) Dehydration Status: Acute
[2017-02-16] MEDS: Clindamycin 300 MG in Sodium Chloride 0.9% 50 ML IVPB SCH ×3 (05:25→22:18)
[2017-02-16] MEDS: Multiple Vitamins Tab PO SCH (10:16)
[2017-02-16] MEDS: Aritificial Tears (15ml) OU SCH ×2 (10:16→18:11)
[2017-02-16] MEDS: Albuterol-Ipratrop 3 mg / 0.5 (3 ml) UD INH SCH ×2 (13:43→19:23)
--- NOTE | 2017-02-16 14:54 | CP.CCUPN ---
<Chava Newton - Last Filed: 02/16/17 14:51> CCU Subjective - Physician Review Subjective (Free Text): 02/16/17 14:51 PGY-1 ICU progress note Pt seen and examined at bedside. No overnight events. Pt intubated. Critical Care Time Spent (in minutes): 35 CCU Objective - Vital Signs / Intake & Output Vital Signs (Last 4 hours): Vital Signs Temp Pulse Resp BP Pulse Ox 02/16/17 13:16 49 L 0 L 93/39 L 97 02/16/17 13:14 58 L 14 76/41 L 96 02/16/17 12:52 56 L 7 L 84/30 L 95 02/16/17 12:00 99.8 F H 02/16/17 11:52 63 6 L 90/39 L 95 02/16/17 11:13 66 7 L 82/32 L 94 L Intake and Output (Last 8hrs): Intake & Output 02/15/17 02/16/17 02/16/17 22:59 06:59 14:59 Intake Total 350.4 250.4 689.9 Output Total 585 570 665 Balance -234.6 -319.6 24.9 Intake: IV 340.8 Intake, IV Amount 90.4 90.4 109.1 Right Proximal Port 90.4 90.4 109.1 Tube Feeding 160 160 140 Other 100 100 Output: Urine 585 570 665 Suprapubic 585 570 665 - Physical Exam Head: Positive for: Atraumatic, Normocephalic Mouth: Positive for: Moist Mucous Membranes Respiratory/Chest: Positive for: Clear to Auscultation, Good Air Exchange, Other (Intubated) Cardiovascular: Positive for: Normal S1, S2 Abdomen: Positive for: Normal Bowel Sounds. Negative for: Distention Upper Extremity: Positive for: Neurovascularly Intact Lower Extremity: Positive for: Neurovascularly Intact Neurological: Positive for: Motor Func Grossly Intact Skin: Positive for: Warm, Dry Psychiatric: Positive for: Alert - Medications Active Medications: Active Medications Generic Name Dose Route Start Last Admin Trade Name Freq PRN Reason Stop Dose Admin Acetaminophen 650 mg 02/05/17 22:37 02/11/17 08:35 Tylenol 325mg Tab PO 650 mg Q4H PRN Administration Fever >100.4 F Albuterol/Ipratropium 3 ml 02/16/17 14:00 02/16/17 13:43 Duoneb 3 Mg/0.5 Mg (3 Ml) Ud INH 3 ml RQ6 TONEY Administration Artificial Tears 0 ml 02/06/17 10:45 02/16/17 10:16 Artificial Tears OU 1 drop BID TONEY Administration Ascorbic Acid 500 mg 02/06/17 10:00 02/16/17 10:16 Vitamin C 500 Mg Tab PO 500 mg DAILY TONEY Administration Famotidine 20 mg 02/06/17 10:00 02/16/17 10:16 Pepcid PO 20 mg DAILY TONEY Administration Ferrous Sulfate 325 mg 02/06/17 10:00 02/16/17 10:16 Feosol PO 325 mg DAILY TONEY Administration Heparin Sodium (Porcine) 5,000 units 02/15/17 14:00 02/16/17 14:12 Heparin SC 5,000 units Q8 TONEY Administration Norepinephrine Bitartrate 4 mg 254 mls @ 15.24 mls/hr 02/09/17 13:23 13:00 / Sodium Chloride IV 6.9 mcg/min .[id number] PRN 26.3 mls/hr TITRATE PER MD ORDER Titration Protocol 4 MCG/MIN Colistimethate Sodium 150 mg/ 100 mls @ 200 mls/hr 02/13/17 21:15 02/15/17 20 :25 Sodium Chloride IV 200 mls/hr Q48H TONEY Administration Clindamycin Phosphate 300 mg/ 52 mls @ 100 mls/hr 02/13/17 22:00 02/16/17 14: 12 Sodium Chloride IVPB 100 mls/hr Q8H TONEY Administration Lorazepam 1 mg 02/10/17 09:42 02/11/17 23:25 Ativan IVP 1 mg Q2H PRN Administration Agitation Magnesium Hydroxide 30 ml 02/05/17 22:31 Milk Of Magnesia PO DAILY PRN Constipation Midodrine 5 mg 02/15/17 14:00 02/16/17 14:12 Proamatine PO 5 mg TID TONEY Administration Multivitamins 1 tab 02/06/17 10:45 02/16/17 10:16 Hexavitamin PO 1 tab DAILY TONEY Administration - Patient Studies Lab Studies: Microbiology Studies 02/10/17 21:19 Blood Culture - Final Blood-Thru Central Line NO GROWTH AFTER 5 DAYS Gram Stain - Final TEST NOT PERFORMED 02/10/17 21:19 Blood Culture - Final Blood-Thru Central Line NO GROWTH AFTER 5 DAYS Gram Stain - Final TEST NOT PERFORMED Review of Systems - Review of Systems Systems not reviewed;Unavailable: Intubated Assessment/Plan - Assessment and Plan (Free Text) Assessment: This is a 81 yo M with hx of Down's Syndrome that has severe sepsis secondary to UTI, complicated by hyponatremia, OANH and acute on chronic CHF exacerbation. Pt is intubated now secondary to respiratory failure. Pt is DNR/DNI with POLST in the chart. Likely terminal extubate after discussing with family. Plan: Neuro: Awake, alert Cardiovascular: Hypotensive (systolic in low 60's at times), but stable. Levophed as necessary to maintain MAP > 65 Bradycardic in 40's while sleeping PICC line placed, continue Levophed drip, wean as tolerated Currently hemodynamically stable Pulmonary: Intubated Unable to tolerate CPAP Maintain saturations above 90% Serial ABG's CXR unremarkable Gastrointestinal: Tube feedings No acute issues Hematology: No issues Endocrine: No acute issues Renal: No new labs OANH stable with Cr ~3.5 - however, still has good urine output Nephro will sign off Genitourinary: Most recent urine culture negative Continue Clinda and Colistimethate Strict I/Os - has good urine output Infectious Disease: No leukocytosis Continue Abx Afebrile, continue to monitor GI Prophylaxis: Pepcid DVT Prophylaxis: Heparin <Chelsea,Juan F - Last Filed: 02/16/17 17:23> CCU Objective - Vital Signs / Intake & Output Vital Signs (Last 4 hours): Vital Signs Temp Pulse Resp BP Pulse Ox 02/16/17 16:00 97.6 F 02/16/17 15:52 62 6 L 108/37 L 98 02/16/17 14:52 67 10 L 124/42 L 99 02/16/17 13:53 61 11 L 106/42 L 99 Intake and Output (Last 8hrs): Intake & Output 02/16/17 02/16/17 02/16/17 06:59 14:59 22:59 Intake Total 250.4 896.2 112.6 Output Total 570 1065 Balance -319.6 -168.8 112.6 Intake: IV 340.8 Intake, IV Amount 90.4 185.4 52.6 Right PICC 50 Right Proximal Port 90.4 135.4 52.6 Tube Feeding 160 170 60 Other 200 Output: Urine 570 1065 Suprapubic 570 1065 - Medications Active Medications: Active Medications Generic Name Dose Route Start Last Admin Trade Name Freq PRN Reason Stop Dose Admin Acetaminophen 650 mg 02/05/17 22:37 02/11/17 08:35 Tylenol 325mg Tab PO 650 mg Q4H PRN Administration Fever >100.4 F Albuterol/Ipratropium 3 ml 02/16/17 14:00 02/16/17 13:43 Duoneb 3 Mg/0.5 Mg (3 Ml) Ud INH 3 ml RQ6 TONEY Administration Artificial Tears 0 ml 02/06/17 10:45 02/16/17 10:16 Artificial Tears OU 1 drop BID TONEY Administration Ascorbic Acid 500 mg 02/06/17 10:00 02/16/17 10:16 Vitamin C 500 Mg Tab PO 500 mg DAILY TONEY Administration Famotidine 20 mg 02/06/17 10:00 02/16/17 10:16 Pepcid PO 20 mg DAILY TONEY Administration Ferrous Sulfate 325 mg 02/06/17 10:00 02/16/17 10:16 Feosol PO 325 mg DAILY TONEY Administration Heparin Sodium (Porcine) 5,000 units 02/15/17 14:00 02/16/17 14:12 Heparin SC 5,000 units Q8 [facility]ONEY Administration Norepinephrine Bitartrate 4 mg 254 mls @ 15.24 mls/hr 02/09/17 13:23 13:00 / Sodium Chloride IV 6.9 mcg/min .[id number] PRN 26.3 mls/hr TITRATE PER MD ORDER Titration Protocol 4 MCG/MIN Colistimethate Sodium 150 mg/ 100 mls @ 200 mls/hr 02/13/17 21:15 02/15/17 20 :25 Sodium Chloride IV 200 mls/hr Q48H [facility] Administration Clindamycin Phosphate 300 mg/ 52 mls @ 100 mls/hr 02/13/17 22:00 02/16/17 14: 12 Sodium Chloride IVPB 100 mls/hr Q8H [facility]ONEY Administration Lorazepam 1 mg 02/10/17 09:42 02/11/17 23:25 Ativan IVP 1 mg Q2H PRN Administration Agitation Magnesium Hydroxide 30 ml 02/05/17 22:31 Milk Of Magnesia PO DAILY PRN Constipation Midodrine 5 mg 02/15/17 14:00 02/16/17 14:12 Proamatine PO 5 mg TID TONEY Administration Multivitamins 1 tab 02/06/17 10:45 02/16/17 10:16 Hexavitamin PO 1 tab DAILY TONEY Administration - Patient Studies Lab Studies: Microbiology Studies 02/10/17 21:19 Blood Culture - Final Blood-Thru Central Line NO GROWTH AFTER 5 DAYS Gram Stain - Final TEST NOT PERFORMED 02/10/17 21:19 Blood Culture - Final Blood-Thru Central Line NO GROWTH AFTER 5 DAYS Gram Stain - Final TEST NOT PERFORMED Attending/Attestation - Attestation I have personally seen and examined this patient.: Yes I have fully participated in the care of the patient.: Yes I have reviewed all pertinent clinical information: Yes Notes (Text): 02/16/17 17:23 Pt seen and examined on rounds with Dr. Newton and pt RN. All pertinent PN/labs/ meds/imaging reviewed personally and discussed with involved consultants. I agree with the assessment and plan as outlined above which reflects my direct input. awaiting family input and terminal wean Palliative care following intimately Prognosis poor Juan F Tran MD
--- NOTE | 2017-02-16 22:58 | CP.PCM.PN ---
Subjective - Date & Time of Evaluation Date of Evaluation: 02/16/17 Time of Evaluation: 07:37 - Subjective Subjective: Pt seen and examined at bedside. No overnight events. Pt intubated. Objective - Vital Signs/Intake and Output Vital Signs (last 24 hours): Temp Pulse Resp BP Pulse Ox 97 F L 68 18 89/44 L 98 02/16/17 20:00 02/16/17 21:00 02/16/17 21:00 02/16/17 20:52 02/16/17 21:00 Intake and Output: 02/16/17 02/17/17 18:59 06:59 Intake Total 1231.4 373.6 Output Total 1365 225 Balance -133.6 148.6 - Medications Medications: Current Medications Acetaminophen (Tylenol 325mg Tab) 650 mg PO Q4H PRN PRN Reason: Fever >100.4 F Last Admin: 02/11/17 08:35 Dose: 650 mg Albuterol/Ipratropium (Duoneb 3 Mg/0.5 Mg (3 Ml) Ud) 3 ml INH RQ6 [facility] Last Admin: 02/16/17 19:23 Dose: 3 ml Artificial Tears (Artificial Tears) 0 ml OU BID [facility] Last Admin: 02/16/17 18:11 Dose: 1 drop Ascorbic Acid (Vitamin C 500 Mg Tab) 500 mg PO DAILY [facility] Last Admin: 02/16/17 10:16 Dose: 500 mg Famotidine (Pepcid) 20 mg PO DAILY [facility] Last Admin: 02/16/17 10:16 Dose: 20 mg Ferrous Sulfate (Feosol) 325 mg PO DAILY [facility] Last Admin: 02/16/17 10:16 Dose: 325 mg Heparin Sodium (Porcine) (Heparin) 5,000 units SC Q8 [facility] Last Admin: 02/16/17 22:12 Dose: 5,000 units Norepinephrine Bitartrate 4 mg (/ Sodium Chloride) 254 mls @ 15.24 mls/hr IV .[id number] PRN; Protocol; 4 MCG/MIN PRN Reason: TITRATE PER MD ORDER Last Titration: 02/16/17 22:11 Dose: 10.83 mcg/min, 41.3 mls/hr Colistimethate Sodium 150 mg/ (Sodium Chloride) 100 mls @ 200 mls/hr IV Q48H [facility] Last Admin: 02/15/17 20:25 Dose: 200 mls/hr Clindamycin Phosphate 300 mg/ (Sodium Chloride) 52 mls @ 100 mls/hr IVPB Q8H [facility] Last Admin: 02/16/17 22:18 Dose: 100 mls/hr Lorazepam (Ativan) 1 mg IVP Q2H PRN PRN Reason: Agitation Last Admin: 02/11/17 23:25 Dose: 1 mg Magnesium Hydroxide (Milk Of Magnesia) 30 ml PO DAILY PRN PRN Reason: Constipation Midodrine (Proamatine) 5 mg PO TID [facility] Last Admin: 02/16/17 18:11 Dose: 5 mg Multivitamins (Hexavitamin) 1 tab PO DAILY [facility] Last Admin: 02/16/17 10:16 Dose: 1 tab - Labs Labs: 02/15/17 06:09 02/15/17 06:09 PT 13.0 SECONDS (9.7-12.2) H 02/09/17 06:04 INR 1.2 02/09/17 06:04 APTT 32 SECONDS (21-34) 02/09/17 06:04 - Constitutional Appears: No Acute Distress - Head Exam Head Exam: ATRAUMATIC, NORMAL INSPECTION, NORMOCEPHALIC - Eye Exam Eye Exam: EOMI, Normal appearance, PERRL Pupil Exam: NORMAL ACCOMODATION, PERRL - Respiratory Exam Respiratory Exam: Clear to Ausculation Bilateral, NORMAL BREATHING PATTERN - Cardiovascular Exam Cardiovascular Exam: REGULAR RHYTHM, +S1, +S2. absent: Murmur - GI/Abdominal Exam GI & Abdominal Exam: Soft, Normal Bowel Sounds. absent: Tenderness Assessment and Plan (1) Congestive heart failure Status: Acute (2) Down's syndrome Status: Acute (3) Dehydration Status: Acute
[2017-02-17] MEDS ORDERED: Acetaminophen 650mg/20.3ml solution UD PO PRN (00:45)
[2017-02-17] MEDS: Albuterol-Ipratrop 3 mg / 0.5 (3 ml) UD INH SCH ×4 (01:10→19:15)
[2017-02-17 04:33] LABS: ABG ALLEN TEST POS; ABG MECHANICAL RATE 18; ARTERIAL BLOOD HGB O2 SAT 97.2 % (95.0-98.0); ATERIAL BLOOD GAS PEEP 5; CARBOXYHEMOGLOBIN 2.1 % (0.5-1.5); DRAW SITE RR; HHB -0.6 % (0.0-5.0); METHEMOGLOBIN 1.3 % (0.0-3.0)
[2017-02-17] MEDS: Clindamycin 300 MG in Sodium Chloride 0.9% 50 ML IVPB SCH ×3 (06:40→21:30)
[2017-02-17 06:50] LABS: BASO # 0.1 K/uL (0.0-0.2); BASO % 0.9 % (0.0-2.0); EOS # 0.5 K/uL (0.0-0.7); EOS % 4.8 % (0.0-4.0); HEMATOCRIT 28.9 % (35.0-51.0); LYMPH # 2.5 K/uL (1.0-4.3); LYMPH % 23.4 % (20.0-40.0); MEAN CORPUSCULAR HGB CONC 32.6 g/dL (33.0-37.0); MEAN PLATELET VOLUME 7.9 fL (7.2-11.7); MONO # 0.7 K/uL (0.0-0.8); MONO % 6.5 % (0.0-10.0); RED CELL DISTRIBUTION WIDTH 15.4 % (11.5-14.5); WHITE BLOOD COUNT 10.8 K/uL (4.8-10.8)
[2017-02-17 07:02] LABS: POTASSIUM 3.3 mmol/L (3.6-5.2)
[2017-02-17 07:04] LABS: ALB/GLOB RATIO 0.6 (1.0-2.1); BILIRUBIN,TOTAL 0.7 mg/dL (0.2-1.3); TOTAL PROTEIN 5.7 g/dL (6.3-8.3)
[2017-02-17 07:05] LABS: CALCIUM 7.7 mg/dl (8.6-10.4); MAGNESIUM 2.2 mg/dL (1.6-2.3); PHOSPHOROUS 3.6 mg/dL (2.5-4.5)
[2017-02-17] MEDS: Multiple Vitamins Tab PO SCH (10:33)
[2017-02-17] MEDS: Aritificial Tears (15ml) OU SCH ×2 (10:34→17:04)
--- NOTE | 2017-02-17 11:46 | CP.CCUPN ---
CCU Subjective - Physician Review Subjective (Free Text): 02/17/17 11:43 no change since yesterday Afeb. remains on levophed for BP support. Gen: Sedated HEENT: JOYCE. ETT/NGT Neck: Supple COR: S1, S2, RRR, +RENETTA, no jvd Resp: coarse rhonchi b/l ABD: Soft, nt/nd, BS +ve Ext: no edema Neuro: sedated Meds / Labs / Imaging reviewed independently as noted below. A/P: 81M Downs syndrome with septic shock and MOSF. Unable to wean off pressors and vent. POLST form which clearly documents DNR/DNI status. d/w niece today. She states that she does not want to continue pt on current aggressive measures as documented in POLST. She will speak with Dr. Black and inform us of when to proceed with withdrawal of life sustaining treatments. overall prognosis is extremely poor and strongly support comfort measures await final family decision. Juan F Tran MD CCU Objective - Vital Signs / Intake & Output Vital Signs (Last 4 hours): Vital Signs Temp Pulse Resp BP Pulse Ox 02/17/17 09:00 61 18 95/47 L 100 02/17/17 08:00 98.5 F 57 L 18 99 02/17/17 07:54 107/49 L Intake and Output (Last 8hrs): Intake & Output 02/16/17 02/17/17 02/17/17 22:59 06:59 14:59 Intake Total 840.1 894.4 147.6 Output Total 650 440 60 Balance 190.1 454.4 87.6 Intake: IV 167.2 254 Intake, IV Amount 282.9 320.4 67.6 Right PICC 50 50 Right Proximal Port 232.9 270.4 67.6 Tube Feeding 290 320 80 Other 100 Output: Urine 650 440 60 Suprapubic 650 440 60 Other: # Bowel Movements 0 1 1 - Medications Active Medications: Active Medications Generic Name Dose Route Start Last Admin Trade Name Freq PRN Reason Stop Dose Admin Acetaminophen 650 mg 02/17/17 00:45 02/17/17 00:42 Tylenol 650mg/20.3ml Solution Ud PO 650 mg Q4H PRN Administration Fever >100.4 F Albuterol/Ipratropium 3 ml 02/16/17 14:00 02/17/17 08:00 Duoneb 3 Mg/0.5 Mg (3 Ml) Ud INH 3 ml RQ6 [facility]ONE[facility] Administration Artificial Tears 0 ml 02/06/17 10:45 02/17/17 10:34 Artificial Tears OU 1 drop BID TONEY Administration Ascorbic Acid 500 mg 02/06/17 10:00 02/17/17 10:33 Vitamin C 500 Mg Tab PO 500 mg DAILY TONEY Administration Famotidine 20 mg 02/06/17 10:00 02/17/17 10:33 Pepcid PO 20 mg DAILY TONEY Administration Ferrous Sulfate 325 mg 02/06/17 10:00 02/17/17 10:33 Feosol PO 325 mg DAILY [facility]ONEY Administration Heparin Sodium (Porcine) 5,000 units 02/15/17 14:00 02/17/17 06:40 Heparin SC 5,000 units Q8 [facility]ONE[facility] Administration Norepinephrine Bitartrate 4 mg 254 mls @ 15.24 mls/hr 02/09/17 13:23 04:36 / Sodium Chloride IV 8.87 mcg/min .[id number] PRN 33.8 mls/hr TITRATE PER MD ORDER Administration Protocol 4 MCG/MIN Colistimethate Sodium 150 mg/ 100 mls @ 200 mls/hr 02/13/17 21:15 02/15/17 20 :25 Sodium Chloride IV 200 mls/hr Q48H [facility] Administration Clindamycin Phosphate 300 mg/ 52 mls @ 100 mls/hr 02/13/17 22:00 02/17/17 06: 40 Sodium Chloride IVPB 100 mls/hr Q8H [facility] Administration Magnesium Hydroxide 30 ml 02/05/17 22:31 Milk Of Magnesia PO DAILY PRN Constipation Midodrine 5 mg 02/15/17 14:00 02/17/17 10:33 Proamatine PO 5 mg TID TONEY Administration Multivitamins 1 tab 02/06/17 10:45 02/17/17 10:33 Hexavitamin PO 1 tab DAILY [facility]ONEY Administration - Patient Studies Lab Studies: Lab Studies 02/17/17 02/17/17 02/17/17 Range/Units 06:48 06:48 04:20 WBC 10.8 (4.8-10.8) K/uL RBC 3.36 L (4.40-5.90) Mil/uL Hgb 9.4 L (12.0-18.0) g/dL Hct 28.9 L (35.0-51.0) % MCV 86.0 (80.0-94.0) fL MCH 28.0 (27.0-31.0) pg MCHC 32.6 L (33.0-37.0) g/dL RDW 15.4 H (11.5-14.5) % Plt Count 265 (130-400) K/uL MPV 7.9 (7.2-11.7) fL Neut % (Auto) 64.4 (50.0-75.0) % Lymph % (Auto) 23.4 (20.0-40.0) % Barnes % (Auto) 6.5 (0.0-10.0) % Eos % (Auto) 4.8 H (0.0-4.0) % Baso % (Auto) 0.9 (0.0-2.0) % Neut # 7.0 (1.8-7.0) K/uL Lymph # 2.5 (1.0-4.3) K/uL Barnes # 0.7 (0.0-0.8) K/uL Eos # 0.5 (0.0-0.7) K/uL Baso # 0.1 (0.0-0.2) K/uL Puncture Site Rr pCO2 19 L* (35-45) mm/Hg pO2 204 H (80-100) mm/Hg HCO3 17.0 L (21-28) mmol/L ABG pH 7.43 (7.35-7.45) ABG Total CO2 13.2 L (22-28) mmol/L ABG O2 Saturation 100.6 H (95-98) % ABG Base Excess -10.2 L (-2.0-3.0) mmol/L ABG Hemoglobin 8.6 L (11.7-17.4) g/dL ABG Carboxyhemoglobin 2.1 H (0.5-1.5) % POC ABG HHb (Measured) -0.6 L (0.0-5.0) % ABG Methemoglobin 1.3 (0.0-3.0) % David Test Pos A-a O2 Difference -14.0 mm/Hg Respiratory Index -0.1 Hgb O2 Saturation 97.2 (95.0-98.0) % Mechanical Rate 18 FiO2 30.0 % Tidal Volume 500 PEEP 5 Crit Value Called To Brunilda fall rn/icu Crit Value Called By Roger young/rt Crit Value Read Back Y Blood Gas Notified Time 435 Sodium 155 H (132-148) mmol/L Potassium 3.3 L (3.6-5.2) mmol/L Chloride 125 H (98-107) mmol/L Carbon Dioxide 17 L (22-30) mmol/L Anion Gap 16 (10-20) BUN 65 H (9-20) mg/dL Creatinine 4.4 H (0.8-1.5) MG/DL Est GFR ( Amer) 16 Est GFR (Non-Af Amer) 13 Random Glucose 165 H (75-110) mg/dL Calcium 7.7 L (8.6-10.4) mg/dl Phosphorus 3.6 (2.5-4.5) mg/dL Magnesium 2.2 (1.6-2.3) mg/dL Total Bilirubin 0.7 (0.2-1.3) mg/dL AST 19 (17-59) U/L ALT 16 L D (21-72) U/L Alkaline Phosphatase 109 (38-126) U/L Total Protein 5.7 L (6.3-8.3) g/dL Albumin 2.2 L (3.5-5.0) g/dL Globulin 3.5 (2.2-3.9) gm/dL Albumin/Globulin Ratio 0.6 L (1.0-2.1) Laboratory Results - last 24 hr 02/17/17 02/17/17 02/17/17 04:20 06:48 06:48 WBC 10.8 RBC 3.36 L Hgb 9.4 L Hct 28.9 L MCV 86.0 MCH 28.0 MCHC 32.6 L RDW 15.4 H Plt Count 265 MPV 7.9 Neut % (Auto) 64.4 Lymph % (Auto) 23.4 Barnes % (Auto) 6.5 Eos % (Auto) 4.8 H Baso % (Auto) 0.9 Neut # 7.0 Lymph # 2.5 Barnes # 0.7 Eos # 0.5 Baso # 0.1 Puncture Site Rr pCO2 19 L* pO2 204 H HCO3 17.0 L ABG pH 7.43 ABG Total CO2 13.2 L ABG O2 Saturation 100.6 H ABG Base Excess -10.2 L ABG Hemoglobin 8.6 L ABG Carboxyhemoglobin 2.1 H POC ABG HHb (Measured) -0.6 L ABG Methemoglobin 1.3 David Test Pos A-a O2 Difference -14.0 Respiratory Index -0.1 Hgb O2 Saturation 97.2 Mechanical Rate 18 FiO2 30.0 Tidal Volume 500 PEEP 5 Crit Value Called To Brunilda fall rn/icu Crit Value Called By Roger young/rt Crit Value Read Back Y Blood Gas Notified Time 435 Sodium 155 H Potassium 3.3 L Chloride 125 H Carbon Dioxide 17 L Anion Gap 16 BUN 65 H Creatinine 4.4 H Est GFR ( Amer) 16 Est GFR (Non-Af Amer) 13 Random Glucose 165 H Calcium 7.7 L Phosphorus 3.6 Magnesium 2.2 Total Bilirubin 0.7 AST 19 ALT 16 L D Alkaline Phosphatase 109 Total Protein 5.7 L Albumin 2.2 L Globulin 3.5 Albumin/Globulin Ratio 0.6 L Review of Systems - Review of Systems Systems not reviewed;Unavailable: Acuity of Condition
--- NOTE | 2017-02-17 13:10 | RAD ---
PROCEDURE: CHEST RADIOGRAPH, 1 VIEW Technique: Single view portable semi erect @ 07:20. HISTORY: intubated COMPARISON: 04/17/2017. FINDINGS: LUNGS: Clear. PLEURA: No pneumothorax or pleural fluid seen. CARDIOVASCULAR: No significant interval change compared to the prior examination(s). OSSEOUS STRUCTURES: No significant abnormalities. VISUALIZED UPPER ABDOMEN: Normal. OTHER FINDINGS: Stable, satisfactory position ventilatory, vascular and nasogastric apparatus. IMPRESSION: No significant interval change compared to the prior examination(s).
--- NOTE | 2017-02-17 13:38 | CP.PCM.PN ---
Subjective - Date & Time of Evaluation Date of Evaluation: 02/17/17 Time of Evaluation: 13:38 - Subjective Subjective: CHIEF COMPLAINTS TODAY : afebrile Remains on ventilator, unable to wean HYPOTENSIVE ON VASOPRESSORS. Niece at bedside ROS. on observation only. HEENT : N.on ventilator Resp : No cough, wheezing ,pleuritic CP ,or hemoptysis Cardio : No anginal CP, PND, orthopnea, palpitation GI : No abd.pain, n/v ,diarrhea or GI bleeding . 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 Musculoskel : No joint swelling , Derm : No rash Psych : Normal affect. Ext : No swelling ,calf pain PE. Pt. is in no distress. V.S As noted in the chart Head ,ear nose,throat and eyes : Normal. Neck : Supple with normal carotids. Lungs: . DIMINISHED BREATH SOUNDS Heart : S1 & S2 normal with S4. No murmur. Abd : Soft non tender with normal bowel sounds. Neuro : Moves all ext. with no localized deficit. Ext : +VE EDEMA LOWER EXTREMITIES with intact pulses.Non tender calves Derm : MULTIPLE decubitus ulcer./SACRUM/ANTERIOR VILLEDA. LABS/RADIOLOGY: BLOOD CULTURES 02/10 NEGATIVE FOR 5 DAYS REPEAT URINE CULTURE 02/12/17 -VE GROWTH CHEST X-RAY 02/17/17 NAD. wbc 10.8 cREATININE 4.4/bun 65. Objective - Vital Signs/Intake and Output Vital Signs (last 24 hours): Temp Pulse Resp BP Pulse Ox 98.9 F 56 L 18 110/42 L 96 02/17/17 12:00 02/17/17 13:00 02/17/17 13:00 02/17/17 12:52 02/17/17 13:00 Intake and Output: 02/17/17 02/17/17 06:59 18:59 Intake Total 1399.3 970.6 Output Total 790 660 Balance 609.3 310.6 - Medications Medications: Current Medications Acetaminophen (Tylenol 650mg/20.3ml Solution Ud) 650 mg PO Q4H PRN PRN Reason: Fever >100.4 F Last Admin: 02/17/17 00:42 Dose: 650 mg Albuterol/Ipratropium (Duoneb 3 Mg/0.5 Mg (3 Ml) Ud) 3 ml INH RQ6 [facility] Last Admin: 02/17/17 13:26 Dose: 3 ml Artificial Tears (Artificial Tears) 0 ml OU BID [facility] Last Admin: 02/17/17 10:34 Dose: 1 drop Ascorbic Acid (Vitamin C 500 Mg Tab) 500 mg PO DAILY [facility] Last Admin: 02/17/17 10:33 Dose: 500 mg Famotidine (Pepcid) 20 mg PO DAILY [facility] Last Admin: 02/17/17 10:33 Dose: 20 mg Ferrous Sulfate (Feosol) 325 mg PO DAILY [facility] Last Admin: 02/17/17 10:33 Dose: 325 mg Heparin Sodium (Porcine) (Heparin) 5,000 units SC Q8 [facility] Last Admin: 02/17/17 06:40 Dose: 5,000 units Norepinephrine Bitartrate 4 mg (/ Sodium Chloride) 254 mls @ 15.24 mls/hr IV .[id number] PRN; Protocol; 4 MCG/MIN PRN Reason: TITRATE PER MD ORDER Last Admin: 02/17/17 11:56 Dose: 8.87 mcg/min, 33.79 mls/hr Colistimethate Sodium 150 mg/ (Sodium Chloride) 100 mls @ 200 mls/hr IV Q48H [facility] Last Admin: 02/15/17 20:25 Dose: 200 mls/hr Clindamycin Phosphate 300 mg/ (Sodium Chloride) 52 mls @ 100 mls/hr IVPB Q8H [facility] Last Admin: 02/17/17 06:40 Dose: 100 mls/hr Magnesium Hydroxide (Milk Of Magnesia) 30 ml PO DAILY PRN PRN Reason: Constipation Midodrine (Proamatine) 5 mg PO TID [facility] Last Admin: 02/17/17 10:33 Dose: 5 mg Multivitamins (Hexavitamin) 1 tab PO DAILY [facility] Last Admin: 02/17/17 10:33 Dose: 1 tab - Labs Labs: 02/17/17 06:48 02/17/17 06:48 PT 13.0 SECONDS (9.7-12.2) H 02/09/17 06:04 INR 1.2 02/09/17 06:04 APTT 32 SECONDS (21-34) 02/09/17 06:04 Assessment and Plan (1) Acute respiratory failure with hypercapnia Status: Acute (2) Septic shock Status: Acute (3) Hypotension Status: Acute (4) Down's syndrome Status: Acute (5) UTI (urinary tract infection) Status: Acute (6) Decubitus skin ulcer Status: Acute (7) Acute renal failure Status: Acute - Assessment and Plan (Free Text) Plan: PLAN; CONTINUE iv COLISTIN 150 MG EVERY 48 HOURLY CONTINUE iv CLEOCIN 300 MG EVERY 8 HOURLY. lOCAL WOUND CARE PER WOUND CARE NURSE. PER INTENSIVE/RENAL-IV FLUIDS PT DNR/DNI PER NOTES. FAMILY TO DECIDE.
--- NOTE | 2017-02-17 23:32 | CP.PCM.PN ---
Subjective - Date & Time of Evaluation Date of Evaluation: 02/17/17 Time of Evaluation: 07:39 - Subjective Subjective: Pt seen and evaluated, pt condition is terminal and prognosis is poor, her neice at bedside wants to discontinue life support and pt is DNR/DNI Objective - Vital Signs/Intake and Output Vital Signs (last 24 hours): Temp Pulse Resp BP Pulse Ox 100.3 F H 72 18 109/43 L 100 02/17/17 16:00 02/17/17 23:00 02/17/17 23:00 02/17/17 22:53 02/17/17 23:00 Intake and Output: 02/17/17 02/18/17 18:59 06:59 Intake Total 1789.6 623.0 Output Total 1760 665 Balance 29.6 -42.0 - Medications Medications: Current Medications Acetaminophen (Tylenol 650mg/20.3ml Solution Ud) 650 mg PO Q4H PRN PRN Reason: Fever >100.4 F Last Admin: 02/17/17 00:42 Dose: 650 mg Albuterol/Ipratropium (Duoneb 3 Mg/0.5 Mg (3 Ml) Ud) 3 ml INH RQ6 [facility] Last Admin: 02/17/17 19:15 Dose: 3 ml Artificial Tears (Artificial Tears) 0 ml OU BID [facility] Last Admin: 02/17/17 17:04 Dose: 1 drop Ascorbic Acid (Vitamin C 500 Mg Tab) 500 mg PO DAILY [facility] Last Admin: 02/17/17 10:33 Dose: 500 mg Famotidine (Pepcid) 20 mg PO DAILY [facility] Last Admin: 02/17/17 10:33 Dose: 20 mg Ferrous Sulfate (Feosol) 325 mg PO DAILY [facility] Last Admin: 02/17/17 10:33 Dose: 325 mg Heparin Sodium (Porcine) (Heparin) 5,000 units SC Q8 [facility] Last Admin: 02/17/17 21:32 Dose: 5,000 units Colistimethate Sodium 150 mg/ (Sodium Chloride) 100 mls @ 200 mls/hr IV Q48H [facility] Last Admin: 02/17/17 21:29 Dose: 200 mls/hr Clindamycin Phosphate 300 mg/ (Sodium Chloride) 52 mls @ 100 mls/hr IVPB Q8H [facility] Last Admin: 05/27/17 21:30 Dose: 100 mls/hr Norepinephrine Bitartrate 4 mg (/ Dextrose) 254 mls @ 15.24 mls/hr IV .[id number] PRN; Protocol; 4 MCG/MIN PRN Reason: TITRATE PER MD ORDER Magnesium Hydroxide (Milk Of Magnesia) 30 ml PO DAILY PRN PRN Reason: Constipation Midodrine (Proamatine) 5 mg PO TID [facility] Last Admin: 02/17/17 17:04 Dose: 5 mg Multivitamins (Hexavitamin) 1 tab PO DAILY [facility] Last Admin: 02/17/17 10:33 Dose: 1 tab - Labs Labs: 02/17/17 06:48 02/17/17 06:48 PT 13.0 SECONDS (9.7-12.2) H 02/09/17 06:04 INR 1.2 02/09/17 06:04 APTT 32 SECONDS (21-34) 02/09/17 06:04 - Constitutional Appears: No Acute Distress - Head Exam Head Exam: ATRAUMATIC, NORMAL INSPECTION, NORMOCEPHALIC - Eye Exam Eye Exam: EOMI, Normal appearance, PERRL Pupil Exam: NORMAL ACCOMODATION, PERRL - Respiratory Exam Respiratory Exam: Decreased Breath Sounds, Rales, Rhonchi - Cardiovascular Exam Cardiovascular Exam: +S1, +S2 - GI/Abdominal Exam GI & Abdominal Exam: Hypoactive Bowel Sounds - Rectal Exam Rectal Exam: Deferred Assessment and Plan (1) Congestive heart failure Status: Acute (2) Down's syndrome Status: Acute (3) Dehydration Status: Acute
[2017-02-18 01:02] VITALS: TEMP 99
[2017-02-18] MEDS: Albuterol-Ipratrop 3 mg / 0.5 (3 ml) UD INH SCH ×3 (01:42→13:30)
[2017-02-18] MEDS: Clindamycin 300 MG in Sodium Chloride 0.9% 50 ML IVPB SCH ×2 (05:59→13:49)
[2017-02-18] MEDS: Multiple Vitamins Tab PO SCH (10:09)
[2017-02-18] MEDS: Aritificial Tears (15ml) OU SCH ×2 (10:09→18:49)
--- NOTE | 2017-02-18 10:56 | CP.CCUPN ---
CCU Subjective - Physician Review Subjective (Free Text): no change since yesterday Afeb. remains on levophed for BP support. Gen: Sedated HEENT: JOYCE. ETT/NGT Neck: Supple COR: S1, S2, RRR, +RENETTA, no jvd Resp: coarse rhonchi b/l ABD: Soft, nt/nd, BS +ve Ext: no edema Neuro: sedated Meds / Labs / Imaging reviewed independently as noted below. A/P: 81M Downs syndrome with septic shock and MOSF. Unable to wean off pressors and vent. POLST form which clearly documents DNR/DNI status. await final decision from family. overall prognosis is extremely poor and strongly support comfort measures Juan F Tran MD 02/18/17 10:54 CCU Objective - Vital Signs / Intake & Output Vital Signs (Last 4 hours): Vital Signs Pulse Resp BP Pulse Ox 02/18/17 09:00 72 16 97 02/18/17 08:44 71 13 85/39 L 98 02/18/17 08:00 72 10 L 100 02/18/17 07:42 68 10 L 101/23 L 99 02/18/17 06:57 73 14 80/46 L 91 L Intake and Output (Last 8hrs): Intake & Output 02/17/17 02/18/17 02/18/17 22:59 06:59 14:59 Intake Total 1044.4 714.2 73.8 Output Total 1265 1050 75 Balance -220.6 -335.8 -1.2 Intake: IV 254 Intake, IV Amount 270.4 354.2 33.8 Right PICC 50 Right Proximal Port 270.4 304.2 33.8 Tube Feeding 320 360 40 Other 200 Output: Urine 1265 1050 75 Suprapubic 1265 1050 75 Other: # Bowel Movements 1 1 - Medications Active Medications: Active Medications Generic Name Dose Route Start Last Admin Trade Name Freq PRN Reason Stop Dose Admin Acetaminophen 650 mg 02/17/17 00:45 02/17/17 00:42 Tylenol 650mg/20.3ml Solution Ud PO 650 mg Q4H PRN Administration Fever >100.4 F Albuterol/Ipratropium 3 ml 02/16/17 14:00 02/18/17 07:59 Duoneb 3 Mg/0.5 Mg (3 Ml) Ud INH 3 ml RQ6 [facility] Administration Artificial Tears 0 ml 02/06/17 10:45 02/18/17 10:09 Artificial Tears OU 1 drop BID [facility] Administration Ascorbic Acid 500 mg 02/06/17 10:00 02/18/17 10:09 Vitamin C 500 Mg Tab PO 500 mg DAILY [facility] Administration Famotidine 20 mg 02/06/17 10:00 02/18/17 10:09 Pepcid PO 20 mg DAILY [facility] Administration Ferrous Sulfate 325 mg 02/06/17 10:00 02/18/17 10:09 Feosol PO 325 mg DAILY [facility] Administration Heparin Sodium (Porcine) 5,000 units 02/15/17 14:00 02/17/17 21:32 Heparin SC 5,000 units Q8 [facility] Administration Colistimethate Sodium 150 mg/ 100 mls @ 200 mls/hr 02/13/17 21:15 02/17/17 21 :29 Sodium Chloride IV 200 mls/hr Q48H [facility] Administration Clindamycin Phosphate 300 mg/ 52 mls @ 100 mls/hr 02/13/17 22:00 02/18/17 05: 59 Sodium Chloride IVPB 100 mls/hr Q8H [facility] Administration Norepinephrine Bitartrate 4 mg 254 mls @ 15.24 mls/hr 02/17/17 22:45 03:22 / Dextrose IV 4 mcg/min .[id number] PRN 15.24 mls/hr TITRATE PER MD ORDER Administration Protocol 4 MCG/MIN Magnesium Hydroxide 30 ml 02/05/17 22:31 Milk Of Magnesia PO DAILY PRN Constipation Midodrine 5 mg 02/15/17 14:00 02/18/17 10:09 Proamatine PO 5 mg TID [facility] Administration Multivitamins 1 tab 02/06/17 10:45 02/18/17 10:09 Hexavitamin PO 1 tab DAILY [facility] Administration Review of Systems - Review of Systems Systems not reviewed;Unavailable: Acuity of Condition
--- NOTE | 2017-02-18 12:03 | CP.PCM.PN ---
Subjective - Date & Time of Evaluation Date of Evaluation: 02/18/17 Time of Evaluation: 07:40 - Subjective Subjective: PT IS TERMINALLY SICK, ON MV, PT FAMILY AGREES TO WEAN OFF , DNR, DNI Objective - Vital Signs/Intake and Output Vital Signs (last 24 hours): Temp Pulse Resp BP Pulse Ox 99 F 72 16 85/39 L 97 02/18/17 00:00 02/18/17 09:00 02/18/17 09:00 02/18/17 08:44 02/18/17 09:00 Intake and Output: 02/18/17 02/18/17 06:59 18:59 Intake Total 1263.4 73.8 Output Total 1615 75 Balance -351.6 -1.2 - Medications Medications: Current Medications Acetaminophen (Tylenol 650mg/20.3ml Solution Ud) 650 mg PO Q4H PRN PRN Reason: Fever >100.4 F Last Admin: 02/17/17 00:42 Dose: 650 mg Albuterol/Ipratropium (Duoneb 3 Mg/0.5 Mg (3 Ml) Ud) 3 ml INH RQ6 [facility] Last Admin: 02/18/17 07:59 Dose: 3 ml Artificial Tears (Artificial Tears) 0 ml OU BID [facility] Last Admin: 02/18/17 10:09 Dose: 1 drop Ascorbic Acid (Vitamin C 500 Mg Tab) 500 mg PO DAILY [facility] Last Admin: 02/18/17 10:09 Dose: 500 mg Famotidine (Pepcid) 20 mg PO DAILY [facility] Last Admin: 02/18/17 10:09 Dose: 20 mg Ferrous Sulfate (Feosol) 325 mg PO DAILY [facility] Last Admin: 02/18/17 10:09 Dose: 325 mg Heparin Sodium (Porcine) (Heparin) 5,000 units SC Q8 [facility] Last Admin: 02/17/17 21:32 Dose: 5,000 units Colistimethate Sodium 150 mg/ (Sodium Chloride) 100 mls @ 200 mls/hr IV Q48H [facility] Last Admin: 02/17/17 21:29 Dose: 200 mls/hr Clindamycin Phosphate 300 mg/ (Sodium Chloride) 52 mls @ 100 mls/hr IVPB Q8H [facility] Last Admin: 02/18/17 05:59 Dose: 100 mls/hr Norepinephrine Bitartrate 4 mg (/ Dextrose) 254 mls @ 15.24 mls/hr IV .[id number] PRN; Protocol; 4 MCG/MIN PRN Reason: TITRATE PER MD ORDER Last Admin: 02/18/17 03:22 Dose: 4 mcg/min, 15.24 mls/hr Magnesium Hydroxide (Milk Of Magnesia) 30 ml PO DAILY PRN PRN Reason: Constipation Midodrine (Proamatine) 5 mg PO TID [facility] Last Admin: 02/18/17 10:09 Dose: 5 mg Multivitamins (Hexavitamin) 1 tab PO DAILY [facility] Last Admin: 02/18/17 10:09 Dose: 1 tab - Labs Labs: 02/17/17 06:48 02/17/17 06:48 PT 13.0 SECONDS (9.7-12.2) H 02/09/17 06:04 INR 1.2 02/09/17 06:04 APTT 32 SECONDS (21-34) 02/09/17 06:04 - Constitutional Appears: Chronically Ill Assessment and Plan (1) Congestive heart failure Status: Acute (2) Down's syndrome Status: Acute (3) Dehydration Status: Acute
[2017-02-18 17:19] VITALS: BP 128/108
[2017-02-18 19:39] VITALS: RESP 18
[2017-02-18 20:10] VITALS: PULSE 66; O2SAT 93
--- NOTE | 2017-02-18 22:42 | CP.PCM.PRO ---
Pronouncement of Note - Clinical Findings Physical Exam: No Response Verbal/Painful Stimuli, Absent Peripheral Pulses{ Carotid & Femoral}, Absent Heart & Breath Sounds, No Pupillary Light Reflex, No Corneal Reflex, Pupils Fixed & Dilated, Absence of Vital Signs - Pronouncement Time Time of Pronouncement of : 20:48 - Notifications Pronouncement Notifications: Family Notified, Atending Notified Station Captain Notified: Yes - Autopsy Autopsy Requested: No - [place] [id number] Additional Comments: As per family request, patient was extubated at 8:30, all active measures was discontinued, received IV Morphine for comfort care
--- NOTE | 2017-03-02 21:39 | CARD ---
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
== END 2017-02-18 22:40 | DRG 870 ==
LOC: C.ER 21:11 → C.9E 22:28 → C.9I 02-06 06:19
PROVIDERS: ADMIT Internal Medicine; ATTEND Internal Medicine
PROC: 5A09357 Assistance with Respiratory Ventilation, Less than 24 Consecutive Hours, Continuous Positive Airway Pressure (ICD-10-PCS; principal; 2017-02-09)
PROC: 5A1955Z Respiratory Ventilation, Greater than 96 Consecutive Hours (ICD-10-PCS; 2017-02-09)
PROC: 0BH17EZ Insertion of Endotracheal Airway into Trachea, Via Natural or Artificial Opening (ICD-10-PCS; 2017-02-09)
PROC: 02HV33Z Insertion of Infusion Device into Superior Vena Cava, Percutaneous Approach (ICD-10-PCS; 2017-02-09)
PROC: B548ZZA Ultrasonography of Superior Vena Cava, Guidance (ICD-10-PCS; 2017-02-09)
DX: A41.9 Sepsis, unspecified organism (principal); J96.02 Acute respiratory failure with hypercapnia; R65.21 Severe sepsis with septic shock; N17.9 Acute kidney failure, unspecified; I13.0 Hypertensive heart and chronic kidney disease with heart failure and stage 1 through stage 4 chronic kidney disease, or unspecified chronic kidney disease; L89.319 Pressure ulcer of right buttock, unspecified stage; E87.2 Acidosis; I50.9 Heart failure, unspecified; N30.00 Acute cystitis without hematuria; E87.1 Hypo-osmolality and hyponatremia; J98.11 Atelectasis; N99.511 Cystostomy infection; L97.819 Non-pressure chronic ulcer of other part of right lower leg with unspecified severity; B95.61 Methicillin susceptible Staphylococcus aureus infection as the cause of diseases classified elsewhere; E86.0 Dehydration; Z16.12 Extended spectrum beta lactamase (ESBL) resistance; B95.2 Enterococcus as the cause of diseases classified elsewhere; B96.20 Unspecified Escherichia coli [E. coli] as the cause of diseases classified elsewhere; N18.9 Chronic kidney disease, unspecified; Q90.9 Down syndrome, unspecified; Z16.24 Resistance to multiple antibiotics; E78.00 Pure hypercholesterolemia, unspecified; Z93.50 Unspecified cystostomy status; Z66 Do not resuscitate; Z51.5 Encounter for palliative care; Z87.440 Personal history of urinary (tract) infections; E78.5 Hyperlipidemia, unspecified